=== PATIENT | female | born 1945 | race Caucasian/White ===

== ENCOUNTER 2016-10-21 11:54 | Inpatient (IN) | payer MEDICARE, OTHER ==
[2016-10-19 10:35] VITALS: BMI 25.8
[~2016-10-21 11:54] MED LIST: LACTATED RINGERS 1,000 ML IV SCH; Pre Op ABX Message 1 EACH MISC MISCELLANE ONE
[2016-10-21] MEDS ORDERED: BUPIVACAINE LIPOSOME/PF 1.3% 20 ML, SODIUM CHLORIDE 0.9% 10 ML MISCELLANE ONE ×2 (12:35)
[2016-10-21 12:43] LABS: Glucose,Whole Blood 103 mg/dL (75-99)
[2016-10-21] MEDS ORDERED: LIDOCAINE 1% 20 ML VIAL (10MG/ML) FOR IV START INTRADERMA ONE (12:44)
[2016-10-21] MEDS ORDERED: HYDROmorphone (PF) 1 MG/ML ONE (14:16)
[2016-10-21] MEDS ORDERED: ePHEDrine SULFATE/0.9% NACL/PF 50 MG/5 ML SYRINGE IV ONE (14:16)
[2016-10-21] MEDS ORDERED: LIDOCAINE 1% INJ 10MG/ML (20 ML MDV) ONE (14:16)
[2016-10-21] MEDS ORDERED: GLYCOPYRROLATE 0.2 MG/ML 2 ML VIAL ONE (14:16)
[2016-10-21] MEDS ORDERED: SUCCINYLCHOLINE CHLORIDE 100 MG/5 ML SYR IV ONE (14:16)
[2016-10-21] MEDS ORDERED: PHENYLEPHRINE-0.9% NACL SYG 1 MG/10 ML SYRINGE ONE (14:16)
[2016-10-21] MEDS ORDERED: NEOSTIGMINE 1 MG/ML 10 ML VIAL ONE (14:16)
[2016-10-21] MEDS ORDERED: ROCURONIUM BROMIDE 10 MG/ML 10 ML VIAL IV ONE (14:16)
[2016-10-21] MEDS ORDERED: MIDAZOLAM 2 MG/2 ML VIAL ONE (14:16)
[2016-10-21] MEDS ORDERED: fentaNYL (PF) 50 MCG/ML 2 ML AMP ONE (14:16)
[2016-10-21] MEDS ORDERED: PROPOFOL 10 MG/ML 20 ML VIAL IV ONE (14:16)
[2016-10-21] MEDS ORDERED: ceFAZolin 2 GM in SODIUM CHLORIDE 0.9% 100 ML IVPB ONE (14:38)
[2016-10-21] MEDS ORDERED: metroNIDAZOLE-NS PMX 500 MG in SALINE 1 100ML.BAG IVPB STA (14:38)
--- NOTE | 2016-10-21 15:14 | XR ---
EXAMINATION TYPE: XR chest 1V portable, XR abdomen 1V DATE OF EXAM: 10/21/2016 COMPARISON: NONE HISTORY: Concern for pneumoperitoneum. Status post colonoscopy. TECHNIQUE: Single frontal view of the chest is obtained. Single view of the abdomen was also obtained in upright position. FINDINGS: CHEST: There is a large degree of pneumoperitoneum. Endotracheal tube is located at the level aortic arch, appropriately placed approximately 3 cm from the frank. Bibasilar subsegmental atelectasis and trace left pleural effusion are noted. Cardia mediastinal silhouette is partially obscured but appea rs within normal limits. ABDOMEN: A large degree of pneumoperitoneum is demonstrated. Bowel gas pattern is nonobstructive. Deg enerative changes of the visualized thoracic spine are noted. Lower abdomen is not imaged. Findings were related to the ordering physician Dr. Reed in the OR at 1509 on 10/21/[address] Ree contreras. IMPRESSION: 1. Large degree of pneumoperitoneum. 2. Endotracheal tube, appropriately placed. 3. Bibasilar atelectasis and trace left pleural effusion.
[2016-10-21] MEDS ORDERED: BUPIVACAIN-EPI 0.25%-1:200,000 30 ML VIAL SQ ONE (15:19)
[2016-10-21] MEDS ORDERED: LACTATED RINGERS 1,000 ML IV ONE ×3 (15:22→18:02)
[2016-10-21] MEDS ORDERED: METOCLOPRAMIDE 5 MG/ML 2 ML VIAL IVP PRN (16:49)
--- NOTE | 2016-10-21 16:53 | P.OP ---
Date of Procedure: 10/21/16 Preoperative Diagnosis: Lower abdominal pain, bleeding and discomfort in the perirectal area Postoperative Diagnosis: Sigmoid colon perforation. Severe adhesions between sigmoid colon and fallopian tubes Procedure(s) Performed: Flexible sigmoidoscopy Diagnostic laparoscopy Repair of sigmoid colon perforation Implants: Anesthesia: JARRET Surgeon: Norma Reed Foam Caster #1: Rachel Strickland Pathology: none sent Condition: stable Disposition: PACU Indications for Procedure: 70 years old female presents with lower abdominal pain, rectal fullness and bleeding. Informed consent obtained and she elected to undergo colonoscopy and exam under anesthesia in the operating room. Operative Findings: The colonoscope was inserted up to 20 cm and opening was noticed with visualization of the pericolonic fat. The procedure was abandoned. Chest x- ray ordered stat and free intra-abdominal air seen which confirmed hollow viscus perforation. Since patient was already intubated, I discussed with her regarding immediate diagnostic laparoscopy, possible laparotomy with repair of colon perforation, possible ostomy and all indicated procedures Description of Procedure: The patient was brought to the operating room and intubated and placed in lateral decubitus position. Perianal examination showed friable perianal mucosa. Digital rectal examination did not show any gross blood. A well- lubricated colonoscope was then inserted per rectally and was gradually advanced up to 20 cm. There was no undue pressure applied however I could visualize pericolonic fat and hence concern for colon perforation. The procedure was aborted and chest x-ray was performed which confirmed free intra- abdominal air. The patient was then turned supine and placed in lithotomy position using yellowfin stirrups. A Mendoza catheter was inserted under sterile aseptic precautions. Cortex was used to prep the abdomen followed by application of sterile drapes. A 5 mm skin incision was made in the left subcostal area and Veress needle inserted. A 5 mm 30 scope was used to enter the peritoneal cavity. Additional 5 mm trocar was placed in the right lower quadrant. There were adhesions between sigmoid colon and anterior abdominal wall along the lines of prior hysterectomy. There was minimal amount of blood noted in the pelvis . The area of perforation could not be completely visualized hence decision was made to convert into open. A vertical midline incision was made from umbilicus up to the pubic symphysis this was extended deep to the subcutis tissue and the fascia was opened. A [place] retractor was placed. The lateral and anterior adhesions between the sigmoid colon and peritoneum was taken down using Bovie electrocautery. Just above the rectosigmoid junction there was extensive scarring between fallopian tube remnant and sigmoid colon. There was 1 cm perforation located anteriorly. This perforation was primarily closed in 2 layers using interrupted sutures of 3-0 silk. There was minimal contamination. The colon was clamped proximal to the closure. A repeat flexible sigmoidoscopy was performed. The repair site was intact and scope easily passed across it. Leak test was negative. The abdominal cavity was then washed with normal saline. The fascia was closed in midline using single stranded PDS. Subcutis tissue was closed with 3-0 Vicryl. Followed by 4-0 Monocryl. Pervena wound VAC was then applied. The prior trocar sites were closed with interrupted sutures of 4-0 Monocryl. Dermabond skin glue applied. Patient tolerated procedure well. The sponge, instrument and needle count were correct 2
[2016-10-21] MEDS ORDERED: HYDROmorphone 1 MG/ML 1 ML SYRINGE IVP ONE ×4 (17:18→17:37)
[2016-10-21 17:37] LABS: Glucose,Whole Blood 120 mg/dL (75-99)
[2016-10-21] MEDS: LACTATED RINGERS 1,000 ML IV SCH (21:26)
[2016-10-21] MEDS: ACETAMINOPHEN IV (For NPO) 1,000 MG in EMPTY BAG 1 BAG IVPB SCH (22:07)
[2016-10-21] MEDS: ALVIMOPAN 12 MG CAPSULE PO SCH (22:52)
[2016-10-21] MEDS: FAMOTIDINE 20 MG/2 ML VIAL IV SCH (22:52)
[2016-10-21] MEDS: HEPARIN SODIUM,PORCINE 5,000 UNIT/ML 1 ML VIAL SQ SCH (22:52)
[2016-10-21] MEDS: PIPERACILLIN-TAZOBACTAM 3.375 GM in DEXTROSE/WATER 1 50ML.BAG IVPB SCH (23:52)
[2016-10-22] MEDS: ACETAMINOPHEN IV (For NPO) 1,000 MG in EMPTY BAG 1 BAG IVPB SCH ×3 (00:03→13:03)
[2016-10-22] MEDS: LACTATED RINGERS 1,000 ML IV SCH ×3 (00:03→17:57)
[2016-10-22] MEDS: ONDANSETRON 4 MG/2 ML VIAL IVP PRN ×2 (00:10→21:20)
[2016-10-22] MEDS: HYDROmorphone 1 MG/ML 1 ML SYRINGE IVP PRN ×6 (04:42→20:18)
[2016-10-22 07:57] LABS: Basophils % (A) 0 %; CH 30.9; CHCM 33.4; Eosinophils # (A) 0.1 k/uL (0-0.7); Eosinophils % (A) 0 %; HDW 2.26; Luc % (Auto) 1; Lymphocytes # (A) 2.2 k/uL (1.0-4.8); Lymphocytes % (A) 13 %; MCH 30.3 pg (25.0-35.0); MCHC 32.6 g/dL (31.0-37.0); Monocytes # (A) 0.6 k/uL (0-1.0); Monocytes % (A) 3 %; Neutrophils # (A) 14.3 k/uL (1.3-7.7); Neutrophils % (A) 83 %; RBC 3.98 m/uL (3.80-5.40); RDW 14.2 % (11.5-15.5); WBC 17.3 k/uL (3.8-10.6)
[2016-10-22 08:05] LABS: Anion Gap 8 mmol/L; Blood Urea Nitrogen 8 mg/dL (7-17); Calcium 8.4 mg/dL (8.4-10.2); Carbon Dioxide 25 mmol/L (22-30); Chloride 102 mmol/L (98-107); Glucose 137 mg/dL (74-99); Non-African American GFR(MDRD) >60 (>60 ml/min/1.73 sqM); Potassium 3.9 mmol/L (3.5-5.1); Sodium 135 mmol/L (137-145)
[2016-10-22] MEDS: PIPERACILLIN-TAZOBACTAM 3.375 GM in DEXTROSE/WATER 1 50ML.BAG IVPB SCH ×3 (08:55→23:29)
[2016-10-22] MEDS: metFORMIN 500 MG TAB PO SCH ×2 (09:09→20:18)
[2016-10-22] MEDS: LEVOTHYROXINE 50 MCG TAB PO SCH (09:10)
[2016-10-22] MEDS: FAMOTIDINE 20 MG/2 ML VIAL IV SCH ×2 (09:11→20:38)
[2016-10-22] MEDS: HEPARIN SODIUM,PORCINE 5,000 UNIT/ML 1 ML VIAL SQ SCH ×3 (09:11→23:29)
[2016-10-22] MEDS: ALVIMOPAN 12 MG CAPSULE PO SCH ×2 (09:12→20:18)
[2016-10-22 09:14] LABS: Glucose,Whole Blood 215 mg/dL (75-99)
[2016-10-22 11:44] LABS: Hemoglobin A1C 7.6 % (4.2-6.1)
[2016-10-22 12:08] LABS: Glucose,Whole Blood 153 mg/dL (75-99)
--- NOTE | 2016-10-22 13:24 | P.CONS ---
History of Present Illness - Reason for Consult Consult date: 10/22/16 Medical management Requesting physician: Norma Reed - Chief Complaint Abdominal pain - History of Present Illness Consultation: This very pleasant 70-year-old patient of Dr. Lopez who's been having abdominal pain on and off for quite some time intermittent rectal pain eventually decided to come and see her PCP and had a scheduled colonoscopy by Dr. Reed yesterday. During the procedure patient was discovered to have a sigmoid perforation and patient landed up having surgery with repair of the same. Some pain is present at the operative site. Slight nausea. Patient chronic stable medical conditions include diabetes, hypertension, hypothyroid, osteoarthritis of the knees and elbow, GERD. GEN.: Tired EYES: None HEENT: Hard of hearing NECK: None RESPIRATORY: None CARDIOVASCULAR: None GASTROINTESTINAL: As above GENITOURINARY: None MUSCULOSKELETAL: As above LYMPHATICS: None HEMATOLOGICAL: None PSYCHIATRY: None NEUROLOGICAL: None Past medical history: Stroke with no residue up, and diabetes mellitus type 2, hypertension, hypothyroid, osteoarthritis of knees and elbows, GERD Past surgical history: Hysterectomy, left knee arthroscopy, ORIF of ankle with plate and screws, bilateral cataract Social history: Smokes half a pack a day for about 27 years stopping 2001, , alcohol none Family history: Reviewed, noncontributory to presentation Home medications reviewed in the computer ALLERGIES to nickel and rubber VITAL SIGNS: 97.4, 79, 18, 98/41, 96% 2 L GENERAL: [Average built, laying in bed, not in distress. EYES: Pupils equal. Conjunctiva normal. HEENT: External appearance of nose and ears normal, oral cavity grossly normal decreased hearing. NECK: JVD not raised; masses not palpable. HEART: First and second heart sounds are normal; no edema. LUNGS: Respiratory rate normal; clear to auscultation. ABDOMEN: Soft, tender, liver spleen not palpable, no masses palpable dressing over the incision site with a wound VAC. LYMPHATICS: No lymph nodes palpable in the axilla and neck. PSYCH: Alert and oriented x3; mood and affect normal. NEUROLOGICAL: Cranial nerves grossly intact; no facial asymmetry, power and sensation grossly intact. Investigations: White count 17.3, hemoglobin 12, potassium 3.9 X-ray of the abdomen and chest had shown large pneumoperitoneum and bibasilar atelectasis Assessment: -Sigmoid colon perforation with surgical repair acute -Diabetes mellitus type 2 on oral hypoglycemic -Essential hypertension -Hypothyroidism -Primary osteoarthritis of the knees -Chronic GERD -Hard of hearing Plan: Patient is on by mouth intake IV Pepcid and subcu heparin IV fluids in the form of lactated Ringer's also on IV Zosyn. Accu-Cheks will be followed. Care was discussed with the patient and her friend DD at the bedside questions were answered. Thank you Dr. Reed Past Medical History Past Medical History: CVA/TIA, Diabetes Mellitus, Hypertension, Thyroid Disorder Additional Past Medical History / Comment(s): Having some rectal bleeding, states cva over 20yrs ago, no residual effects History of Any Multi-Drug Resistant Organisms: None Reported Past Surgical History: Hysterectomy, Orthopedic Surgery Additional Past Surgical History / Comment(s): left knee arthroscopy, orif ankle with plate and screws now removed, uri cataracts Past Anesthesia/Blood Transfusion Reactions: No Reported Reaction Past Psychological History: No Psychological Hx Reported Smoking Status: Former smoker Past Alcohol Use History: None Reported Additional Past Alcohol Use History / Comment(s): quit smoking approx 2001, smoked 1/2 ppd from age [age] Past Drug Use History: None Reported - Past Family History Mother Family Medical History: No Reported History Medications and Allergies Home Medications Medication Instructions Recorded Confirmed Type Dulaglutide [Trulicity] 1.5 mg SQ MO 10/19/16 10/21/16 History Enalapril [Vasotec] 2.5 mg PO HS 10/19/16 10/21/16 History Levothyroxine Sodium [Synthroid] 50 mcg PO QAM 10/19/16 10/21/16 History metFORMIN HCL [Glucophage] 1,000 mg PO BID 10/19/16 10/21/16 History Allergies Allergy/AdvReac Type Severity Reaction Status Date / Time nickel Allergy Swelling/hi Verified 10/21/16 12:31 ves rubber Allergy Swelling Uncoded 10/21/16 12:31 Results CBC & Chem 7: 10/22/16 07:35 10/22/16 07:35
--- NOTE | 2016-10-22 14:20 | P.PN ---
Subjective 70-year-old female being seen on rounds this morning patient's pleasant talkative sitting up in bed. Wound VAC in place. Patient states since the Mendoza catheter has been removed has not urinated. No stool is not passing gas Patient is postop on October 21 diagnostic laparoscopic appendectomy and a repair of a sigmoid colon perforation. Patient presented on the day of admission to undergo an elective colonoscopy for workup of lower abdominal pain rectal bleeding and discomfort in the perirectal area Objective - Vital Signs Vital signs: Vital Signs Temp 97.4 F L 10/22/16 07:00 Pulse 79 10/22/16 07:00 Resp 18 10/22/16 07:00 BP 98/41 10/22/16 07:00 Pulse Ox 92 L 10/22/16 10:20 Intake & Output 10/21/16 10/22/16 10/22/16 18:59 06:59 18:59 Intake Total 3200 Output Total 790 800 Balance 2410 -800 Weight 72.575 kg Intake: IV 3200 Output: Urine 750 800 Estimated Blood Loss 40 Other: # Voids 1 - Exam Physical exam a 70-year-old female sitting up in bed visit at bedside talkative pleasant cooperative states no nausea and states pain medication is effective Lungs essentially clear adequate air movement on room air Heart S1-S2 audible and regular Abdomen was back to the surgical site dry soft not distended bowel tones present no reports of nausea vomiting no stool states is not passing gas Extremities Venodyne's on to the bilateral lower extremities - Labs CBC & Chem 7: 10/22/16 07:35 10/22/16 07:35 Labs: Abnormal Lab Results - Last 24 Hours (Table) 10/21/16 10/21/16 10/22/16 Range/Units 12:37 17:35 07:35 WBC 17.3 H (3.8-10.6) k/uL Neutrophils # 14.3 H (1.3-7.7) k/uL Sodium (137-145) mmol/L Glucose (74-99) mg/dL POC Glucose (mg/dL) 103 H 120 H (75-99) mg/dL 10/22/16 10/22/16 Range/Units 07:35 09:12 WBC (3.8-10.6) k/uL Neutrophils # (1.3-7.7) k/uL Sodium 135 L (137-145) mmol/L Glucose 137 H (74-99) mg/dL POC Glucose (mg/dL) 215 H (75-99) mg/dL Assessment and Plan Plan: Impression Present on admission chronic lower abdominal pain intermittent episodes of rectal bleeding with discomfort in the perirectal area suspect due to a sigmoid colon perforation Status post flexible sigmoidoscopy diagnostic laparoscopy and repair of a sigmoid colon perforation done on October 21 Attempted colonoscopy procedure aborted due to hollow vicus perforation Essential hypertension Plan increase activity Pain control Clear liquid diet advance as tolerated Continue postop surgical care continue wound VAC as ordered Anticipate discharge within the next 24 hours if patient remains medically stable DVT and GI prophylaxis The above impression and plan of care have been discussed and directed by signing physician. Talita Stone nurse practitioner acting as scribe for signing physician.
[2016-10-22] MEDS: HYDROcodone/APAP 5-325MG 1 EACH TAB PO PRN ×2 (15:14→18:36)
[2016-10-22 16:57] LABS: Glucose,Whole Blood 150 mg/dL (75-99)
[2016-10-22] MEDS: LISINOPRIL 5 MG TAB PO SCH (20:21)
[2016-10-22 21:00] LABS: Glucose,Whole Blood 200 mg/dL (75-99)
[2016-10-23] MEDS: LACTATED RINGERS 1,000 ML IV SCH ×3 (02:08→18:09)
[2016-10-23] MEDS: HYDROmorphone 1 MG/ML 1 ML SYRINGE IVP PRN ×2 (04:28→09:37)
[2016-10-23] MEDS: LEVOTHYROXINE 50 MCG TAB PO SCH (05:55)
[2016-10-23 07:25] LABS: Glucose,Whole Blood 126 mg/dL (75-99)
[2016-10-23] MEDS: PIPERACILLIN-TAZOBACTAM 3.375 GM in DEXTROSE/WATER 1 50ML.BAG IVPB SCH ×3 (08:42→23:48)
[2016-10-23] MEDS: HEPARIN SODIUM,PORCINE 5,000 UNIT/ML 1 ML VIAL SQ SCH ×3 (08:42→23:48)
[2016-10-23] MEDS: FAMOTIDINE 20 MG/2 ML VIAL IV SCH ×2 (08:42→21:57)
[2016-10-23] MEDS: metFORMIN 500 MG TAB PO SCH ×2 (08:42→21:57)
[2016-10-23] MEDS: ALVIMOPAN 12 MG CAPSULE PO SCH ×2 (08:43→21:57)
[2016-10-23 08:44] LABS: Basophils # (A) 0.1 k/uL (0-0.2); Basophils % (A) 0 %; CH 30.6; CHCM 32.3; Eosinophils # (A) 0.2 k/uL (0-0.7); Eosinophils % (A) 2 %; HCT 36.5 % (34.0-46.0); HGB 11.7 gm/dL (11.4-16.0); Luc # (Auto) 0.19; Luc % (Auto) 1; Lymphocytes # (A) 2.2 k/uL (1.0-4.8); Lymphocytes % (A) 15 %; MCH 30.5 pg (25.0-35.0); MCV 95.4 fL (80.0-100.0); Mean Platelet Volume 8.4; Monocytes # (A) 0.4 k/uL (0-1.0); Monocytes % (A) 3 %; Neutrophils # (A) 11.5 k/uL (1.3-7.7); Neutrophils % (A) 79 %; RBC 3.83 m/uL (3.80-5.40); RDW 14.1 % (11.5-15.5); WBC 14.5 k/uL (3.8-10.6)
[2016-10-23 09:10] LABS: ALT 109 U/L (9-52); AST 98 U/L (14-36); Alkaline Phosphatase 59 U/L (38-126); Anion Gap 7 mmol/L; Blood Urea Nitrogen 5 mg/dL (7-17); Calcium 8.5 mg/dL (8.4-10.2); Carbon Dioxide 28 mmol/L (22-30); Chloride 101 mmol/L (98-107); Glucose 122 mg/dL (74-99); Non-African American GFR(MDRD) >60 (>60 ml/min/1.73 sqM); Potassium 3.7 mmol/L (3.5-5.1); Sodium 136 mmol/L (137-145); Total Bilirubin 1.2 mg/dL (0.2-1.3); Total Protein 5.8 g/dL (6.3-8.2)
[2016-10-23] MEDS ORDERED: HYDROmorphone 1 MG/ML 1 ML SYRINGE IVP PRN (10:47)
--- NOTE | 2016-10-23 11:05 | P.PN ---
Subjective 70-year-old female being seen on rounds. Patient currently is resting in bed. Patient states has not passed any gas no stool. Does report urinating with no difficulty. Patient reportedly had an episode last evening of developing crampy sharp abdominal discomfort. Currently this morning the discomfort has subsided pain medication effective for pain control. White count this morning 14.5. Labs were reviewed all within normal limits patient is afebrile temp this morning 98.6. Patient needs much encouragement to use the incentive spirometer. Objective - Vital Signs Vital signs: Vital Signs Temp 98.6 F 10/23/16 07:00 Pulse 79 10/23/16 07:00 Resp 16 10/23/16 07:00 BP 129/69 10/23/16 07:00 Pulse Ox 98 10/23/16 07:00 Intake & Output 10/22/16 10/23/16 10/23/16 18:59 06:59 18:59 Other: Voiding Method Bedside Commode # Voids 1 3 - Exam Physical exam 70-year-old female resting in bed just received IV pain medication pleasant talkative oriented 3 Lungs essentially clear currently on room air after using the incentive spirometer pulse ox sat 95% no cough Heart S1-S2 audible and regular denying chest pain Abdomen abdominal binder removed wound VAC to surgical site intact dressing to abdominal surgical site dry. Soft not distended slight surgical tenderness bowel tones present 4 no nausea no vomiting Extremities no edema noted to the bilateral lower extremities - Labs CBC & Chem 7: 10/23/16 08:03 10/23/16 08:03 Labs: Abnormal Lab Results - Last 24 Hours (Table) 10/22/16 10/22/16 10/22/16 Range/Units 07:35 12:06 16:49 WBC (3.8-10.6) k/uL Neutrophils # (1.3-7.7) k/uL Sodium (137-145) mmol/L BUN (7-17) mg/dL Glucose (74-99) mg/dL POC Glucose (mg/dL) 153 H 150 H (75-99) mg/dL Hemoglobin A1c 7.6 H (4.2-6.1) % AST (14-36) U/L ALT (9-52) U/L Total Protein (6.3-8.2) g/dL Albumin (3.5-5.0) g/dL 10/22/16 10/23/16 10/23/16 Range/Units 20:46 07:22 08:03 WBC 14.5 H (3.8-10.6) k/uL Neutrophils # 11.5 H (1.3-7.7) k/uL Sodium (137-145) mmol/L BUN (7-17) mg/dL Glucose (74-99) mg/dL POC Glucose (mg/dL) 200 H 126 H (75-99) mg/dL Hemoglobin A1c (4.2-6.1) % AST (14-36) U/L ALT (9-52) U/L Total Protein (6.3-8.2) g/dL Albumin (3.5-5.0) g/dL 10/23/16 Range/Units 08:03 WBC (3.8-10.6) k/uL Neutrophils # (1.3-7.7) k/uL Sodium 136 L (137-145) mmol/L BUN 5 L (7-17) mg/dL Glucose 122 H (74-99) mg/dL POC Glucose (mg/dL) (75-99) mg/dL Hemoglobin A1c (4.2-6.1) % AST 98 H (14-36) U/L ALT 109 H (9-52) U/L Total Protein 5.8 L (6.3-8.2) g/dL Albumin 3.1 L (3.5-5.0) g/dL Assessment and Plan Plan: Impression Present on admission chronic lower abdominal pain intermittent episodes of rectal bleeding with discomfort in the perirectal area suspect due to a sigmoid colon perforation Status post flexible sigmoidoscopy diagnostic laparoscopy and repair of a sigmoid colon perforation done on October 21 Attempted colonoscopy procedure aborted due to hollow vicus perforation Essential hypertension Plan increase activity Pain control Clear liquid diet advance as tolerated Continue postop surgical care continue wound VAC as ordered Anticipate discharge once patient is passing gas rectally tolerating diet DVT and GI prophylaxis Encourage patient to ambulate in the hallway Toradol 15 mg IV every 6 hours [id number] Decrease IV dilaudid to every 6 hours when necessary severe pain encourage [place] as ordered Repeat labs in the morning The above impression and plan of care have been discussed and directed by signing physician. Talita Stone nurse practitioner acting as scribe for signing physician.
[2016-10-23] MEDS ORDERED: ACETAMINOPHEN IV (For NPO) 1,000 MG in EMPTY BAG 1 BAG IVPB ONE (11:15)
[2016-10-23 12:33] LABS: Glucose,Whole Blood 178 mg/dL (75-99)
[2016-10-23] MEDS: KETOROLAC 30 MG/ML 1 ML VIAL IVP SCH ×3 (12:58→19:32)
--- NOTE | 2016-10-23 17:15 | P.PN ---
<Margoth Bazzi - Last Filed: 10/23/16 17:02> Progress Note - Text DATE OF SERVICE: 10/23/2016 PRESENTING COMPLAINT: Abdominal and rectal pain. INTERVAL HISTORY: 70-year-old female who presented with intermittent rectal abdominal pain with scheduled for colonoscopy and during the course the procedure was discovered to have a sigmoid perforation, surgical intervention performed at that time. Status post sigmoid colon perforation repair diagnostic laparoscopy flexible sigmoidoscopy. 10/23/2016: Patient is seen in follow-up, postop day 2 from above listed procedure, patient sitting up in the chair does complain of some abdominal pain but it's "not bad" . On a full liquid diet tolerating it well, passing some gas. Wound VAC was removed by surgical services as it was malfunctioning. REVIEW OF SYSTEMS: Done for constitutional ,cardiovascular, GI, pulmonary with relevant findings as above. CURRENT MEDICATIONS [place], heparin, Dilaudid, Toradol, Synthroid, lisinopril, Zosyn. PHYSICAL EXAM VITAL SIGNS: Temperature 98.6, pulse 79, respiratory rate 16, blood pressure 129/69, oxygen saturation 98% on 3 L nasal cannula. GENERAL APPEARANCE: Sitting in the chair at the bedside, not in distress. EYES: Pupils equal. Conjunctiva normal. NECK: JVD not raised. Mass not palpable. RESPIRATORY: Respiratory effort normal. Lungs diminished to auscultation. CARDIOVASCULAR: First and second sounds normal. No edema. ABDOMEN: Soft. Liver and spleen not palpable. Tender to palpation midline incision covered with a dry dressing no drains noted. No mass palpable. PSYCHIATRY: Alert and oriented x3. Mood and affect normal. INVESTIGATIONS: White blood cell count 14.5, sodium 136, BUN 5, creatinine 0.55, Accu-Cheks noted. AST 98, ALT 109, alkaline phosphatase 59, albumin 3.1. ASSESSMENT: -Sigmoid colon perforation with surgical repair acute -Leukocytosis as an acute phase reactant secondary to surgery -Diabetes mellitus type 2 on oral hypoglycemic -Essential hypertension -Hypothyroidism -Primary osteoarthritis of the knees -Chronic GERD -Hard of hearing PLAN: Continue current medication and treatment plan, follow Accu-Cheks. Encourage incentive spirometry use and ambulation. Plan of care discussed with family and patient and friend at the bedside questions answered. We'll follow closely MAINTAINER OPERATOR statement: Patient was seen and examined by nurse practitioner Margoth Bazzi and all elements of the case discussed with attending Dr. Mendoza <Medardo Mendoza - Last Filed: 10/24/16 12:14> Progress Note - Text Attending note. Date of service-10/23/2016 This patient was seen and examined by me . Discussed the patient with my nurse practitioner Ms. Bazzi. Feeling better. Has been up in the hallway. On a liquid diet. Passed flatus. Wound VAC removed. Family at bedside On examination: Abdomen-tender, soft, bowel sounds present, dressing present, lungs-clear, cardiovascular first seconds are normal Investigations: White count 14.5 Assessment and plan: Sigmoid colon perforation with surgical repair, clinically healing better. Care discussed with patient and family the bedside. Diet to be advanced per surgery. On IV Zosyn
[2016-10-23 17:18] LABS: Glucose,Whole Blood 160 mg/dL (75-99)
[2016-10-23 21:18] LABS: Glucose,Whole Blood 145 mg/dL (75-99)
[2016-10-23] MEDS: LISINOPRIL 5 MG TAB PO SCH (21:56)
[2016-10-24] MEDS: LACTATED RINGERS 1,000 ML IV SCH ×2 (02:23→05:28)
[2016-10-24] MEDS: LEVOTHYROXINE 50 MCG TAB PO SCH (05:29)
[2016-10-24] MEDS: KETOROLAC 30 MG/ML 1 ML VIAL IVP SCH ×5 (06:01→21:48)
[2016-10-24 07:45] LABS: Glucose,Whole Blood 139 mg/dL (75-99)
[2016-10-24 07:49] LABS: Basophils % (A) 0 %; CH 30.7; CHCM 32.9; Eosinophils # (A) 0.4 k/uL (0-0.7); Eosinophils % (A) 5 %; HCT 35.8 % (34.0-46.0); HDW 2.39; HGB 11.7 gm/dL (11.4-16.0); Luc # (Auto) 0.16; Luc % (Auto) 2; Lymphocytes # (A) 1.3 k/uL (1.0-4.8); Lymphocytes % (A) 17 %; MCH 30.8 pg (25.0-35.0); MCHC 32.7 g/dL (31.0-37.0); Mean Platelet Volume 8.2; Monocytes # (A) 0.3 k/uL (0-1.0); Monocytes % (A) 4 %; Neutrophils # (A) 5.1 k/uL (1.3-7.7); Neutrophils % (A) 71 %; RDW 14.2 % (11.5-15.5); WBC 7.2 k/uL (3.8-10.6); WBC (Perox) 7.66
[2016-10-24 08:03] LABS: ALT 91 U/L (9-52); AST 45 U/L (14-36); Alkaline Phosphatase 62 U/L (38-126); Anion Gap 7 mmol/L; Blood Urea Nitrogen 4 mg/dL (7-17); Calcium 8.4 mg/dL (8.4-10.2); Carbon Dioxide 27 mmol/L (22-30); Chloride 106 mmol/L (98-107); Glucose 141 mg/dL (74-99); Non-African American GFR(MDRD) >60 (>60 ml/min/1.73 sqM); Potassium 3.6 mmol/L (3.5-5.1); Sodium 140 mmol/L (137-145); Total Protein 5.7 g/dL (6.3-8.2)
[2016-10-24] MEDS: metFORMIN 500 MG TAB PO SCH ×2 (08:14→21:48)
[2016-10-24] MEDS: HEPARIN SODIUM,PORCINE 5,000 UNIT/ML 1 ML VIAL SQ SCH ×3 (08:14→23:46)
[2016-10-24] MEDS: PIPERACILLIN-TAZOBACTAM 3.375 GM in DEXTROSE/WATER 1 50ML.BAG IVPB SCH ×3 (08:14→23:46)
[2016-10-24] MEDS: FAMOTIDINE 20 MG/2 ML VIAL IV SCH ×2 (08:14→21:48)
[2016-10-24] MEDS: ALVIMOPAN 12 MG CAPSULE PO SCH ×2 (08:14→21:48)
[2016-10-24 12:19] LABS: Glucose,Whole Blood 140 mg/dL (75-99)
--- NOTE | 2016-10-24 14:00 | P.PN ---
<Margoth Bazzi - Last Filed: 10/24/16 13:55> Progress Note - Text DATE OF SERVICE: 10/24/2016 PRESENTING COMPLAINT: Abdominal and rectal pain. INTERVAL HISTORY: 70-year-old female who presented with intermittent rectal abdominal pain with scheduled for colonoscopy and during the course the procedure was discovered to have a sigmoid perforation, surgical intervention performed at that time. Status post sigmoid colon perforation repair diagnostic laparoscopy flexible sigmoidoscopy. 10/24/2016: Patient seen in follow-up postop day 3 from above listed procedure, lying in bed and complains of some abdominal pain, continue on a full liquid diet patient inquired regarding advancement, per surgery. Has had several bowel movements in the last 24 hours. Ambulatory in the hallway tolerating the liquid diet. 10/23/2016: Patient is seen in follow-up, postop day 2 from above listed procedure, patient sitting up in the chair does complain of some abdominal pain but it's "not bad" . On a full liquid diet tolerating it well, passing some gas. Wound VAC was removed by surgical services as it was malfunctioning. REVIEW OF SYSTEMS: Done for constitutional ,cardiovascular, GI, pulmonary with relevant findings as above. CURRENT MEDICATIONS [place], heparin, Dilaudid, Toradol, Synthroid, lisinopril, Zosyn. PHYSICAL EXAM VITAL SIGNS: Temperature 97.2, pulse 80, respiratory rate 18, blood pressure 136/75, oxygen saturation 98% on room air. GENERAL APPEARANCE: Lying in bed, not in distress. EYES: Pupils equal. Conjunctiva normal. NECK: JVD not raised. Mass not palpable. RESPIRATORY: Respiratory effort normal. Lungs diminished to auscultation. CARDIOVASCULAR: First and second sounds normal. No edema. ABDOMEN: Soft. Liver and spleen not palpable. Tender to palpation midline incision covered with a dry dressing no drains noted. No mass palpable. PSYCHIATRY: Alert and oriented x3. Mood and affect normal. INVESTIGATIONS: CBC unremarkable, AST 45, ALT 91, total protein 5.7, albumin 3.0. Accu-Cheks noted. ASSESSMENT: -Sigmoid colon perforation with surgical repair acute, clinically feeling better. -Leukocytosis as an acute phase reactant secondary to surgery -Diabetes mellitus type 2 on oral hypoglycemic -Essential hypertension -Hypothyroidism -Primary osteoarthritis of the knees -Chronic GERD -Hard of hearing PLAN: Continue current medication and treatment plan, follow Accu-Cheks. Encourage incentive spirometry use and ambulation. Surgery will advance diet as appropriate. Plan of care discussed with family and patient and friend at the bedside questions answered. We'll follow closely GROMMET WORKER statement: Patient was seen and examined by nurse practitioner Margoth Bazzi and all elements of the case discussed with attending Dr. Mendoza <Medardo Mendoza - Last Filed: 10/24/16 16:16> Progress Note - Text Attending note. Date of service-10/24/2016 This patient was seen and examined by me . Discussed the patient with my nurse practitioner Ms. Bazzi. Feeling better. Tolerating full liquids. Had bowel movement couple of times. Up in the hallway. Pain better controlled. On examination: Lungs-clear, abdomen- soft mild tenderness both on present Investigations: White count 7.2 Assessment and plan: Status post repair of sigmoid colon: Perforation clinically improving. Doing better. Diet being advanced per surgery. Care discussed with the patient. On IV Zosyn. Will DC LR
--- NOTE | 2016-10-24 14:09 | P.PN ---
Subjective Principal diagnosis: Colon perforation 70 years old female status post sigmoid colon perforation repair. She is passing flatus and having bowel movements. Intermittent incisional pain. Tolerating full liquids Objective - Vital Signs Vital signs: Vital Signs Temp 97.2 F L 10/24/16 07:00 Pulse 80 10/24/16 07:00 Resp 19 10/24/16 08:00 BP 136/75 10/24/16 07:00 Pulse Ox 98 10/24/16 07:00 Intake & Output 10/23/16 10/24/16 10/24/16 18:59 06:59 18:59 Intake Total 880 700 Output Total 8 Balance 880 692 Weight 72.575 kg Intake: Oral 880 700 Output: Stool 8 Other: Voiding Method Bedside Commode # Voids 4 2 # Bowel Movements 0 4 - Exam Incision is clean dry and intact. Using IS up to 1500 mL per breath - Labs CBC & Chem 7: 10/24/16 07:34 10/24/16 07:34 Labs: Abnormal Lab Results - Last 24 Hours (Table) 10/23/16 10/23/16 10/24/16 Range/Units 17:17 21:00 07:13 BUN (7-17) mg/dL Glucose (74-99) mg/dL POC Glucose (mg/dL) 160 H 145 H 139 H (75-99) mg/dL AST (14-36) U/L ALT (9-52) U/L Total Protein (6.3-8.2) g/dL Albumin (3.5-5.0) g/dL 10/24/16 10/24/16 Range/Units 07:34 11:58 BUN 4 L (7-17) mg/dL Glucose 141 H (74-99) mg/dL POC Glucose (mg/dL) 140 H (75-99) mg/dL AST 45 H (14-36) U/L ALT 91 H (9-52) U/L Total Protein 5.7 L (6.3-8.2) g/dL Albumin 3.0 L (3.5-5.0) g/dL Assessment and Plan (1) Colon perforation Status: Acute Plan: 1. Advance to soft diet 2. Discharge planning in a.m. tomorrow 3. Use incentive spirometry. 4. Oral pain medications with stool softeners
[2016-10-24 17:14] LABS: Glucose,Whole Blood 103 mg/dL (75-99)
[2016-10-24] MEDS: LISINOPRIL 5 MG TAB PO SCH (21:48)
[2016-10-24 23:46] LABS: Glucose,Whole Blood 166 mg/dL (75-99)
[2016-10-25 00:14] VITALS: RESP 20
[2016-10-25] MEDS: LEVOTHYROXINE 50 MCG TAB PO SCH (05:34)
[2016-10-25] MEDS: KETOROLAC 30 MG/ML 1 ML VIAL IVP SCH ×2 (05:35→12:08)
[2016-10-25 06:07] VITALS: BP 149/82; PULSE 69; TEMP 99
[2016-10-25 07:30] LABS: Glucose,Whole Blood 128 mg/dL (75-99)
[2016-10-25] MEDS: PIPERACILLIN-TAZOBACTAM 3.375 GM in DEXTROSE/WATER 1 50ML.BAG IVPB SCH (07:39)
[2016-10-25 07:56] LABS: Basophils % (A) 0 %; CH 30.6; CHCM 32.6; Eosinophils # (A) 0.5 k/uL (0-0.7); Eosinophils % (A) 6 %; HCT 30.8 % (34.0-46.0); HDW 2.54; HGB 10.2 gm/dL (11.4-16.0); Luc # (Auto) 0.22; Luc % (Auto) 3; Lymphocytes # (A) 1.4 k/uL (1.0-4.8); Lymphocytes % (A) 17 %; MCH 31.1 pg (25.0-35.0); MCV 94.3 fL (80.0-100.0); Mean Platelet Volume 8.3; Monocytes # (A) 0.4 k/uL (0-1.0); Monocytes % (A) 5 %; Neutrophils # (A) 6.1 k/uL (1.3-7.7); Neutrophils % (A) 70 %; RBC 3.27 m/uL (3.80-5.40); RDW 14.2 % (11.5-15.5); WBC 8.7 k/uL (3.8-10.6)
[2016-10-25] MEDS: HEPARIN SODIUM,PORCINE 5,000 UNIT/ML 1 ML VIAL SQ SCH (08:09)
[2016-10-25 08:16] LABS: ALT 67 U/L (9-52); AST 27 U/L (14-36); Alkaline Phosphatase 59 U/L (38-126); Anion Gap 6 mmol/L; Blood Urea Nitrogen 4 mg/dL (7-17); Calcium 8.2 mg/dL (8.4-10.2); Carbon Dioxide 28 mmol/L (22-30); Chloride 107 mmol/L (98-107); Glucose 121 mg/dL (74-99); Non-African American GFR(MDRD) >60 (>60 ml/min/1.73 sqM); Potassium 3.5 mmol/L (3.5-5.1); Sodium 141 mmol/L (137-145); Total Bilirubin 0.5 mg/dL (0.2-1.3); Total Protein 5.1 g/dL (6.3-8.2)
[2016-10-25] MEDS: metFORMIN 500 MG TAB PO SCH (08:55)
[2016-10-25] MEDS: ALVIMOPAN 12 MG CAPSULE PO SCH (08:56)
[2016-10-25] MEDS: FAMOTIDINE 20 MG/2 ML VIAL IV SCH (08:56)
[2016-10-25 12:41] LABS: Glucose,Whole Blood 115 mg/dL (75-99)
--- NOTE | 2016-10-25 12:42 | P.DS ---
Providers Date of admission: 10/21/16 16:54 Expected date of discharge: 10/25/16 Attending physician: Norma Reed Consults: 10/21/16 16:55 Consult Physician Routine Consulting Provider: Medardo Mendoza Consult Reason/Comments: medical mangement Do you want consulting provider notified?: Yes Primary care physician: Miguel Lopez - Discharge Diagnosis(es) (1) Colon perforation Current Visit: Yes Status: Acute Hospital Course: 70 years old female presented with chronic lower abdominal pain with rectal bleeding and discomfort. Colonoscopy procedure was aborted secondary to perforation in the sigmoid colon. She was immediately taken for exploratory laparotomy with repair of the sigmoid colon perforation and lysis of adhesions. Patient since has done remarkably well. Pain is well controlled. She had bowel movement. She is tolerating regular diet. Using incentive spirometry only up to 1200 mL per breath. Procedures: Exploratory laparotomy, repair of sigmoid colon perforation and lysis of adhesions Patient Condition at Discharge: Fair Plan - Discharge Summary New Discharge Prescriptions: New Docusate [Colace] 100 mg PO BID #30 capsule HYDROcodone/APAP 7.5-325MG [[place] 7.5-325] 1 each PO Q4H PRN #20 tab PRN Reason: Pain No Action metFORMIN HCL [Glucophage] 1,000 mg PO BID Levothyroxine Sodium [Synthroid] 50 mcg PO QAM Enalapril [Vasotec] 2.5 mg PO HS Dulaglutide [Trulicity] 1.5 mg SQ MO Discharge Medication List Dulaglutide [Trulicity] 1.5 mg SQ MO 10/19/16 [History] Enalapril [Vasotec] 2.5 mg PO HS 10/19/16 [History] Levothyroxine Sodium [Synthroid] 50 mcg PO QAM 10/19/16 [History] metFORMIN HCL [Glucophage] 1,000 mg PO BID 10/19/16 [History] Docusate [Colace] 100 mg PO BID #30 capsule 10/24/16 [Rx] HYDROcodone/APAP 7.5-325MG [[place] 7.5-325] 1 each PO Q4H PRN #20 tab 10/24/16 [ Rx] Follow up Appointment(s)/Referral(s): Norma Reed MD [STAFF PHYSICIAN] - 11/03/16 Activity/Diet/Wound Care/Special Instructions: OK to shower . No soaking bath. No heavy lifting more than 10 lbs for 6 weeks post surgery. No driving while taking narcotics for pain. May use ice packs for local pain relief Take Motrin 400 mg po TID after meals if pain is not controlled Use incentive spirometry 10 times an hour while awake Discharge Disposition: HOME SELF-CARE
--- NOTE | 2016-10-25 18:15 | P.PN ---
<Margoth Bazzi - Last Filed: 10/25/16 18:06> Progress Note - Text DATE OF SERVICE: 10/25/2016 PRESENTING COMPLAINT: Abdominal and rectal pain. History of present illness: 70-year-old female who presented with intermittent rectal abdominal pain with scheduled for colonoscopy and during the course the procedure was discovered to have a sigmoid perforation, surgical intervention performed at that time. Status post sigmoid colon perforation repair diagnostic laparoscopy flexible sigmoidoscopy. INTERVAL HISTORY: 10/25/2016: Postop day 4 from above listed procedure, sitting up on the bed eating her breakfast, and continues on a soft diet still has some abdominal tenderness but is much improved. Tolerating her diet eating 75%, ambulatory in the hallways. Last BM 10/25/2016. Patient is anxious to go home. 10/24/2016: Patient seen in follow-up postop day 3 from above listed procedure, lying in bed and complains of some abdominal pain, continue on a full liquid diet patient inquired regarding advancement, per surgery. Has had several bowel movements in the last 24 hours. Ambulatory in the hallway tolerating the liquid diet. 10/23/2016: Patient is seen in follow-up, postop day 2 from above listed procedure, patient sitting up in the chair does complain of some abdominal pain but it's "not bad" . On a full liquid diet tolerating it well, passing some gas. Wound VAC was removed by surgical services as it was malfunctioning. REVIEW OF SYSTEMS: Done for constitutional ,cardiovascular, GI, pulmonary with relevant findings as above. CURRENT MEDICATIONS [place], Dilaudid, Toradol, Synthroid, lisinopril, Zosyn. PHYSICAL EXAM VITAL SIGNS: Temperature 99.0, pulse 69, respiratory rate 20, blood pressure 149/82, oxygen saturation 97% on 2 L. GENERAL APPEARANCE: Sitting up on the bed, not in distress. EYES: Pupils equal. Conjunctiva normal. NECK: JVD not raised. Mass not palpable. RESPIRATORY: Respiratory effort normal. Lungs diminished to auscultation. CARDIOVASCULAR: First and second sounds normal. No edema. ABDOMEN: Soft. Liver and spleen not palpable. Tender to palpation midline incision covered with a dry dressing no drains noted. No mass palpable. PSYCHIATRY: Alert and oriented x3. Mood and affect normal. INVESTIGATIONS: Hemoglobin 10.2, BUN 4, Accu-Cheks noted. ASSESSMENT: -Status post repair sigmoid colon clinically feeling better. -Leukocytosis as an acute phase reactant secondary to surgery -Diabetes mellitus type 2 on oral hypoglycemic -Essential hypertension -Hypothyroidism -Primary osteoarthritis of the knees -Chronic GERD -Hard of hearing PLAN: Continue current medication and treatment plan. Surgery advancing diet. Expecting to discharge home today per surgical services. Plan of care discussed with family and patient and friend at the bedside questions answered. CAR CHECKER statement: Patient was seen and examined by nurse practitioner Margoth Bazzi and all elements of the case discussed with attending Dr. Mendoza <Medardo Mendoza - Last Filed: 10/25/16 21:56> Progress Note - Text Attending note. Date of service-10/25/2016 This patient was seen and examined by me . Discussed the patient with my nurse practitioner Ms. Bazzi. Doing well. Up and about in the hallway. Had a bowel movement. Tolerating a diet. On examination: Abdomen soft with minimal tenderness. Lungs are clear Investigations: White count 8.7, hemoglobin 10.2 Assessment and plan: Status post sigmoid perforation repair. Doing well. Questions were answered. Patient okay to go home to follow with the family doctor next week Thank you Dr. Reed
== END 2016-10-25 15:02 | disposition home or self-care (01) | DRG 331 ==
LOC: OR 11:54 → 4MS4W 16:54
PROVIDERS: ADMIT Surgery; ATTEND Surgery
PROC: 0DJD8ZZ Inspection of Lower Intestinal Tract, Via Natural or Artificial Opening Endoscopic (ICD-10-PCS; 2016-10-21)
PROC: 0DQN0ZZ Repair Sigmoid Colon, Open Approach (ICD-10-PCS; principal; 2016-10-21 13:30)
PROC: 0DJD4ZZ Inspection of Lower Intestinal Tract, Percutaneous Endoscopic Approach (ICD-10-PCS; 2016-10-21 13:30)
DX: K63.1 Perforation of intestine (nontraumatic) (principal); E11.9 Type 2 diabetes mellitus without complications; I10 Essential (primary) hypertension; D72.829 Elevated white blood cell count, unspecified; E03.9 Hypothyroidism, unspecified; K66.0 Peritoneal adhesions (postprocedural) (postinfection); K62.3 Rectal prolapse; R11.0 Nausea; E78.5 Hyperlipidemia, unspecified; K21.9 Gastro-esophageal reflux disease without esophagitis; M19.021 Primary osteoarthritis, right elbow; M19.022 Primary osteoarthritis, left elbow; R53.83 Other fatigue; H91.90 Unspecified hearing loss, unspecified ear; M17.0 Bilateral primary osteoarthritis of knee; Z86.73 Personal history of transient ischemic attack (TIA), and cerebral infarction without residual deficits; Z79.84 Long term (current) use of oral hypoglycemic drugs; Z87.891 Personal history of nicotine dependence; Z87.81 Personal history of (healed) traumatic fracture; Z91.040 Latex allergy status; Z91.048 Other nonmedicinal substance allergy status; Z79.899 Other long term (current) drug therapy; Z71.3 Dietary counseling and surveillance; Z98.42 Cataract extraction status, left eye; Z98.41 Cataract extraction status, right eye; Z90.710 Acquired absence of both cervix and uterus; Z82.49 Family history of ischemic heart disease and other diseases of the circulatory system; Z53.8 Procedure and treatment not carried out for other reasons; Z53.31 Laparoscopic surgical procedure converted to open procedure
CPT/HCPCS: 45330; 71010; 74000; 80048; 80053; 83036; 85025; 86701; 86803; 87340

== ENCOUNTER → 2016-10-27 | Outpatient (CLI) | payer MEDICARE, OTHER ==
[2016-10-27 09:27] LABS: CH 30.8; CHCM 32.8; HCT 37.2 % (34.0-46.0); HDW 2.66; HGB 12.1 gm/dL (11.4-16.0); MCH 30.8 pg (25.0-35.0); MCHC 32.5 g/dL (31.0-37.0); MCV 94.8 fL (80.0-100.0); RBC 3.92 m/uL (3.80-5.40); RDW 14.7 % (11.5-15.5)
== END | disposition home or self-care (01) ==
LOC: LABWHC1 09:02
PROVIDERS: ATTEND Surgery
DX: D64.9 Anemia, unspecified (principal)
CPT/HCPCS: 36415; 85027

== ENCOUNTER → 2017-06-14 | Outpatient (CLI) | payer MEDICARE, OTHER ==
[2017-06-14 10:12] LABS: Blood Urea Nitrogen 16 mg/dL (7-17)
--- NOTE | 2017-06-14 12:18 | CT ---
EXAMINATION TYPE: CT abdomen pelvis w con DATE OF EXAM: 06/14/2017 COMPARISON: Abdomen 10/21/2016 HISTORY: LLQ pain, rectal bleeding CT DLP: 1520 mGycm Automated exposure control for dose reduction was used. TECHNIQUE: Helical acquisition of images from the lung bases through the pelvis have been completed. CONTRAST: Performed with Oral Contrast and with IV Contrast, patient injected with 100 mL of Isovue 300. FINDINGS: There may be a small hiatal hernia. The anterior incision in the infraumbilical location sh ows a focal hernia in its inferior aspect containing fat. LUNG BASES: No significant abnormality is appreciated. AORTA: No significant abnormality is appreciated. LIVER/GB: Liver shows low attenuation suggesting hepatic steatosis, some focal sparing suspected derrek cent to the gallbladder, gallbladder is normal PANCREAS: No significant abnormality is seen. SPLEEN: No significant abnormality is seen. ADRENALS: Right adrenal nodule shown low-attenuation measures approximately 16 mm, smaller 8 mm nodul e may be associated with the left adrenal gland. KIDNEYS: 5-6 mm nonobstructive calculus midpole right kidney. REPRODUCTIVE ORGANS: The patient is post hysterectomy, ovaries are remarkable for possible small cyst ic foci. BOWEL: The appendix is normal. No evident bowel obstruction. Some minimal diverticular changes scatt ered within the sigmoid colon, colon is not well distended in its entirety, difficult to exclude a mu cosal or annular lesion, axial image 36 shows questionable annular lesion although this could be lack of distention, if bowel surveillance has not been performed, it should be considered. . FREE AIR: No Free Air visible. ASCITES: None visible. PELVIC ADENOPATHY: None visualized. RETROPERITONEAL ADENOPATHY: No Retroperitoneal Adenopathy visible. URINARY BLADDER: No significant abnormality is seen. OSSEOUS STRUCTURES: Degenerative disc disease and facet arthropathy changes are seen. IMPRESSION: NONSPECIFIC FINDINGS DESCRIBED ABOVE. Consider bowel surveillance as described
== END | disposition home or self-care (01) ==
LOC: RADCTMAIN 09:37
PROVIDERS: ATTEND Family Medicine
DX: E27.8 Other specified disorders of adrenal gland (principal); N20.0 Calculus of kidney; Z90.710 Acquired absence of both cervix and uterus
CPT/HCPCS: 82565; 84520; 74177; 36415; Q9967

== ENCOUNTER → 2017-07-19 | Outpatient (CLI) | payer MEDICARE, OTHER ==
--- NOTE | 2017-07-19 16:13 | US ---
EXAMINATION TYPE: US thyroid st tissue head/neck DATE OF EXAM: 07/19/2017 COMPARISON: NONE CLINICAL HISTORY: 71-year-old female E04.1 thyroid nodule. MD feels nodule on right side, patient c/ o difficulty swallowing. Patient on Synthroid TECHNIQUE: Multiple sonographic images of the thyroid gland are obtained. FINDINGS: GLAND SIZE: Right Lobe: 4.0 x 1.6 x 1.3 cm Overall Parenchyma: heterogenous Left Lobe: 3.3 x 1.6 x 1.0 cm Overall Parenchyma: heterogeneous Isthmus Thickness: 0.2m No discrete nodule is seen. Bilateral neck scanned, no evidence of lymphadenopathy. IMPRESSION: No discrete nodule.
[2017-07-20 11:38] LABS: Hazelnut IgE <0.35 kU/L (<0.35); Hazelnut IgE Class CLASS 0; Kiwi IgE <0.35 kU/L (<0.35)
[2017-07-21 17:27] LABS: Tea IgG 3.5 mcg/mL (<2.0)
== END | disposition home or self-care (01) ==
LOC: RADUSWWP 13:42
PROVIDERS: ATTEND Otolaryngology
DX: E04.1 Nontoxic single thyroid nodule (principal); J30.89 Other allergic rhinitis
CPT/HCPCS: 36415; 76536; 86001; 86003

== ENCOUNTER → 2017-07-27 | Outpatient (CLI) | payer MEDICARE, OTHER ==
--- NOTE | 2017-07-27 08:49 | FL ---
EXAMINATION TYPE: FL barium swallow DATE OF EXAM: 07/27/2017 CLINICAL HISTORY: Dysphagia, history of hiatal hernia TECHNIQUE: A double contrast esophagram is performed utilizing air and barium. A total of 59 second s of fluoroscopic time was utilized during procedure. 36 spot images are saved to PACS station for re view. COMPARISON: None FINDINGS: The esophagus shows satisfactory motility and emptying into the stomach during upright drin josse. Some dysmotility is noted during prone drinking through a straw. No evidence of fixed hiatal he rnia or stricture noted. No diverticulum or intraluminal mass seen. No significant gastroesophageal r eflux was seen during real time performance of this study. Patient did have episode of aspiration dur ing real-time rapid drinking which cleared when patient instructed to cough. This is felt due to rapi d drinking and did not recur on single sips. IMPRESSION: No significant abnormality is seen to account for patient's symptoms.
== END | disposition home or self-care (01) ==
LOC: RADFLMAIN 07:37
PROVIDERS: ATTEND Otolaryngology
DX: R13.10 Dysphagia, unspecified (principal)
CPT/HCPCS: 74220

== ENCOUNTER → 2017-12-16 | Outpatient (CLI) | payer MEDICARE, OTHER ==
--- NOTE | 2017-12-16 14:29 | XR ---
EXAMINATION TYPE: XR chest 2V DATE OF EXAM: 12/16/2017 COMPARISON: 10/21/2016 HISTORY: 72 year-old female shortness of breath TECHNIQUE: Frontal and lateral views FINDINGS: Heart normal size. Atherosclerotic arch calcifications. Mild interstitial prominence is unchanged and chronic. No consolidation or pleural effusion. IMPRESSION: No acute cardiopulmonary process.
== END | disposition home or self-care (01) ==
LOC: RADXRMAIN 11:34
PROVIDERS: ATTEND Family Medicine
DX: R06.02 Shortness of breath (principal)
CPT/HCPCS: 71046

== ENCOUNTER 2017-12-27 06:18 | Day surgery (SDC) | payer MEDICARE, OTHER ==
[2017-12-17 15:27] VITALS: BMI 27.4
[~2017-12-27 06:18] MED LIST changes: +DEXAMETHASONE SOD PHOSPHATE 10 MG/ML 1 ML VIAL IV ONE; +HYDROmorphone 0.5 MG/0.5 ML SYRINGE IVP PRN; -LACTATED RINGERS 1,000 ML IV SCH; +MIDAZOLAM 2 MG/2 ML VIAL IV PRN; +ONDANSETRON 4 MG/2 ML VIAL IVP ONE; +SCOPOLAMINE 1.5MG/72HR PATCH TRANSDERM ONE
[2017-12-27] MEDS ORDERED: NA PHOS,M-B/NA PHOS,DI-BA 133 ML ENEMA RECTAL STA (06:27)
[2017-12-27] MEDS ORDERED: ceFAZolin IN SWFI 2 GM/20 ML SYRINGE IVP STA (06:27)
--- NOTE | 2017-12-27 06:29 | P.GSHP ---
History of Present Illness H&P Date: 12/27/17 CHIEF COMPLAINT: Symptomatic hemorrhoids and rectal bleeding HISTORY OF PRESENT ILLNESS: The patient is a 72-year-old female who presents with symptomatic hemorrhoids and rectal bleeding. She now presents for definitive surgical intervention. PAST MEDICAL HISTORY: Please see list. PAST SURGICAL HISTORY: Please see list. MEDICATIONS: Please see list. ALLERGIES: Please see list. SOCIAL HISTORY: No illicit drug use FAMILY HISTORY: No reports of Crohn disease or ulcerative colitis. REVIEW OF ORGAN SYSTEMS: CONSTITUTIONAL: No reports of fevers or chills. PHYSICAL EXAM: VITAL SIGNS: Stable GENERAL: Well-developed pleasant in no acute distress. HEENT: No scleral icterus. Extraocular movements grossly intact. Moist buccal mucosa. NECK: Supple without lymphadenopathy. CHEST: Unlabored respirations. Equal bilateral excursions. CARDIOVASCULAR: Regular rate and rhythm. Distal 2+ pulses. ABDOMEN: Soft, nontender, nondistended. MUSCULOSKELETAL: No clubbing, cyanosis, or edema. RECTUM: Grade 3 external hemorrhoids with desquamation along the anal canal and perineum. ASSESSMENT: 1. Symptomatic hemorrhoids, grade 3. PLAN: 1. Recommend proceeding hemorrhoidectomy Past Medical History Past Medical History: CVA/TIA, Diabetes Mellitus, Hypertension, Thyroid Disorder Additional Past Medical History / Comment(s): states cva over 20yrs ago, no residual effects - has some rectal bleeding d/t hemorrhoids, SOB History of Any Multi-Drug Resistant Organisms: None Reported Past Surgical History: Hysterectomy, Orthopedic Surgery Additional Past Surgical History / Comment(s): left knee arthroscopy, orif ankle with plate and screws now removed, uri cataracts Bowel repair after perforation during a colonoscopy. Past Anesthesia/Blood Transfusion Reactions: No Reported Reaction Smoking Status: Former smoker - Past Family History Mother Family Medical History: No Reported History Medications and Allergies Home Medications Medication Instructions Recorded Confirmed Type Enalapril [Vasotec] 2.5 mg PO HS 10/19/16 12/17/17 History Levothyroxine Sodium [Synthroid] 50 mcg PO QAM 10/19/16 12/17/17 History Insulin Degludec [Tresiba 20 unit SQ HS 12/17/17 12/17/17 History Flextouch U-100] Allergies Allergy/AdvReac Type Severity Reaction Status Date / Time nickel Allergy Swelling/hi Verified 10/21/16 12:31 ves Latex, Natural Rubber AdvReac sneezing Verified 12/17/17 15:31 and sinus get stuffy rubber Allergy Swelling Uncoded 10/21/16 12:31
[2017-12-27 06:47] VITALS: TEMP 98
[2017-12-27 07:04] LABS: Glucose,Whole Blood 159 mg/dL (75-99)
[2017-12-27] MEDS: LACTATED RINGERS 1,000 ML IV SCH ×2 (07:04→07:37)
[2017-12-27] MEDS ORDERED: LIDOCAINE 1% 20 ML VIAL (10MG/ML) FOR IV START INTRADERMA ONE (07:04)
[2017-12-27] MEDS ORDERED: PROPOFOL 10 MG/ML 20 ML VIAL IV ONE (07:37)
[2017-12-27] MEDS ORDERED: fentaNYL (PF) 50 MCG/ML 2 ML AMP ONE (07:37)
[2017-12-27] MEDS ORDERED: MIDAZOLAM 2 MG/2 ML VIAL ONE (07:37)
[2017-12-27] MEDS ORDERED: BUPIVACAINE LIPOSOME/PF 1.3% 20 ML, SODIUM CHLORIDE 0.9% 10 ML MISCELLANE STA ×2 (07:44)
--- NOTE | 2017-12-27 08:22 | P.OP ---
Date of Procedure: 12/27/17 Description of Procedure: SURGEON: ZAK PÉREZ MD REGULATORY LEADER: NONE. PREOPERATIVE DIAGNOSES: 1. History of complicated internal hemorrhoids, grade 4. 2. History of complicated external hemorrhoids, grade 4. 3. History of rectal bleeding. POSTOPERATIVE DIAGNOSES: 1. History of complicated internal hemorrhoids, grade 4. 2. History of complicated external hemorrhoids, grade 4. 3. History of rectal bleeding. OPERATION: 1. Excision of internal and external hemorrhoids x 3 using LigaSure. ANESTHESIA: MAC with Exparel mixture. ESTIMATED BLOOD LOSS: 3 mL. PATHOLOGY: 1. Internal, external hemorrhoidal complex x 3. FINDINGS: 1. Grade 4 internal/external hemorrhoidal cushion 3 excised. 2. No anal stricture upon excision of hemorrhoidal complexes. INDICATIONS: The patient is a 72-year-old female who presents with rectal bleeding including complicated internal/external hemorrhoids. She completed a colonoscopy. Surgical intervention was described for hemorrhoidectomy. Benefits and risks of the procedure, including bleeding, infection, incontinence, recurrent pain and recurrence of the hemorrhoids were discussed in detail. Informed consent was obtained. DESCRIPTION: Patient was brought to the operating room. After spinal anesthetic and IV sedation, she was then repositioned the prone jackknife position. Next, the perineum and buttocks was spread apart using Mastisol. The perineum was then prepped and draped in standard sterile fashion using Betadine. Preoperative medication was confirmed. Prior to incision, a timeout protocol was confirmed with surgical team. Initially 2 fingers was easily inserted for dilation of the anus. A perineal block using Exparel was placed. Grade 4 hemorrhoids along all 3 quadrants were identified. Next, using a Hill-Chen anoscope, each hemorrhoidal cushion was addressed using a hand-held LigaSure after elevating each hemorrhoidal complex using forceps. At the end of the case, digital evaluation were performed without any features of the anal stricture or stenosis. At the 6-o'clock position, the anal muscle fiber was identified. Hemostasis was checked. Several 4 x 4 gauze and mesh underwear was placed. At the end of the procedure, needle, sponge, and counts had been verified correct by the central sterilization technician. The patient then had tolerated the procedure well. Intraoperative findings including postoperative care instructions were discussed. Plan - Discharge Summary New Discharge Prescriptions: No Action Levothyroxine Sodium [Synthroid] 50 mcg PO QAM Enalapril [Vasotec] 2.5 mg PO HS Insulin Degludec [Tresiba Flextouch U-100] 16 unit SQ HS Discharge Medication List Enalapril [Vasotec] 2.5 mg PO HS 10/19/16 [History] Levothyroxine Sodium [Synthroid] 50 mcg PO QAM 10/19/16 [History] Insulin Degludec [Tresiba Flextouch U-100] 16 unit SQ HS 12/17/17 [History]
[2017-12-27 08:38] LABS: Glucose,Whole Blood 158 mg/dL (75-99)
[2017-12-27 09:52] VITALS: RESP 18
[2017-12-27 10:54] VITALS: BP 138/70; PULSE 69
== END 2017-12-27 11:35 | disposition home or self-care (01) ==
LOC: OR 06:18
PROVIDERS: ATTEND Surgery Plastic and Reconstructive Surgery
DX: K64.4 Residual hemorrhoidal skin tags (principal); K64.3 Fourth degree hemorrhoids; I10 Essential (primary) hypertension; E11.9 Type 2 diabetes mellitus without complications; E07.9 Disorder of thyroid, unspecified; Z86.73 Personal history of transient ischemic attack (TIA), and cerebral infarction without residual deficits; Z79.4 Long term (current) use of insulin; Z79.890 Hormone replacement therapy; Z79.899 Other long term (current) drug therapy; Z87.891 Personal history of nicotine dependence
CPT/HCPCS: 46260; J2250; J1100; J2405; C9290; 88304

== ENCOUNTER 2018-01-01 14:58 | Observation (INO) | payer MEDICARE, OTHER ==
--- NOTE | 2018-01-01 15:33 | ED ---
General Adult HPI - General Chief complaint: GI Bleed Stated complaint: Rectal Bleeding Source: patient Mode of arrival: ambulatory Limitations: no limitations - History of Present Illness Initial comments: Dictation was produced using [employer] dictation software. please excuse any grammatical, word or spelling errors. Chief Complaint: 72-year-old female presents with rectal bleeding status post hemorrhoidectomy performed 5 days ago. History of Present Illness: Patient is 72-year-old female presents with rectal bleeding. 5 days ago she had hemorrhoidectomy performed by Dr. Villanueva. Over the past couple days she's been having bright red blood per rectum. She is passing several clots. States that there is been a significant amount of bleeding that's all over her home bathroom. Patient is very distraught over all the bleeding. Patient does report some burning to the rectum. Chart review shows that patient had complex hemorrhoids that were ligated. She called on-call surgeon and was told to come to the emergency department. The ROS documented in this emergency department record has been reviewed and confirmed by me. Those systems with pertinent positive or negative responses have been documented in the HPI. All other systems are other negative and/or noncontributory. - Related Data Home Medications Medication Instructions Recorded Confirmed Enalapril [Vasotec] 2.5 mg PO HS 10/19/16 12/27/17 Levothyroxine Sodium [Synthroid] 50 mcg PO QAM 10/19/16 12/27/17 Insulin Degludec [Tresiba 16 unit SQ HS 12/17/17 12/27/17 Flextouch U-100] Previous Rx's Medication Instructions Recorded Docusate [Colace] 100 mg PO DAILY #20 capsule 12/27/17 HYDROcodone/APAP 5-325MG [[place] 1 tab PO Q4HR PRN 3 Days #18 tab 12/27/17 5-325] Ibuprofen [Motrin] 600 mg PO Q8HR PRN #30 tab 12/27/17 metroNIDAZOLE [Flagyl] 500 mg PO BID #10 tab 12/27/17 Allergies Allergy/AdvReac Type Severity Reaction Status Date / Time nickel Allergy Swelling/hi Verified 01/01/18 15:03 ves Latex, Natural Rubber AdvReac sneezing Verified 01/01/18 15:03 and sinus get stuffy rubber Allergy Swelling Uncoded 01/01/18 15:03 Review of Systems ROS Statement: Those systems with pertinent positive or pertinent negative responses have been documented in the HPI. ROS Other: All systems not noted in ROS Statement are negative. Past Medical History Past Medical History: CVA/TIA, Diabetes Mellitus, Hypertension Additional Past Medical History / Comment(s): Having some rectal bleeding, states cva over 20yrs ago, no residual effects History of Any Multi-Drug Resistant Organisms: None Reported Past Surgical History: Hysterectomy, Orthopedic Surgery Additional Past Surgical History / Comment(s): left knee arthroscopy, orif ankle with plate and screws now removed, uri cataracts, hemmorhoid removal Past Anesthesia/Blood Transfusion Reactions: No Reported Reaction Past Psychological History: No Psychological Hx Reported Smoking Status: Former smoker Past Alcohol Use History: None Reported Past Drug Use History: None Reported - Past Family History Mother Family Medical History: No Reported History General Exam - General Exam Comments Initial Comments: PHYSICAL EXAM: General Impression: Alert and oriented x3, distraught, hysterical HEENT: Normocephalic atraumatic, extra-ocular movements intact, pupils equal and reactive to light bilaterally, mucous membranes moist. Cardiovascular: Heart regular rate and rhythm, S1&S2 audible, no murmurs, rubs or gallops Chest: Lungs clear to auscultation bilaterally, no rhonchi, no wheeze, no rales Abdomen: Bowel sounds present, abdomen soft, non-tender, non-distended, no organomegaly Musculoskeletal: Pulses present and equal in all extremities, no peripheral edema Motor: Power 5/5 bilaterally, no focal deficits noted Neurological: CN II-XII grossly intact, no focal motor or sensory deficits noted Skin: Intact with no visualized rashes Psych: Normal affect and mood Rectal exam: Limitations: no limitations Course Vital Signs 01/01/18 01/01/18 14:59 16:09 Temperature 98.0 F Pulse Rate 121 H 97 Respiratory 22 18 Rate Blood Pressure 147/93 123/73 O2 Sat by Pulse 100 97 Oximetry Medical Decision Making - Medical Decision Making ED course: 72-year-old female presents with bright red blood per rectum status post hemorrhoidectomy performed 5 days ago. Patient denies any blood thinners. Vital signs upon arrival shows heart rate of 121, worse vital signs within acceptable limits.Laboratory evaluation obtained. Patient is leukocytosis of 18.1. Hemoglobin stable at 14.5. Platelet count 348. Metabolic panel shows findings within acceptable limits. There is mild gap acidosis. Patient given intravenous fluids. This patient case with general surgeon on-call Dr. Alegre who is taking call for Dr. Villanueva. He recommends that patient rectum be packed with gauze and told to sit on the gauze. patient be admitted to his service with medicine on consult. At this point there is no definitive plans for surgical intervention per general surgery. Patient reevaluated found be in stable medical condition. Patient on cardiac cath tech and tachycardia was resolved. Patient placed on the floor with every 6 hours CBC. EKG interpretation: Ventricular rate 98, normal sinus rhythm, AK interval 132, care is 80, QTc 431. No AK prolongation, no QTC prolongation, no ST or T-wave changes noted. Overall, this EKG is unremarkable - Lab Data Result diagrams: 01/01/18 15:34 01/01/18 15:34 Lab Results 01/01/18 01/01/18 01/01/18 Range/Units 15:34 15:34 15:34 WBC 18.1 H (3.8-10.6) k/uL RBC 4.92 (3.80-5.40) m/uL Hgb 14.5 (11.4-16.0) gm/dL Hct 45.3 (34.0-46.0) % MCV 92.1 (80.0-100.0) fL MCH 29.4 (25.0-35.0) pg MCHC 31.9 (31.0-37.0) g/dL RDW 13.5 (11.5-15.5) % Plt Count 348 (150-450) k/uL Neutrophils % 69 % Lymphocytes % 25 % Monocytes % 4 % Eosinophils % 2 % Basophils % 0 % Neutrophils # 12.4 H (1.3-7.7) k/uL Lymphocytes # 4.4 (1.0-4.8) k/uL Monocytes # 0.7 (0-1.0) k/uL Eosinophils # 0.3 (0-0.7) k/uL Basophils # 0.1 (0-0.2) k/uL PT 10.7 (9.0-12.0) sec INR 1.1 (<1.2) Sodium 135 L (137-145) mmol/L Potassium 4.3 (3.5-5.1) mmol/L Chloride 98 (98-107) mmol/L Carbon Dioxide 20 L (22-30) mmol/L Anion Gap 17 mmol/L BUN 18 H (7-17) mg/dL Creatinine 0.77 (0.52-1.04) mg/dL Est GFR (CKD-EPI)AfAm 88 (>60 ml/min/1.73 sqM) Est GFR (CKD-EPI)NonAf 76 (>60 ml/min/1.73 sqM) Glucose 308 H (74-99) mg/dL Calcium 9.6 (8.4-10.2) mg/dL Disposition Clinical Impression: Post-operative haemorrhage Disposition: ADMITTED IP TO THIS HOSP Condition: Fair Referrals: Tim Martin DO [Primary Care Provider] - 1-2 days Decision Time: 16:22
[2018-01-01 15:50] LABS: Basophils # (A) 0.1 k/uL (0-0.2); Basophils % (A) 0 %; Eosinophils # (A) 0.3 k/uL (0-0.7); Eosinophils % (A) 2 %; HCT 45.3 % (34.0-46.0); HGB 14.5 gm/dL (11.4-16.0); Lymphocytes # (A) 4.4 k/uL (1.0-4.8); Lymphocytes % (A) 25 %; MCH 29.4 pg (25.0-35.0); MCHC 31.9 g/dL (31.0-37.0); MCV 92.1 fL (80.0-100.0); Mean Platelet Volume 8.2; Monocytes # (A) 0.7 k/uL (0-1.0); Monocytes % (A) 4 %; Neutrophils # (A) 12.4 k/uL (1.3-7.7); Neutrophils % (A) 69 %; Platelet Count 348 k/uL (150-450); RBC 4.92 m/uL (3.80-5.40); RDW 13.5 % (11.5-15.5); WBC 18.1 k/uL (3.8-10.6)
[2018-01-01 15:57] LABS: INR 1.1 (<1.2); Prothrombin Time 10.7 sec (9.0-12.0)
[2018-01-01 16:06] LABS: Calcium 9.6 mg/dL (8.4-10.2); Potassium 4.3 mmol/L (3.5-5.1)
[2018-01-01] MEDS ORDERED: NALOXONE 0.4 MG/ML 1 ML VIAL IV PRN (16:10)
[2018-01-01] MEDS ORDERED: MORPHINE SULFATE 4 MG/ML SYRINGE IV PRN (16:10)
[2018-01-01] MEDS ORDERED: PANTOPRAZOLE 40 MG/10 ML VIAL IV ONE (16:15)
[2018-01-01] MEDS ORDERED: SODIUM CHLORIDE 0.9% 1,000 ML IV STA (16:18)
[2018-01-01] MEDS: SODIUM CHLORIDE 0.9% 1,000 ML IV SCH (17:18)
[2018-01-01 19:50] LABS: Glucose,Whole Blood 188 mg/dL (75-99)
[2018-01-01] MEDS: INSULIN ASPART 100 UNIT/ML 1 ML 10 ML VIAL SQ SCH (20:36)
[2018-01-01] MEDS ORDERED: INSULIN DETEMIR 100 UNIT/ML 10 ML VIAL SQ SCH (21:00)
[2018-01-01] MEDS ORDERED: LISINOPRIL 5 MG TAB PO SCH (21:00)
[2018-01-01] MEDS ORDERED: MELATONIN 3 MG TABLET PO PRN (22:21)
[2018-01-01 22:27] LABS: Basophils # (A) 0.1 k/uL (0-0.2); Basophils % (A) 1 %; Eosinophils # (A) 0.3 k/uL (0-0.7); Eosinophils % (A) 2 %; HCT 39.3 % (34.0-46.0); HGB 12.4 gm/dL (11.4-16.0); Lymphocytes # (A) 4.5 k/uL (1.0-4.8); Lymphocytes % (A) 34 %; MCH 29.2 pg (25.0-35.0); MCHC 31.5 g/dL (31.0-37.0); MCV 92.9 fL (80.0-100.0); Mean Platelet Volume 7.5; Monocytes # (A) 0.6 k/uL (0-1.0); Monocytes % (A) 4 %; Neutrophils # (A) 7.6 k/uL (1.3-7.7); Neutrophils % (A) 57 %; Platelet Count 317 k/uL (150-450); RBC 4.24 m/uL (3.80-5.40); RDW 13.5 % (11.5-15.5); WBC 13.2 k/uL (3.8-10.6)
[2018-01-02 06:26] VITALS: PULSE 85
[2018-01-02] MEDS: SODIUM CHLORIDE 0.9% 1,000 ML IV SCH (06:27)
[2018-01-02] MEDS ORDERED: LEVOTHYROXINE 50 MCG TAB PO SCH (06:30)
[2018-01-02 06:32] LABS: Glucose,Whole Blood 172 mg/dL (75-99)
[2018-01-02] MEDS: INSULIN ASPART 100 UNIT/ML 1 ML 10 ML VIAL SQ SCH (07:01)
[2018-01-02] MEDS ORDERED: PANTOPRAZOLE 40 MG/10 ML VIAL IV SCH (09:00)
[2018-01-02 10:45] VITALS: BP 102/56; RESP 16; TEMP 98.2
--- NOTE | 2018-01-02 11:23 | P.DS ---
Providers Date of admission: 01/01/18 16:47 Expected date of discharge: 01/02/18 Attending physician: Eleuterio Alegre Consults: 01/01/18 16:21 Consult Physician Routine Consulting Provider: Medardo Mendoza Consult Reason/Comments: IM consult Do you want consulting provider notified?: Yes Primary care physician: Tim Martin - Discharge Diagnosis(es) (1) Post-operative haemorrhage Patient minute for postoperative bleeding. The bleeding stopped spontaneously. Being discharged today. Please refer to H&P. Status: Acute Patient Condition at Discharge: Fair Plan - Discharge Summary Discharge Rx Participant: Yes New Discharge Prescriptions: No Action Levothyroxine Sodium [Synthroid] 50 mcg PO QAM Enalapril [Vasotec] 2.5 mg PO HS Docusate [Colace] 100 mg PO DAILY #20 capsule HYDROcodone/APAP 5-325MG [[place] 5-325] 1 tab PO Q4HR PRN 3 Days #18 tab PRN Reason: Pain Ibuprofen [Motrin] 600 mg PO Q8HR PRN #30 tab PRN Reason: Pain metroNIDAZOLE [Flagyl] 500 mg PO BID #10 tab Insulin Degludec [Tresiba Flextouch U-100] 20 unit SQ HS Multivitamins, Thera [Multivitamin (formulary)] 1 tab PO DAILY Discharge Medication List Enalapril [Vasotec] 2.5 mg PO HS 10/19/16 [History] Levothyroxine Sodium [Synthroid] 50 mcg PO QAM 10/19/16 [History] Docusate [Colace] 100 mg PO DAILY #20 capsule 12/27/17 [Rx] HYDROcodone/APAP 5-325MG [[place]ston 5-325] 1 tab PO Q4HR PRN 3 Days #18 tab [Rx] Ibuprofen [Motrin] 600 mg PO Q8HR PRN #30 tab 12/27/17 [Rx] metroNIDAZOLE [Flagyl] 500 mg PO BID #10 tab 12/27/17 [Rx] Insulin Degludec [Tresiba Flextouch U-100] 20 unit SQ HS 01/01/18 [History] Multivitamins, Thera [Multivitamin (formulary)] 1 tab PO DAILY 01/01/18 [History ] Follow up Appointment(s)/Referral(s): Sanam Christine MD [STAFF PHYSICIAN] - 1-2 Days (keep Wednesday's appointment) Tim Martin DO [Primary Care Provider] - 1-2 days Patient Instructions/Handouts: *Surgery [facility] - Hemorrhoidectomy Discharge Instructions, Low Fiber Diet (DC) Discharge Disposition: HOME SELF-CARE
--- NOTE | 2018-01-02 11:23 | P.GSHP ---
History of Present Illness H&P Date: 01/02/18 Chief Complaint: Rectal bleeding Patient contacted me by phone yesterday afternoon. Patient is complaining of heavy rectal bleeding. Patient had a operative hemorrhoidectomy by Dr. Villanueva earlier in the week. Mild perianal discomfort. She was passing bowel movements. She was feeling a little bit lightheaded and for that reason we sent her to the operating room. In the ER the patient was noted to have continued oozing from the anal region. The area was packed with gauze. She was admitted for observation. She has done very well overnight. The bleeding has stopped. She actually had a bowel movement this morning with no significant bleeding. Her pain is improved as well. Her hemoglobin has remained fairly stable. Her white blood cell count was 18 initially and is decreased today. She is afebrile. She was tachycardic in the ER but that resolved as well. She is quite anxious to go home at this time. - Review of Systems Comment: The patient denies any acute changes in vision or hearing, no dysphagia or odynophagia, no chest pain or shortness of breath, no dysuria or hematuria, no headache, no runny nose, no melena, no unexplained weight loss Past Medical History Past Medical History: CVA/TIA, Diabetes Mellitus, Hypertension Additional Past Medical History / Comment(s): Having some rectal bleeding, states cva over 20yrs ago, no residual effects History of Any Multi-Drug Resistant Organisms: None Reported Past Surgical History: Hysterectomy, Orthopedic Surgery Additional Past Surgical History / Comment(s): left knee arthroscopy, orif ankle with plate and screws now removed, uri cataracts, hemmorhoid removal Past Anesthesia/Blood Transfusion Reactions: No Reported Reaction Past Psychological History: No Psychological Hx Reported Smoking Status: Former smoker Past Alcohol Use History: None Reported Additional Past Alcohol Use History / Comment(s): quit smoking approx 2001, smoked 1/2 ppd from age [age] Past Drug Use History: None Reported - Past Family History Mother Family Medical History: No Reported History Medications and Allergies Home Medications Medication Instructions Recorded Confirmed Type Enalapril [Vasotec] 2.5 mg PO HS 10/19/16 01/01/18 History Levothyroxine Sodium [Synthroid] 50 mcg PO QAM 10/19/16 01/01/18 History Docusate [Colace] 100 mg PO DAILY #20 capsule 12/27/17 Rx HYDROcodone/APAP 5-325MG [[place] 1 tab PO Q4HR PRN 3 Days #18 tab 12/27/17 Rx 5-325] Ibuprofen [Motrin] 600 mg PO Q8HR PRN #30 tab 12/27/17 01/01/18 Rx metroNIDAZOLE [Flagyl] 500 mg PO BID #10 tab 12/27/17 01/01/18 Rx Insulin Degludec [Tresiba 20 unit SQ HS 01/01/18 01/01/18 History Flextouch U-100] Multivitamins, Thera [Multivitamin 1 tab PO DAILY 01/01/18 01/01/18 History (formulary)] Allergies Allergy/AdvReac Type Severity Reaction Status Date / Time nickel Allergy Swelling/hi Verified 01/01/18 16:37 ves Latex, Natural Rubber AdvReac sneezing Verified 01/01/18 16:37 and sinus get stuffy rubber Allergy Swelling Uncoded 01/01/18 15:03 Surgical - Exam Vital Signs Temp Pulse Resp BP Pulse Ox 98.0 F 121 H 22 147/93 100 01/01/18 14:59 01/01/18 14:59 01/01/18 14:59 01/01/18 14:59 01/01/18 14:59 Physical exam: General: Well-developed, well-nourished HEENT: Normocephalic, sclerae nonicteric Abdomen: Nontender, nondistended Extremities: No edema Neuro: Alert and oriented Rectal: Perianal tissues without bleeding, small amount of ecchymosis, minimal tenderness, digital exam declined Results - Labs 01/01/18 22:07 01/01/18 15:34 Abnormal Lab Results - Last 24 Hours (Table) 01/01/18 01/01/18 01/01/18 Range/Units 15:34 15:34 15:34 WBC 18.1 H (3.8-10.6) k/uL Neutrophils # 12.4 H (1.3-7.7) k/uL Sodium 135 L (137-145) mmol/L Carbon Dioxide 20 L (22-30) mmol/L BUN 18 H (7-17) mg/dL Glucose 308 H (74-99) mg/dL POC Glucose (mg/dL) (75-99) mg/dL Plasma Lactic Acid Nikhil 6.1 H* (0.7-2.0) mmol/L 01/01/18 01/01/18 01/02/18 Range/Units 19:48 22:07 06:28 WBC 13.2 H (3.8-10.6) k/uL Neutrophils # (1.3-7.7) k/uL Sodium (137-145) mmol/L Carbon Dioxide (22-30) mmol/L BUN (7-17) mg/dL Glucose (74-99) mg/dL POC Glucose (mg/dL) 188 H 172 H (75-99) mg/dL Plasma Lactic Acid Nikhil (0.7-2.0) mmol/L Diabetes panel 01/01/18 Range/Units 15:34 Sodium 135 L (137-145) mmol/L Potassium 4.3 (3.5-5.1) mmol/L Chloride 98 (98-107) mmol/L Carbon Dioxide 20 L (22-30) mmol/L BUN 18 H (7-17) mg/dL Creatinine 0.77 (0.52-1.04) mg/dL Glucose 308 H (74-99) mg/dL Calcium 9.6 (8.4-10.2) mg/dL Calcium panel 01/01/18 Range/Units 15:34 Calcium 9.6 (8.4-10.2) mg/dL Pituitary panel 01/01/18 Range/Units 15:34 Sodium 135 L (137-145) mmol/L Potassium 4.3 (3.5-5.1) mmol/L Chloride 98 (98-107) mmol/L Carbon Dioxide 20 L (22-30) mmol/L BUN 18 H (7-17) mg/dL Creatinine 0.77 (0.52-1.04) mg/dL Glucose 308 H (74-99) mg/dL Calcium 9.6 (8.4-10.2) mg/dL Adrenal panel 01/01/18 Range/Units 15:34 Sodium 135 L (137-145) mmol/L Potassium 4.3 (3.5-5.1) mmol/L Chloride 98 (98-107) mmol/L Carbon Dioxide 20 L (22-30) mmol/L BUN 18 H (7-17) mg/dL Creatinine 0.77 (0.52-1.04) mg/dL Glucose 308 H (74-99) mg/dL Calcium 9.6 (8.4-10.2) mg/dL Assessment and Plan (1) Post-operative haemorrhage Narrative/Plan: Patient doing much better today. Bleeding has stopped. Stable for discharge. Follow-up with Dr. Villanueva postop. Status: Acute Code(s): [id number] - SNOMED Code(s): 724640097
[2018-01-03 10:51] LABS: Hemoglobin A1C 10.2 % (4.0-6.0)
== END 2018-01-02 10:49 | disposition home or self-care (01) ==
LOC: EC 14:58 → 3SCARD 16:47
PROVIDERS: ADMIT Surgery; ATTEND Surgery
DX: K91.840 Postprocedural hemorrhage of a digestive system organ or structure following a digestive system procedure (principal); K62.5 Hemorrhage of anus and rectum; I10 Essential (primary) hypertension; D72.829 Elevated white blood cell count, unspecified; E87.2 Acidosis; E11.9 Type 2 diabetes mellitus without complications; Z79.4 Long term (current) use of insulin; Z79.890 Hormone replacement therapy; Z79.2 Long term (current) use of antibiotics; Z91.040 Latex allergy status; Z91.048 Other nonmedicinal substance allergy status; Z90.710 Acquired absence of both cervix and uterus; Z98.42 Cataract extraction status, left eye; Z98.41 Cataract extraction status, right eye; Z87.891 Personal history of nicotine dependence; Z86.73 Personal history of transient ischemic attack (TIA), and cerebral infarction without residual deficits
CPT/HCPCS: 96374; 99285; 36415; 93005; 86900; 86901; 80048; 83605; 84484; 85025; 85610; 86850; 83036; G0378 ×2; C9113

== ENCOUNTER → 2018-01-21 | Outpatient (CLI) | payer MEDICARE, OTHER ==
--- NOTE | 2018-01-21 17:22 | ECHOF ---
Referral Reason:R01.1 - Cardiac Murmur MEASUREMENTS -------- HEIGHT: 165.1 cm WEIGHT: 74.8 kg BP: IVSd: 1.4 cm (0.6 - 1.1) LVIDd: 3.4 cm (3.9 - 5.3) LVPWd: 1.5 cm (0.6 - 1.1) IVSs: 1.4 cm LVIDs: 3.7 cm LVPWs: 1.7 cm LAESV Index (A-L): 26.45 ml/m Ao Diam: 2.8 cm (2.0 - 3.7) AV Cusp: 0.9 cm (1.5 - 2.6) LA Diam: 4.1 cm (2.7 - 3.8) MV EXCURSION: 18.048 mm (> 18.000) MV EF SLOPE: 82 mm/s (70 - 150) EPSS: 1.6 cm MV E Ivan: 0.65 m/s MV DecT: 256 ms MV A Ivan: 0.93 m/s MV E/A Ratio: 0.70 AV maxP.68 mmHg AV meanP.18 mmHg RAP: 5.00 mmHg RVSP: 24.18 mmHg FINDINGS -------- Sinus rhythm. This was a technically good study. The left ventricular size is normal. There is moderate concentric left ventricular hypertrophy. O verall left ventricular systolic function is normal with, an EF between 55 - 60 %. The right ventricle is normal in size. The left atrium is mildly dilated. The right atrial size is normal. There is moderate aortic valve sclerosis. There is no evidence of aortic regurgitation. There is moderate aortic stenosis present. Peak/mean gradient across the Aortic Valve is 41.68mmHg / 19.18mm Hg. Mild mitral annular calcification present. Moderate mitral regurgitation is present. Mild tricuspid regurgitation present. There is no evidence of pulmonary hypertension. The right v entricular systolic pressure, as measured by Doppler, is 24.18mmHg. Trace/mild (physiologic) pulmonic regurgitation. The aortic root size is normal. There is no pericardial effusion. CONCLUSIONS -------- 1. Sinus rhythm. 2. The left ventricular size is normal. 3. There is moderate concentric left ventricular hypertrophy. 4. Overall left ventricular systolic function is normal with, an EF between 55 - 60 %. 5. The left atrium is mildly dilated. 6. There is moderate aortic valve sclerosis. 7. There is no evidence of aortic regurgitation. 8. There is moderate aortic stenosis present. 9. Peak/mean gradient across the Aortic Valve is 41.68mmHg / 19.18mmHg. 10. Mild mitral annular calcification present. 11. Moderate mitral regurgitation is present. 12. Mild tricuspid regurgitation present. 13. There is no evidence of pulmonary hypertension. 14. Trace/mild (physiologic) pulmonic regurgitation. 15. The aortic root size is normal. 16. There is no pericardial effusion. SHEET HEATER: Bev Taveras RDCS
== END ==
LOC: RADECHMAIN 12:39
PROVIDERS: ATTEND Family Medicine
DX: I08.1 Rheumatic disorders of both mitral and tricuspid valves (principal)
CPT/HCPCS: 93306

== ENCOUNTER → 2018-02-28 | Outpatient (CLI) | payer MEDICARE, OTHER ==
[2018-02-28 16:05] LABS: LDL Cholesterol,Calculated 244.4 mg/dL (0.0-131.0); VLDL Calculation 27.6 mg/dL (5.00-40.00)
== END | disposition home or self-care (01) ==
LOC: LABWHC1 10:06
PROVIDERS: ATTEND Internal Medicine Interventional Cardiology
DX: E78.2 Mixed hyperlipidemia (principal)
CPT/HCPCS: 36415; 80061

== ENCOUNTER → 2018-03-16 | Outpatient (CLI) | payer MEDICARE, OTHER ==
[2018-03-16 18:19] LABS: HCT 45.3 % (34.0-46.0); HGB 14.8 gm/dL (11.4-16.0); MCHC 32.6 g/dL (31.0-37.0); MCV 89.1 fL (80.0-100.0); Mean Platelet Volume 8.4; Platelet Count 322 k/uL (150-450); RBC 5.08 m/uL (3.80-5.40); RDW 13.8 % (11.5-15.5); WBC 12.8 k/uL (3.8-10.6)
[2018-03-16 18:34] LABS: Anion Gap 8 mmol/L; Blood Urea Nitrogen 13 mg/dL (7-17); Carbon Dioxide 31 mmol/L (22-30); Chloride 101 mmol/L (98-107); Potassium 5.1 mmol/L (3.5-5.1); Sodium 140 mmol/L (137-145)
== END | disposition home or self-care (01) ==
LOC: LABPAT 15:31
PROVIDERS: ATTEND Internal Medicine Interventional Cardiology
DX: Z01.812 Encounter for preprocedural laboratory examination (principal); R94.39 Abnormal result of other cardiovascular function study; I35.0 Nonrheumatic aortic (valve) stenosis; I10 Essential (primary) hypertension
CPT/HCPCS: 36415; 80051; 82565; 84520; 85027

== ENCOUNTER → 2018-04-12 | Day surgery (SDC) | payer MEDICARE, OTHER ==
[2018-04-07 15:33] VITALS: BMI 27.4
[~2018-04-12] MED LIST changes: +ATORVASTATIN 40 MG TAB PO SCH; -DEXAMETHASONE SOD PHOSPHATE 10 MG/ML 1 ML VIAL IV ONE; +DOCUSATE 100 MG CAP PO PRN; -HYDROmorphone 0.5 MG/0.5 ML SYRINGE IVP PRN; +INSULIN DEGLUDEC 30 UNIT SQ SCH; +LEVOTHYROXINE 50 MCG TAB PO SCH; -MIDAZOLAM 2 MG/2 ML VIAL IV PRN; +MIDAZOLAM 2 MG/2 ML VIAL IVP ONE; +MULTIVITAMINS, THERA 1 EACH TAB PO SCH; +NON-FORMULARY DRUG (Aspirin [Adult Low Dose Aspirin Ec] 81 MG) PO SCH; +NON-FORMULARY DRUG (Enalapril 5 MG) PO SCH; -ONDANSETRON 4 MG/2 ML VIAL IVP ONE; -Pre Op ABX Message 1 EACH MISC MISCELLANE ONE; -SCOPOLAMINE 1.5MG/72HR PATCH TRANSDERM ONE; +SODIUM CHLORIDE 0.9% 1,000 ML IV SCH; +SODIUM CHLORIDE 0.9% 500 ML 500 ML IV ONE; +fentaNYL (PF) 50 MCG/ML 2 ML AMP IV ONE
[2018-04-12 06:03] VITALS: TEMP 98
[2018-04-12 06:21] LABS: Glucose,Whole Blood 126 mg/dL (75-99)
[2018-04-12] MEDS: BENZOCAINE SPRAY 1 CAN MUCOUS MEM ONE ×2 (07:24→07:46)
--- NOTE | 2018-04-12 08:30 | ECHOT ---
TRANSESOPHAGEAL ECHOCARDIOGRAM INDICATION: Evaluation of aortic valve. PROCEDURE: After explaining the procedure to the patient, its risks and the complications, her blood pressure, heart rate, O2 saturation was monitored. Her throat was sprayed with Cetacaine. She received 3 mg intravenous Versed and 50 mcg intravenous fentanyl. The probe was introduced in the esophagus without difficulties. Images were obtained. Following that, the probe was removed. There was no immediate complication. FINDINGS: Left atrial size is normal. Left atrial appendage is normal. Left ventricular size and systolic function normal. The aortic valve is a tricuspid valve severely calcified with reduced opening by planimetry. The valve area is 1 centimeter square. The mitral valve revealed mitral anulus calcification. Tricuspid valve is normal. No pericardial effusion was noted. Contrast bubble study revealed no shunting across the interatrial septum. Descending thoracic aorta revealed no evidence of significant atherosclerotic changes. Doppler, pulse wave and color Doppler obtained and revealed a moderate mitral with mild aortic and tricuspid regurgitation. There was no shunting by color Doppler study. CONCLUSION: 1. Normal left ventricular size and systolic function. 2. Severe aortic stenosis with a valve area of 1 centimeter square with mild aortic regurgitation. 3. Moderate mitral regurgitation. 4. Mild tricuspid regurgitation. 5. No shunting by color Doppler study. MMODL / IJN: [id number] /
[2018-04-12 09:12] VITALS: BP 103/53; PULSE 63; RESP 18
== END | disposition home or self-care (01) ==
LOC: CATHCVL 05:43
PROVIDERS: ATTEND Internal Medicine Interventional Cardiology
DX: I08.3 Combined rheumatic disorders of mitral, aortic and tricuspid valves (principal); I25.10 Atherosclerotic heart disease of native coronary artery without angina pectoris; I25.82 Chronic total occlusion of coronary artery; I10 Essential (primary) hypertension; E78.2 Mixed hyperlipidemia; E11.51 Type 2 diabetes mellitus with diabetic peripheral angiopathy without gangrene; Z72.0 Tobacco use; Z79.82 Long term (current) use of aspirin; Z79.899 Other long term (current) drug therapy; Z79.4 Long term (current) use of insulin
CPT/HCPCS: 93312; 93320; 93325; J2250; J3010

== ENCOUNTER → 2018-06-16 | Outpatient (CLI) | payer MEDICARE, OTHER ==
[2018-06-16 10:00] LABS: HCT 41.4 % (34.0-46.0); HGB 13.6 gm/dL (11.4-16.0); MCH 29.1 pg (25.0-35.0); MCHC 32.9 g/dL (31.0-37.0); MCV 88.6 fL (80.0-100.0); Mean Platelet Volume 7.9; Platelet Count 350 k/uL (150-450); RBC 4.68 m/uL (3.80-5.40); WBC 10.2 k/uL (3.8-10.6)
[2018-06-16 10:08] LABS: INR 0.9 (<1.2)
[2018-06-16 10:10] LABS: ALT 28 U/L (9-52); AST 21 U/L (14-36); Albumin 4.4 g/dL (3.5-5.0); Alkaline Phosphatase 60 U/L (38-126); Anion Gap 9 mmol/L; Blood Urea Nitrogen 20 mg/dL (7-17); Carbon Dioxide 28 mmol/L (22-30); Chloride 104 mmol/L (98-107); Cholesterol 210 mg/dL (<200); Glucose 90 mg/dL (74-99); HDL Cholesterol 62 mg/dL (40-60); LDL Cholesterol,Calculated 128 mg/dL (0-99); Magnesium 1.8 mg/dL (1.6-2.3); Potassium 4.8 mmol/L (3.5-5.1); Sodium 141 mmol/L (137-145); Total Bilirubin 0.6 mg/dL (0.2-1.3); Total Protein 7.6 g/dL (6.3-8.2); Triglycerides 102 mg/dL (<150)
[2018-06-16 10:40] LABS: Appearance,Urine Clear (Clear); Bilirubin,Urine Negative (Negative); Blood,Urine Negative (Negative); Color,Urine Colorless; Glucose,Urine (UA) Negative (Negative); Ketones,Urine Negative (Negative); Leukocyte Esterase,Urine Large (Negative); Nitrite,Urine Negative (Negative); PH, Urine 6.5 (5.0-8.0); Protein,Urine Negative (Negative); RBC,Urine 1 /hpf (0-5); Specific Gravity,Urine 1.006 (1.001-1.035); Squamous Epithelial Cell,Urine 1 /hpf (0-4); Urobilinogen,Urine <2.0 mg/dL (<2.0); WBC,Urine 24 /hpf (0-5)
--- NOTE | 2018-06-16 13:14 | XR ---
EXAMINATION TYPE: XR chest 2V DATE OF EXAM: 06/16/2018 COMPARISON: Prior chest x-ray December 16, 2017 HISTORY: Presurgical study. TECHNIQUE: Frontal and lateral views of the chest are obtained. FINDINGS: There is no focal air space opacity, pleural effusion, or pneumothorax seen. The cardiac silhouette size is within normal limits. Atherosclerotic change in aortic knob is redemonstrated. Th e osseous structures are intact. IMPRESSION: No acute cardiopulmonary process. No significant change from prior.
[2018-06-16 16:35] LABS: Hepatitis A Antibody IgM Non-Reactive (Non-Reactive); Hepatitis B Core IgM Non-Reactive (Non-Reactive)
[2018-06-16 16:54] LABS: Hemoglobin A1C 8.3 % (4.0-6.0)
== END | disposition home or self-care (01) ==
LOC: LABPAT 07:19
PROVIDERS: ATTEND Surgery
DX: Z01.818 Encounter for other preprocedural examination (principal); Z01.812 Encounter for preprocedural laboratory examination; I10 Essential (primary) hypertension; E11.9 Type 2 diabetes mellitus without complications; I25.10 Atherosclerotic heart disease of native coronary artery without angina pectoris; Z79.01 Long term (current) use of anticoagulants; Z79.899 Other long term (current) drug therapy
CPT/HCPCS: 71046; 80053; 80061; 80074; 81001; 83036; 83735; 84443; 85027; 85610; 85730; 86850; 86900; 86901; 87070; 87086; 93005; 93922; 93970

== ENCOUNTER 2018-06-28 05:30 | Inpatient (IN) | payer MEDICARE, OTHER ==
--- NOTE | 2018-06-27 16:07 | P.PN ---
Progress Note - Text Progress Note Date: 06/27/18 A 5 m walk test was completed with the patient time 1: 2.41 seconds, time 2: 2.51 seconds, time 3: 2.43 seconds, the walk test was completed on 06/21/2018. STS risk score has been calculated and has been discussed with the patient and her by Dr. Christina Younger. The patient has been scheduled for a coronary artery bypass grafting surgery, aortic valve replacement, possible mitral valve repair, exclusion left atrial appendage, intraoperative transesophageal echocardiogram to be performed by Dr. Christina Younger on 06/28/2018.
[~2018-06-28 05:30] MED LIST changes: +ALBUMIN HUMAN 25% 50 ML IV ONE; +ASPIRIN 325 MG TAB PO ONE; +ATORVASTATIN 10 MG TAB PO ONE; -ATORVASTATIN 40 MG TAB PO SCH; +CALCIUM CHLORIDE 100 MG/ML 10 ML SYRINGE IV ONE; +CHLORHEXIDINE GLUCONATE 15 ML CUP MUCOUS MEM ONE; +CLEVIDIPINE BUTYRATE 25 MG in EMPTY BAG 1 BAG IV ONE; +DEXTROSE 5% IN WATER 1,000 ML with POTASSIUM CHLORIDE 110 MEQ, MAGNESIUM SULFATE 16 MEQ... IV ONE; +DEXTROSE 5% IN WATER 1,000 ML with POTASSIUM CHLORIDE 25 MEQ, SODIUM CHLORIDE 2.5MEQ/ML... IRRIGATION ONE; -DOCUSATE 100 MG CAP PO PRN; +HEPARIN SODIUM 1,000 UN/ML (10ML VL) IV ONE; +HEPARIN SODIUM,PORCINE 5,000 UNIT in SODIUM CHLORIDE 0.9% 500 ML 500 ML IV ONE; -INSULIN DEGLUDEC 30 UNIT SQ SCH; +INSULIN REGULAR 100 UNIT in SODIUM CHLORIDE 0.9% 100 ML IV ONE; +LACTATED RINGERS 1,000 ML IV ONE; -LEVOTHYROXINE 50 MCG TAB PO SCH; +MAGNESIUM SULFATE MG 500 MG/ML IV ONE; +MANNITOL 25% 12.5 GM/50 ML VIAL IV ONE; +METOPROLOL TARTRATE 12.5 MG TAB PO ONE; -MIDAZOLAM 2 MG/2 ML VIAL IVP ONE; -MULTIVITAMINS, THERA 1 EACH TAB PO SCH; +NITROGLYCERIN-D5W PMX 25 MG/250 ML BTL IV ONE; +NITROGLYCERIN-D5W PMX 50 MG in DEXTROSE/WATER 1 250ML.BAG IV ONE; -NON-FORMULARY DRUG (Aspirin [Adult Low Dose Aspirin Ec] 81 MG) PO SCH; -NON-FORMULARY DRUG (Enalapril 5 MG) PO SCH; +NOREPINEPHRINE 4 MG in SODIUM CHLORIDE 0.9% 250 ML IV ONE; +PAPAVERINE 360 MG in SODIUM CHLORIDE 0.9% 90 ML IV ONE; +PHENYLEPHRINE 10 MG/ML VIAL IV ONE; +PHENYLEPHRINE 40 MG in SODIUM CHLORIDE 0.9% 250 ML IV ONE; +PROPOFOL 1,000 MG/100 ML VIAL IV ONE; +PROTAMINE SULFATE 10 MG/ML 25 ML VIAL IV ONE; +PROTAMINE SULFATE 250 MG in EMPTY BAG 1 BAG IV ONE; +SODIUM BICARB 8.4% 50 ML SYR (1 MEQ/ML) IV ONE; +SODIUM CHLORIDE 0.9% 1,000 ML IV ONE; -SODIUM CHLORIDE 0.9% 1,000 ML IV SCH; -SODIUM CHLORIDE 0.9% 500 ML 500 ML IV ONE; +TRANEXAMIC ACID 2,000 MG in SODIUM CHLORIDE 0.9% 80 ML IV ONE; +ceFAZolin 1,000 MG in SODIUM CHLORIDE 0.9% IRRIGATIO 1,000 ML IRRIGATION ONE; +ceFAZolin 2,000 MG in SODIUM CHLORIDE 0.9% 30 ML IVPB ONE; -fentaNYL (PF) 50 MCG/ML 2 ML AMP IV ONE
[2018-06-28] MEDS ORDERED: LIDOCAINE 1% 20 ML VIAL (10MG/ML) FOR IV START INTRADERMA ONE (06:15)
[2018-06-28 06:56] LABS: Glucose,Whole Blood 103 mg/dL (75-99)
[2018-06-28] MEDS ORDERED: LACTATED RINGERS 1,000 ML BAG IV ONE (07:40)
[2018-06-28] MEDS ORDERED: fentaNYL (PF) 50 MCG/ML 50 ML VIAL ONE (07:40)
[2018-06-28] MEDS ORDERED: MIDAZOLAM 2 MG/2 ML VIAL ONE (07:40)
[2018-06-28] MEDS ORDERED: TRANEXAMIC ACID 1,000 MG/10 ML VIAL ONE (07:40)
[2018-06-28] MEDS ORDERED: SODIUM CHLORIDE 0.9% 250 ML BAG ONE (07:40)
[2018-06-28] MEDS ORDERED: VECURONIUM 10 MG VIAL IV ONE (07:40)
[2018-06-28] MEDS ORDERED: MAGNESIUM SULFATE 4 MEQ/ML 10ML VIAL ONE (07:40)
[2018-06-28] MEDS ORDERED: HEPARIN SODIUM,PORCINE 10,000 UNIT/ML 1 ML VIAL ONE (07:40)
[2018-06-28] MEDS ORDERED: LIDOCAINE 1% INJ 10MG/ML (20 ML MDV) ONE (07:40)
[2018-06-28] MEDS ORDERED: ALBUMIN HUMAN 5% (12.5gm) 250 ML BOTTLE IVPB ONE (07:40)
[2018-06-28] MEDS ORDERED: PROTAMINE SULFATE 10 MG/ML 25 ML VIAL IV ONE (07:40)
[2018-06-28] MEDS ORDERED: ELECTROLYTE-R (PH 7.4) 1,000 ML IV.SOLN IV ONE (07:40)
[2018-06-28] MEDS ORDERED: BENZOCAINE/MENTHOL LOZENG 1 EACH LOZENGE MUCOUS MEM PRN (17:27)
[2018-06-28] MEDS ORDERED: AMIODARONE 300 MG in DEXTROSE 5% IN WATER 250 ML IV PRN ×2 (17:27)
[2018-06-28] MEDS ORDERED: Magnesium Replacement Protocol 1 EACH MISC MISCELLANE PRN (17:27)
[2018-06-28] MEDS ORDERED: METOCLOPRAMIDE 5 MG/ML 2 ML VIAL IVP PRN (17:27)
[2018-06-28] MEDS ORDERED: Phosphorus Replacement Protoco 1 EACH MISC MISCELLANE PRN (17:27)
[2018-06-28] MEDS ORDERED: AMIODARONE 360 MG in DEXTROSE 5% IN WATER 200 ML IV PRN ×2 (17:27)
[2018-06-28] MEDS ORDERED: Potassium Replacement Protocol 1 EACH MISC MISCELLANE PRN (17:27)
[2018-06-28] MEDS ORDERED: IPRATROPIUM-ALBUTEROL 3 ML NEB INHALATION PRN (17:27)
[2018-06-28] MEDS ORDERED: DEXTROSE 5% IN WATER 100 ML with AMIODARONE 150 MG IV PRN (17:27)
[2018-06-28] MEDS ORDERED: CALCIUM GLUCONATE 2 GM in SODIUM CHLORIDE 0.9% 100 ML IVPB PRN (17:27)
[2018-06-28] MEDS: MILRINONE-D5W PMX 20 MG in DEXTROSE/WATER 1 100ML.BAG IV SCH (17:30)
[2018-06-28 17:52] LABS: Basophils % (A) 0 %; Eosinophils % (A) 0 %; HCT 24.2 % (34.0-46.0); Lymphocytes # (A) 1.1 k/uL (1.0-4.8); Lymphocytes % (A) 8 %; MCH 29.9 pg (25.0-35.0); MCHC 33.7 g/dL (31.0-37.0); MCV 88.7 fL (80.0-100.0); Mean Platelet Volume 8.6; Monocytes # (A) 0.5 k/uL (0-1.0); Monocytes % (A) 4 %; Neutrophils # (A) 12.6 k/uL (1.3-7.7); Neutrophils % (A) 87 %; RBC 2.72 m/uL (3.80-5.40); RDW 14.3 % (11.5-15.5); WBC 14.4 k/uL (3.8-10.6)
[2018-06-28 17:57] LABS: HGB 8.1 gm/dL (11.4-16.0); Platelet Count 170 k/uL (150-450)
[2018-06-28 17:59] LABS: ABG Base Excess -1.2 mmol/L; ABG HCO3 25 mmol/L (21-25); ABG Oxygen Saturation 99.3 % (94-97); ABG PCO2 46 mmHg (35-45); ABG PH 7.34 (7.35-7.45); ABG PO2 225 mmHg (83-108); ABG TCO2 26 mmol/L (19-24); Allen Test Performed? Yes
[2018-06-28 17:59] LABS: Glucose,Whole Blood 173 mg/dL (75-99)
[2018-06-28 18:00] LABS: Ionized Calcium 4.4 mg/dL (4.5-5.3)
--- NOTE | 2018-06-28 18:05 | XR ---
EXAMINATION: XR chest 1V portable DATE AND TIME: 06/28/2018 5:46 PM CLINICAL INDICATION: [facility]; Post Operative Cardiac Surgery TECHNIQUE: Departmental protocol COMPARISON: Chest radiograph 06/16/2018 AT 12:25 FINDINGS: Since prior study interval CABG with sternal sutures and mediastinal clips. Patient is intubated with ET tube tip superimposed over the mid trachea. NG tube present, with tip superimposed over the gastr ic fundus. Right IJ [place] tip supposedly included. EKG leads. Left chest tube. Mediastinal drain. Elevated hemidiaphragms consistent with low lung inflation at the moment of x-ray exposure. There is evidence of mild interstitial phase pulmonary edema, but the upper and mid lung zones are pr imarily clear and well-expanded is seen. There is no visualized pneumothorax or other abnormal gas collection. However, supine radiography cannot exclude abnormal gas collections. There is widening of the mediastinum compared to the preoperative study. The present study is AP view of the prior study is likely PA, accounting for a component of the widened mediastinum. If clinicall y indicated, CT can fully characterize. No acute bone or soft tissue findings. IMPRESSION: POSTOP FINDINGS DISCUSSED.
[2018-06-28 18:07] LABS: INR 1.1 (<1.2); Partial Thromboplastin Time 34.6 sec (22.0-30.0); Prothrombin Time 11.2 sec (9.0-12.0)
[2018-06-28 18:11] LABS: ALT 42 U/L (9-52); AST 45 U/L (14-36); African American GFR (CKD) >90 (>60 ml/min/1.73 sqM); Albumin 2.7 g/dL (3.5-5.0); Alkaline Phosphatase 30 U/L (38-126); Anion Gap 5 mmol/L; Blood Urea Nitrogen 9 mg/dL (7-17); Calcium 7.5 mg/dL (8.4-10.2); Carbon Dioxide 22 mmol/L (22-30); Chloride 109 mmol/L (98-107); Glucose 164 mg/dL (74-99); Magnesium 2.2 mg/dL (1.6-2.3); Potassium 5.1 mmol/L (3.5-5.1); Sodium 136 mmol/L (137-145); Total Bilirubin 1.5 mg/dL (0.2-1.3); Total Protein 4.7 g/dL (6.3-8.2)
[2018-06-28] MEDS: NOREPINEPHRINE 4 MG in SODIUM CHLORIDE 0.9% 250 ML IV SCH ×2 (18:32→23:10)
[2018-06-28] MEDS: LACTATED RINGERS 1,000 ML IV SCH (18:44)
--- NOTE | 2018-06-28 18:58 | P.CNPUL ---
<Aye Stewart M - Last Filed: 06/28/18 18:39> History of Present Illness Consult date: 06/28/18 Requesting physician: Christina Younger Reason for consult: other Chief complaint: Coronary artery disease, aortic valve stenosis, mitral valve regurgitation History of present illness: This is 72-year-old white female patient with the past medical history of coronary artery disease with aortic valve stenosis, and mitral valve regurgitation, who has been complaining of worsening dyspnea on exertion. Cardiac catheterization, echocardiogram, and transesophageal echocardiogram revealed advanced coronary artery disease and moderate to severe aortic valve stenosis and moderate mitral valve regurgitation. Other medical history includes diabetes mellitus, hypertension, hyperlipidemia, peripheral vascular disease, previous history of CVA/TIA, hypothyroidism and previous history of nicotine dependence. Preop PFT showed a FEV1 of 77% of predicted and mild diffusion abnormalities. 2-D echo and ABBIE showed preserved systolic function with moderate hypertrophy. Patient was referred to cardiothoracic surgery for surgical intervention, and on all 06/28/2018 patient underwent two-vessel coronary artery bypass grafting, with the CUMMINGS to LAD, and the SVG to the PDA, aortic valve replacement with a bioprosthetic valve, and mitral valve repair, and left atrial appendage exclusion. Patient is seen in the postoperative pe riod in the intensive care unit, she is sedated, intubated on mechanical ventilator, and current vent settings are assist-control mode of ventilation with a rate of 12, tidal volume 400, FiO2 of 100%, and PEEP of 5, postop blood gases were obtained, and showed pO2 of 225, pCO2 of 46, and pH of 7.33. In the rate was increased to 14, and FiO2 was cut down to 50%. IVs include lactated Ringer's at rate of 50, Primacor at 0.3 mics per kilo per minute, levo fed is at 3.8 mics per minute, nitroglycerin is at 5 mics per kilo per minute, insulin and Diprivan drip. Postop blood work showed a white blood cell count of 14.4, hemoglobin of 8.1, sodium of 136, potassium is 5.1, chloride is 109, BUN of 9, creatinine is 0.36. Patient was transfused with 2 units of packed red blood cells, 2 units of fresh frozen plasma, 2 units of platelets. Patient has diminished all chest tubes, and left pleural chest tube, with moderate amount of sanguinous output, patient is hemodynamically stable, she is being paced via atrial epicardial wires at a rate of 80. Sternal incision is clean dry and intact, with a surgical dressing. Mendoza catheter is in place, and is nonoliguric. Review of Systems All systems: negative Constitutional: Denies chills, Denies fever Eyes: denies blurred vision, denies pain Ears, nose, mouth and throat: Denies headache, Denies sore throat Cardiovascular: Reports dyspnea on exertion, Denies chest pain, Denies shortness of breath Respiratory: Reports dyspnea, Denies cough Gastrointestinal: Denies abdominal pain, Denies diarrhea, Denies nausea, Denies vomiting Genitourinary: Denies dysuria, Denies hematuria Musculoskeletal: Denies myalgias Integumentary: Denies pruritus, Denies rash Neurological: Denies numbness, Denies weakness Psychiatric: Denies anxiety, Denies depression Endocrine: Denies fatigue, Denies weight change Past Medical History Past Medical History: CVA/TIA, Diabetes Mellitus, GERD/Reflux, Hyperlipidemia, Hypertension, Pneumonia, Rheumatoid Arthritis (RA), Thyroid Disorder Additional Past Medical History / Comment(s): states TIA over 30yrs ago- no residual effects, "Chest pressure". heart murmur, SOB on exertion, walking pneumonia long time ago, insomnia, "3 hiatal hernias", hx IBS History of Any Multi-Drug Resistant Organisms: None Reported Past Surgical History: Bowel Resection, Heart Catheterization, Hysterectomy, Orthopedic Surgery, Tonsillectomy Additional Past Surgical History / Comment(s): left knee arthroscopy, orif left ankle with plate and screws-hardware later removed, uri cataracts, hemmorhoidectomy, "perforated colon with colonoscopy",heart cath. 03-23-18 Past Anesthesia/Blood Transfusion Reactions: No Reported Reaction Additional Past Anesthesia/Blood Transfusion Reaction / Comment(s): no hx blood transfusion Smoking Status: Former smoker - Past Family History Mother Family Medical History: No Reported History Medications and Allergies Home Medications Medication Instructions Recorded Confirmed Type Levothyroxine Sodium [Synthroid] 50 mcg PO QAM 10/19/16 06/28/18 History Insulin Degludec [Tresiba 45 unit SQ HS 01/01/18 06/28/18 History Flextouch U-100] Multivitamins, Thera [Multivitamin 1 tab PO DAILY 01/01/18 06/28/18 History (formulary)] Atorvastatin [Lipitor] 40 mg PO HS 03/18/18 06/28/18 History Docusate [Colace] 100 mg PO DAILY PRN 03/18/18 06/28/18 History Enalapril [Vasotec] 5 mg PO DAILY@1200 03/18/18 06/28/18 History Dulaglutide [Trulicity] 1.5 mg SQ MO 06/16/18 06/28/18 History Mupirocin 2% Oint [Bactroban 2% 1 applic NASAL BID 06/16/18 06/28/18 History Oint] Cephalexin [Keflex] 500 mg PO Q6HR 06/27/18 06/28/18 History Allergies Allergy/AdvReac Type Severity Reaction Status Date / Time nickel Allergy per alg Verified 06/28/18 16:13 testing Physical Exam Vitals: Vital Signs Temp Pulse Pulse Pulse Resp BP BP 06/28/18 17:40 35.2 F L 80 12 123/79 06/28/18 17:30 35.2 F L 80 12 06/28/18 17:20 80 16 06/28/18 06:15 98.8 F 90 90 16 172/80 BP Pulse Ox 06/28/18 17:40 99 06/28/18 17:30 06/28/18 17:20 06/28/18 06:15 184/86 97 Intake and Output 06/28/18 06/28/18 06/28/18 06:59 14:59 22:59 Intake Total 300 3 1733 Output Total 2850 Balance 300 3 -1117 Intake: IV 300 3 Blood Product 1733 Ffp 24 Cpd Unit 286 [id number] Ffp 24 Cpd Unit 276 [id number] Platelet Irr Pheresis 239 Acda1 Unit [id number] Platelet Pheresis Acda2 312 Unit [id number] Rc As-1 Unit 310 [id number] Rc As-1 Unit 310 [id number] Output: Urine 850 Estimated Blood Loss 1999 Other: Weight 77.6 kg ABP, PAP, CO, CI - Last 8 Hours Arterial Blood Pressure 134/56 Arterial Blood Pressure 150/66 Pulmonary Artery Pressure 35/21 Pulmonary Artery Pressure 34/23 Cardiac Output 4.0 Cardiac Index 2.1 GENERAL EXAM: Sedated, intubated 72-year-old white female comfortable in no ap parent distress. HEAD: Normocephalic/atraumatic. EYES: Normal reaction of pupils, equal size. Conjunctiva pink, sclera white. NOSE: Clear with pink turbinates. THROAT: No erythema or exudates. NECK: No masses, no JVD, no thyroid enlargement, no adenopathy. CHEST: No chest wall deformity. Symmetrical expansion. Sternal incision is clean dry and intact, covered with a surgical dressing, 2 mediastinal and left pleural chest tubes to wall suction with moderate amount of sanguinous output in the Pleur-evac. Epicardial wires connected to external pacemaker, and patient is being paced AAI mode, at a rate of 80 BPM LUNGS: Equal air entry with no crackles, wheeze, rhonchi or dullness. CVS: Regular rate and rhythm, normal S1 and S2, no gallops, no murmurs, no rubs ABDOMEN: Soft, nontender. No hepatosplenomegaly, normal bowel sounds, no guarding or rigidity. EXTREMITIES: No clubbing, no edema, no cyanosis, 2+ pulses and upper and lower extremities. SCDs are present on both legs MUSCULOSKELETAL: Muscle strength and tone normal. SPINE: No scoliosis or deformity SKIN: No rashes CENTRAL NERVOUS SYSTEM: Sedated No focal deficits, tone is normal in all 4 extremities. Results - Laboratory Findings CBC and BMP: 06/28/18 17:27 06/28/18 17:27 ABG ABG pH 7.34 (7.35-7.45) L 06/28/18 17:55 ABG pCO2 46 mmHg (35-45) H 06/28/18 17:55 ABG pO2 225 mmHg (83-108) H 06/28/18 17:55 ABG O2 Saturation 99.3 % (94-97) H 06/28/18 17:55 PT/INR, D-dimer PT 11.2 sec (9.0-12.0) 06/28/18 18:06 INR 1.1 (<1.2) 06/28/18 18:06 Abnormal lab findings: Abnormal Labs 06/16/18 06/28/18 06/28/18 09:00 06:21 17:25 WBC RBC Hgb Hct Neutrophils # APTT ABG pH ABG pCO2 ABG pO2 ABG Total CO2 ABG O2 Saturation Sodium Chloride Creatinine Glucose POC Glucose (mg/dL) 103 H 173 H Calcium Ionized Calcium Shital Total Bilirubin AST Alkaline Phosphatase Total Protein Albumin Crossmatch See Detail 06/28/18 06/28/18 06/28/18 17:27 17:27 17:55 WBC 14.4 H RBC 2.72 L Hgb 8.1 L D Hct 24.2 L Neutrophils # 12.6 H APTT ABG pH 7.34 L ABG pCO2 46 H ABG pO2 225 H ABG Total CO2 26 H ABG O2 Saturation 99.3 H Sodium 136 L Chloride 109 H Creatinine 0.36 L Glucose 164 H POC Glucose (mg/dL) Calcium 7.5 L Ionized Calcium Shital 4.4 L Total Bilirubin 1.5 H AST 45 H Alkaline Phosphatase 30 L Total Protein 4.7 L Albumin 2.7 L Crossmatch 06/28/18 18:06 WBC RBC Hgb Hct Neutrophils # APTT 34.6 H ABG pH ABG pCO2 ABG pO2 ABG Total CO2 ABG O2 Saturation Sodium Chloride Creatinine Glucose POC Glucose (mg/dL) Calcium Ionized Calcium Shital Total Bilirubin AST Alkaline Phosphatase Total Protein Albumin Crossmatch - Diagnostic Findings Chest x-ray: report reviewed, image reviewed Assessment and Plan Plan: Assessment: #1. Coronary artery disease, aortic valve stenosis, and moderate mitral valve regurgitation, status post 2 vessel coronary bypass with CUMMINGS to LAD, and SVG to the PDA, aortic valve replacement with a bioprosthetic valve, and mitral valve repair and exclusion of left atrial appendage, postop day 0 #2. Routine postoperative ventilator management #3. Acute postoperative blood loss anemia, and expected outcome of bypass surgery #4. Diabetes mellitus type 2 #5. Hypertension #6. Hyperlipidemia #7. Peripheral vascular disease #8. Previous history of smoking Plan: Postop chest x-ray, blood work, and blood gases were reviewed by Dr. Carballo, necessary vent adjustments were made. Patient is hemodynamically stable, we will proceed with spontaneous breathing trials and extubation per protocol. Tinea with the nebulized bronchodilators, incentive spirometry, deep breathing and coughing after extubation, daily chest x-rays and daily blood work. Close hemodynamic monitoring. I performed a history & physical examination of the patient and discussed their management with my nurse practitioner, Aye Stewart. I reviewed the nurse practitioner's note and agree with the documented findings and plan of care. Lung sounds are positive for clear breath sounds. The findings and the impression was discussed with the patient. I attest to the documentation by the nurse practitioner. Time with Patient: Greater than 30 <Alireza Carballo - Last Filed: 06/28/18 19:55> Physical Exam Vitals: Vital Signs Temp Pulse Pulse Pulse Resp BP BP 06/28/18 19:00 35.9 F L 80 17 06/28/18 18:50 80 14 100/63 06/28/18 18:40 80 14 06/28/18 18:30 80 14 06/28/18 18:20 80 15 06/28/18 18:10 80 12 06/28/18 18:00 80 12 100/63 06/28/18 17:50 80 14 06/28/18 17:40 35.2 F L 80 12 123/79 06/28/18 17:30 35.2 F L 80 12 06/28/18 17:20 80 16 06/28/18 06:15 98.8 F 90 90 16 172/80 BP Pulse Ox 06/28/18 19:00 95 06/28/18 18:50 69 L 06/28/18 18:40 100 06/28/18 18:30 100 06/28/18 18:20 100 06/28/18 18:10 06/28/18 18:00 98 06/28/18 17:50 98 06/28/18 17:40 99 06/28/18 17:30 06/28/18 17:20 06/28/18 06:15 184/86 97 Intake and Output 06/28/18 06/28/18 06/28/18 06:59 14:59 22:59 Intake Total 300 3 2086.942 Output Total 3765 Balance 300 3 -1678.058 Intake: IV 300 3 Intake, IV Titration 353.942 Amount Albumin Human 5% 250 ml 250 In Empty Bag 1 bag @ 250 mls/hr IVPB Q1HR PRN Rx#: [id number] Lactated Ringers 1,000 ml 100 @ 50 mls/hr IV .Q20H YUDITH Rx#:[id number] Norepinephrine 4 mg In 3.942 Sodium Chloride 0.9% 250 ml @ 0.02 MCG/KG/MIN 5. 913 mls/hr IV .Q24H YUDITH Rx#:[id number] Blood Product 1733 Ffp 24 Cpd Unit 286 [id number] Ffp 24 Cpd Unit 276 [id number] Platelet Irr Pheresis 239 Acda1 Unit [id number] Platelet Pheresis Acda2 312 Unit [id number] Rc As-1 Unit 310 [id number] Rc As-1 Unit 310 [id number] Output: Chest Tube Drainage 670 Bilateral Mediastinal 440 Chest Tube Left 230 Urine 1095 Estimated Blood Loss 1999 Other: Weight 77.6 kg ABP, PAP, CO, CI - Last 8 Hours Arterial Blood Pressure 91/45 Arterial Blood Pressure 82/43 Arterial Blood Pressure 91/42 Arterial Blood Pressure 103/48 Arterial Blood Pressure 114/50 Arterial Blood Pressure 130/60 Arterial Blood Pressure 89/47 Arterial Blood Pressure 86/45 Arterial Blood Pressure 134/56 Arterial Blood Pressure 150/66 Pulmonary Artery Pressure 38/22 Pulmonary Artery Pressure 37/20 Pulmonary Artery Pressure 39/21 Pulmonary Artery Pressure 39/21 Pulmonary Artery Pressure 40/21 Pulmonary Artery Pressure 44/26 Pulmonary Artery Pressure 35/21 Pulmonary Artery Pressure 36/24 Pulmonary Artery Pressure 35/21 Pulmonary Artery Pressure 34/23 Cardiac Output 3.7 Cardiac Output 4 Cardiac Output 4.0 Cardiac Output 4.0 Cardiac Index 2.0 Cardiac Index 2.1 Cardiac Index 2.1 Results - Laboratory Findings CBC and BMP: 06/28/18 17:27 06/28/18 17:27 ABG ABG pH 7.34 (7.35-7.45) L 06/28/18 17:55 ABG pCO2 46 mmHg (35-45) H 06/28/18 17:55 ABG pO2 225 mmHg (83-108) H 06/28/18 17:55 ABG O2 Saturation 99.3 % (94-97) H 06/28/18 17:55 PT/INR, D-dimer PT 11.2 sec (9.0-12.0) 06/28/18 18:06 INR 1.1 (<1.2) 06/28/18 18:06 Abnormal lab findings: Abnormal Labs 06/16/18 06/28/18 06/28/18 09:00 06:21 17:25 WBC RBC Hgb Hct Neutrophils # APTT ABG pH ABG pCO2 ABG pO2 ABG Total CO2 ABG O2 Saturation Sodium Chloride Creatinine Glucose POC Glucose (mg/dL) 103 H 173 H Calcium Ionized Calcium Shital Total Bilirubin AST Alkaline Phosphatase Total Protein Albumin Crossmatch See Detail 06/28/18 06/28/18 06/28/18 17:27 17:27 17:55 WBC 14.4 H RBC 2.72 L Hgb 8.1 L D Hct 24.2 L Neutrophils # 12.6 H APTT ABG pH 7.34 L ABG pCO2 46 H ABG pO2 225 H ABG Total CO2 26 H ABG O2 Saturation 99.3 H Sodium 136 L Chloride 109 H Creatinine 0.36 L Glucose 164 H POC Glucose (mg/dL) Calcium 7.5 L Ionized Calcium Shital 4.4 L Total Bilirubin 1.5 H AST 45 H Alkaline Phosphatase 30 L Total Protein 4.7 L Albumin 2.7 L Crossmatch 06/28/18 06/28/18 06/28/18 18:06 18:28 19:23 WBC RBC Hgb Hct Neutrophils # APTT 34.6 H ABG pH ABG pCO2 ABG pO2 ABG Total CO2 ABG O2 Saturation Sodium Chloride Creatinine Glucose POC Glucose (mg/dL) 170 H 229 H Calcium Ionized Calcium Shital Total Bilirubin AST Alkaline Phosphatase Total Protein Albumin Crossmatch Assessment and Plan Plan: This is a joint evaluation was done along with a nurse practitioner. The patient was seen immediately after she arrived to the intensive care unit. The patient underwent a aortic valve replacement and mitral valve repair along with two-vessel bypass surgery. Currently she is intubated on a mechanical ventilator. Chest x-ray showed adequate expansion of both lungs. ET tube is in a good location. Chest tubes are also in place. Output from the chest was been noted. We'll order another CBC to make sure there is no significant drop in hemoglobin. The patient is on Primacor until is being titrated and to be increased up to 0.4 g per KG per minute for augmentation of the cardiac output. Meanwhile, the patient remains on a mechanical ventilator. Keep the tidal volume of 400. Increase Zestoretic to 20. Wean down the FiO2 down gradually to maintain a saturation above 94%. Adequate urine output. Hemodynamically s table. Still on sedation. The patient was monitored very closely in ICU and further recommendations are to follow based on her progress.
[2018-06-28 19:26] LABS: Glucose,Whole Blood 170 mg/dL (75-99)
[2018-06-28 19:26] LABS: Glucose,Whole Blood 229 mg/dL (75-99)
[2018-06-28] MEDS ORDERED: IPRATROPIUM-ALBUTEROL 3 ML NEB INHALATION SCH (20:00)
[2018-06-28 20:19] LABS: Glucose,Whole Blood 305 mg/dL (75-99)
[2018-06-28 20:23] LABS: African American GFR (CKD) >90 (>60 ml/min/1.73 sqM); Anion Gap 6 mmol/L; Blood Urea Nitrogen 10 mg/dL (7-17); Calcium 8.1 mg/dL (8.4-10.2); Carbon Dioxide 21 mmol/L (22-30); Chloride 108 mmol/L (98-107); Glucose 268 mg/dL (74-99); Magnesium 2.1 mg/dL (1.6-2.3); Phosphorus 3.3 mg/dL (2.5-4.5); Potassium 5.2 mmol/L (3.5-5.1); Sodium 135 mmol/L (137-145)
[2018-06-28] MEDS ORDERED: INSULIN REGULAR 100 UNIT/ML VIAL IV ONE (20:26)
[2018-06-28 20:28] LABS: Ionized Calcium 4.8 mg/dL (4.5-5.3)
[2018-06-28] MEDS: ACETAMINOPHEN IV (For NPO) 1,000 MG in EMPTY BAG 1 BAG IVPB SCH (20:28)
[2018-06-28] MEDS: ceFAZolin IN SWFI 2 GM/20 ML SYRINGE IVP SCH (20:31)
[2018-06-28] MEDS: INSULIN REGULAR 100 UNIT in SODIUM CHLORIDE 0.9% 100 ML IV SCH (20:43)
[2018-06-28 20:45] LABS: Basophils % (A) 0 %; Eosinophils % (A) 0 %; Lymphocytes # (A) 1.3 k/uL (1.0-4.8); Lymphocytes % (A) 10 %; MCH 30.2 pg (25.0-35.0); MCHC 33.3 g/dL (31.0-37.0); MCV 90.6 fL (80.0-100.0); Mean Platelet Volume 8.2; Monocytes # (A) 0.4 k/uL (0-1.0); Monocytes % (A) 3 %; Neutrophils % (A) 85 %; Platelet Count 167 k/uL (150-450); RBC 2.15 m/uL (3.80-5.40); RDW 14.4 % (11.5-15.5); WBC 12.9 k/uL (3.8-10.6)
[2018-06-28] MEDS: ALBUMIN HUMAN 5% 250 ML in EMPTY BAG 1 BAG IVPB PRN (20:50)
[2018-06-28 20:54] LABS: HCT 19.5 % (34.0-46.0); HGB 6.5 gm/dL (11.4-16.0)
[2018-06-28 21:16] LABS: ABG Base Excess -8.6 mmol/L; ABG HCO3 18 mmol/L (21-25); ABG PCO2 35 mmHg (35-45); ABG PH 7.31 (7.35-7.45); ABG PO2 273 mmHg (83-108); ABG TCO2 19 mmol/L (19-24); Allen Test Performed? Yes
[2018-06-28 21:38] LABS: Glucose,Whole Blood 338 mg/dL (75-99)
[2018-06-28 22:27] LABS: Glucose,Whole Blood 319 mg/dL (75-99)
[2018-06-28] MEDS ORDERED: SODIUM BICARB 8.4% 50 ML SYR (1 MEQ/ML) ONE (22:50)
[2018-06-28] MEDS ORDERED: SODIUM BICARB 8.4% 50 ML SYR (1 MEQ/ML) IV STA (22:53)
[2018-06-28] MEDS: CHLORHEXIDINE GLUCONATE 15 ML CUP MUCOUS MEM SCH (23:17)
[2018-06-28 23:19] LABS: Glucose,Whole Blood 310 mg/dL (75-99)
[2018-06-28] MEDS: IPRATROPIUM-ALBUTEROL 3 ML NEB INHALATION SCH (23:35)
[2018-06-29 00:14] LABS: Glucose,Whole Blood 258 mg/dL (75-99)
[2018-06-29] MEDS: MORPHINE SULFATE 2 MG/ML SYRINGE IVP PRN ×3 (00:32→07:16)
[2018-06-29] MEDS: ACETAMINOPHEN IV (For NPO) 1,000 MG in EMPTY BAG 1 BAG IVPB SCH (00:32)
[2018-06-29] MEDS: HEPARIN SODIUM,PORCINE 5,000 UNIT/ML 1 ML VIAL SQ SCH ×4 (00:34→23:57)
--- NOTE | 2018-06-29 00:36 | OP ---
OPERATIVE REPORT DATE OF SURGERY: June 28, 2018. SURGEON: Dr. Christina Younger. HOSE MAKER: Goyo Fowler and Prem Mcpherson NP. PREOPERATIVE DIAGNOSES: 1. Triple-vessel coronary artery disease, moderate left ventricular dysfunction, moderate to severe aortic valve stenosis, moderate mitral valve regurgitation. 2. Diabetes. 3. Hypertension. 4. Hyperlipidemia. 5. Peripheral vascular disease. 6. Ex-smoker. POSTOPERATIVE DIAGNOSES: 1. Triple-vessel coronary artery disease, moderate left ventricular dysfunction, moderate to severe aortic valve stenosis, moderate mitral valve regurgitation. 2. Diabetes. 3. Hypertension. 4. Hyperlipidemia. 5. Peripheral vascular disease. 6. Ex-smoker. PROCEDURE: 1. Double-vessel coronary artery bypass grafting using the left internal mammary artery to the left anterior descending artery, reverse saphenous vein graft from the aorta to the posterior descending artery. 2. Aortic valve replacement using a 21 mm inspiris pericardial bioprosthesis. 3. Mitral valve repair using a posterior annuloplasty 26 mm annular flex ring. 4. Exclusion of the left atrial appendage with a 35 mm AtriClip. 5. Endoscopic harvesting of the left greater saphenous vein. 6. Intraoperative transesophageal echocardiogram and epiaortic scanning. 7. Intraoperative graft flow measurements using the Twirl TV system. INDICATION FOR SURGERY: Patient is a 72-year-old lady with the above risk factors, who was referred for essentially signs and symptoms of congestive heart failure. Workup included cardiac catheterization that showed significant disease in the proximal left anterior descending artery that supplied collateral to a totally occluded right coronary system, a patent large marginal branch. However, the distal circumflex artery was occluded. The patient on 2D echo and ABBIE have moderate to severe aortic valve stenosis and mild mitral, mild aortic valve regurgitation as well as moderate central mitral valve regurgitation. The patient is brought in today for the above surgery. The STS risk was discussed with her, she understood it and agreed to proceed. DESCRIPTION OF THE PROCEDURE: The patient in supine position. Right internal jugular Bartow-Nata catheter and right radial arterial line were placed. The patient, PA pressure was 40/20 and cardiac index was 2.7. Subsequently general endotracheal anesthesia was induced uneventfully. She received 2 g of cefazolin intravenously. A Mendoza catheter was inserted. The chest, abdomen and both lower extremities were prepped and draped using ChloraPrep. Ioban was used to cover the skin. Transesophageal echocardiogram confirmed the preoperative finding of moderate to severe aortic valve stenosis as well as moderate mitral valve regurgitation despite being under anesthesia. For that reason, decision was made to proceed also with mitral valve repair. A midline sternotomy was performed and the bone was osteoporotic. The left hemisternum was elevated and left internal mammary artery was harvested in a somewhat skeletonized fashion. The left pleura was intentionally opened in this process and was drained with a 19-[place] Jose drain. Patient was given 5000 units of heparin before clipping the internal mammary artery distally and transected it and had a pulsatile flow in it. In the same setting, the left greater saphenous vein was harvested endoscopically from groin to mid lower leg level after administration of 2500 units of heparin. The leg incisions were closed over a drain. The vein was prepared and all the branches tied. The vein appeared to be of good quality around 3.5 mm in diameter thin-walled. Mediastinal fat was transected between 2 ties and epiaortic scanning revealed some wall disease, but no protruding atheroma in the ascending aorta. Pericardium was opened in an inverted T-fashion and a pericardial cradle was created. Findings included a normal size heart and normal soft aorta. After systemic heparinization after placement of respective pledgeted pursing, aortic cannulation with a 21-[place] soft flow cannula, direct SVC cannulation with a right angle 28-[place] Citizen cannula and IVC cannulation with a 30-[place] cannula at the junction with the right atrium was performed. Antegrade as well as retrograde cardioplegia catheter were placed. Cardioplegia bypass was initiated and the inferior vena cava was encircled with an umbilical tape. As we were trying to encircle the superior vena cava. I realized that I injured its medial wall and for that reason, I placed 2 pledgeted 4-0 Prolene at that level and decided not to encircle the superior vena cava. With the heart empty and beating, we looked at the target. The LAD was intramyocardial and emerged distally. The posterior descending artery was readily visible had some wall disease, but appeared to be suitable for bypass. The lateral wall had a very small OM system clearly non bypassable. Aorta was clamped and during aortic clamping myocardial protection was achieved with initial dose of around 800 mL of antegrade cold blood cardioplegia followed by 500 mL of retrograde cold blood cardioplegia. All subsequent doses were given retrograde as well as through the initially constructed vein graft to the posterior descending artery. The 1st part of the surgery was to perform the distal anastomosis. The 1st distal anastomosis was between a segment of reverse saphenous vein graft and the 1.7 mm mildly thickened wall posterior descending artery using Prolene 7-0 in continuous fashion. That vein was connected to a Y system on the retrograde delivery system. At this point, the left atrial appendage was excluded with a 35 mm AtriClip. The 2nd and last distal anastomosis was seen. The left internal mammary artery which was around 1.5 mm in diameter, thin-walled and distal left anterior descending artery, which opened between 2 big veins and was around 1.5 mm in diameter thin-walled using Prolene 7-0 in continuous fashion. The mammary veins were affixed to the epicardium using Prolene 7 0. At this point, I proceeded at performing a transverse aortotomy at the level of the sinotubular junction. Exploration of the aortic valve revealed a moderately calcified trileaflet valve, which was excised. It was sized to a 21 mm Inspires. I placed the sutures at the level of the noncoronary sinus by using pledgeted Tycron 2-0 with the pledgets on the ventricular side in a horizontal mattress fashion. I stopped at that level and we used the Katerin mitral retractor in this case. I moved to the mitral part and proceeded at performing a standard left atriotomy after developing the interatrial groove. The mitral valve was very hard to be seen. However, I was able to pass 8 Tycron 2-0 nonpledgeted sutures from trigone to trigone posteriorly. I could barely see the tip of the anterior leaflet and there was no way I could use a complete ring. I selected the smaller string, which was a 26 mm and passed all the sutures symmetrically in it and seated nicely. The needles were cut and the suture tied using the cor knot device. The aortotomy was closed using Prolene 4-0 pledgeted on each corner and meeting in the midline. De-airing maneuver were done and CO2 was flowing over the field as long as the aorta and the left atrium were open. I did 1 pledgeted Prolene 4-0 at the level of the midway of the left atrial closure line. I went back to the aortic valve part now and completed passing all the annular suture in a horizontal mattress fashion with the pledgets on the ventricular side. A total of 15 sutures were placed. Those were passed in the cuff of the prosthetic valve, which seated nicely in a supra-annular position. All the needles cut and the suture tied using the core knot device. Both coronary ostia were clear. Thorough irrigation performed. The aortotomy was closed using Prolene 4-0 pledgeted on each corner and in 2 layers, the 1st layer in a horizontal mattress and the 2nd layer in an over and over technique. Rewarming was started as we punched out a 4 mm button off the ascending aorta above the aortotomy and performed the single proximal anastomosis of the vein graft going to the posterior descending artery to the aorta using Prolene 6 0 in a continuous fashion. The patient was given lidocaine and magnesium and de-airing maneuvers were followed before unclamping the aorta. He regained a spontaneous junctional rhythm. Two monopolar atrial pacing wires were affixed, 1 to the retrograde cardioplegia site and 1 to the right atrial appendage. The retrograde cardioplegia site required reinforcement with 2 pledgeted 4-0 Prolene as the atrium was very thin. One bipolar ventricular pacing wire was driven via the inferior aspect of the right ventricle. ABBIE showed no paravalvular leak at the level of the aortic valve and mild central mitral valve regurgitation. De-airing was adequate. With that, we were able to wean off cardiac bypass on low-dose Primacor with adequate hemodynamics. Test was then full dose protamine was given. It took a while to achieve hemostasis and we had to give 6 units of platelets and 2 units of FFP. There was venous bleeding from around the LAD anastomosis that required a TachoSil to be controlled. I placed Coseal over the aortotomy and also over the TachoSil at the level of the bleeding venous branch close to the LAD anastomosis. Two Jose drain 19-[place] Citizen 1 placed in the posterior pericardium and 1 substernally were placed. A groove was made in the left pleuropericardial fat to accommodate the mammary artery medial to the lung and away from the posterior sternal table. The pericardial fat was loosely approximated over the heart and the aorta. After ensuring adequate hemostasis and hemodynamic and after correct sponge, instrument, and needle count, and in view of nickel allergy, the sternum was closed using 4 [id number] titanium pineal cables and the last intercostal space was closed with a zip tie as we ran out of nickel free cables. Thorough irrigation performed. The rest of the closure proceeded in layers. Skin glue was applied. Patient received 2 units of packed red blood cells, 2 units of FFP and 6 units of platelets during the case. She also received 350 mL of Cell Saver blood. She was transferred to the ICU in stable condition with a cardiac index of 2.6, PA pressure of 42/25 and mean artery pressure of 80, atrially paced at 80 for a sinus bradycardia. Thank you for this consultation. CC: Dr. Kellee Colon. [id number] / IJN: [id number] / KAY
[2018-06-29] MEDS: PROPOFOL 1,000 MG in EMPTY BAG 1 BAG IV SCH ×2 (00:39→04:45)
[2018-06-29 00:57] LABS: ABG Base Excess -7.3 mmol/L; ABG HCO3 19 mmol/L (21-25); ABG Oxygen Saturation 97.4 % (94-97); ABG PCO2 35 mmHg (35-45); ABG PH 7.33 (7.35-7.45); ABG PO2 87 mmHg (83-108); ABG TCO2 20 mmol/L (19-24); Allen Test Performed? Yes
[2018-06-29 01:00] LABS: Glucose,Whole Blood 244 mg/dL (75-99)
[2018-06-29 01:54] LABS: African American GFR (CKD) >90 (>60 ml/min/1.73 sqM); Anion Gap 10 mmol/L; Blood Urea Nitrogen 11 mg/dL (7-17); Calcium 7.7 mg/dL (8.4-10.2); Carbon Dioxide 19 mmol/L (22-30); Chloride 109 mmol/L (98-107); Glucose 213 mg/dL (74-99); Magnesium 1.9 mg/dL (1.6-2.3); Potassium 4.1 mmol/L (3.5-5.1); Sodium 138 mmol/L (137-145)
[2018-06-29 01:55] LABS: Basophils % (A) 0 %; Eosinophils % (A) 0 %; HCT 26.1 % (34.0-46.0); Lymphocytes # (A) 1.2 k/uL (1.0-4.8); Lymphocytes % (A) 10 %; MCH 29.1 pg (25.0-35.0); MCHC 32.5 g/dL (31.0-37.0); MCV 89.6 fL (80.0-100.0); Mean Platelet Volume 8.5; Monocytes # (A) 0.5 k/uL (0-1.0); Monocytes % (A) 4 %; Neutrophils % (A) 85 %; Platelet Count 139 k/uL (150-450); RBC 2.92 m/uL (3.80-5.40); RDW 14.6 % (11.5-15.5); WBC 11.8 k/uL (3.8-10.6)
[2018-06-29 02:09] LABS: HGB 8.5 gm/dL (11.4-16.0)
[2018-06-29] MEDS ORDERED: SODIUM BICARB 8.4% 50 ML SYR (1 MEQ/ML) IV STA (02:17)
[2018-06-29] MEDS: ceFAZolin IN SWFI 2 GM/20 ML SYRINGE IVP SCH ×2 (02:23→11:51)
[2018-06-29] MEDS: MAGNESIUM SULFATE-D5W PMX 1 GM in DEXTROSE/WATER 1 100ML.BAG IVPB SCH ×2 (02:24→03:08)
[2018-06-29 02:40] LABS: Glucose,Whole Blood 222 mg/dL (75-99)
[2018-06-29 03:22] LABS: Glucose,Whole Blood 205 mg/dL (75-99)
[2018-06-29 04:25] LABS: ABG Base Excess -1.6 mmol/L; ABG HCO3 23 mmol/L (21-25); ABG Oxygen Saturation 97.7 % (94-97); ABG PCO2 38 mmHg (35-45); ABG PO2 92 mmHg (83-108); ABG TCO2 24 mmol/L (19-24); Allen Test Performed? Yes
[2018-06-29 04:43] LABS: Glucose,Whole Blood 178 mg/dL (75-99)
[2018-06-29 04:46] LABS: Basophils % (A) 0 %; Eosinophils % (A) 0 %; HCT 25.2 % (34.0-46.0); HGB 8.4 gm/dL (11.4-16.0); Lymphocytes # (A) 1.2 k/uL (1.0-4.8); Lymphocytes % (A) 11 %; MCHC 33.2 g/dL (31.0-37.0); MCV 87.1 fL (80.0-100.0); Mean Platelet Volume 8.3; Monocytes # (A) 0.5 k/uL (0-1.0); Monocytes % (A) 4 %; Neutrophils # (A) 8.9 k/uL (1.3-7.7); Neutrophils % (A) 83 %; Platelet Count 135 k/uL (150-450); RDW 14.8 % (11.5-15.5); WBC 10.7 k/uL (3.8-10.6)
[2018-06-29 04:55] LABS: INR 1.2 (<1.2); Partial Thromboplastin Time 28.7 sec (22.0-30.0); Prothrombin Time 12.6 sec (9.0-12.0)
[2018-06-29 05:11] LABS: Ionized Calcium 4.7 mg/dL (4.5-5.3)
[2018-06-29 05:20] LABS: ALT 59 U/L (9-52); AST 98 U/L (14-36); African American GFR (CKD) >90 (>60 ml/min/1.73 sqM); Alkaline Phosphatase 31 U/L (38-126); Anion Gap 7 mmol/L; Blood Urea Nitrogen 12 mg/dL (7-17); Carbon Dioxide 23 mmol/L (22-30); Chloride 108 mmol/L (98-107); Glucose 158 mg/dL (74-99); Magnesium 2.5 mg/dL (1.6-2.3); Potassium 3.7 mmol/L (3.5-5.1); Sodium 138 mmol/L (137-145); Total Bilirubin 1.3 mg/dL (0.2-1.3); Total Protein 4.6 g/dL (6.3-8.2)
[2018-06-29 05:38] LABS: Glucose,Whole Blood 147 mg/dL (75-99)
[2018-06-29] MEDS: NOREPINEPHRINE 4 MG in SODIUM CHLORIDE 0.9% 250 ML IV SCH ×2 (05:38→05:51)
[2018-06-29] MEDS: LEVOTHYROXINE 50 MCG TAB PO SCH (05:47)
[2018-06-29] MEDS ORDERED: POTASSIUM BICARBONATE/CIT AC 20 MEQ TABLET.EFF NG-TUBE SCH (06:00)
[2018-06-29 06:21] LABS: Glucose,Whole Blood 122 mg/dL (75-99)
--- NOTE | 2018-06-29 06:51 | CONS ---
CONSULTATION DATE OF CONSULTATION: 06/28/2018 REASON FOR CONSULTATION: Medical management requested by Dr. Younger. CONSULTATION: This is a pleasant 72 -year-old patient of Dr. Tim Martin. The patient today underwent prosthetic aortic valve replacement, mitral valve repair and 2 vessel coronary bypass by Dr. Younger. The patient has received about 750 mL of albumin. Estimated blood loss was about 2 L. The patient has [address], intubated with FiO2 15 and a PEEP of 5. Current drips include nitro, Levophed, propofol, Primacor, insulin. Telemetry shows sinus rhythm. The patient is intubated. REVIEW OF SYSTEMS: Cannot be done, patient is intubated. PAST MEDICAL HISTORY: Diabetes mellitus type 2, GERD, hyperlipidemia, hypertension, rheumatoid arthritis, thyroid disorder, TIA over 30 years ago, insomnia, irritable bowel syndrome. PAST SURGICAL HISTORY: Bowel resection, cardiac catheterization, tonsillectomy, left knee arthroscopy, ORIF of the ankle plate and screws, bilateral cataracts, hemorrhoidectomy, perforated colon with colonoscopy. SOCIAL HISTORY: Patient smoked half a pack a day from about the age of 23 to 28 years old, stopped in 2001. Alcohol none. The patient is . FAMILY HISTORY: Could not obtain from the patient, Intubated. HOME MEDICATIONS: 1. Bactroban 2% nasal b.i.d. 2. Multivitamin 1 tablet p.o. daily. 3. Synthroid 50 mcg a day. 4. Tarceva 45 units subcu q.h.s. 5. Vasotec 5 mg p.o. daily. 6. Trulicity 1.5 mg subcu Wednesday. 7. Colace 100 mg p.o. daily p.r.n. 8. Keflex 500 mg p.o. q.6. 9. Lipitor 40 mg q.h.s. ALLERGIES: TO NICKEL. PHYSICAL EXAMINATION: VITAL SIGNS: Temperature 97.4, pulse 84, respiration 20, blood pressure 109/52, pulse ox noted on ventilator. GENERAL APPEARANCE: Average build, lying in bed, intubated. EYES: Pupil's equal. Conjunctivae normal. HEENT: External appearance of nose and ears normal. Oral cavity, endotracheal tube placed. NECK: JVD unable to assess. Mass not palpable. RESPIRATORY: Effort normal. Lungs fair air entry. CARDIOVASCULAR: First and second sounds normal. No edema. ABDOMEN: Soft, nontender. Liver and spleen not palpable. Chest has got 3 chest tubes. PSYCHIATRY: Unable to assess. NEUROLOGICAL: Pupils equal. No facial asymmetry. Plantars equivocal. INVESTIGATIONS: White count 14.4, hemoglobin 8.1, platelets 170, potassium 5.1, BUN 9, creatinine 0.36. The patient's hemoglobin dropped to 6.5. Preoperatively the hemoglobin was 13.6. ASSESSMENT: 1. Coronary artery disease status post coronary bypass. 2. Prosthetic aortic valve replacement. 3. Mitral valve repair. 4. Acute severe blood loss anemia expected from surgery. The patient is getting ordered a unit of blood by surgery. 5. Diabetes mellitus type 2. 6. Gastroesophageal reflux disease. 7. Hyperlipidemia. 8. Essential hypertension. 9. Rheumatoid arthritis. 10.Hypothyroid. 11.Chronic insomnia. 12.Hiatal hernia. 13.Acute respiratory failure/support with ventilator support postoperative. PLAN: Continue current medication and treatment plan. Currently, the patient's drips include nitro, Levophed, propofol, Primacor, insulin. The patient also received Amiodarone, received albumin. Getting a unit of blood. Currently in the unit, intubated. Thank you Dr. Younger. Copy to Dr. Martin. MMODL / IJN: [id number] /
[2018-06-29] MEDS ORDERED: CALCIUM GLUCONATE 1 GM in SODIUM CHLORIDE 0.9% 100 ML IVPB ONE (07:00)
[2018-06-29 07:09] LABS: Glucose,Whole Blood 124 mg/dL (75-99)
--- NOTE | 2018-06-29 07:31 | P.CRDCN ---
History of Present Illness Consult date: 06/29/18 Chief complaint: Status post open heart surgery History of present illness: This is a 72-year-old female patient who sees Dr. Colon in the office as an outpatient who was diagnosed recently with severe triple-vessel coronary artery disease as well as moderate to severe aortic stenosis. She was referred to undergo CABG along with aortic valve replacement. Yesterday the patient underwent double vessel coronary arteriogram is grafting using CUMMINGS to LAD and reverse SVG to PDA as well as aortic valve replacement using a tissue valve as well as mitral valve repair. This is her postoperative day #1. In the OR, the patient received blood. After she was brought to the ICU she received one liter of fluid for low blood pressure. She was on Levothroid as well as Primacor and the levo fed was weaned and currently she is on Primacor only. She has been making good urine. She has been maintaining normal sinus mechanism. The patient was not extubated yesterday. She was weaned from sedation but she was not waking up and she was slightly agitated and because of that the patient was restarted back on sedation. She continues to be on dual antiplatelet therapy along with aspirin and Plavix. Metoprolol is on hold at this point. Past Medical History Past Medical History: CVA/TIA, Diabetes Mellitus, GERD/Reflux, Hyperlipidemia, Hypertension, Pneumonia, Rheumatoid Arthritis (RA), Thyroid Disorder Additional Past Medical History / Comment(s): states TIA over 30yrs ago- no residual effects, "Chest pressure". heart murmur, SOB on exertion, walking pneumonia long time ago, insomnia, "3 hiatal hernias", hx IBS History of Any Multi-Drug Resistant Organisms: None Reported Past Surgical History: Bowel Resection, Heart Catheterization, Hysterectomy, Orthopedic Surgery, Tonsillectomy Additional Past Surgical History / Comment(s): left knee arthroscopy, orif left ankle with plate and screws-hardware later removed, uri cataracts, hemmorhoidectomy, "perforated colon with colonoscopy",heart cath. 03-23-18 Past Anesthesia/Blood Transfusion Reactions: No Reported Reaction Additional Past Anesthesia/Blood Transfusion Reaction / Comment(s): no hx blood transfusion Smoking Status: Former smoker - Past Family History Mother Family Medical History: No Reported History Medications and Allergies Home Medications Medication Instructions Recorded Confirmed Type Levothyroxine Sodium [Synthroid] 50 mcg PO QAM 10/19/16 06/28/18 History Insulin Degludec [Tresiba 45 unit SQ HS 01/01/18 06/28/18 History Flextouch U-100] Multivitamins, Thera [Multivitamin 1 tab PO DAILY 01/01/18 06/28/18 History (formulary)] Atorvastatin [Lipitor] 40 mg PO HS 03/18/18 06/28/18 History Docusate [Colace] 100 mg PO DAILY PRN 03/18/18 06/28/18 History Enalapril [Vasotec] 5 mg PO DAILY@1200 03/18/18 06/28/18 History Dulaglutide [Trulicity] 1.5 mg SQ MO 06/16/18 06/28/18 History Mupirocin 2% Oint [Bactroban 2% 1 applic NASAL BID 06/16/18 06/28/18 History Oint] Cephalexin [Keflex] 500 mg PO Q6HR 06/27/18 06/28/18 History Allergies Allergy/AdvReac Type Severity Reaction Status Date / Time nickel Allergy per alg Verified 06/28/18 16:13 testing Physical Exam Vitals: Vital Signs Temp Pulse Resp BP Pulse Ox 06/29/18 06:30 90 41 H 63/52 06/29/18 06:15 98 8 L 63/52 77 L 06/29/18 06:00 85 21 97 06/29/18 05:45 82 20 98 06/29/18 05:30 81 20 98 06/29/18 05:15 82 20 97 06/29/18 05:00 82 20 98 06/29/18 04:45 83 20 97 06/29/18 04:30 84 20 06/29/18 04:15 84 20 06/29/18 04:00 98.1 F 83 20 98 06/29/18 03:45 85 20 06/29/18 03:30 84 20 98 06/29/18 03:25 80 06/29/18 03:15 84 20 98 06/29/18 03:11 82 06/29/18 03:00 91 25 H 98 06/29/18 02:45 104 H 24 97 06/29/18 02:30 90 20 97 06/29/18 02:15 96 21 98 06/29/18 02:00 92 23 96 06/29/18 01:45 92 27 H 97 06/29/18 01:30 97 20 98 06/29/18 01:15 97 20 98 06/29/18 01:00 91 20 97 06/29/18 00:45 100 27 H 06/29/18 00:30 101 H 27 H 106/68 06/29/18 00:15 97 22 106/68 06/29/18 00:00 997.9 F H 91 25 H 95 06/28/18 23:46 88 06/28/18 23:45 92 25 H 95 06/28/18 23:30 94 23 97 06/28/18 23:15 94 22 98 06/28/18 23:00 98.1 F 98 20 123/55 98 06/28/18 22:45 93 20 98 06/28/18 22:30 87 21 06/28/18 22:15 93 20 06/28/18 22:02 89 20 06/28/18 22:00 98.1 F 88 20 06/28/18 21:45 90 20 06/28/18 21:30 97.5 F L 88 21 06/28/18 21:15 98.4 F 88 23 83/44 51 L 06/28/18 21:00 89 20 06/28/18 20:45 91 21 06/28/18 20:30 89 20 100 06/28/18 20:15 86 18 06/28/18 20:00 97.4 F L 84 20 51 L 06/28/18 19:59 81 06/28/18 19:52 84 06/28/18 19:45 81 20 06/28/18 19:30 81 20 06/28/18 19:15 80 14 06/28/18 19:00 35.9 F L 80 17 95 06/28/18 18:50 80 14 100/63 69 L 06/28/18 18:40 80 14 100 06/28/18 18:30 80 14 100 06/28/18 18:20 80 15 100 06/28/18 18:10 80 12 06/28/18 18:00 80 12 100/63 98 06/28/18 17:50 80 14 98 06/28/18 17:40 35.2 F L 80 12 123/79 99 06/28/18 17:30 35.2 F L 80 12 06/28/18 17:20 80 16 Intake and Output 06/28/18 06/29/18 06/29/18 22:59 06:59 14:59 Intake Total 4117.376 2168.647 17.247 Output Total 4238 755 Balance -096.336 0440.647 17.247 Intake: IV 721.5 853.5 ACETAMINOPHEN IV (For NPO 100 100 ) 1,000 mg In Empty Bag 1 bag @ 400 mls/hr IVPB Q6HR YUDITH Rx#:[id number] Albumin Human 5% 250 ml 250 In Empty Bag 1 bag @ 250 mls/hr IVPB Q1HR PRN Rx#: [id number] CO/CI 90 210 Calcium Gluconate 2 gm In 100 Sodium Chloride 0.9% 100 ml @ 100 mls/hr IVPB ONCE PRN Rx#:[id number] Lactated Ringers 1,000 ml 150 470 @ 50 mls/hr IV .Q20H YUDITH Rx#:[id number] Nitroglycerin-D5w Pmx 50 4.5 10.5 mg In Dextrose/Water 1 250ml.bag @ Per Protocol IV ONCE ONE Rx#:[id number] Pressure Bag 27 63 Intake, IV Titration 1352.876 385.147 17.247 Amount Albumin Human 5% 250 ml 1000 In Empty Bag 1 bag @ 250 mls/hr IVPB Q1HR PRN Rx#: [id number] Insulin Regular 100 unit 13.315 87.685 In Sodium Chloride 0.9% 100 ml @ Per Protocol IV .Q0M YUDITH Rx#:[id number] Lactated Ringers 1,000 ml 150 @ 50 mls/hr IV .Q20H [facility]UDITH Rx#:[id number] Milrinone-D5w Pmx 20 mg 40.740 In Dextrose/Water 1 100ml .bag @ Per Protocol IV . Q0M YUDITH Rx#:[id number] Norepinephrine 4 mg In 148.821 287.558 17.247 Sodium Chloride 0.9% 250 ml @ 0.02 MCG/KG/MIN 5. 913 mls/hr IV .Q24H [facility]UD[facility] Rx#:[id number] Propofol 1,000 mg In 9.904 Empty Bag 1 bag @ Titrate IV .Q0M YUDITH Rx#: [id number] Blood Product 2043 930 Ffp 24 Cpd Unit 286 [id number] Ffp 24 Cpd Unit 276 [id number] Platelet Irr Pheresis 239 Acda1 Unit [id number] Platelet Pheresis Acda2 312 Unit [id number] Rc As-1 Unit 310 [id number] Rc As-1 Unit 310 [id number] Rc As-1 Unit 310 [id number] Rc As-1 Unit 310 [id number] Output: Chest Tube Drainage 970 340 Bilateral Mediastinal 660 120 Chest Tube Left 310 220 Drainage 30 30 Left Calf 30 30 Urine 1238 235 Oral Regurgitation 150 Estimated Blood Loss 1999 Other: Voiding Method Indwelling Catheter Indwelling Catheter Weight 90.6 kg ABP, PAP, CO, CI - Last 8 Hours Arterial Blood Pressure 63/29 Arterial Blood Pressure 142/55 Arterial Blood Pressure 142/56 Arterial Blood Pressure 138/51 Arterial Blood Pressure 130/49 Arterial Blood Pressure 135/53 Arterial Blood Pressure 126/51 Arterial Blood Pressure 128/51 Arterial Blood Pressure 144/53 Arterial Blood Pressure 145/53 Arterial Blood Pressure 130/50 Arterial Blood Pressure 119/48 Arterial Blood Pressure 111/47 Arterial Blood Pressure 104/44 Arterial Blood Pressure 100/44 Arterial Blood Pressure 148/58 Arterial Blood Pressure 111/47 Arterial Blood Pressure 104/45 Arterial Blood Pressure 73/73 Arterial Blood Pressure 100/44 Arterial Blood Pressure 99/44 Arterial Blood Pressure 130/55 Arterial Blood Pressure 116/47 Arterial Blood Pressure 116/53 Arterial Blood Pressure 115/52 Arterial Blood Pressure 105/58 Arterial Blood Pressure 130/57 Arterial Blood Pressure 133/58 Arterial Blood Pressure 116/71 Pulmonary Artery Pressure 20/11 Pulmonary Artery Pressure 32/13 Pulmonary Artery Pressure 30/18 Pulmonary Artery Pressure 25/15 Pulmonary Artery Pressure 26/15 Pulmonary Artery Pressure 27/16 Pulmonary Artery Pressure 26/15 Pulmonary Artery Pressure 27/16 Pulmonary Artery Pressure 28/16 Pulmonary Artery Pressure 28/19 Pulmonary Artery Pressure 27/17 Pulmonary Artery Pressure 27/16 Pulmonary Artery Pressure 28/17 Pulmonary Artery Pressure 28/17 Pulmonary Artery Pressure 26/14 Pulmonary Artery Pressure 43/12 Pulmonary Artery Pressure 28/15 Pulmonary Artery Pressure 29/12 Pulmonary Artery Pressure 27/16 Pulmonary Artery Pressure 24/14 Pulmonary Artery Pressure 25/12 Pulmonary Artery Pressure 40/16 Pulmonary Artery Pressure 26/15 Pulmonary Artery Pressure 34/12 Pulmonary Artery Pressure 39/17 Pulmonary Artery Pressure 44/29 Pulmonary Artery Pressure 32/21 Pulmonary Artery Pressure 33/21 Pulmonary Artery Pressure 37/21 Cardiac Output 4.7 Cardiac Output 4.7 Cardiac Output 4.7 Cardiac Output 3.6 Cardiac Output 6 Cardiac Output 3.9 Cardiac Output 3.9 Cardiac Output 3.8 Cardiac Index 2.7 Cardiac Index 2.1 Cardiac Index 3.4 Cardiac Index 2.2 Cardiac Index 2.1 Cardiac Index 2 - Constitutional General appearance: no acute distress - Respiratory Respiratory: bilateral: diminished - Cardiovascular Rhythm: regular Results 06/29/18 04:28 06/29/18 04:28 Cardiac Enzymes 06/28/18 06/29/18 Range/Units 17:27 04:28 AST 45 H 98 H (14-36) U/L Coagulation 06/28/18 06/29/18 Range/Units 18:06 04:28 PT 11.2 12.6 H (9.0-12.0) sec APTT 34.6 H 28.7 (22.0-30.0) sec CBC 06/28/18 06/28/18 06/29/18 Range/Units 17:27 19:42 01:07 WBC 14.4 H 12.9 H 11.8 H (3.8-10.6) k/uL RBC 2.72 L 2.15 L 2.92 L (3.80-5.40) m/uL Hgb 8.1 L D 6.5 L* D 8.5 L D (11.4-16.0) gm/dL Hct 24.2 L 19.5 L* 26.1 L (34.0-46.0) % Plt Count 170 D 167 139 L (150-450) k/uL 06/29/18 Range/Units 04:28 WBC 10.7 H (3.8-10.6) k/uL RBC 2.90 L (3.80-5.40) m/uL Hgb 8.4 L (11.4-16.0) gm/dL Hct 25.2 L (34.0-46.0) % Plt Count 135 L (150-450) k/uL Comprehensive Metabolic Panel 06/28/18 06/28/18 06/29/18 Range/Units 17:27 19:42 01:07 Sodium 136 L 135 L 138 (137-145) mmol/L Potassium 5.1 5.2 H 4.1 (3.5-5.1) mmol/L Chloride 109 H 108 H 109 H (98-107) mmol/L Carbon Dioxide 22 21 L 19 L (22-30) mmol/L BUN 9 10 11 (7-17) mg/dL Creatinine 0.36 L 0.40 L 0.48 L (0.52-1.04) mg/dL Glucose 164 H 268 H 213 H (74-99) mg/dL Calcium 7.5 L 8.1 L 7.7 L (8.4-10.2) mg/dL AST 45 H (14-36) U/L ALT 42 (9-52) U/L Alkaline Phosphatase 30 L (38-126) U/L Total Protein 4.7 L (6.3-8.2) g/dL Albumin 2.7 L (3.5-5.0) g/dL 06/29/18 Range/Units 04:28 Sodium 138 (137-145) mmol/L Potassium 3.7 (3.5-5.1) mmol/L Chloride 108 H (98-107) mmol/L Carbon Dioxide 23 (22-30) mmol/L BUN 12 (7-17) mg/dL Creatinine 0.43 L (0.52-1.04) mg/dL Glucose 158 H (74-99) mg/dL Calcium 8.0 L (8.4-10.2) mg/dL AST 98 H (14-36) U/L ALT 59 H (9-52) U/L Alkaline Phosphatase 31 L (38-126) U/L Total Protein 4.6 L (6.3-8.2) g/dL Albumin 3.0 L (3.5-5.0) g/dL Current Medications Generic Name Dose Route Start Last Admin Trade Name Freq PRN Reason Stop Dose Admin Hydrocodone Bitart/Acetaminophen 2 each 06/29/18 17:08 [place] 5-325 PO Q4HR PRN Severe Pain Hydrocodone Bitart/Acetaminophen 1 each 06/29/18 17:08 [place] 5-325 PO Q4HR PRN Moderate Pain Albuterol/Ipratropium 3 ml 06/28/18 17:27 06/29/18 03:11 Duoneb 0.5 Mg-3 Mg/3 Ml Soln INHALATION 3 ml RT-Q2H PRN Administration Shortness Of Breath Or Wheezing Albuterol/Ipratropium 3 ml 06/28/18 23:09 06/28/18 23:35 Duoneb 0.5 Mg-3 Mg/3 Ml Soln INHALATION 3 ml RT-QID YUDITH Administration Aspirin 325 mg 06/29/18 09:00 Aspirin PO DAILY [facility] Atorvastatin Calcium 40 mg 06/29/18 09:00 Lipitor PO DAILY [facility] Benzocaine/Menthol 1 each 06/28/18 17:27 Cepacol Lozenge MUCOUS MEM Q2H PRN Sore Throat Bisacodyl 10 mg 06/29/18 17:09 Dulcolax RECTAL DAILY PRN Constipation Cefazolin Sodium 2 gm 06/28/18 19:00 06/29/18 02:23 Kefzol IVP 06/29/18 11:01 2 gm Q8H YUDITH Administration Chlorhexidine Gluconate 15 ml 06/28/18 22:30 06/28/18 23:17 Peridex MUCOUS MEM 15 ml BID YUDITH Administration Clopidogrel Bisulfate 75 mg 06/29/18 09:00 Plavix PO DAILY [facility] Heparin Sodium (Porcine) 5,000 unit 06/29/18 01:09 06/29/18 00:34 Heparin SQ 5,000 unit Q8HR YUDITH Administration Albumin Human 250 ml/ IV 250 mls @ 250 mls/hr 06/28/18 17:27 06/28/18 20:50 Solution IVPB 06/30/18 17:28 250 mls/hr Q1HR PRN Administration For Volume Amiodarone HCl 150 mg/ 103 mls @ 618 mls/hr 06/28/18 17:27 Dextrose/Water IV .Q10M PRN A.FIB/FLUTTER Protocol Amiodarone HCl 360 mg/ 200 mls @ 33.333 mls/hr 06/28/18 17:27 Dextrose/Water IV .Q6H PRN A.FIB/FLUTTER Protocol 1 MG/MIN Amiodarone HCl 300 mg/ 250 mls @ 25 mls/hr 06/28/18 17:27 Dextrose/Water IV .Q10H PRN A.FIB/FLUTTER Protocol 0.5 MG/MIN Calcium Gluconate 2 gm/ Sodium 120 mls @ 100 mls/hr 06/28/18 17:27 Chloride IVPB 07/01/18 17:28 ONCE PRN Ionized Calcium less than 4.4 Lactated Ringer's 1,000 mls @ 50 mls/hr 06/28/18 17:27 06/28/18 18:44 Lactated Ringers IV 50 mls/hr .Q20H YUDITH Administration Milrinone Lactate/Dextrose 20 100 mls @ 0 mls/hr 06/28/18 18:15 06/28/18 22:00 mg/ IV Solution IV 0.5 mcg/kg/min .Q0M YUDITH 11.64 mls/hr Titration Protocol Per Protocol Norepinephrine Bitartrate 4 mg 254 mls @ 5.913 mls/hr 06/28/18 18:15 06/29/18 07:01 / Sodium Chloride IV 0 mcg/kg/min .Q24H YUDITH 0 mls/hr Titration Protocol 0.02 MCG/KG/MIN Propofol 1,000 mg/ IV Solution 100 mls @ 0 mls/hr 06/28/18 18:15 06/29/18 04:45 IV 12 mcg/kg/min .Q0M YUDITH 5.587 mls/hr Administration Protocol Titrate Insulin Human Regular 100 unit 101 mls @ 0 mls/hr 06/28/18 20:30 06/29/18 06:38 / Sodium Chloride IV Infused .Q0M YUDITH Titration Protocol Per Protocol Calcium Gluconate 1 gm/ Sodium 110 mls @ 100 mls/hr 06/29/18 07:00 06/29/18 07:11 Chloride IVPB 06/29/18 08:05 100 mls/hr ONCE ONE Administration Levothyroxine Sodium 50 mcg 06/29/18 06:30 06/29/18 05:47 Synthroid PO 50 mcg DAILY@0630 YUDITH Administration Magnesium Hydroxide 2,400 mg 06/29/18 17:09 Milk Of Magnesia PO BID PRN Constipation Metoclopramide HCl 10 mg 06/28/18 17:27 Reglan IVP Q4H PRN Nausea And Vomiting Metoprolol Tartrate 12.5 mg 06/29/18 19:00 Lopressor PO BID [facility] Miscellaneous Information 1 each 06/28/18 17:27 Magnesium Per Protocol MISCELLANE DAILY PRN Per Protocol Protocol Miscellaneous Information 1 each 06/28/18 17:27 Phosphorus Per Protocol MISCELLANE DAILY PRN Per Protocol Protocol Miscellaneous Information 1 each 06/28/18 17:27 Potassium Per Protocol MISCELLANE DAILY PRN Per Protocol Protocol Morphine Sulfate 2 mg 06/28/18 17:27 06/29/18 07:16 Morphine Sulfate (Inj) IVP 2 mg Q2H PRN Administration Severe Pain Multivitamins 1 each 06/29/18 12:00 Theragran PO DAILY@1200 [facility] Ondansetron HCl 4 mg 06/28/18 17:27 Zofran IVP Q6HR PRN Nausea And Vomiting Oxycodone HCl 10 mg 06/28/18 17:27 Oxyir PO 06/29/18 17:28 Q4H PRN Severe Pain Oxycodone HCl 5 mg 06/28/18 17:27 Oxyir PO 06/29/18 17:28 Q4H PRN Moderate Pain Pantoprazole Sodium 40 mg 06/29/18 09:00 Protonix IVP DAILY [facility] Senna/Docusate Sodium 2 each 06/29/18 21:00 Senokot-S PO HS [facility] Sodium Chloride 10 ml 06/28/18 21:00 06/28/18 20:29 Saline Flush IV 10 ml BID YUDITH Administration Intake and Output 06/28/18 06/29/18 06/29/18 22:59 06:59 14:59 Intake Total 4117.376 2168.647 17.247 Output Total 4238 755 Balance -371.494 1350.647 17.247 Intake: IV 721.5 853.5 ACETAMINOPHEN IV (For NPO 100 100 ) 1,000 mg In Empty Bag 1 bag @ 400 mls/hr IVPB Q6HR YUDITH Rx#:[id number] Albumin Human 5% 250 ml 250 In Empty Bag 1 bag @ 250 mls/hr IVPB Q1HR PRN Rx#: [id number] CO/CI 90 210 Calcium Gluconate 2 gm In 100 Sodium Chloride 0.9% 100 ml @ 100 mls/hr IVPB ONCE PRN Rx#:[id number] Lactated Ringers 1,000 ml 150 470 @ 50 mls/hr IV .Q20H [facility] Rx#:[id number] Nitroglycerin-D5w Pmx 50 4.5 10.5 mg In Dextrose/Water 1 250ml.bag @ Per Protocol IV ONCE ONE Rx#:[id number] Pressure Bag 27 63 Intake, IV Titration 1352.876 385.147 17.247 Amount Albumin Human 5% 250 ml 1000 In Empty Bag 1 bag @ 250 mls/hr IVPB Q1HR PRN Rx#: [id number] Insulin Regular 100 unit 13.315 87.685 In Sodium Chloride 0.9% 100 ml @ Per Protocol IV .Q0M YUDITH Rx#:[id number] Lactated Ringers 1,000 ml 150 @ 50 mls/hr IV .Q20H YUDITH Rx#:[id number] Milrinone-D5w Pmx 20 mg 40.740 In Dextrose/Water 1 100ml .bag @ Per Protocol IV . Q0M YUDITH Rx#:[id number] Norepinephrine 4 mg In 148.821 287.558 17.247 Sodium Chloride 0.9% 250 ml @ 0.02 MCG/KG/MIN 5. 913 mls/hr IV .Q24H YUDITH Rx#:[id number] Propofol 1,000 mg In 9.904 Empty Bag 1 bag @ Titrate IV .Q0M YUDITH Rx#: [id number] Blood Product 2043 930 Ffp 24 Cpd Unit 286 [id number] Ffp 24 Cpd Unit 276 [id number] Platelet Irr Pheresis 239 Acda1 Unit [id number] Platelet Pheresis Acda2 312 Unit [id number] Rc As-1 Unit 310 [id number] Rc As-1 Unit 310 [id number] Rc As-1 Unit 310 [id number] Rc As-1 Unit 310 [id number] Output: Chest Tube Drainage 970 340 Bilateral Mediastinal 660 120 Chest Tube Left 310 220 Drainage 30 30 Left Calf 30 30 Urine 1238 235 Oral Regurgitation 150 Estimated Blood Loss 1999 Other: Voiding Method Indwelling Catheter Indwelling Catheter Weight 90.6 kg 06/29/18 04:28 06/29/18 04:28 Assessment and Plan Assessment: Assessment #1 status post CABG 2 along with aortic valve replacement and mitral valve repair #2 hypertension which has improved #3 anemia which is a stable #4 multiple comorbid conditions Plan #1 right wean the patient from Primacor #2 possible extubation later on today #3 continue dual antiplatelet therapy #4 continue holding the metoprolol at this point #5 follow-up with the patient
[2018-06-29] MEDS ORDERED: DEXMEDETOMIDINE/0.9% NACL(PMX) 400 MCG in EMPTY BAG 1 BAG IV SCH (07:36)
[2018-06-29] MEDS: IPRATROPIUM-ALBUTEROL 3 ML NEB INHALATION SCH ×4 (07:38→20:13)
[2018-06-29] MEDS: MILRINONE-D5W PMX 20 MG in DEXTROSE/WATER 1 100ML.BAG IV SCH ×4 (07:54→15:58)
--- NOTE | 2018-06-29 07:55 | XR ---
EXAMINATION TYPE: XR chest 1V portable DATE OF EXAM: 06/29/2018 HISTORY: Post Op CABG COMPARISON: 06/28/2018 TECHNIQUE: Single view of the chest is submitted. FINDINGS: Endotracheal tube, NG tube, SG catheter, mediastianal drains and chest tubes are appropriately placed . Post operative changes of CABG. No sizeable pneumothorax. Scattered Pleural-parenchymal opacities may reflect atelectasis or small effusion. The heart is not enlarged. IMPRESSION: 1. Post operative changes of CABG.
[2018-06-29] MEDS: INSULIN REGULAR 100 UNIT in SODIUM CHLORIDE 0.9% 100 ML IV SCH (08:16)
[2018-06-29] MEDS: KETOROLAC 30 MG/ML 1 ML VIAL IVP SCH ×4 (08:31→23:56)
[2018-06-29] MEDS: CHLORHEXIDINE GLUCONATE 15 ML CUP MUCOUS MEM SCH (08:32)
[2018-06-29] MEDS: ASPIRIN 81 MG PO SCH (08:32)
[2018-06-29] MEDS: CLOPIDOGREL 75 MG TAB PO SCH (08:32)
[2018-06-29] MEDS: ATORVASTATIN 40 MG TAB PO SCH (08:32)
--- NOTE | 2018-06-29 08:33 | P.PN ---
Subjective Progress Note Date: 06/29/18 Principal diagnosis: Triple-vessel coronary artery disease, moderate to severe aortic valve stenosis, moderate mitral valve regurgitation, history of diabetes mellitus type 2 with a preoperative hemoglobin A1c of 8.3%, hypertension, hyperlipidemia, peripheral vascular disease, history of nicotine dependence in remission smoking around 17 years ago, rheumatoid arthritis, thyroid disorder and gastroesophageal reflux disease. POD #1 double vessel coronary artery bypass grafting. Using the left internal mammary artery to the left anterior descending coronary artery, a reverse greater saphenous vein graft from aorta to the posterior descending coronary artery. Aortic valve replacement using a 21 mm Inspires pericardial bioprosthesis, mitral valve repair using a posterior annuloplasty 26 mm AnnuloFlex ring, exclusion of the left atrial appendage with a 35 mm Atriclip, endoscopic harvesting of the left greater saphenous vein, intraoperative transesophageal echocardiogram, epi-aortic scanning and graft flow measurements using the Carlypso system. Postoperative acute blood loss anemia, an expected outcome given cardiopulmonary bypass and hemodilution. Preoperative UTI with urine culture showing strep agalactiae group B, treated preoperatively with Keflex. The patient is laying in bed and remains intubated with mechanical ventilator support in the intensive care unit. She is restless, and sedated on propofol 12 mcg/kg/m. She is following simple verbal commands and moving all 4 extremities appropriately. She is hemodynamically stable and currently on Primacor drip at 0.5 mcg/kg/m with a cardiac index of 2.0, cardiac output 3.5, PA pressures 34/14, CVP 15 mmHg. Levothroid drip has been off since 7 AM this morning. Hemoglobin last evening was 6.5 and was transfused 4 units of packed red blood cells. Hemoglobin this morning is 8.4, WBC 10.7, platelets 135, BUN 12, creatinine 0.43. Mendoza catheter remains in place and has drained 305 mL output in the last 8 hours. Objective - Vital Signs Vital signs: Vital Signs Temp 98.1 F 06/29/18 04:00 Pulse 101 H 06/29/18 07:30 Resp 26 H 06/29/18 07:30 BP 63/52 06/29/18 06:30 Pulse Ox 96 06/29/18 07:30 Intake & Output 06/28/18 06/29/18 06/29/18 18:59 06:59 18:59 Intake Total 2843.434 3554.589 126.247 Output Total 3765 1263 65 Balance -457.646 6748.589 61.247 Weight 90.6 kg Intake: IV 3 1684.0 109 ACETAMINOPHEN IV (For NPO 200 ) 1,000 mg In Empty Bag 1 bag @ 400 mls/hr IVPB Q6HR [facility] Rx#:[id number] Albumin Human 5% 250 ml 250 In Empty Bag 1 bag @ 250 mls/hr IVPB Q1HR PRN Rx#: [id number] CO/CI 330 30 Calcium Gluconate 2 gm In 100 Sodium Chloride 0.9% 100 ml @ 100 mls/hr IVPB ONCE PRN Rx#:[id number] Lactated Ringers 1,000 ml 690 70 @ 50 mls/hr IV .Q20H [facility] Rx#:[id number] Nitroglycerin-D5w Pmx 50 15.0 mg In Dextrose/Water 1 250ml.bag @ Per Protocol IV ONCE ONE Rx#:[id number] Pressure Bag 99 9 Intake, IV Titration 1107.434 630.589 17.247 Amount Albumin Human 5% 250 ml 1000 In Empty Bag 1 bag @ 250 mls/hr IVPB Q1HR PRN Rx#: [id number] Insulin Regular 100 unit 101.000 In Sodium Chloride 0.9% 100 ml @ Per Protocol IV .Q0M [facility] Rx#:[id number] Lactated Ringers 1,000 ml 100 50 @ 50 mls/hr IV .Q20H [facility] Rx#:[id number] Milrinone-D5w Pmx 20 mg 3.492 37.248 In Dextrose/Water 1 100ml .bag @ Per Protocol IV . Q0M [facility] Rx#:[id number] Norepinephrine 4 mg In 3.942 432.437 17.247 Sodium Chloride 0.9% 250 ml @ 0.02 MCG/KG/MIN 5. 913 mls/hr IV .Q24H [facility] Rx#:[id number] Propofol 1,000 mg In 9.904 Empty Bag 1 bag @ Titrate IV .Q0M [facility] Rx#: [id number] Blood Product 1733 1240 Ffp 24 Cpd Unit 286 [id number] Ffp 24 Cpd Unit 276 [id number] Platelet Irr Pheresis 239 Acda1 Unit [id number] Platelet Pheresis Acda2 312 Unit [id number] Rc As-1 Unit 310 [id number] Rc As-1 Unit 310 [id number] Rc As-1 Unit 310 [id number] Rc As-1 Unit 310 [id number] Output: Chest Tube Drainage 670 640 30 Bilateral Mediastinal 440 340 10 Chest Tube Left 230 300 20 Drainage 60 Left Calf 60 Urine 1095 413 35 Oral Regurgitation 150 Estimated Blood Loss 1999 Other: Voiding Method Indwelling Catheter Indwelling Catheter ABP, PAP, CO, CI - Last Documented Arterial Blood Pressure 139/49 Pulmonary Artery Pressure 32/15 Cardiac Output 3.5 Cardiac Index 2 - Constitutional Constitutional Comment(s): Restless General appearance: Present: no acute distress, obese - Respiratory Details: Lungs sounds essentially clear throughout, diminished her bilateral bases. Respirations are symmetrical and nonlabored with mechanical ventilator support, current ventilator settings assist control 20, TV 400, FiO2 40%, PEEP 5. Oxygen saturations 95% on current mechanical ventilator settings. Left pleural chest tube and mediastinal chest tubes in place to low continuous wall suction -20 cm H2O. No air leak is present. Draining thin serosanguineous drainage. Mediastinal chest tubes drained 130 mL output in the last 8 hours, 780 mL output since surgery. Left pleural chest tube drained 240 mL output in the last 8 hours, 620 L output since surgery. - Cardiovascular Details: Regular rhythm and tachycardic rate. S1 and S2 present, negative for S3, gallop or murmur. Sternum is stable. Bedside telemetry showing sinus tachycardia heart rate 101. Atrial and ventricular epicardial pacemaker wires in place and connected to back up to bedside pacemaker generator VVI 70. Heart hugger is in place. Knee-high PAYAL hose and sequential compression devices in place to her bilateral lower extremities. Right IJ Cordis with [place] catheter in place and functioning. Current cardiac output 3.5, cardiac index 2.0, PA pressures 34/14, CVP15 mmHg. Right radial arterial line in place and functioning. - Gastrointestinal Gastrointestinal Comment(s): Abdomen soft, nontender and nondistended. Active bowel sounds all 4 abdominal quadrants. OG tube in place to low intermittent wall suction. No guarding or rigidity. - Genitourinary Genitourinary Comment(s): Mendoza catheter for accurate I&O. Draining clear yellow urine, 305 mL output in the last 8 hours. - Integumentary Integumentary Comment(s): Skin is warm and dry. No clubbing or cyanosis is present. Midline sternal incision is clean, dry with dressing clean, dry and intact. Left lower leg EVH site clean, dry and approximated. No drainage or redness is present. RESHMA drain in place to her left lower extremity draining thin serosanguineous drainage. 30 mL output in the last 8 hours, 60 mL output since surgery. - Neurologic Neurologic Comment(s): Sedated on propofol drip at 12 mcg/kg/m. Moving all 4 extremities appropriately, following commands. Neurologic: Present: CNII-XII intact - Musculoskeletal Musculoskeletal: Present: strength equal bilaterally - Psychiatric Psychiatric Comment(s): Sedated on propofol drip. - Labs CBC & Chem 7: 06/29/18 04:28 06/29/18 04:28 Labs: Abnormal Lab Results - Last 24 Hours (Table) 06/16/18 06/28/18 06/28/18 Range/Units 09:00 17:25 17:27 WBC 14.4 H (3.8-10.6) k/uL RBC 2.72 L (3.80-5.40) m/uL Hgb 8.1 L D (11.4-16.0) gm/dL Hct 24.2 L (34.0-46.0) % Plt Count (150-450) k/uL Neutrophils # 12.6 H (1.3-7.7) k/uL PT (9.0-12.0) sec INR (<1.2) APTT (22.0-30.0) sec ABG pH (7.35-7.45) ABG pCO2 (35-45) mmHg ABG pO2 (83-108) mmHg ABG HCO3 (21-25) mmol/L ABG Total CO2 (19-24) mmol/L ABG O2 Saturation (94-97) % Sodium (137-145) mmol/L Potassium (3.5-5.1) mmol/L Chloride (98-107) mmol/L Carbon Dioxide (22-30) mmol/L Creatinine (0.52-1.04) mg/dL Glucose (74-99) mg/dL POC Glucose (mg/dL) 173 H (75-99) mg/dL Calcium (8.4-10.2) mg/dL Ionized Calcium Shital (4.5-5.3) mg/dL Magnesium (1.6-2.3) mg/dL Total Bilirubin (0.2-1.3) mg/dL AST (14-36) U/L ALT (9-52) U/L Alkaline Phosphatase (38-126) U/L Total Protein (6.3-8.2) g/dL Albumin (3.5-5.0) g/dL Crossmatch See Detail 06/28/18 06/28/18 06/28/18 Range/Units 17:27 17:55 18:06 WBC (3.8-10.6) k/uL RBC (3.80-5.40) m/uL Hgb (11.4-16.0) gm/dL Hct (34.0-46.0) % Plt Count (150-450) k/uL Neutrophils # (1.3-7.7) k/uL PT (9.0-12.0) sec INR (<1.2) APTT 34.6 H (22.0-30.0) sec ABG pH 7.34 L (7.35-7.45) ABG pCO2 46 H (35-45) mmHg ABG pO2 225 H (83-108) mmHg ABG HCO3 (21-25) mmol/L ABG Total CO2 26 H (19-24) mmol/L ABG O2 Saturation 99.3 H (94-97) % Sodium 136 L (137-145) mmol/L Potassium (3.5-5.1) mmol/L Chloride 109 H (98-107) mmol/L Carbon Dioxide (22-30) mmol/L Creatinine 0.36 L (0.52-1.04) mg/dL Glucose 164 H (74-99) mg/dL POC Glucose (mg/dL) (75-99) mg/dL Calcium 7.5 L (8.4-10.2) mg/dL Ionized Calcium Shital 4.4 L (4.5-5.3) mg/dL Magnesium (1.6-2.3) mg/dL Total Bilirubin 1.5 H (0.2-1.3) mg/dL AST 45 H (14-36) U/L ALT (9-52) U/L Alkaline Phosphatase 30 L (38-126) U/L Total Protein 4.7 L (6.3-8.2) g/dL Albumin 2.7 L (3.5-5.0) g/dL Crossmatch 06/28/18 06/28/18 06/28/18 Range/Units 18:28 19:23 19:42 WBC (3.8-10.6) k/uL RBC (3.80-5.40) m/uL Hgb (11.4-16.0) gm/dL Hct (34.0-46.0) % Plt Count (150-450) k/uL Neutrophils # (1.3-7.7) k/uL PT (9.0-12.0) sec INR (<1.2) APTT (22.0-30.0) sec ABG pH (7.35-7.45) ABG pCO2 (35-45) mmHg ABG pO2 (83-108) mmHg ABG HCO3 (21-25) mmol/L ABG Total CO2 (19-24) mmol/L ABG O2 Saturation (94-97) % Sodium 135 L (137-145) mmol/L Potassium 5.2 H (3.5-5.1) mmol/L Chloride 108 H (98-107) mmol/L Carbon Dioxide 21 L (22-30) mmol/L Creatinine 0.40 L (0.52-1.04) mg/dL Glucose 268 H (74-99) mg/dL POC Glucose (mg/dL) 170 H 229 H (75-99) mg/dL Calcium 8.1 L (8.4-10.2) mg/dL Ionized Calcium Shital (4.5-5.3) mg/dL Magnesium (1.6-2.3) mg/dL Total Bilirubin (0.2-1.3) mg/dL AST (14-36) U/L ALT (9-52) U/L Alkaline Phosphatase (38-126) U/L Total Protein (6.3-8.2) g/dL Albumin (3.5-5.0) g/dL Crossmatch 06/28/18 06/28/18 06/28/18 Range/Units 19:42 20:15 21:11 WBC 12.9 H (3.8-10.6) k/uL RBC 2.15 L (3.80-5.40) m/uL Hgb 6.5 L* D (11.4-16.0) gm/dL Hct 19.5 L* (34.0-46.0) % Plt Count (150-450) k/uL Neutrophils # 11.0 H (1.3-7.7) k/uL PT (9.0-12.0) sec INR (<1.2) APTT (22.0-30.0) sec ABG pH (7.35-7.45) ABG pCO2 (35-45) mmHg ABG pO2 (83-108) mmHg ABG HCO3 (21-25) mmol/L ABG Total CO2 (19-24) mmol/L ABG O2 Saturation (94-97) % Sodium (137-145) mmol/L Potassium (3.5-5.1) mmol/L Chloride (98-107) mmol/L Carbon Dioxide (22-30) mmol/L Creatinine (0.52-1.04) mg/dL Glucose (74-99) mg/dL POC Glucose (mg/dL) 305 H 338 H (75-99) mg/dL Calcium (8.4-10.2) mg/dL Ionized Calcium Shital (4.5-5.3) mg/dL Magnesium (1.6-2.3) mg/dL Total Bilirubin (0.2-1.3) mg/dL AST (14-36) U/L ALT (9-52) U/L Alkaline Phosphatase (38-126) U/L Total Protein (6.3-8.2) g/dL Albumin (3.5-5.0) g/dL Crossmatch 06/28/18 06/28/18 06/28/18 Range/Units 21:13 22:13 23:16 WBC (3.8-10.6) k/uL RBC (3.80-5.40) m/uL Hgb (11.4-16.0) gm/dL Hct (34.0-46.0) % Plt Count (150-450) k/uL Neutrophils # (1.3-7.7) k/uL PT (9.0-12.0) sec INR (<1.2) APTT (22.0-30.0) sec ABG pH 7.31 L (7.35-7.45) ABG pCO2 (35-45) mmHg ABG pO2 273 H (83-108) mmHg ABG HCO3 18 L (21-25) mmol/L ABG Total CO2 (19-24) mmol/L ABG O2 Saturation 100.0 H (94-97) % Sodium (137-145) mmol/L Potassium (3.5-5.1) mmol/L Chloride (98-107) mmol/L Carbon Dioxide (22-30) mmol/L Creatinine (0.52-1.04) mg/dL Glucose (74-99) mg/dL POC Glucose (mg/dL) 319 H 310 H (75-99) mg/dL Calcium (8.4-10.2) mg/dL Ionized Calcium Shital (4.5-5.3) mg/dL Magnesium (1.6-2.3) mg/dL Total Bilirubin (0.2-1.3) mg/dL AST (14-36) U/L ALT (9-52) U/L Alkaline Phosphatase (38-126) U/L Total Protein (6.3-8.2) g/dL Albumin (3.5-5.0) g/dL Crossmatch 06/29/18 06/29/18 06/29/18 Range/Units 00:11 00:55 00:57 WBC (3.8-10.6) k/uL RBC (3.80-5.40) m/uL Hgb (11.4-16.0) gm/dL Hct (34.0-46.0) % Plt Count (150-450) k/uL Neutrophils # (1.3-7.7) k/uL PT (9.0-12.0) sec INR (<1.2) APTT (22.0-30.0) sec ABG pH 7.33 L (7.35-7.45) ABG pCO2 (35-45) mmHg ABG pO2 (83-108) mmHg ABG HCO3 19 L (21-25) mmol/L ABG Total CO2 (19-24) mmol/L ABG O2 Saturation 97.4 H (94-97) % Sodium (137-145) mmol/L Potassium (3.5-5.1) mmol/L Chloride (98-107) mmol/L Carbon Dioxide (22-30) mmol/L Creatinine (0.52-1.04) mg/dL Glucose (74-99) mg/dL POC Glucose (mg/dL) 258 H 244 H (75-99) mg/dL Calcium (8.4-10.2) mg/dL Ionized Calcium Shital (4.5-5.3) mg/dL Magnesium (1.6-2.3) mg/dL Total Bilirubin (0.2-1.3) mg/dL AST (14-36) U/L ALT (9-52) U/L Alkaline Phosphatase (38-126) U/L Total Protein (6.3-8.2) g/dL Albumin (3.5-5.0) g/dL Crossmatch 06/29/18 06/29/18 06/29/18 Range/Units 01:07 01:07 02:00 WBC 11.8 H (3.8-10.6) k/uL RBC 2.92 L (3.80-5.40) m/uL Hgb 8.5 L D (11.4-16.0) gm/dL Hct 26.1 L (34.0-46.0) % Plt Count 139 L (150-450) k/uL Neutrophils # 10.0 H (1.3-7.7) k/uL PT (9.0-12.0) sec INR (<1.2) APTT (22.0-30.0) sec ABG pH (7.35-7.45) ABG pCO2 (35-45) mmHg ABG pO2 (83-108) mmHg ABG HCO3 (21-25) mmol/L ABG Total CO2 (19-24) mmol/L ABG O2 Saturation (94-97) % Sodium (137-145) mmol/L Potassium (3.5-5.1) mmol/L Chloride 109 H (98-107) mmol/L Carbon Dioxide 19 L (22-30) mmol/L Creatinine 0.48 L (0.52-1.04) mg/dL Glucose 213 H (74-99) mg/dL POC Glucose (mg/dL) 222 H (75-99) mg/dL Calcium 7.7 L (8.4-10.2) mg/dL Ionized Calcium Shital (4.5-5.3) mg/dL Magnesium (1.6-2.3) mg/dL Total Bilirubin (0.2-1.3) mg/dL AST (14-36) U/L ALT (9-52) U/L Alkaline Phosphatase (38-126) U/L Total Protein (6.3-8.2) g/dL Albumin (3.5-5.0) g/dL Crossmatch 06/29/18 06/29/18 06/29/18 Range/Units 03:04 04:22 04:23 WBC (3.8-10.6) k/uL RBC (3.80-5.40) m/uL Hgb (11.4-16.0) gm/dL Hct (34.0-46.0) % Plt Count (150-450) k/uL Neutrophils # (1.3-7.7) k/uL PT (9.0-12.0) sec INR (<1.2) APTT (22.0-30.0) sec ABG pH (7.35-7.45) ABG pCO2 (35-45) mmHg ABG pO2 (83-108) mmHg ABG HCO3 (21-25) mmol/L ABG Total CO2 (19-24) mmol/L ABG O2 Saturation 97.7 H (94-97) % Sodium (137-145) mmol/L Potassium (3.5-5.1) mmol/L Chloride (98-107) mmol/L Carbon Dioxide (22-30) mmol/L Creatinine (0.52-1.04) mg/dL Glucose (74-99) mg/dL POC Glucose (mg/dL) 205 H 178 H (75-99) mg/dL Calcium (8.4-10.2) mg/dL Ionized Calcium Shital (4.5-5.3) mg/dL Magnesium (1.6-2.3) mg/dL Total Bilirubin (0.2-1.3) mg/dL AST (14-36) U/L ALT (9-52) U/L Alkaline Phosphatase (38-126) U/L Total Protein (6.3-8.2) g/dL Albumin (3.5-5.0) g/dL Crossmatch 06/29/18 06/29/18 06/29/18 Range/Units 04:28 04:28 04:28 WBC 10.7 H (3.8-10.6) k/uL RBC 2.90 L (3.80-5.40) m/uL Hgb 8.4 L (11.4-16.0) gm/dL Hct 25.2 L (34.0-46.0) % Plt Count 135 L (150-450) k/uL Neutrophils # 8.9 H (1.3-7.7) k/uL PT 12.6 H (9.0-12.0) sec INR 1.2 H (<1.2) APTT (22.0-30.0) sec ABG pH (7.35-7.45) ABG pCO2 (35-45) mmHg ABG pO2 (83-108) mmHg ABG HCO3 (21-25) mmol/L ABG Total CO2 (19-24) mmol/L ABG O2 Saturation (94-97) % Sodium (137-145) mmol/L Potassium (3.5-5.1) mmol/L Chloride 108 H (98-107) mmol/L Carbon Dioxide (22-30) mmol/L Creatinine 0.43 L (0.52-1.04) mg/dL Glucose 158 H (74-99) mg/dL POC Glucose (mg/dL) (75-99) mg/dL Calcium 8.0 L (8.4-10.2) mg/dL Ionized Calcium Shital (4.5-5.3) mg/dL Magnesium 2.5 H (1.6-2.3) mg/dL Total Bilirubin (0.2-1.3) mg/dL AST 98 H (14-36) U/L ALT 59 H (9-52) U/L Alkaline Phosphatase 31 L (38-126) U/L Total Protein 4.6 L (6.3-8.2) g/dL Albumin 3.0 L (3.5-5.0) g/dL Crossmatch 06/29/18 06/29/18 06/29/18 Range/Units 05:22 06:18 07:07 WBC (3.8-10.6) k/uL RBC (3.80-5.40) m/uL Hgb (11.4-16.0) gm/dL Hct (34.0-46.0) % Plt Count (150-450) k/uL Neutrophils # (1.3-7.7) k/uL PT (9.0-12.0) sec INR (<1.2) APTT (22.0-30.0) sec ABG pH (7.35-7.45) ABG pCO2 (35-45) mmHg ABG pO2 (83-108) mmHg ABG HCO3 (21-25) mmol/L ABG Total CO2 (19-24) mmol/L ABG O2 Saturation (94-97) % Sodium (137-145) mmol/L Potassium (3.5-5.1) mmol/L Chloride (98-107) mmol/L Carbon Dioxide (22-30) mmol/L Creatinine (0.52-1.04) mg/dL Glucose (74-99) mg/dL POC Glucose (mg/dL) 147 H 122 H 124 H (75-99) mg/dL Calcium (8.4-10.2) mg/dL Ionized Calcium Shital (4.5-5.3) mg/dL Magnesium (1.6-2.3) mg/dL Total Bilirubin (0.2-1.3) mg/dL AST (14-36) U/L ALT (9-52) U/L Alkaline Phosphatase (38-126) U/L Total Protein (6.3-8.2) g/dL Albumin (3.5-5.0) g/dL Crossmatch - Imaging and Cardiology Chest x-ray: report reviewed, image reviewed Assessment and Plan Assessment: 1. Triple-vessel coronary artery disease status post coronary artery bypass grafting surgery 2. Moderate to severe aortic valve stenosis status post aortic valve replacement using a 21 mm Inspris bioprosthetic valve 3. Moderate mitral valve regurgitation, status post mitral valve repair using a 26 millimeter AnnuloFlex ring 4. Diabetes milliliters type 2 with a preoperative hemoglobin A1c of 8.3% 5. Hypertension 6. Hyperlipidemia 7. History of Peripheral vascular disease 8. Hypothyroidism 9. History of nicotine dependence in remission quit smoking about 17 years ago 10. Gastroesophageal reflux disease 11. History of rheumatoid arthritis Plan: 1. Continue statin, plavix and beta mirian. Will increase beta mirian therapy as tolerated. 2. Will wean Primacor as able. 3. Wean mechanical ventilator as tolerated. Once extubated encourage incent willy spirometry use 10 times every hour while awake. 4. Once extubated increase activity, ambulate when able. PT/OT/cardiac rehab consulted. 5. Will monitor daily labs and chest x-rays. Electrolyte replacement per protocol. Will monitor for further transfusion needs. 6. Bronchodilators, mechanical ventilator management per pulmonology. 7. Pain control with current medication regimen. We will add Toradol. 8. Insulin management per primary care service. 9. Will keep chest tubes, [place], arterial line, Mendoza catheter today. 10. GI/DVT prophylaxis. 11. Continue to encourage smoking cessation. 12. Restart the patient's home dose of Synthroid. 13. Discontinue propofol and add Precedex for agitation. 14. Change aspirin to 81 mg by mouth daily. 15. More recommendations to follow based on patient's clinical course. Time with Patient: Greater than 30
[2018-06-29] MEDS ORDERED: ASPIRIN 325 MG TAB PO SCH (09:00)
[2018-06-29] MEDS ORDERED: PANTOPRAZOLE 40 MG/10 ML VIAL IVP SCH (09:00)
[2018-06-29 09:11] LABS: Glucose,Whole Blood 102 mg/dL (75-99)
[2018-06-29 09:11] LABS: Glucose,Whole Blood 102 mg/dL (75-99)
[2018-06-29] MEDS: METOPROLOL TARTRATE 12.5 MG TAB PO SCH ×2 (10:15→20:31)
[2018-06-29 10:20] LABS: Glucose,Whole Blood 141 mg/dL (75-99)
[2018-06-29] MEDS: HYDROcodone/APAP 5-325MG 1 EACH TAB PO PRN ×3 (10:20→22:51)
[2018-06-29 11:10] LABS: Glucose,Whole Blood 122 mg/dL (75-99)
[2018-06-29 11:24] LABS: ABG Base Excess 1.1 mmol/L; ABG HCO3 26 mmol/L (21-25); ABG Oxygen Saturation 95.2 % (94-97); ABG PCO2 40 mmHg (35-45); ABG PH 7.41 (7.35-7.45); ABG PO2 71 mmHg (83-108); ABG TCO2 27 mmol/L (19-24); Allen Test Performed? Yes
--- NOTE | 2018-06-29 11:43 | P.PN ---
Subjective Progress Note Date: 06/29/18 On 06/29/2018 I'm seeing this patient for a follow-up in the intensive care unit. The patient is postop day #1 following an aortic valve replacement, mitral valve repair, two-vessel bypass surgery. Overnight the patient was kept on a mechanical ventilator. He was having some difficulties with bleed and blood loss through the chest tubes. Hemoglobin dropped down to 6.7 the patient was given a total of 2 units of packed RBCs. The patient was kept on the mechanical ventilator throughout the night. Earlier in the morning hours, I tried to get this patient of sedation however she became quite agitated and restless. Subsequently, early this morning we weaned off the propofol and switch this patient to Precedex. Based on this, the patient was able to wean off the sedation with less difficulties. Currently she is still on a mechanical ventilator however when the process of obtaining a spontaneous breathing trial knowing that the patient had good weaning parameters with a tidal volume of 450 and a rapid shallow breathing index of 75 with a respiratory rate of 22 with a NIF and VC of 980. Her blood gases obtained following a spontaneous breathing trial showed a pH of 7.4 with a pCO2 of 40 and pO2 of 70 and I've made recommendations to extubate this patient. Note that the patient is still on Primacor 0.5 g per KG per minute. The cardiac index this morning was around 2.2 with an output of 3.5. The pulmonary artery pressures are 3414. CVP is at 15. The patient is currently on no other inotropes. The patient completed packed RBC transfusion. Mendoza catheter in place and the urine output has been above 300 mL over the past 8 hours. Chest tubes are in place for now. She is f ollowing commands and answering questions appropriately. Objective - Vital Signs Vital signs: Vital Signs Temp 36.7 F L 06/29/18 09:00 Pulse 92 06/29/18 11:30 Resp 18 06/29/18 11:30 BP 110/71 06/29/18 11:00 Pulse Ox 96 06/29/18 11:30 Intake & Output 06/28/18 06/29/18 06/29/18 18:59 06:59 18:59 Intake Total 2843.434 3613.849 408.023 Output Total 3765 1263 305 Balance -611.593 7898.849 103.023 Weight 90.6 kg Intake: IV 3 1684.0 375 ACETAMINOPHEN IV (For NPO 200 ) 1,000 mg In Empty Bag 1 bag @ 400 mls/hr IVPB Q6HR YUDITH Rx#:[id number] Albumin Human 5% 250 ml 250 In Empty Bag 1 bag @ 250 mls/hr IVPB Q1HR PRN Rx#: [id number] CO/CI 330 60 Calcium Gluconate 2 gm In 100 Sodium Chloride 0.9% 100 ml @ 100 mls/hr IVPB ONCE PRN Rx#:[id number] Lactated Ringers 1,000 ml 690 270 @ 50 mls/hr IV .Q20H YUDITH Rx#:[id number] Nitroglycerin-D5w Pmx 50 15.0 mg In Dextrose/Water 1 250ml.bag @ Per Protocol IV ONCE ONE Rx#:[id number] Pressure Bag 99 45 Intake, IV Titration 1107.434 689.849 33.023 Amount Albumin Human 5% 250 ml 1000 In Empty Bag 1 bag @ 250 mls/hr IVPB Q1HR PRN Rx#: [id number] Dexmedetomidine/0.9% NaCl 6.719 (Pmx) 400 mcg In Empty Bag 1 bag @ Titrate IV . Q0M YUDITH Rx#:[id number] Insulin Regular 100 unit 101.000 9.057 In Sodium Chloride 0.9% 100 ml @ Per Protocol IV .Q0M YUDITH Rx#:[id number] Lactated Ringers 1,000 ml 100 50 @ 50 mls/hr IV .Q20H YUDITH Rx#:[id number] Milrinone-D5w Pmx 20 mg 3.492 96.508 In Dextrose/Water 1 100ml .bag @ Per Protocol IV . Q0M YUDITH Rx#:[id number] Norepinephrine 4 mg In 3.942 432.437 17.247 Sodium Chloride 0.9% 250 ml @ 0.02 MCG/KG/MIN 5. 913 mls/hr IV .Q24H YUDITH Rx#:[id number] Propofol 1,000 mg In 9.904 Empty Bag 1 bag @ Titrate IV .Q0M YUDITH Rx#: [id number] Blood Product 1733 1240 Ffp 24 Cpd Unit 286 [id number] Ffp 24 Cpd Unit 276 [id number] Platelet Irr Pheresis 239 Acda1 Unit [id number] Platelet Pheresis Acda2 312 Unit [id number] Rc As-1 Unit 310 [id number] Rc As-1 Unit 310 [id number] Rc As-1 Unit 310 [id number] Rc As-1 Unit 310 [id number] Output: Chest Tube Drainage 670 640 100 Bilateral Mediastinal 440 340 10 Chest Tube Left 230 300 90 Drainage 60 20 Left Calf 60 20 Urine 1095 413 185 Oral Regurgitation 150 Estimated Blood Loss 1999 Other: Voiding Method Indwelling Catheter Indwelling Catheter Indwelling Catheter ABP, PAP, CO, CI - Last Documented Arterial Blood Pressure 130/51 Pulmonary Artery Pressure 32/19 Cardiac Output 4.6 Cardiac Index 2.6 - Exam Constitutional Comment(s): Restless General appearance: Present: no acute distress, obese - Respiratory Details: Lungs sounds essentially clear throughout, diminished her bilateral bases. Respirations are symmetrical and nonlabored with mechanical ventilator support, current ventilator settings assist control 20, TV 400, FiO2 40%, PEEP 5. Oxygen saturations 95% on current mechanical ventilator settings. Left pleural chest tube and mediastinal chest tubes in place to low continuous wall suction -20 cm H2O. No air leak is present. Draining thin serosanguineous drainage. Mediastinal chest tubes drained 130 mL output in the last 8 hours, 780 mL output since surgery. Left pleural chest tube drained 240 mL output in the last 8 hours, 620 L output since surgery. The patient subsequently was given a spontaneous breathing trial with a pressure support of 5 and a PEEP of 5. - Cardiovascular Details: Regular rhythm and tachycardic rate. S1 and S2 present, negative for S3, gallop or murmur. Sternum is stable. Bedside telemetry showing sinus tachycardia heart rate 101. Atrial and ventricular epicardial pacemaker wires in place and connected to back up to bedside pacemaker generator VVI 70. Heart hugger is in place. Knee-high PAYAL hose and sequential compression devices in place to her bilateral lower extremities. Right IJ [place] with [place] catheter in place and functioning. Current cardiac output 3.5, cardiac index 2.0, PA pressures 34/14, CVP15 mmHg. Right radial arterial line in place and functioning. - Gastrointestinal Gastrointestinal Comment(s): Abdomen soft, nontender and nondistended. Active bowel sounds all 4 abdominal quadrants. OG tube in place to low intermittent wall suction. No guarding or rigidity. - Genitourinary Genitourinary Comment(s): Mendoza catheter for accurate I&O. Draining clear yellow urine, 305 mL output in the last 8 hours. - Integumentary Integumentary Comment(s): Skin is warm and dry. No clubbing or cyanosis is present. Midline sternal incision is clean, dry with dressing clean, dry and intact. Left lower leg EVH site clean, dry and approximated. No drainage or redness is present. RESHMA drain in place to her left lower extremity draining thin serosanguineous drainage. 30 mL output in the last 8 hours, 60 mL output since surgery. - Neurologic Neurologic Comment(s): Sedated on Precedex and the patient is currently off propofol Moving all 4 extremities appropriately, following commands. Neurologic: Present: CNII-XII intact - Musculoskeletal Musculoskeletal: Present: strength equal bilaterally - Labs CBC & Chem 7: 06/29/18 04:28 06/29/18 09:30 Labs: Abnormal Lab Results - Last 24 Hours (Table) 06/16/18 06/28/18 06/28/18 Range/Units 09:00 17:25 17:27 WBC 14.4 H (3.8-10.6) k/uL RBC 2.72 L (3.80-5.40) m/uL Hgb 8.1 L D (11.4-16.0) gm/dL Hct 24.2 L (34.0-46.0) % Plt Count (150-450) k/uL Neutrophils # 12.6 H (1.3-7.7) k/uL PT (9.0-12.0) sec INR (<1.2) APTT (22.0-30.0) sec ABG pH (7.35-7.45) ABG pCO2 (35-45) mmHg ABG pO2 (83-108) mmHg ABG HCO3 (21-25) mmol/L ABG Total CO2 (19-24) mmol/L ABG O2 Saturation (94-97) % Sodium (137-145) mmol/L Potassium (3.5-5.1) mmol/L Chloride (98-107) mmol/L Carbon Dioxide (22-30) mmol/L Creatinine (0.52-1.04) mg/dL Glucose (74-99) mg/dL POC Glucose (mg/dL) 173 H (75-99) mg/dL Calcium (8.4-10.2) mg/dL Ionized Calcium Shital (4.5-5.3) mg/dL Magnesium (1.6-2.3) mg/dL Total Bilirubin (0.2-1.3) mg/dL AST (14-36) U/L ALT (9-52) U/L Alkaline Phosphatase (38-126) U/L Total Protein (6.3-8.2) g/dL Albumin (3.5-5.0) g/dL Crossmatch See Detail 06/28/18 06/28/18 06/28/18 Range/Units 17:27 17:55 18:06 WBC (3.8-10.6) k/uL RBC (3.80-5.40) m/uL Hgb (11.4-16.0) gm/dL Hct (34.0-46.0) % Plt Count (150-450) k/uL Neutrophils # (1.3-7.7) k/uL PT (9.0-12.0) sec INR (<1.2) APTT 34.6 H (22.0-30.0) sec ABG pH 7.34 L (7.35-7.45) ABG pCO2 46 H (35-45) mmHg ABG pO2 225 H (83-108) mmHg ABG HCO3 (21-25) mmol/L ABG Total CO2 26 H (19-24) mmol/L ABG O2 Saturation 99.3 H (94-97) % Sodium 136 L (137-145) mmol/L Potassium (3.5-5.1) mmol/L Chloride 109 H (98-107) mmol/L Carbon Dioxide (22-30) mmol/L Creatinine 0.36 L (0.52-1.04) mg/dL Glucose 164 H (74-99) mg/dL POC Glucose (mg/dL) (75-99) mg/dL Calcium 7.5 L (8.4-10.2) mg/dL Ionized Calcium Shital 4.4 L (4.5-5.3) mg/dL Magnesium (1.6-2.3) mg/dL Total Bilirubin 1.5 H (0.2-1.3) mg/dL AST 45 H (14-36) U/L ALT (9-52) U/L Alkaline Phosphatase 30 L (38-126) U/L Total Protein 4.7 L (6.3-8.2) g/dL Albumin 2.7 L (3.5-5.0) g/dL Crossmatch 06/28/18 06/28/18 06/28/18 Range/Units 18:28 19:23 19:42 WBC (3.8-10.6) k/uL RBC (3.80-5.40) m/uL Hgb (11.4-16.0) gm/dL Hct (34.0-46.0) % Plt Count (150-450) k/uL Neutrophils # (1.3-7.7) k/uL PT (9.0-12.0) sec INR (<1.2) APTT (22.0-30.0) sec ABG pH (7.35-7.45) ABG pCO2 (35-45) mmHg ABG pO2 (83-108) mmHg ABG HCO3 (21-25) mmol/L ABG Total CO2 (19-24) mmol/L ABG O2 Saturation (94-97) % Sodium 135 L (137-145) mmol/L Potassium 5.2 H (3.5-5.1) mmol/L Chloride 108 H (98-107) mmol/L Carbon Dioxide 21 L (22-30) mmol/L Creatinine 0.40 L (0.52-1.04) mg/dL Glucose 268 H (74-99) mg/dL POC Glucose (mg/dL) 170 H 229 H (75-99) mg/dL Calcium 8.1 L (8.4-10.2) mg/dL Ionized Calcium Shital (4.5-5.3) mg/dL Magnesium (1.6-2.3) mg/dL Total Bilirubin (0.2-1.3) mg/dL AST (14-36) U/L ALT (9-52) U/L Alkaline Phosphatase (38-126) U/L Total Protein (6.3-8.2) g/dL Albumin (3.5-5.0) g/dL Crossmatch 06/28/18 06/28/18 06/28/18 Range/Units 19:42 20:15 21:11 WBC 12.9 H (3.8-10.6) k/uL RBC 2.15 L (3.80-5.40) m/uL Hgb 6.5 L* D (11.4-16.0) gm/dL Hct 19.5 L* (34.0-46.0) % Plt Count (150-450) k/uL Neutrophils # 11.0 H (1.3-7.7) k/uL PT (9.0-12.0) sec INR (<1.2) APTT (22.0-30.0) sec ABG pH (7.35-7.45) ABG pCO2 (35-45) mmHg ABG pO2 (83-108) mmHg ABG HCO3 (21-25) mmol/L ABG Total CO2 (19-24) mmol/L ABG O2 Saturation (94-97) % Sodium (137-145) mmol/L Potassium (3.5-5.1) mmol/L Chloride (98-107) mmol/L Carbon Dioxide (22-30) mmol/L Creatinine (0.52-1.04) mg/dL Glucose (74-99) mg/dL POC Glucose (mg/dL) 305 H 338 H (75-99) mg/dL Calcium (8.4-10.2) mg/dL Ionized Calcium Shital (4.5-5.3) mg/dL Magnesium (1.6-2.3) mg/dL Total Bilirubin (0.2-1.3) mg/dL AST (14-36) U/L ALT (9-52) U/L Alkaline Phosphatase (38-126) U/L Total Protein (6.3-8.2) g/dL Albumin (3.5-5.0) g/dL Crossmatch 06/28/18 06/28/18 06/28/18 Range/Units 21:13 22:13 23:16 WBC (3.8-10.6) k/uL RBC (3.80-5.40) m/uL Hgb (11.4-16.0) gm/dL Hct (34.0-46.0) % Plt Count (150-450) k/uL Neutrophils # (1.3-7.7) k/uL PT (9.0-12.0) sec INR (<1.2) APTT (22.0-30.0) sec ABG pH 7.31 L (7.35-7.45) ABG pCO2 (35-45) mmHg ABG pO2 273 H (83-108) mmHg ABG HCO3 18 L (21-25) mmol/L ABG Total CO2 (19-24) mmol/L ABG O2 Saturation 100.0 H (94-97) % Sodium (137-145) mmol/L Potassium (3.5-5.1) mmol/L Chloride (98-107) mmol/L Carbon Dioxide (22-30) mmol/L Creatinine (0.52-1.04) mg/dL Glucose (74-99) mg/dL POC Glucose (mg/dL) 319 H 310 H (75-99) mg/dL Calcium (8.4-10.2) mg/dL Ionized Calcium Shital (4.5-5.3) mg/dL Magnesium (1.6-2.3) mg/dL Total Bilirubin (0.2-1.3) mg/dL AST (14-36) U/L ALT (9-52) U/L Alkaline Phosphatase (38-126) U/L Total Protein (6.3-8.2) g/dL Albumin (3.5-5.0) g/dL Crossmatch 06/29/18 06/29/18 06/29/18 Range/Units 00:11 00:55 00:57 WBC (3.8-10.6) k/uL RBC (3.80-5.40) m/uL Hgb (11.4-16.0) gm/dL Hct (34.0-46.0) % Plt Count (150-450) k/uL Neutrophils # (1.3-7.7) k/uL PT (9.0-12.0) sec INR (<1.2) APTT (22.0-30.0) sec ABG pH 7.33 L (7.35-7.45) ABG pCO2 (35-45) mmHg ABG pO2 (83-108) mmHg ABG HCO3 19 L (21-25) mmol/L ABG Total CO2 (19-24) mmol/L ABG O2 Saturation 97.4 H (94-97) % Sodium (137-145) mmol/L Potassium (3.5-5.1) mmol/L Chloride (98-107) mmol/L Carbon Dioxide (22-30) mmol/L Creatinine (0.52-1.04) mg/dL Glucose (74-99) mg/dL POC Glucose (mg/dL) 258 H 244 H (75-99) mg/dL Calcium (8.4-10.2) mg/dL Ionized Calcium Shital (4.5-5.3) mg/dL Magnesium (1.6-2.3) mg/dL Total Bilirubin (0.2-1.3) mg/dL AST (14-36) U/L ALT (9-52) U/L Alkaline Phosphatase (38-126) U/L Total Protein (6.3-8.2) g/dL Albumin (3.5-5.0) g/dL Crossmatch 06/29/18 06/29/18 06/29/18 Range/Units 01:07 01:07 02:00 WBC 11.8 H (3.8-10.6) k/uL RBC 2.92 L (3.80-5.40) m/uL Hgb 8.5 L D (11.4-16.0) gm/dL Hct 26.1 L (34.0-46.0) % Plt Count 139 L (150-450) k/uL Neutrophils # 10.0 H (1.3-7.7) k/uL PT (9.0-12.0) sec INR (<1.2) APTT (22.0-30.0) sec ABG pH (7.35-7.45) ABG pCO2 (35-45) mmHg ABG pO2 (83-108) mmHg ABG HCO3 (21-25) mmol/L ABG Total CO2 (19-24) mmol/L ABG O2 Saturation (94-97) % Sodium (137-145) mmol/L Potassium (3.5-5.1) mmol/L Chloride 109 H (98-107) mmol/L Carbon Dioxide 19 L (22-30) mmol/L Creatinine 0.48 L (0.52-1.04) mg/dL Glucose 213 H (74-99) mg/dL POC Glucose (mg/dL) 222 H (75-99) mg/dL Calcium 7.7 L (8.4-10.2) mg/dL Ionized Calcium Shital (4.5-5.3) mg/dL Magnesium (1.6-2.3) mg/dL Total Bilirubin (0.2-1.3) mg/dL AST (14-36) U/L ALT (9-52) U/L Alkaline Phosphatase (38-126) U/L Total Protein (6.3-8.2) g/dL Albumin (3.5-5.0) g/dL Crossmatch 06/29/18 06/29/18 06/29/18 Range/Units 03:04 04:22 04:23 WBC (3.8-10.6) k/uL RBC (3.80-5.40) m/uL Hgb (11.4-16.0) gm/dL Hct (34.0-46.0) % Plt Count (150-450) k/uL Neutrophils # (1.3-7.7) k/uL PT (9.0-12.0) sec INR (<1.2) APTT (22.0-30.0) sec ABG pH (7.35-7.45) ABG pCO2 (35-45) mmHg ABG pO2 (83-108) mmHg ABG HCO3 (21-25) mmol/L ABG Total CO2 (19-24) mmol/L ABG O2 Saturation 97.7 H (94-97) % Sodium (137-145) mmol/L Potassium (3.5-5.1) mmol/L Chloride (98-107) mmol/L Carbon Dioxide (22-30) mmol/L Creatinine (0.52-1.04) mg/dL Glucose (74-99) mg/dL POC Glucose (mg/dL) 205 H 178 H (75-99) mg/dL Calcium (8.4-10.2) mg/dL Ionized Calcium Shital (4.5-5.3) mg/dL Magnesium (1.6-2.3) mg/dL Total Bilirubin (0.2-1.3) mg/dL AST (14-36) U/L ALT (9-52) U/L Alkaline Phosphatase (38-126) U/L Total Protein (6.3-8.2) g/dL Albumin (3.5-5.0) g/dL Crossmatch 06/29/18 06/29/18 06/29/18 Range/Units 04:28 04:28 04:28 WBC 10.7 H (3.8-10.6) k/uL RBC 2.90 L (3.80-5.40) m/uL Hgb 8.4 L (11.4-16.0) gm/dL Hct 25.2 L (34.0-46.0) % Plt Count 135 L (150-450) k/uL Neutrophils # 8.9 H (1.3-7.7) k/uL PT 12.6 H (9.0-12.0) sec INR 1.2 H (<1.2) APTT (22.0-30.0) sec ABG pH (7.35-7.45) ABG pCO2 (35-45) mmHg ABG pO2 (83-108) mmHg ABG HCO3 (21-25) mmol/L ABG Total CO2 (19-24) mmol/L ABG O2 Saturation (94-97) % Sodium (137-145) mmol/L Potassium (3.5-5.1) mmol/L Chloride 108 H (98-107) mmol/L Carbon Dioxide (22-30) mmol/L Creatinine 0.43 L (0.52-1.04) mg/dL Glucose 158 H (74-99) mg/dL POC Glucose (mg/dL) (75-99) mg/dL Calcium 8.0 L (8.4-10.2) mg/dL Ionized Calcium Shital (4.5-5.3) mg/dL Magnesium 2.5 H (1.6-2.3) mg/dL Total Bilirubin (0.2-1.3) mg/dL AST 98 H (14-36) U/L ALT 59 H (9-52) U/L Alkaline Phosphatase 31 L (38-126) U/L Total Protein 4.6 L (6.3-8.2) g/dL Albumin 3.0 L (3.5-5.0) g/dL Crossmatch 06/29/18 06/29/18 06/29/18 Range/Units 05:22 06:18 07:07 WBC (3.8-10.6) k/uL RBC (3.80-5.40) m/uL Hgb (11.4-16.0) gm/dL Hct (34.0-46.0) % Plt Count (150-450) k/uL Neutrophils # (1.3-7.7) k/uL PT (9.0-12.0) sec INR (<1.2) APTT (22.0-30.0) sec ABG pH (7.35-7.45) ABG pCO2 (35-45) mmHg ABG pO2 (83-108) mmHg ABG HCO3 (21-25) mmol/L ABG Total CO2 (19-24) mmol/L ABG O2 Saturation (94-97) % Sodium (137-145) mmol/L Potassium (3.5-5.1) mmol/L Chloride (98-107) mmol/L Carbon Dioxide (22-30) mmol/L Creatinine (0.52-1.04) mg/dL Glucose (74-99) mg/dL POC Glucose (mg/dL) 147 H 122 H 124 H (75-99) mg/dL Calcium (8.4-10.2) mg/dL Ionized Calcium Shital (4.5-5.3) mg/dL Magnesium (1.6-2.3) mg/dL Total Bilirubin (0.2-1.3) mg/dL AST (14-36) U/L ALT (9-52) U/L Alkaline Phosphatase (38-126) U/L Total Protein (6.3-8.2) g/dL Albumin (3.5-5.0) g/dL Crossmatch 06/29/18 06/29/18 06/29/18 Range/Units 08:07 09:08 09:52 WBC (3.8-10.6) k/uL RBC (3.80-5.40) m/uL Hgb (11.4-16.0) gm/dL Hct (34.0-46.0) % Plt Count (150-450) k/uL Neutrophils # (1.3-7.7) k/uL PT (9.0-12.0) sec INR (<1.2) APTT (22.0-30.0) sec ABG pH (7.35-7.45) ABG pCO2 (35-45) mmHg ABG pO2 (83-108) mmHg ABG HCO3 (21-25) mmol/L ABG Total CO2 (19-24) mmol/L ABG O2 Saturation (94-97) % Sodium (137-145) mmol/L Potassium (3.5-5.1) mmol/L Chloride (98-107) mmol/L Carbon Dioxide (22-30) mmol/L Creatinine (0.52-1.04) mg/dL Glucose (74-99) mg/dL POC Glucose (mg/dL) 102 H 102 H 141 H (75-99) mg/dL Calcium (8.4-10.2) mg/dL Ionized Calcium Shital (4.5-5.3) mg/dL Magnesium (1.6-2.3) mg/dL Total Bilirubin (0.2-1.3) mg/dL AST (14-36) U/L ALT (9-52) U/L Alkaline Phosphatase (38-126) U/L Total Protein (6.3-8.2) g/dL Albumin (3.5-5.0) g/dL Crossmatch 06/29/18 06/29/18 Range/Units 11:05 11:22 WBC (3.8-10.6) k/uL RBC (3.80-5.40) m/uL Hgb (11.4-16.0) gm/dL Hct (34.0-46.0) % Plt Count (150-450) k/uL Neutrophils # (1.3-7.7) k/uL PT (9.0-12.0) sec INR (<1.2) APTT (22.0-30.0) sec ABG pH (7.35-7.45) ABG pCO2 (35-45) mmHg ABG pO2 71 L (83-108) mmHg ABG HCO3 26 H (21-25) mmol/L ABG Total CO2 27 H (19-24) mmol/L ABG O2 Saturation (94-97) % Sodium (137-145) mmol/L Potassium (3.5-5.1) mmol/L Chloride (98-107) mmol/L Carbon Dioxide (22-30) mmol/L Creatinine (0.52-1.04) mg/dL Glucose (74-99) mg/dL POC Glucose (mg/dL) 122 H (75-99) mg/dL Calcium (8.4-10.2) mg/dL Ionized Calcium Shital (4.5-5.3) mg/dL Magnesium (1.6-2.3) mg/dL Total Bilirubin (0.2-1.3) mg/dL AST (14-36) U/L ALT (9-52) U/L Alkaline Phosphatase (38-126) U/L Total Protein (6.3-8.2) g/dL Albumin (3.5-5.0) g/dL Crossmatch Assessment and Plan Plan: 1 coronary artery disease and the patient is status post two-vessel bypass surgery and the patient is postop day #1 2 moderate to severe aortic stenosis and the patient is status post aortic valve replacement with a bioprosthetic aortic valve and the patient is postop day #1 3 moderate mitral regurgitation and the patient is status post mitral valve re pair with a 26 mm annular flex ring 4 acute hypoxic respiratory failure, and expected outcome post thoracotomy cardiac surgery and the patient is in the process of being weaned off the mechanical ventilator and being extubated 5 acute blood loss anemia with a drop in hemoglobin down to 6.5, probably related to intraoperative blood loss through the mediastinum and left pleural chest tube. The patient was transfused with a total of 2 units of packed RBC and hemoglobin is stable for now. His and expected outcome of surgery 6 diabetes mellitus type 2 7 hypertension 8 hyperlipidemia 9 peripheral vascular disease 7 hypothyroidism 13 rheumatoid arthritis 14 acid reflux. Plan We'll extubate this patient today. I reviewed the weaning parameters. I reviewed the spontaneous breathing trial and the follow-up blood gases and I think it's appropriate to extubate the patient to a nasal cannula and will monitor and adjust FiO2 to maintain a saturation above 90%. Continue Primacor for now. Monitor the output from the chest tube. Monitored hemodynamics. The patient will be started on beta blockers. Continue aspirin and Plavix. Continue statins. Monitor hemoglobin. We'll continue to follow make further recommendations based on progress.
[2018-06-29] MEDS: MULTIVITAMINS, THERA 1 EACH TAB PO SCH (11:53)
[2018-06-29 12:04] LABS: Glucose,Whole Blood 85 mg/dL (75-99)
[2018-06-29] MEDS ORDERED: MORPHINE SULFATE 2 MG/ML SYRINGE IVP STA (12:21)
[2018-06-29 13:28] LABS: Glucose,Whole Blood 82 mg/dL (75-99)
[2018-06-29] MEDS: LACTATED RINGERS 1,000 ML IV SCH (13:58)
[2018-06-29 14:16] LABS: Glucose,Whole Blood 89 mg/dL (75-99)
[2018-06-29] MEDS ORDERED: ACETAMINOPHEN IV (For NPO) 1,000 MG in EMPTY BAG 1 BAG IVPB STA (14:22)
[2018-06-29 15:13] LABS: Glucose,Whole Blood 92 mg/dL (75-99)
--- NOTE | 2018-06-29 15:15 | PN ---
PROGRESS NOTE DATE OF SERVICE: 06/29/2018 This is a 72-year-old woman who was admitted after CAD, CABG and as well as prosthetic aortic valve replacement, has been closely monitored. Patient extubated today. The blood sugars are well controlled at 85 and 82. The patient is slightly groggy after extubation. PAST MEDICAL HISTORY: Reviewed. REVIEW OF SYSTEMS: Could not be taken. CURRENT MEDICATIONS ARE: 1. Reviewed. [place] 5 mg q.4 p.r.n. 2. DuoNeb q.i.d. p.r.n. 3. Amiodarone drip. 4. Aspirin 81 mg p.o. daily. 5. Lipitor 40 mg p.o. daily. 7. Dulcolax. 8. Calcium carbonate. 9. Toradol. 10.Lactated ringers. 11.Milk of Magnesia. 12.Lopressor. 13.Multivitamins. 14.Zofran. 15.Oxy IR. 16.Protonix. PHYSICAL EXAM: Patient is a alert, oriented x3. The pulse is 86, blood pressure 132/45, respiratory 51, temperature is 96.9, pulse ox 98% on 6 L. HEENT: Pupil equal, conjunctivae normal. NECK: No jugular venous distension. CARDIOVASCULAR: S1, S2 muffled. RESPIRATORY: Breath sounds diminished at the bases, scattered rhonchi, no crackles. ABDOMEN: Soft, nontender. LEGS: No edema, no swelling. NERVOUS SYSTEM: No focal deficits. LABS: Today's labs WBC is 11.8, hemoglobin is 8.5, otherwise sodium 130, potassium 4.1, CO2 is 19. LFTs are noted. AST is 98 and ALT is 59. ASSESSMENT: 1. Coronary artery disease, status post coronary artery bypass grafting. 2. Status post prosthetic aortic valve replacement. 3. Right hip total repair. 4. Acute severe blood-loss anemia, expected from surgery. 5. Diabetes mellitus type 2. 6. Gastroesophageal reflux disease. 7. Hyperlipidemia. 8. Essential hypertension. 9. Rheumatoid arthritis. 10.Hypothyroidism. 11.Chronic insomnia. 12.History of hiatal hernia. 13.Acute respiratory failure at expected postoperatively, extubated currently. RECOMMENDATION: Recommend to continue current management and symptomatic treatment. Repeat labs. Otherwise, incentive spirometry, DVT prophylaxis. Monitor blood sugars closely. Closely follow with Cardiovascular Surgery. Further recommendation to follow. MMODL / IJN: [id number] / KAY
[2018-06-29 15:56] LABS: Glucose,Whole Blood 98 mg/dL (75-99)
[2018-06-29] MEDS ORDERED: MAGNESIUM HYDROXIDE 2,400 MG/10 ML CUP PO PRN (17:09)
[2018-06-29] MEDS ORDERED: BISACODYL 10 MG SUPP RECTAL PRN (17:09)
[2018-06-29 17:38] LABS: Glucose,Whole Blood 136 mg/dL (75-99)
[2018-06-29 18:45] LABS: Glucose,Whole Blood 138 mg/dL (75-99)
[2018-06-29] MEDS ORDERED: METOPROLOL TARTRATE 12.5 MG TAB PO SCH (19:00)
[2018-06-29 20:06] LABS: Glucose,Whole Blood 94 mg/dL (75-99)
[2018-06-29] MEDS: SENNOSIDES-DOCUSATE SODIUM 1 EACH TAB PO SCH (20:32)
[2018-06-29 22:46] LABS: Glucose,Whole Blood 109 mg/dL (75-99)
[2018-06-30 00:15] LABS: Glucose,Whole Blood 153 mg/dL (75-99)
[2018-06-30] MEDS: HYDROcodone/APAP 5-325MG 1 EACH TAB PO PRN ×3 (00:42→07:59)
[2018-06-30 01:24] LABS: Glucose,Whole Blood 148 mg/dL (75-99)
[2018-06-30 02:41] LABS: Glucose,Whole Blood 123 mg/dL (75-99)
[2018-06-30 04:02] LABS: Glucose,Whole Blood 89 mg/dL (75-99)
[2018-06-30 05:18] LABS: Basophils % (A) 0 %; Eosinophils % (A) 0 %; HCT 21.5 % (34.0-46.0); HGB 7.3 gm/dL (11.4-16.0); Lymphocytes # (A) 2.5 k/uL (1.0-4.8); Lymphocytes % (A) 19 %; MCH 29.3 pg (25.0-35.0); MCHC 33.9 g/dL (31.0-37.0); MCV 86.3 fL (80.0-100.0); Mean Platelet Volume 9.2; Monocytes # (A) 0.8 k/uL (0-1.0); Monocytes % (A) 6 %; Neutrophils # (A) 9.4 k/uL (1.3-7.7); Neutrophils % (A) 73 %; Platelet Count 128 k/uL (150-450); RBC 2.49 m/uL (3.80-5.40); RDW 15.9 % (11.5-15.5); WBC 12.9 k/uL (3.8-10.6)
[2018-06-30 05:29] LABS: Partial Thromboplastin Time 29.1 sec (22.0-30.0); Prothrombin Time 10.9 sec (9.0-12.0)
[2018-06-30 05:46] LABS: Ionized Calcium 4.9 mg/dL (4.5-5.3)
[2018-06-30] MEDS: KETOROLAC 30 MG/ML 1 ML VIAL IVP SCH ×4 (05:56→23:24)
[2018-06-30 05:57] LABS: Glucose,Whole Blood 55 mg/dL (75-99)
[2018-06-30] MEDS: LEVOTHYROXINE 50 MCG TAB PO SCH (05:57)
[2018-06-30 06:23] LABS: ALT 68 U/L (9-52); AST 78 U/L (14-36); African American GFR (CKD) >90 (>60 ml/min/1.73 sqM); Albumin 2.7 g/dL (3.5-5.0); Alkaline Phosphatase 40 U/L (38-126); Anion Gap 2 mmol/L; Blood Urea Nitrogen 17 mg/dL (7-17); Calcium 8.5 mg/dL (8.4-10.2); Carbon Dioxide 27 mmol/L (22-30); Chloride 108 mmol/L (98-107); Glucose 83 mg/dL (74-99); Magnesium 2.2 mg/dL (1.6-2.3); Potassium 4.3 mmol/L (3.5-5.1); Sodium 137 mmol/L (137-145); Total Protein 4.6 g/dL (6.3-8.2)
[2018-06-30 06:31] LABS: Glucose,Whole Blood 95 mg/dL (75-99)
--- NOTE | 2018-06-30 07:24 | XR ---
EXAMINATION TYPE: XR chest 1V portable DATE OF EXAM: 06/30/2018 COMPARISON: 06/29/2018 HISTORY: Postoperative cardiac surgery TECHNIQUE: Single frontal view of the chest is obtained. FINDINGS: There is no large cardiac mediastinal silhouette with postoperative changes. Mediastinal d rain remains. Beeson-Nata catheter has been removed. Endotracheal and enteric tubes have been removed i n the interim. Left thoracostomy tube remains in place with no residual pneumothorax seen. Strand-lik e bibasilar atelectasis and trace bilateral pleural effusions are present. Osseous structures display no acute abnormality. IMPRESSION: Persistent trace pleural effusions and stable left thoracostomy tube placement without r esidual pneumothorax. Interval extubation and removal of the enteric tube as well as the Beeson-Nata ca theter.
[2018-06-30] MEDS: IPRATROPIUM-ALBUTEROL 3 ML NEB INHALATION SCH ×4 (07:58→20:03)
[2018-06-30 08:02] LABS: Glucose,Whole Blood 158 mg/dL (75-99)
[2018-06-30] MEDS ORDERED: FUROSEMIDE 10 MG/ML 2 ML VIAL IV STA (08:20)
[2018-06-30] MEDS: MILRINONE-D5W PMX 20 MG in DEXTROSE/WATER 1 100ML.BAG IV SCH ×2 (08:25→20:41)
[2018-06-30] MEDS: LACTATED RINGERS 1,000 ML IV SCH (09:27)
[2018-06-30] MEDS: PANTOPRAZOLE 40 MG TABLET PO SCH (09:35)
[2018-06-30] MEDS: HEPARIN SODIUM,PORCINE 5,000 UNIT/ML 1 ML VIAL SQ SCH ×3 (09:35→23:25)
[2018-06-30] MEDS: METOPROLOL TARTRATE 25 MG TAB PO SCH ×2 (09:36→21:41)
[2018-06-30] MEDS: ASPIRIN 81 MG PO SCH (09:36)
[2018-06-30] MEDS: CLOPIDOGREL 75 MG TAB PO SCH (09:36)
[2018-06-30] MEDS: ATORVASTATIN 40 MG TAB PO SCH (09:36)
[2018-06-30 10:21] LABS: Glucose,Whole Blood 153 mg/dL (75-99)
[2018-06-30 11:19] LABS: Glucose,Whole Blood 91 mg/dL (75-99)
--- NOTE | 2018-06-30 11:43 | P.PN ---
Subjective Progress Note Date: 06/30/18 Principal diagnosis: Status post open heart This is a 72-year-old female patient who sees Dr. Colon in the office as an outpatient who was diagnosed recently with severe triple-vessel coronary artery disease as well as moderate to severe aortic stenosis. She was referred to [facility] CAB[facility] along with aortic valve replacement. The patient underwent coronary arteriogram is grafting with CUMMINGS to LAD, SVG to PDA, as well as aortic valve replacement and mitral valve repair. On follow-up with her this morning, this is postoperative day #2, she was extubated yesterday. She is experiencing some chest discomfort and the EKG revealed sinus rhythm with T-wave inversion in the lateral leads which is similar to her previous EKG. She is in process of receiving some pain medicatio n. She continues to be on dual antiplatelet therapy along with metoprolol as well as lisinopril as well as a statin. Objective - Vital Signs Vital signs: Vital Signs Temp 98.8 F 06/30/18 08:00 Pulse 99 06/30/18 11:35 Resp 21 06/30/18 11:00 BP 123/74 06/30/18 11:00 Pulse Ox 96 06/30/18 11:00 Intake & Output 06/29/18 06/30/18 06/30/18 18:59 06:59 18:59 Intake Total 1125.374 818.443 20.882 Output Total 820 693 Balance 305.374 125.443 20.882 Weight 90.8 kg 90.8 kg Intake: IV 1008 760 ACETAMINOPHEN IV (For NPO 100 ) 1,000 mg In Empty Bag 1 bag @ 400 mls/hr IVPB Q6HR YUD[facility] Rx#:[id number] CO/CI 180 20 Lactated Ringers 1,000 ml 620 650 @ 50 mls/hr IV .Q20H YUD[facility] Rx#:[id number] Pressure Bag 108 90 Intake, IV Titration 117.374 58.443 20.882 Amount Dexmedetomidine/0.9% NaCl 6.719 (Pmx) 400 mcg In Empty Bag 1 bag @ Titrate IV . Q0M [facility] Rx#:[id number] Insulin Regular 100 unit 14.612 58.443 20.882 In Sodium Chloride 0.9% 100 ml @ Per Protocol IV .Q0M YUD[facility] Rx#:[id number] Milrinone-D5w Pmx 20 mg 58.006 In Dextrose/Water 1 100ml .bag @ Per Protocol IV . Q0M [facility] Rx#:[id number] Milrinone-D5w Pmx 20 mg 20.790 In Dextrose/Water 1 100ml .bag @ Per Protocol IV . Q0M YUD[facility] Rx#:[id number] Norepinephrine 4 mg In 17.247 Sodium Chloride 0.9% 250 ml @ 0.02 MCG/KG/MIN 5. 913 mls/hr IV .Q24H [facility] Rx#:[id number] Output: Chest Tube Drainage 320 330 Bilateral Mediastinal 80 100 Chest Tube Left 240 230 Drainage 40 Left Calf 40 Urine 460 363 Other: Voiding Method Indwelling Catheter Indwelling Catheter ABP, PAP, CO, CI - Last Documented Arterial Blood Pressure 114/50 Pulmonary Artery Pressure 28/14 Cardiac Output 5 Cardiac Index 2.5 - Constitutional General appearance: Present: no acute distress - Respiratory Respiratory: bilateral: CTA - Cardiovascular Rhythm: regular Heart sounds: normal: S1, S2 - Labs CBC & Chem 7: 06/30/18 04:35 06/30/18 04:35 Labs: Abnormal Lab Results - Last 24 Hours (Table) 06/29/18 06/29/18 06/29/18 Range/Units 17:22 18:31 22:43 WBC (3.8-10.6) k/uL RBC (3.80-5.40) m/uL Hgb (11.4-16.0) gm/dL Hct (34.0-46.0) % RDW (11.5-15.5) % Plt Count (150-450) k/uL Neutrophils # (1.3-7.7) k/uL Chloride (98-107) mmol/L POC Glucose (mg/dL) 136 H 138 H 109 H (75-99) mg/dL AST (14-36) U/L ALT (9-52) U/L Total Protein (6.3-8.2) g/dL Albumin (3.5-5.0) g/dL 06/30/18 06/30/18 06/30/18 Range/Units 00:12 01:21 02:28 WBC (3.8-10.6) k/uL RBC (3.80-5.40) m/uL Hgb (11.4-16.0) gm/dL Hct (34.0-46.0) % RDW (11.5-15.5) % Plt Count (150-450) k/uL Neutrophils # (1.3-7.7) k/uL Chloride (98-107) mmol/L POC Glucose (mg/dL) 153 H 148 H 123 H (75-99) mg/dL AST (14-36) U/L ALT (9-52) U/L Total Protein (6.3-8.2) g/dL Albumin (3.5-5.0) g/dL 06/30/18 06/30/18 06/30/18 Range/Units 04:35 04:35 05:54 WBC 12.9 H (3.8-10.6) k/uL RBC 2.49 L (3.80-5.40) m/uL Hgb 7.3 L (11.4-16.0) gm/dL Hct 21.5 L (34.0-46.0) % RDW 15.9 H (11.5-15.5) % Plt Count 128 L (150-450) k/uL Neutrophils # 9.4 H (1.3-7.7) k/uL Chloride 108 H (98-107) mmol/L POC Glucose (mg/dL) 55 L (75-99) mg/dL AST 78 H (14-36) U/L ALT 68 H (9-52) U/L Total Protein 4.6 L (6.3-8.2) g/dL Albumin 2.7 L (3.5-5.0) g/dL 06/30/18 06/30/18 Range/Units 07:47 09:18 WBC (3.8-10.6) k/uL RBC (3.80-5.40) m/uL Hgb (11.4-16.0) gm/dL Hct (34.0-46.0) % RDW (11.5-15.5) % Plt Count (150-450) k/uL Neutrophils # (1.3-7.7) k/uL Chloride (98-107) mmol/L POC Glucose (mg/dL) 158 H 153 H (75-99) mg/dL AST (14-36) U/L ALT (9-52) U/L Total Protein (6.3-8.2) g/dL Albumin (3.5-5.0) g/dL Assessment and Plan Assessment: Assessment #1 status post CABG 2 along with aortic valve replacement and mitral valve repair #2 hypertension which has improved #3 anemia which is a stable #4 multiple comorbid conditions Plan #1 continue the current medical regimen #2 continue monitoring the hemoglobin and kidney function #3 continue dual antiplatelet therapy #4 follow-up with the patient
[2018-06-30] MEDS ORDERED: LISINOPRIL 5 MG TAB PO SCH (12:00)
[2018-06-30 12:21] LABS: Glucose,Whole Blood 89 mg/dL (75-99)
[2018-06-30 12:42] LABS: HCT 22.4 % (34.0-46.0); HGB 7.5 gm/dL (11.4-16.0); MCH 29.5 pg (25.0-35.0); MCHC 33.5 g/dL (31.0-37.0); MCV 87.9 fL (80.0-100.0); Mean Platelet Volume 8.6; Platelet Count 145 k/uL (150-450); RBC 2.54 m/uL (3.80-5.40); RDW 15.6 % (11.5-15.5); WBC 14.7 k/uL (3.8-10.6)
--- NOTE | 2018-06-30 13:17 | P.PN ---
Subjective Progress Note Date: 06/30/18 Principal diagnosis: Triple-vessel coronary artery disease, moderate to severe aortic valve stenosis, moderate mitral valve regurgitation, history of diabetes mellitus type 2 with a preoperative hemoglobin A1c of 8.3%, hypertension, hyperlipidemia, peripheral vascular disease, history of nicotine dependence in remission smoking around 17 years ago, rheumatoid arthritis, thyroid disorder and gastroesophageal reflux disease. POD #2 double vessel coronary artery bypass grafting using the left internal mammary artery to the left anterior descending coronary artery, a reverse g reater saphenous vein graft from aorta to the posterior descending coronary artery. Aortic valve replacement using a 21 mm Inspires pericardial bioprosthesis, mitral valve repair using a posterior annuloplasty 26 mm AnnuloFlex ring, exclusion of the left atrial appendage with a 35 mm Atriclip, endoscopic harvesting of the left greater saphenous vein, intraoperative transesophageal echocardiogram, epi-aortic scanning and graft flow measurements using the [employer] system. Postoperative acute blood loss anemia, an expected outcome given cardiopulmonary bypass and hemodilution. Preoperative UTI with urine culture showing strep agalactiae group B, treated preoperatively with Keflex. The patient is laying in bed in the intensive care unit and is in no acute distress. The night RN reports that she had some episodes of confusion and accidentally pulled her Austin-Nata catheter out. She does complain of incisional type soreness rating her pain 7 out of 10 and denies any complaints of shortness of breath. She remains hemodynamically stable and is currently on Primacor drip at 0.4 mcg/kg/m. Right IJ cordis remains in place to continue CVP monitoring, current CVP pressure 17 mmHg. Remains afebrile. The patient was successfully extubated yesterday within the 24 hour period after surgery and is on 4 L nasal cannula with oxygen saturations 92%. Achieving 750 mL on her incentive carter metry with encouragement. Objective - Vital Signs Vital signs: Vital Signs Temp 98.1 F 06/30/18 04:00 Pulse 101 H 06/30/18 08:15 Resp 13 06/30/18 07:30 BP 144/69 06/30/18 07:00 Pulse Ox 94 L 06/30/18 07:00 Intake & Output 06/29/18 06/30/18 06/30/18 18:59 06:59 18:59 Intake Total 1125.374 818.443 0 Output Total 820 693 Balance 305.374 125.443 0 Weight 90.8 kg Intake: IV 1008 760 ACETAMINOPHEN IV (For NPO 100 ) 1,000 mg In Empty Bag 1 bag @ 400 mls/hr IVPB Q6HR [facility] Rx#:[id number] CO/CI 180 20 Lactated Ringers 1,000 ml 620 650 @ 50 mls/hr IV .Q20H [facility] Rx#:[id number] Pressure Bag 108 90 Intake, IV Titration 117.374 58.443 0 Amount Dexmedetomidine/0.9% NaCl 6.719 (Pmx) 400 mcg In Empty Bag 1 bag @ Titrate IV . Q0M [facility] Rx#:[id number] Insulin Regular 100 unit 14.612 58.443 0 In Sodium Chloride 0.9% 100 ml @ Per Protocol IV .Q0M [facility] Rx#:[id number] Milrinone-D5w Pmx 20 mg 58.006 In Dextrose/Water 1 100ml .bag @ Per Protocol IV . Q0M [facility] Rx#:[id number] Milrinone-D5w Pmx 20 mg 20.790 In Dextrose/Water 1 100ml .bag @ Per Protocol IV . Q0M [facility] Rx#:[id number] Norepinephrine 4 mg In 17.247 Sodium Chloride 0.9% 250 ml @ 0.02 MCG/KG/MIN 5. 913 mls/hr IV .Q24H [facility] Rx#:[id number] Output: Chest Tube Drainage 320 330 Bilateral Mediastinal 80 100 Chest Tube Left 240 230 Drainage 40 Left Calf 40 Urine 460 363 Other: Voiding Method Indwelling Catheter Indwelling Catheter ABP, PAP, CO, CI - Last Documented Arterial Blood Pressure 130/123 Pulmonary Artery Pressure 28/14 Cardiac Output 5 Cardiac Index 2.5 - Constitutional Constitutional Comment(s): Episodes of restlessness General appearance: Present: cooperative, no acute distress, obese - Respiratory Details: Lungs sounds essentially clear to her bilateral upper lobes, diminished bilateral bases. Respirations are symmetrical and nonlabored. Oxygen saturation are 92% on 4 L nasal cannula. Achieving 750 mL on her incentive spirometry. Mediastinal and left pleural chest tubes remain in place to low continuous wall suction -20 cm H2O. No air leak is present. Mediastinal chest tubes draining thin serosanguineous drainage 50 mL output in the last 8 hours, 180 mL output in the last 24 hours. Left pleural chest tube draining thin serosanguineous drainage 130 mL output in the last 8 hours, 300 mL output in the last 24 hours. - Cardiovascular Details: Regular rhythm and rate. S1 and S2 present, negative for S3, gallop or murmur. Sternum is stable. Bedside telemetry showing normal sinus rhythm heart rate 92. Heart hugger and surgical support in place. Demonstrating appropriate use on her heart hugger. Atrial and ventricular epicardial pacemaker wires in place and connected to a backup generator with a VVI 50. No edema present. Right IJ Cordis in place to continue CVP monitoring, current CVP pressure 17 mmHg. Knee- high PAYAL hose and sequential compression devices in place to bilateral lower extremities. Right radial arterial line in place and functioning. - Gastrointestinal Gastrointestinal Comment(s): Abdomen is soft, nontender nondistended. Hypoactive bowel sounds all 4 abdominal quadrants. No guarding or rigidity. Passing flatus. No organomegaly. - Genitourinary Genitourinary Comment(s): Mendoza catheter for accurate I&O. Draining clear yellow urine, marginal urine output in the last 8 hours 200 mL. - Integumentary Integumentary Comment(s): Skin is warm and dry. No clubbing or cyanosis is present. Midline sternal incision is clean, dry with dressing clean, dry and intact. Left lower leg EVH site clean, dry and approximated. No drainage or redness is present. RESHMA drain in place to her left lower extremity draining thin serosanguineous drainage. 40 mL output in the last 24 hours. - Neurologic Neurologic: Present: CNII-XII intact - Musculoskeletal Musculoskeletal: Present: gait normal, generalized weakness, strength equal bilaterally - Psychiatric Psychiatric: Present: A&O x's 3, appropriate affect, intact judgment & insight - Allied health notes Allied health notes reviewed: nursing - Labs CBC & Chem 7: 06/30/18 12:15 06/30/18 04:35 Labs: Abnormal Lab Results - Last 24 Hours (Table) 06/29/18 06/29/18 06/29/18 Range/Units 09:52 11:05 11:22 WBC (3.8-10.6) k/uL RBC (3.80-5.40) m/uL Hgb (11.4-16.0) gm/dL Hct (34.0-46.0) % RDW (11.5-15.5) % Plt Count (150-450) k/uL Neutrophils # (1.3-7.7) k/uL ABG pO2 71 L (83-108) mmHg ABG HCO3 26 H (21-25) mmol/L ABG Total CO2 27 H (19-24) mmol/L Chloride (98-107) mmol/L POC Glucose (mg/dL) 141 H 122 H (75-99) mg/dL AST (14-36) U/L ALT (9-52) U/L Total Protein (6.3-8.2) g/dL Albumin (3.5-5.0) g/dL 06/29/18 06/29/18 06/29/18 Range/Units 17:22 18:31 22:43 WBC (3.8-10.6) k/uL RBC (3.80-5.40) m/uL Hgb (11.4-16.0) gm/dL Hct (34.0-46.0) % RDW (11.5-15.5) % Plt Count (150-450) k/uL Neutrophils # (1.3-7.7) k/uL ABG pO2 (83-108) mmHg ABG HCO3 (21-25) mmol/L ABG Total CO2 (19-24) mmol/L Chloride (98-107) mmol/L POC Glucose (mg/dL) 136 H 138 H 109 H (75-99) mg/dL AST (14-36) U/L ALT (9-52) U/L Total Protein (6.3-8.2) g/dL Albumin (3.5-5.0) g/dL 06/30/18 06/30/18 06/30/18 Range/Units 00:12 01:21 02:28 WBC (3.8-10.6) k/uL RBC (3.80-5.40) m/uL Hgb (11.4-16.0) gm/dL Hct (34.0-46.0) % RDW (11.5-15.5) % Plt Count (150-450) k/uL Neutrophils # (1.3-7.7) k/uL ABG pO2 (83-108) mmHg ABG HCO3 (21-25) mmol/L ABG Total CO2 (19-24) mmol/L Chloride (98-107) mmol/L POC Glucose (mg/dL) 153 H 148 H 123 H (75-99) mg/dL AST (14-36) U/L ALT (9-52) U/L Total Protein (6.3-8.2) g/dL Albumin (3.5-5.0) g/dL 06/30/18 06/30/18 06/30/18 Range/Units 04:35 04:35 05:54 WBC 12.9 H (3.8-10.6) k/uL RBC 2.49 L (3.80-5.40) m/uL Hgb 7.3 L (11.4-16.0) gm/dL Hct 21.5 L (34.0-46.0) % RDW 15.9 H (11.5-15.5) % Plt Count 128 L (150-450) k/uL Neutrophils # 9.4 H (1.3-7.7) k/uL ABG pO2 (83-108) mmHg ABG HCO3 (21-25) mmol/L ABG Total CO2 (19-24) mmol/L Chloride 108 H (98-107) mmol/L POC Glucose (mg/dL) 55 L (75-99) mg/dL AST 78 H (14-36) U/L ALT 68 H (9-52) U/L Total Protein 4.6 L (6.3-8.2) g/dL Albumin 2.7 L (3.5-5.0) g/dL 06/30/18 Range/Units 07:47 WBC (3.8-10.6) k/uL RBC (3.80-5.40) m/uL Hgb (11.4-16.0) gm/dL Hct (34.0-46.0) % RDW (11.5-15.5) % Plt Count (150-450) k/uL Neutrophils # (1.3-7.7) k/uL ABG pO2 (83-108) mmHg ABG HCO3 (21-25) mmol/L ABG Total CO2 (19-24) mmol/L Chloride (98-107) mmol/L POC Glucose (mg/dL) 158 H (75-99) mg/dL AST (14-36) U/L ALT (9-52) U/L Total Protein (6.3-8.2) g/dL Albumin (3.5-5.0) g/dL - Imaging and Cardiology Chest x-ray: report reviewed, image reviewed Assessment and Plan Assessment: 1. Triple-vessel coronary artery disease status post coronary artery bypass grafting surgery 2. Moderate to severe aortic valve stenosis status post aortic valve replacement using a 21 mm Inspris bioprosthetic valve 3. Moderate mitral valve regurgitation, status post mitral valve repair using a 26 millimeter AnnuloFlex ring 4. Diabetes milliliters type 2 with a preoperative hemoglobin A1c of 8.3% 5. Hypertension 6. Hyperlipidemia 7. History of Peripheral vascular disease 8. Hypothyroidism 9. History of nicotine dependence in remission quit smoking about 17 years ago 10. Gastroesophageal reflux disease 11. History of rheumatoid arthritis 12. Postoperative acute blood loss anemia, an expected outcome given cardiopulmonary bypass and hemodilution 13. Preoperative urinary tract infection, treated Plan: 1. Continue low-dose aspirin statin, plavix and beta mirian. Will increase metoprolol tartrate 25 mg by mouth twice a day. 2. Will wean Primacor as able. Decreased to 0.2 mcg/kg/m this a.m. 3. Wean oxygen as tolerated. Encourage use of her incentive spirometry 10 times every hour while awake. 4. Increase activity. PT/OT/cardiac rehab following. 5. Will monitor daily labs and chest x-rays. Electrolyte replacement per protocol. Will monitor for further transfusion needs. 6. Bronchodilators management per pulmonology. 7. Pain control with current medication regimen. Continue Toradol. Discontinue Roundup due to the patient's confusion. Add acetaminophen 1000 mg by mouth every 6 hours when necessary pain 8. Insulin management per primary care service. 9. Will keep chest tubes, Cordis, arterial line, Mnedoza catheter today. 10. GI/DVT prophylaxis. 11. Continue to encourage smoking cessation. 12. Continue patient's home dose of Synthroid. 13. Start lisinopril 5 mg by mouth daily at noon. 14. Lasix 20 mg IV 1 today. 15. More recommendations to follow based on patient's clinical course. Time with Patient: Greater than 30
[2018-06-30 13:38] LABS: Glucose,Whole Blood 117 mg/dL (75-99)
[2018-06-30 14:17] LABS: Glucose,Whole Blood 113 mg/dL (75-99)
[2018-06-30] MEDS: MULTIVITAMINS, THERA 1 EACH TAB PO SCH (14:33)
[2018-06-30] MEDS: ALBUMIN HUMAN 5% 250 ML in EMPTY BAG 1 BAG IVPB PRN (14:52)
[2018-06-30] MEDS: ACETAMINOPHEN TAB 500 MG TAB PO PRN ×2 (15:44→21:50)
[2018-06-30 16:02] LABS: Glucose,Whole Blood 105 mg/dL (75-99)
--- NOTE | 2018-06-30 17:24 | P.PN ---
Subjective Progress Note Date: 06/30/18 Principal diagnosis: Coronary artery disease and patient is status post two-vessel bypass surgery postop day 2, moderate to severe aortic stenosis status post aortic valve replacement, moderate mitral regurgitation status post mitral valve repair This is 72-year-old white female patient with the past medical history of coronary artery disease with aortic valve stenosis, and mitral valve regurgitation, who has been complaining of worsening dyspnea on exertion. Cardiac catheterization, echocardiogram, and transesophageal echocardiogram revealed advanced coronary artery disease and moderate to severe aortic valve stenosis and moderate mitral valve regurgitation. Other medical history includes diabetes mellitus, hypertension, hyperlipidemia, peripheral vascular disease, previous history of CVA/TIA, hypothyroidism and previous history of nicotine dependence. Preop PFT showed a FEV1 of 77% of predicted and mild diffusion abnormalities. 2-D echo and ABBIE showed preserved systolic function with moderate hypertrophy. Patient was referred to cardiothoracic surgery for surgical intervention, and on all 06/28/2018 patient underwent two-vessel coronary artery bypass grafting, with the CUMMINGS to LAD, and the SVG to the PDA, aortic valve replacement with a bioprosthetic valve, and mitral valve repair, and left atrial appendage exclusion. Patient is seen in the postoperative period in the intensive care unit, she is sedated, intubated on mechanical ventilator, and current vent settings are assist-control mode of ventilation with a rate of 12, tidal volume 400, FiO2 of 100%, and PEEP of 5, postop blood gases were obtained, and showed pO2 of 225, pCO2 of 46, and pH of 7.33. In the rate was increased to 14, and FiO2 was cut down to 50%. IVs include lactated Ringer's at rate of 50, Primacor at 0.3 mics per kilo per minute, levo fed is at 3.8 mics per minute, nitroglycerin is at 5 mics per kilo per minute, insulin and Diprivan drip. Postop blood work showed a white blood cell count of 14.4, hemoglobin of 8.1, sodium of 136, potassium is 5.1, chloride is 109, BUN of 9, creatinine is 0.36. Patient was transfused with 2 units of packed red blood cells, 2 units of fresh frozen plasma, 2 units of platelets. Patient has diminished all chest tubes, and left pleural chest tube, with moderate amount of sanguinous output, patient is hemodynamically stable, she is being paced via atrial epicardial wires at a rate of 80. Sternal incision is clean dry and intact, with a surgical dressing. Mendoza catheter is in place, and is nonoliguric. On 06/30/2018 patient seen in the intensive care in follow-up. She is awake and alert, the patient is having moderate amount of discomfort in the left chest. Currently on 4 L of oxygen, sats at 99%, patient is afebrile, hemodynamically patient is stable, afebrile. Patient remains on a small amount of Primacor and 0.2 mics per kilo per minute, lactated ringer's at 30 mL per hour, levo fed has been weaned off, insulin drip is at 6.5 units per hour. Patient is in sinus rhythm, with controlled rate, lung sounds are diminished, patient's incentive spirometry effort is suboptimal, only 500 mL. Left pleural chest tube remains in place, with 470 mL of serosanguineous output in last 24 hours, mediastinal chest tube with 180 mL of serosanguineous output the last 24 hours, and patient is anticipated to have her mediastinal chest tube removed today by cardiothoracic surgery. Today's chest x-ray has been reviewed with Dr. Carballo, shows persistent trace pleural effusions and stable left chest tube in place without residual pneumothorax. Patient removed her [place]-Nata catheter inadvertently last night. Today's labs have been reviewed, and showed a white blood cell, 14.7, hemoglobin of 7.5, and are is 1.0, sodium is 137, potassium is 4.3, chloride is 108, BUN of 17 creatinine 0.52. Objective - Vital Signs Vital signs: Vital Signs Temp 98.7 F 06/30/18 12:00 Pulse 90 06/30/18 16:50 Resp 17 06/30/18 13:00 BP 98/63 06/30/18 13:00 Pulse Ox 97 06/30/18 16:35 Intake & Output 06/29/18 06/30/18 06/30/18 18:59 06:59 18:59 Intake Total 1125.374 818.443 399.570 Output Total 820 693 298 Balance 305.374 125.443 101.570 Weight 90.8 kg 90.8 kg Intake: IV 1008 760 216 ACETAMINOPHEN IV (For NPO 100 ) 1,000 mg In Empty Bag 1 bag @ 400 mls/hr IVPB Q6HR YUDITH Rx#:[id number] CO/CI 180 20 Lactated Ringers 1,000 ml 620 650 180 @ 20 mls/hr IV .Q24H YUDITH Rx#:[id number] Pressure Bag 108 90 36 Intake, IV Titration 117.374 58.443 53.570 Amount Dexmedetomidine/0.9% NaCl 6.719 (Pmx) 400 mcg In Empty Bag 1 bag @ Titrate IV . Q0M YUDITH Rx#:[id number] Insulin Regular 100 unit 14.612 58.443 20.882 In Sodium Chloride 0.9% 100 ml @ Per Protocol IV .Q0M YUDITH Rx#:[id number] Milrinone-D5w Pmx 20 mg 32.688 In Dextrose/Water 1 100ml .bag @ 0.2 MCG/KG/MIN 5. 448 mls/hr IV .[id number] YUDITH Rx#:[id number] Milrinone-D5w Pmx 20 mg 58.006 In Dextrose/Water 1 100ml .bag @ Per Protocol IV . Q0M YUDITH Rx#:[id number] Milrinone-D5w Pmx 20 mg 20.790 In Dextrose/Water 1 100ml .bag @ Per Protocol IV . Q0M YUDITH Rx#:[id number] Norepinephrine 4 mg In 17.247 Sodium Chloride 0.9% 250 ml @ 0.02 MCG/KG/MIN 5. 913 mls/hr IV .Q24H YUDITH Rx#:[id number] Oral 130 Output: Chest Tube Drainage 320 330 70 Bilateral Mediastinal 80 100 10 Chest Tube Left 240 230 60 Drainage 40 25 Left Calf 40 25 Urine 460 363 203 Other: Voiding Method Indwelling Catheter Indwelling Catheter Indwelling Catheter ABP, PAP, CO, CI - Last Documented Arterial Blood Pressure 112/41 Pulmonary Artery Pressure 28/14 Cardiac Output 5 Cardiac Index 2.5 - Exam GENERAL EXAM:72-year-old white female on 4 L of oxygen, in moderate amount of discomfort from a left chest tube site supervisor: Normocephalic/atraumatic. EYES: Normal reaction of pupils, equal size. Conjunctiva pink, sclera white. NOSE: Clear with pink turbinates. THROAT: No erythema or exudates. NECK: No masses, no JVD, no thyroid enlargement, no adenopathy. CHEST: No chest wall deformity. Symmetrical expansion. Sternal incision is clean dry and intact, covered with a surgical dressing, 2 mediastinal and left pleural chest tubes to wall suction with moderate amount of sero- sanguinous output in the Pleur-evac. Epicardial wires connected to external pacemaker, with a backup rate, intrinsic rhythm is sinus rhythm with a controlled rate LUNGS: Equal air entry with no crackles, wheeze, rhonchi or dullness. CVS: Regular rate and rhythm, normal S1 and S2, no gallops, no murmurs, no rubs ABDOMEN: Soft, nontender. No hepatosplenomegaly, normal bowel sounds, no guarding or rigidity. EXTREMITIES: No clubbing, no edema, no cyanosis, 2+ pulses and upper and lower extremities. SCDs are present on both legs MUSCULOSKELETAL: Muscle strength and tone normal. SPINE: No scoliosis or deformity SKIN: No rashes CENTRAL NERVOUS SYSTEM: Sedated No focal deficits, tone is normal in all 4 extremities. - Labs CBC & Chem 7: 06/30/18 12:15 06/30/18 04:35 Labs: Abnormal Lab Results - Last 24 Hours (Table) 06/29/18 06/29/18 06/29/18 Range/Units 17:22 18:31 22:43 WBC (3.8-10.6) k/uL RBC (3.80-5.40) m/uL Hgb (11.4-16.0) gm/dL Hct (34.0-46.0) % RDW (11.5-15.5) % Plt Count (150-450) k/uL Neutrophils # (1.3-7.7) k/uL Chloride (98-107) mmol/L POC Glucose (mg/dL) 136 H 138 H 109 H (75-99) mg/dL AST (14-36) U/L ALT (9-52) U/L Total Protein (6.3-8.2) g/dL Albumin (3.5-5.0) g/dL 06/30/18 06/30/18 06/30/18 Range/Units 00:12 01:21 02:28 WBC (3.8-10.6) k/uL RBC (3.80-5.40) m/uL Hgb (11.4-16.0) gm/dL Hct (34.0-46.0) % RDW (11.5-15.5) % Plt Count (150-450) k/uL Neutrophils # (1.3-7.7) k/uL Chloride (98-107) mmol/L POC Glucose (mg/dL) 153 H 148 H 123 H (75-99) mg/dL AST (14-36) U/L ALT (9-52) U/L Total Protein (6.3-8.2) g/dL Albumin (3.5-5.0) g/dL 06/30/18 06/30/18 06/30/18 Range/Units 04:35 04:35 05:54 WBC 12.9 H (3.8-10.6) k/uL RBC 2.49 L (3.80-5.40) m/uL Hgb 7.3 L (11.4-16.0) gm/dL Hct 21.5 L (34.0-46.0) % RDW 15.9 H (11.5-15.5) % Plt Count 128 L (150-450) k/uL Neutrophils # 9.4 H (1.3-7.7) k/uL Chloride 108 H (98-107) mmol/L POC Glucose (mg/dL) 55 L (75-99) mg/dL AST 78 H (14-36) U/L ALT 68 H (9-52) U/L Total Protein 4.6 L (6.3-8.2) g/dL Albumin 2.7 L (3.5-5.0) g/dL 06/30/18 06/30/18 06/30/18 Range/Units 07:47 09:18 12:15 WBC 14.7 H (3.8-10.6) k/uL RBC 2.54 L (3.80-5.40) m/uL Hgb 7.5 L (11.4-16.0) gm/dL Hct 22.4 L (34.0-46.0) % RDW 15.6 H (11.5-15.5) % Plt Count 145 L (150-450) k/uL Neutrophils # (1.3-7.7) k/uL Chloride (98-107) mmol/L POC Glucose (mg/dL) 158 H 153 H (75-99) mg/dL AST (14-36) U/L ALT (9-52) U/L Total Protein (6.3-8.2) g/dL Albumin (3.5-5.0) g/dL 06/30/18 06/30/18 06/30/18 Range/Units 13:12 14:13 15:47 WBC (3.8-10.6) k/uL RBC (3.80-5.40) m/uL Hgb (11.4-16.0) gm/dL Hct (34.0-46.0) % RDW (11.5-15.5) % Plt Count (150-450) k/uL Neutrophils # (1.3-7.7) k/uL Chloride (98-107) mmol/L POC Glucose (mg/dL) 117 H 113 H 105 H (75-99) mg/dL AST (14-36) U/L ALT (9-52) U/L Total Protein (6.3-8.2) g/dL Albumin (3.5-5.0) g/dL Assessment and Plan Plan: Assessment: #1. Coronary artery disease, aortic valve stenosis, and moderate mitral valve regurgitation, status post 2 vessel coronary bypass with CUMMINGS to LAD, and SVG to the PDA, aortic valve replacement with a bioprosthetic valve, and mitral valve repair and exclusion of left atrial appendage, postop day 2 #2. Routine postoperative ventilator management, patient was successfully extubated on postop day 1, on 06/29/2018, tolerating extubation quite well #3. Acute postoperative blood loss anemia, an expected outcome of bypass surgery #4. Diabetes mellitus type 2 #5. Hypertension #6. Hyperlipidemia #7. Peripheral vascular disease #8. Previous history of smoking Plan: Today's chest x-ray has been reviewed with Dr. Carballo, shows trace pleural effusions, patient received a dose of IV Lasix per CT surgery, hemodynamically stable, small amount of Primacor, vasopressor support has been weaned off. E ncourage deep breathing and coughing, continue with breathing treatments. Will continue to follow I performed a history & physical examination of the patient and discussed their management with my nurse practitioner, Aye Stewart. I reviewed the nurse practitioner's note and agree with the documented findings and plan of care. Lung sounds are positive for clear breath sounds. The findings and the impression was discussed with the patient. I attest to the documentation by the nurse practitioner. Time with Patient: Less than 30
--- NOTE | 2018-06-30 17:31 | PN ---
PROGRESS NOTE . DATE OF SERVICE: 06/30/2018 HISTORY: This 72 -year-old woman was admitted after CAD, CABG as well as prosthetic aortic valve replacement is being closely monitored. Patient extubated. Patient is having some mild confusion. According the , the patient also had similar postoperative changes previously. The patient also had some anemia at this time. The chest x- ray reviewed personally by me showed persistent trace pleural effusion. The patient removed the [place]-Nata catheter. PAST MEDICAL HISTORY: Reviewed. REVIEW OF SYSTEMS: Could not be taken the patient, the patient is mildly confused. CURRENT MEDICATIONS ARE: Reviewed and include: 1. Tylenol 1000 mg p.r.n. 2. Albuterol q.i.d. p.r.n. 3. Amiodarone. 4. Aspirin 81 mg. 5. Lipitor. 6. Dulcolax. 7. Dextrose. 8. Lactated Ringer's. 9. Synthroid. 10.Zestril. 11.Milk of magnesia. 12.P.r.n. medications. PHYSICAL EXAMINATION: The patient is conscious and confused. Pulse 85, blood pressure 98/60, respirations 17, temperature is 98.7, pulse ox 98% on 4 L. HEENT: Conjunctivae normal. Oral mucosa moist. NECK is no jugular venous distention. No carotid bruit. No lymph node enlargement. CARDIOVASCULAR: S1, S2 muffled. RESPIRATORY: Breath sounds diminished in the bases. A few scattered rhonchi. No crackles. ABDOMEN is soft, nontender. LEGS are no edema. No swelling. CENTRAL NERVOUS SYSTEM: No focal deficits. tube is in-situ. LAB STUDIES: WBC 14.2, hemoglobin 7.3 this morning. AST 78, ALT 68. ASSESSMENT: 1. Coronary artery disease status post coronary artery bypass grafting. 2. Status post aortic valve replacement. 3. Change in mental status, possibly delirium. 4. Anemia acute blood loss anemia as expected from surgery. 5. Diabetes mellitus type 2. 6. Gastroesophageal reflux disease. 7. Hyperlipidemia. 8. History of hypertension. 9. History of rheumatoid arthritis. 10.Hypothyroidism. 11.Chronic insomnia. 12.History of hiatal hernia. 13.Acute respiratory failure as expected postoperatively extubated currently. RECOMMENDATIONS AND DISCUSSION: Recommend to continue current medication, continue to monitor. Symptomatic treatment. Otherwise, repeat hemoglobin is noted to be stable at this time. We will continue to monitor and avoid narcotic medications as much as possible. Otherwise, we will continue to monitor. DVT prophylaxis. Incentive spirometry. Further recommendations to follow. MMODL / IJN: [id number] / KAY
[2018-06-30 17:38] LABS: Glucose,Whole Blood 167 mg/dL (75-99)
[2018-06-30 18:25] LABS: Glucose,Whole Blood 162 mg/dL (75-99)
[2018-06-30] MEDS: INSULIN REGULAR 100 UNIT in SODIUM CHLORIDE 0.9% 100 ML IV SCH (19:14)
[2018-06-30 19:32] LABS: Glucose,Whole Blood 129 mg/dL (75-99)
[2018-06-30 20:04] LABS: Glucose,Whole Blood 93 mg/dL (75-99)
[2018-06-30 20:41] LABS: Glucose,Whole Blood 81 mg/dL (75-99)
[2018-06-30 21:15] LABS: Glucose,Whole Blood 69 mg/dL (75-99)
[2018-06-30] MEDS ORDERED: DEXTROSE/WATER 1 250ML.BAG with DOPamine DRIP 800 MG IV SCH (21:15)
[2018-06-30 21:19] LABS: Glucose,Whole Blood 73 mg/dL (75-99)
[2018-06-30] MEDS: SENNOSIDES-DOCUSATE SODIUM 1 EACH TAB PO SCH (21:41)
[2018-06-30 21:46] LABS: Glucose,Whole Blood 77 mg/dL (75-99)
[2018-06-30 22:03] LABS: Glucose,Whole Blood 104 mg/dL (75-99)
[2018-06-30 23:05] LABS: Glucose,Whole Blood 112 mg/dL (75-99)
[2018-07-01 00:14] LABS: Glucose,Whole Blood 125 mg/dL (75-99)
[2018-07-01 02:07] LABS: Glucose,Whole Blood 119 mg/dL (75-99)
[2018-07-01 03:05] LABS: Glucose,Whole Blood 106 mg/dL (75-99)
[2018-07-01 03:56] LABS: Bacteria,Urine Rare /hpf; Hyaline Casts,Urine 368 /lpf (0-2); Mucus,Urine Many /hpf
[2018-07-01 04:00] LABS: Appearance,Urine Turbid (Clear); Color,Urine Red
[2018-07-01 04:01] LABS: RBC,Urine >182 /hpf (0-5)
[2018-07-01 04:04] LABS: Glucose,Whole Blood 111 mg/dL (75-99)
[2018-07-01 04:25] LABS: Basophils % (A) 0 %; Eosinophils # (A) 0.2 k/uL (0-0.7); Eosinophils % (A) 1 %; HCT 21.1 % (34.0-46.0); HGB 7.1 gm/dL (11.4-16.0); Lymphocytes # (A) 2.9 k/uL (1.0-4.8); Lymphocytes % (A) 20 %; MCH 29.8 pg (25.0-35.0); MCHC 33.7 g/dL (31.0-37.0); MCV 88.3 fL (80.0-100.0); Mean Platelet Volume 8.7; Monocytes # (A) 0.7 k/uL (0-1.0); Monocytes % (A) 5 %; Neutrophils # (A) 10.6 k/uL (1.3-7.7); Neutrophils % (A) 72 %; Platelet Count 140 k/uL (150-450); RBC 2.39 m/uL (3.80-5.40); RDW 15.8 % (11.5-15.5); WBC 14.7 k/uL (3.8-10.6)
[2018-07-01 04:27] LABS: ALT 86 U/L (9-52); AST 72 U/L (14-36); African American GFR (CKD) >90 (>60 ml/min/1.73 sqM); Albumin 3.1 g/dL (3.5-5.0); Alkaline Phosphatase 56 U/L (38-126); Anion Gap 4 mmol/L; Blood Urea Nitrogen 23 mg/dL (7-17); Calcium 8.8 mg/dL (8.4-10.2); Carbon Dioxide 27 mmol/L (22-30); Chloride 108 mmol/L (98-107); Glucose 96 mg/dL (74-99); Potassium 4.2 mmol/L (3.5-5.1); Sodium 139 mmol/L (137-145); Total Bilirubin 1.1 mg/dL (0.2-1.3); Total Protein 5.2 g/dL (6.3-8.2)
[2018-07-01] MEDS: KETOROLAC 30 MG/ML 1 ML VIAL IVP SCH ×3 (05:26→17:12)
[2018-07-01 05:28] LABS: Glucose,Whole Blood 87 mg/dL (75-99)
[2018-07-01] MEDS: LEVOTHYROXINE 50 MCG TAB PO SCH (05:52)
[2018-07-01 06:49] LABS: Glucose,Whole Blood 109 mg/dL (75-99)
--- NOTE | 2018-07-01 07:06 | XR ---
EXAMINATION TYPE: XR chest 1V portable DATE OF EXAM: 07/01/2018 CLINICAL HISTORY: Difficulty breathing progress study. Post open cardiac surgery. TECHNIQUE: Single AP portable upright view of the chest is obtained. COMPARISON: Chest x-ray from one day earlier and older studies. FINDINGS: Stable right internal jugular cordis sheath. Post-CABG changes with mediastinal clips and s ternal wires is redemonstrated. There is persistent left basilar chest tube and mediastinal drainage catheter. Cardiac closure device left upper heart level is again seen. Cardiac silhouette size is sta ble and upper limits of normal to atherosclerotic thoracic aorta. There is central vascular congestio n and tiny bilateral pleural effusions remaining present. No new focal airspace opacity or pneumothor ax is seen. Osseous structures are demineralized. IMPRESSION: Overall stable findings, central vascular congestion with small to tiny bilateral pleur al effusions remain present.
[2018-07-01] MEDS: METOPROLOL TARTRATE 25 MG TAB PO SCH ×2 (07:07→17:13)
[2018-07-01 07:08] LABS: Glucose,Whole Blood 124 mg/dL (75-99)
--- NOTE | 2018-07-01 07:30 | P.PN ---
Subjective Progress Note Date: 07/01/18 Principal diagnosis: Status post open heart This is a 72-year-old female patient who sees Dr. Colon in the office as an outpatient who was diagnosed recently with severe triple-vessel coronary artery disease as well as moderate to severe aortic stenosis. She was referred to [facility] CABG along with aortic valve replacement. The patient underwent coronary arteriogram is grafting with CUMMINGS to LAD, SVG to PDA, as well as aortic valve replacement and mitral valve repair. On follow-up with the patient today, 07/01/2018, the patient is doing better than yesterday. The chest discomfort has resolved completely. She continues to be on dual antiplatelet therapy. The metoprolol dose has increased yesterday. She was started on dopamine yesterday as a renal dose and she was given Lasix yesterday. Objective - Vital Signs Vital signs: Vital Signs Temp 98.2 F 07/01/18 04:00 Pulse 86 07/01/18 07:00 Resp 23 07/01/18 07:00 BP 155/76 07/01/18 07:00 Pulse Ox 97 07/01/18 07:00 Intake & Output 06/30/18 07/01/18 07/01/18 18:59 06:59 18:59 Intake Total 713.873 534.140 39 Output Total 498 322 25 Balance 215.873 212.140 14 Weight 90.8 kg 90.3 kg Intake: IV 396 453 39 Dextrose/Water 1 250ml. 21 3 bag @ 2 MCG/KG/MIN 3.405 mls/hr IV .Q24H YUDITH with DOPamine DRIP 800 mg Rx#: [id number] Lactated Ringers 1,000 ml 330 360 30 @ 20 mls/hr IV .Q24H YUDITH Rx#:[id number] Pressure Bag 66 72 6 Intake, IV Titration 87.873 81.140 Amount Insulin Regular 100 unit 27.945 8.863 In Sodium Chloride 0.9% 100 ml @ Per Protocol IV .Q0M YUDITH Rx#:[id number] Milrinone-D5w Pmx 20 mg 59.928 72.277 In Dextrose/Water 1 100ml .bag @ 0.2 MCG/KG/MIN 5. 448 mls/hr IV .[id number] YUDITH Rx#:[id number] Oral 230 Output: Chest Tube Drainage 180 60 Bilateral Mediastinal 40 20 Chest Tube Left 140 40 Drainage 25 10 Left Calf 25 10 Urine 293 252 25 Other: Voiding Method Indwelling Catheter Indwelling Catheter ABP, PAP, CO, CI - Last Documented Arterial Blood Pressure 156/66 Pulmonary Artery Pressure 28/14 Cardiac Output 5 Cardiac Index 2.5 - Constitutional General appearance: Present: no acute distress - Respiratory Respiratory: bilateral: diminished - Cardiovascular Rhythm: regular - Labs CBC & Chem 7: 07/01/18 03:40 07/01/18 03:40 Labs: Abnormal Lab Results - Last 24 Hours (Table) 06/30/18 06/30/18 06/30/18 Range/Units 07:47 09:18 12:15 WBC 14.7 H (3.8-10.6) k/uL RBC 2.54 L (3.80-5.40) m/uL Hgb 7.5 L (11.4-16.0) gm/dL Hct 22.4 L (34.0-46.0) % RDW 15.6 H (11.5-15.5) % Plt Count 145 L (150-450) k/uL Neutrophils # (1.3-7.7) k/uL Chloride (98-107) mmol/L BUN (7-17) mg/dL Creatinine (0.52-1.04) mg/dL POC Glucose (mg/dL) 158 H 153 H (75-99) mg/dL AST (14-36) U/L ALT (9-52) U/L Total Protein (6.3-8.2) g/dL Albumin (3.5-5.0) g/dL Urine Appearance (Clear) Urine RBC (0-5) /hpf Urine WBC (0-5) /hpf Urine Bacteria (None) /hpf Hyaline Casts (0-2) /lpf Urine Mucus (None) /hpf 06/30/18 06/30/18 06/30/18 Range/Units 13:12 14:13 15:47 WBC (3.8-10.6) k/uL RBC (3.80-5.40) m/uL Hgb (11.4-16.0) gm/dL Hct (34.0-46.0) % RDW (11.5-15.5) % Plt Count (150-450) k/uL Neutrophils # (1.3-7.7) k/uL Chloride (98-107) mmol/L BUN (7-17) mg/dL Creatinine (0.52-1.04) mg/dL POC Glucose (mg/dL) 117 H 113 H 105 H (75-99) mg/dL AST (14-36) U/L ALT (9-52) U/L Total Protein (6.3-8.2) g/dL Albumin (3.5-5.0) g/dL Urine Appearance (Clear) Urine RBC (0-5) /hpf Urine WBC (0-5) /hpf Urine Bacteria (None) /hpf Hyaline Casts (0-2) /lpf Urine Mucus (None) /hpf 06/30/18 06/30/18 06/30/18 Range/Units 17:10 18:19 19:06 WBC (3.8-10.6) k/uL RBC (3.80-5.40) m/uL Hgb (11.4-16.0) gm/dL Hct (34.0-46.0) % RDW (11.5-15.5) % Plt Count (150-450) k/uL Neutrophils # (1.3-7.7) k/uL Chloride (98-107) mmol/L BUN (7-17) mg/dL Creatinine (0.52-1.04) mg/dL POC Glucose (mg/dL) 167 H 162 H 129 H (75-99) mg/dL AST (14-36) U/L ALT (9-52) U/L Total Protein (6.3-8.2) g/dL Albumin (3.5-5.0) g/dL Urine Appearance (Clear) Urine RBC (0-5) /hpf Urine WBC (0-5) /hpf Urine Bacteria (None) /hpf Hyaline Casts (0-2) /lpf Urine Mucus (None) /hpf 06/30/18 06/30/18 06/30/18 Range/Units 21:01 21:16 22:00 WBC (3.8-10.6) k/uL RBC (3.80-5.40) m/uL Hgb (11.4-16.0) gm/dL Hct (34.0-46.0) % RDW (11.5-15.5) % Plt Count (150-450) k/uL Neutrophils # (1.3-7.7) k/uL Chloride (98-107) mmol/L BUN (7-17) mg/dL Creatinine (0.52-1.04) mg/dL POC Glucose (mg/dL) 69 L 73 L 104 H (75-99) mg/dL AST (14-36) U/L ALT (9-52) U/L Total Protein (6.3-8.2) g/dL Albumin (3.5-5.0) g/dL Urine Appearance (Clear) Urine RBC (0-5) /hpf Urine WBC (0-5) /hpf Urine Bacteria (None) /hpf Hyaline Casts (0-2) /lpf Urine Mucus (None) /hpf 06/30/18 07/01/18 07/01/18 Range/Units 23:02 00:00 02:04 WBC (3.8-10.6) k/uL RBC (3.80-5.40) m/uL Hgb (11.4-16.0) gm/dL Hct (34.0-46.0) % RDW (11.5-15.5) % Plt Count (150-450) k/uL Neutrophils # (1.3-7.7) k/uL Chloride (98-107) mmol/L BUN (7-17) mg/dL Creatinine (0.52-1.04) mg/dL POC Glucose (mg/dL) 112 H 125 H 119 H (75-99) mg/dL AST (14-36) U/L ALT (9-52) U/L Total Protein (6.3-8.2) g/dL Albumin (3.5-5.0) g/dL Urine Appearance (Clear) Urine RBC (0-5) /hpf Urine WBC (0-5) /hpf Urine Bacteria (None) /hpf Hyaline Casts (0-2) /lpf Urine Mucus (None) /hpf 07/01/18 07/01/18 07/01/18 Range/Units 03:01 03:30 03:40 WBC 14.7 H (3.8-10.6) k/uL RBC 2.39 L (3.80-5.40) m/uL Hgb 7.1 L (11.4-16.0) gm/dL Hct 21.1 L (34.0-46.0) % RDW 15.8 H (11.5-15.5) % Plt Count 140 L (150-450) k/uL Neutrophils # 10.6 H (1.3-7.7) k/uL Chloride (98-107) mmol/L BUN (7-17) mg/dL Creatinine (0.52-1.04) mg/dL POC Glucose (mg/dL) 106 H (75-99) mg/dL AST (14-36) U/L ALT (9-52) U/L Total Protein (6.3-8.2) g/dL Albumin (3.5-5.0) g/dL Urine Appearance Turbid H (Clear) Urine RBC >182 H (0-5) /hpf Urine WBC 143 H (0-5) /hpf Urine Bacteria Rare H (None) /hpf Hyaline Casts 368 H (0-2) /lpf Urine Mucus Many H (None) /hpf 07/01/18 07/01/18 07/01/18 Range/Units 03:40 04:00 06:12 WBC (3.8-10.6) k/uL RBC (3.80-5.40) m/uL Hgb (11.4-16.0) gm/dL Hct (34.0-46.0) % RDW (11.5-15.5) % Plt Count (150-450) k/uL Neutrophils # (1.3-7.7) k/uL Chloride 108 H (98-107) mmol/L BUN 23 H (7-17) mg/dL Creatinine 0.51 L (0.52-1.04) mg/dL POC Glucose (mg/dL) 111 H 109 H (75-99) mg/dL AST 72 H (14-36) U/L ALT 86 H (9-52) U/L Total Protein 5.2 L (6.3-8.2) g/dL Albumin 3.1 L (3.5-5.0) g/dL Urine Appearance (Clear) Urine RBC (0-5) /hpf Urine WBC (0-5) /hpf Urine Bacteria (None) /hpf Hyaline Casts (0-2) /lpf Urine Mucus (None) /hpf 07/01/18 Range/Units 07:03 WBC (3.8-10.6) k/uL RBC (3.80-5.40) m/uL Hgb (11.4-16.0) gm/dL Hct (34.0-46.0) % RDW (11.5-15.5) % Plt Count (150-450) k/uL Neutrophils # (1.3-7.7) k/uL Chloride (98-107) mmol/L BUN (7-17) mg/dL Creatinine (0.52-1.04) mg/dL POC Glucose (mg/dL) 124 H (75-99) mg/dL AST (14-36) U/L ALT (9-52) U/L Total Protein (6.3-8.2) g/dL Albumin (3.5-5.0) g/dL Urine Appearance (Clear) Urine RBC (0-5) /hpf Urine WBC (0-5) /hpf Urine Bacteria (None) /hpf Hyaline Casts (0-2) /lpf Urine Mucus (None) /hpf Assessment and Plan Assessment: Assessment #1 status post CABG 2 along with aortic valve replacement and mitral valve repair #2 hypertension which has improved #3 anemia which is a stable #4 multiple comorbid conditions Plan #1 continue the current medical regimen #2 continue monitoring the hemoglobin and kidney function #3 continue dual antiplatelet therapy #4 follow-up with the patient
[2018-07-01] MEDS: IPRATROPIUM-ALBUTEROL 3 ML NEB INHALATION SCH ×4 (07:54→19:57)
[2018-07-01 08:05] LABS: Glucose,Whole Blood 126 mg/dL (75-99)
[2018-07-01] MEDS: LACTATED RINGERS 1,000 ML IV SCH (08:39)
[2018-07-01] MEDS: ASPIRIN 81 MG PO SCH (09:05)
[2018-07-01] MEDS: HEPARIN SODIUM,PORCINE 5,000 UNIT/ML 1 ML VIAL SQ SCH ×2 (09:05→17:12)
[2018-07-01] MEDS: PANTOPRAZOLE 40 MG TABLET PO SCH (09:05)
[2018-07-01] MEDS: CLOPIDOGREL 75 MG TAB PO SCH (09:05)
[2018-07-01] MEDS: ATORVASTATIN 40 MG TAB PO SCH (09:05)
[2018-07-01 09:09] LABS: Glucose,Whole Blood 132 mg/dL (75-99)
[2018-07-01] MEDS: LISINOPRIL 5 MG TAB PO SCH ×2 (09:21→21:42)
[2018-07-01 10:07] LABS: Glucose,Whole Blood 113 mg/dL (75-99)
[2018-07-01 11:14] LABS: Glucose,Whole Blood 125 mg/dL (75-99)
[2018-07-01 12:43] LABS: Glucose,Whole Blood 87 mg/dL (75-99)
--- NOTE | 2018-07-01 12:48 | P.PN ---
Subjective Progress Note Date: 07/01/18 Principal diagnosis: Triple-vessel coronary artery disease, moderate to severe aortic valve stenosis, moderate mitral valve regurgitation, uncontrolled diabetes mellitus type 2 with preoperative hemoglobin A1c 8.3%, hypertension, hyperlipidemia, peripheral vascular disease, previous tobacco dependence, hypothyroid, rheumatoid arthritis, GERD, preoperative urinary tract infection with group B strep. POD #3 double vessel coronary artery bypass grafting using the left internal mammary artery to the left anterior descending coronary artery, reverse greater saphenous vein graft from the aorta to the posterior descending coronary artery. Aortic valve replacement using a 21 mm Inspiris pericardial bioprosthesis, mitral valve repair using a posterior annuloplasty 26 mm AnnuloFlex ring, exclusion of the left atrial appendage with a 35 mm AtriClip, endoscopic harvesting of the left greater saphenous vein, intraoperative transesophageal echocardiogram, epi-aortic scanning, and graft flow measurements using the [email or web address] system. Postoperative acute blood loss anemia, expected outcome given cardiopulmonary bypass and hemodilution. The patient is currently sitting up in a recliner in no acute distress. States pain is controlled on current medication regimen, denies shortness of breath. Hemodynamically stable although patient had low urine output last night requiring initiation of dopamine. Remains in normal sinus rhythm. No new complaints. Objective - Vital Signs Vital signs: Vital Signs Temp 98.3 F 07/01/18 08:00 Pulse 86 07/01/18 11:52 Resp 15 07/01/18 11:00 BP 138/68 07/01/18 11:00 Pulse Ox 95 07/01/18 11:00 Intake & Output 06/30/18 07/01/18 07/01/18 18:59 06:59 18:59 Intake Total 713.873 534.140 312.681 Output Total 498 322 165 Balance 215.873 212.140 147.681 Weight 90.8 kg 90.3 kg Intake: IV 396 453 195 Dextrose/Water 1 250ml. 21 15 bag @ 2 MCG/KG/MIN 3.405 mls/hr IV .Q24H YUDITH with DOPamine DRIP 800 mg Rx#: [id number] Lactated Ringers 1,000 ml 330 360 150 @ 20 mls/hr IV .Q24H [facility] Rx#:[id number] Pressure Bag 66 72 30 Intake, IV Titration 87.873 81.140 117.681 Amount Insulin Regular 100 unit 27.945 8.863 49.49 In Sodium Chloride 0.9% 100 ml @ Per Protocol IV .Q0M YUDITH Rx#:[id number] Milrinone-D5w Pmx 20 mg 59.928 72.277 68.191 In Dextrose/Water 1 100ml .bag @ 0.1 MCG/KG/MIN 2. 724 mls/hr IV .Q24H [facility] Rx#:[id number] Oral 230 Output: Chest Tube Drainage 180 60 70 Bilateral Mediastinal 40 20 20 Chest Tube Left 140 40 50 Drainage 25 10 Left Calf 25 10 Urine 293 252 95 Other: Voiding Method Indwelling Catheter Indwelling Catheter ABP, PAP, CO, CI - Last Documented Arterial Blood Pressure 145/66 Pulmonary Artery Pressure 28/14 Cardiac Output 5 Cardiac Index 2.5 - Constitutional General appearance: Present: cooperative, no acute distress, obese - Respiratory Details: Lungs sounds diminished bilaterally. Respirations even, nonlabored. Currently on 4 L nasal cannula with suction saturation 97%. Able to achieve 500 mL on her incentive spirometry. Strong cough. Mediastinal chest tube to continuous wall suction, 20 mL serosanguineous drainage overnight, 50 mL in the last 24 hours. Left pleural chest tube to continuous wall suction, 40 mL serosanguineous drainage overnight, 200 mL in the last 24 hours. No air leaks present. - Cardiovascular Details: S1, S2 present. Regular rate and rhythm, sinus rhythm on telemetry. Sternum stable. A/P epicardial pacemaker wires present, grounded. Palpable peripheral pulses bilaterally. No edema present. No calf pain or tenderness noted. Right internal jugular Cordis, right radial arterial line present, remains hemody namically stable on 2 mcg/kg/m of dopamine and 0.2 mcg/kg/m of Primacor. Heart hugger in place with patient demonstrating appropriate use. Antiembolism stockings, SCDs present. - Gastrointestinal Gastrointestinal Comment(s): Abdomen soft, nontender, nondistended. Active bowel sounds present 4 quadrants. Positive belching, negative flatus, negative bowel movement. Tolerating diet. - Genitourinary Genitourinary Comment(s): Mendoza present draining blood-tinged urine. Output dropped down to minimal overnight, dopamine initiated, currently at 20-30 mL/h. - Integumentary Integumentary Comment(s): Skin is warm and dry with evidence of good perfusion. Anterior chest incision well approximated and covered with dry intact dressing. Left lower extremity EVH site well approximated, RESHMA drain present with minimal drainage. - Neurologic Neurologic: Present: CNII-XII intact - Musculoskeletal Musculoskeletal: Present: gait normal, generalized weakness, strength equal bilaterally - Psychiatric Psychiatric: Present: A&O x's 3, appropriate affect, intact judgment & insight - Allied health notes Allied health notes reviewed: nursing - Labs CBC & Chem 7: 07/01/18 03:40 07/01/18 03:40 Labs: Abnormal Lab Results - Last 24 Hours (Table) 06/30/18 06/30/18 06/30/18 Range/Units 12:15 13:12 14:13 WBC 14.7 H (3.8-10.6) k/uL RBC 2.54 L (3.80-5.40) m/uL Hgb 7.5 L (11.4-16.0) gm/dL Hct 22.4 L (34.0-46.0) % RDW 15.6 H (11.5-15.5) % Plt Count 145 L (150-450) k/uL Neutrophils # (1.3-7.7) k/uL Chloride (98-107) mmol/L BUN (7-17) mg/dL Creatinine (0.52-1.04) mg/dL POC Glucose (mg/dL) 117 H 113 H (75-99) mg/dL AST (14-36) U/L ALT (9-52) U/L Total Protein (6.3-8.2) g/dL Albumin (3.5-5.0) g/dL Urine Appearance (Clear) Urine RBC (0-5) /hpf Urine WBC (0-5) /hpf Urine Bacteria (None) /hpf Hyaline Casts (0-2) /lpf Urine Mucus (None) /hpf 06/30/18 06/30/18 06/30/18 Range/Units 15:47 17:10 18:19 WBC (3.8-10.6) k/uL RBC (3.80-5.40) m/uL Hgb (11.4-16.0) gm/dL Hct (34.0-46.0) % RDW (11.5-15.5) % Plt Count (150-450) k/uL Neutrophils # (1.3-7.7) k/uL Chloride (98-107) mmol/L BUN (7-17) mg/dL Creatinine (0.52-1.04) mg/dL POC Glucose (mg/dL) 105 H 167 H 162 H (75-99) mg/dL AST (14-36) U/L ALT (9-52) U/L Total Protein (6.3-8.2) g/dL Albumin (3.5-5.0) g/dL Urine Appearance (Clear) Urine RBC (0-5) /hpf Urine WBC (0-5) /hpf Urine Bacteria (None) /hpf Hyaline Casts (0-2) /lpf Urine Mucus (None) /hpf 06/30/18 06/30/18 06/30/18 Range/Units 19:06 21:01 21:16 WBC (3.8-10.6) k/uL RBC (3.80-5.40) m/uL Hgb (11.4-16.0) gm/dL Hct (34.0-46.0) % RDW (11.5-15.5) % Plt Count (150-450) k/uL Neutrophils # (1.3-7.7) k/uL Chloride (98-107) mmol/L BUN (7-17) mg/dL Creatinine (0.52-1.04) mg/dL POC Glucose (mg/dL) 129 H 69 L 73 L (75-99) mg/dL AST (14-36) U/L ALT (9-52) U/L Total Protein (6.3-8.2) g/dL Albumin (3.5-5.0) g/dL Urine Appearance (Clear) Urine RBC (0-5) /hpf Urine WBC (0-5) /hpf Urine Bacteria (None) /hpf Hyaline Casts (0-2) /lpf Urine Mucus (None) /hpf 06/30/18 06/30/18 07/01/18 Range/Units 22:00 23:02 00:00 WBC (3.8-10.6) k/uL RBC (3.80-5.40) m/uL Hgb (11.4-16.0) gm/dL Hct (34.0-46.0) % RDW (11.5-15.5) % Plt Count (150-450) k/uL Neutrophils # (1.3-7.7) k/uL Chloride (98-107) mmol/L BUN (7-17) mg/dL Creatinine (0.52-1.04) mg/dL POC Glucose (mg/dL) 104 H 112 H 125 H (75-99) mg/dL AST (14-36) U/L ALT (9-52) U/L Total Protein (6.3-8.2) g/dL Albumin (3.5-5.0) g/dL Urine Appearance (Clear) Urine RBC (0-5) /hpf Urine WBC (0-5) /hpf Urine Bacteria (None) /hpf Hyaline Casts (0-2) /lpf Urine Mucus (None) /hpf 07/01/18 07/01/18 07/01/18 Range/Units 02:04 03:01 03:30 WBC (3.8-10.6) k/uL RBC (3.80-5.40) m/uL Hgb (11.4-16.0) gm/dL Hct (34.0-46.0) % RDW (11.5-15.5) % Plt Count (150-450) k/uL Neutrophils # (1.3-7.7) k/uL Chloride (98-107) mmol/L BUN (7-17) mg/dL Creatinine (0.52-1.04) mg/dL POC Glucose (mg/dL) 119 H 106 H (75-99) mg/dL AST (14-36) U/L ALT (9-52) U/L Total Protein (6.3-8.2) g/dL Albumin (3.5-5.0) g/dL Urine Appearance Turbid H (Clear) Urine RBC >182 H (0-5) /hpf Urine WBC 143 H (0-5) /hpf Urine Bacteria Rare H (None) /hpf Hyaline Casts 368 H (0-2) /lpf Urine Mucus Many H (None) /hpf 07/01/18 07/01/18 07/01/18 Range/Units 03:40 03:40 04:00 WBC 14.7 H (3.8-10.6) k/uL RBC 2.39 L (3.80-5.40) m/uL Hgb 7.1 L (11.4-16.0) gm/dL Hct 21.1 L (34.0-46.0) % RDW 15.8 H (11.5-15.5) % Plt Count 140 L (150-450) k/uL Neutrophils # 10.6 H (1.3-7.7) k/uL Chloride 108 H (98-107) mmol/L BUN 23 H (7-17) mg/dL Creatinine 0.51 L (0.52-1.04) mg/dL POC Glucose (mg/dL) 111 H (75-99) mg/dL AST 72 H (14-36) U/L ALT 86 H (9-52) U/L Total Protein 5.2 L (6.3-8.2) g/dL Albumin 3.1 L (3.5-5.0) g/dL Urine Appearance (Clear) Urine RBC (0-5) /hpf Urine WBC (0-5) /hpf Urine Bacteria (None) /hpf Hyaline Casts (0-2) /lpf Urine Mucus (None) /hpf 07/01/18 07/01/18 07/01/18 Range/Units 06:12 07:03 08:02 WBC (3.8-10.6) k/uL RBC (3.80-5.40) m/uL Hgb (11.4-16.0) gm/dL Hct (34.0-46.0) % RDW (11.5-15.5) % Plt Count (150-450) k/uL Neutrophils # (1.3-7.7) k/uL Chloride (98-107) mmol/L BUN (7-17) mg/dL Creatinine (0.52-1.04) mg/dL POC Glucose (mg/dL) 109 H 124 H 126 H (75-99) mg/dL AST (14-36) U/L ALT (9-52) U/L Total Protein (6.3-8.2) g/dL Albumin (3.5-5.0) g/dL Urine Appearance (Clear) Urine RBC (0-5) /hpf Urine WBC (0-5) /hpf Urine Bacteria (None) /hpf Hyaline Casts (0-2) /lpf Urine Mucus (None) /hpf 07/01/18 07/01/18 07/01/18 Range/Units 09:05 10:03 11:11 WBC (3.8-10.6) k/uL RBC (3.80-5.40) m/uL Hgb (11.4-16.0) gm/dL Hct (34.0-46.0) % RDW (11.5-15.5) % Plt Count (150-450) k/uL Neutrophils # (1.3-7.7) k/uL Chloride (98-107) mmol/L BUN (7-17) mg/dL Creatinine (0.52-1.04) mg/dL POC Glucose (mg/dL) 132 H 113 H 125 H (75-99) mg/dL AST (14-36) U/L ALT (9-52) U/L Total Protein (6.3-8.2) g/dL Albumin (3.5-5.0) g/dL Urine Appearance (Clear) Urine RBC (0-5) /hpf Urine WBC (0-5) /hpf Urine Bacteria (None) /hpf Hyaline Casts (0-2) /lpf Urine Mucus (None) /hpf Microbiology - Last 24 Hours (Table) 07/01/18 03:30 Urine Culture - Preliminary Urine,Voided - Imaging and Cardiology Chest x-ray: report reviewed, image reviewed Assessment and Plan Assessment: 1. Triple-vessel coronary artery disease, status post coronary artery bypass graft surgery 2. Moderate to severe aortic valve stenosis, status post aortic valve replacement 3. Moderate mitral valve regurgitation, status post mitral valve repair 4. Uncontrolled type 2 diabetes mellitus with preoperative hemoglobin A1c 8.3% 5. Hypertension 6. Hyperlipidemia 7. Peripheral vascular disease 8. Hypothyroidism 9. Previous tobacco dependence with preoperative FEV1 77% of predicted 10. GERD 11. Rheumatoid arthritis 12. Preoperative group B strep urinary tract infection 13. Postoperative acute blood loss anemia, expected Plan: 1. Continue low-dose aspirin, statin, Plavix, lisinopril, beta mirian therapy. Will increase beta mirian therapy as tolerated. Lisinopril increased to 5 mg twice daily 2. Will wean Primacor, decreased to 0.1 mcg/kg/m today. 3. Will discontinue dopamine once urine output picks up. 4. Wean O2 as tolerated. Encourage incentive spirometry 10 times every hour while awake. 5. Bronchodilators per pulmonology. 6. Encourage continued smoking cessation. 7. Increase activity, ambulate as tolerated. PT/OT/cardiac rehab following. 8. Will monitor daily labs and x-rays. Electrolyte replacement per protocol. No further transfusions at this time. 9. Pain control with current medication regimen. No narcotics. 10. Insulin management per primary care service. 11. Mediastinal chest tube discontinued without incident. Will continue left pleural chest tube, arterial line, Cordis for another 24 hours. 12. Keep Mendoza catheter for now for strict accurate I and O's. 13. GI/DVT prophylaxis. 14. More recommendations to follow based on patient's clinical course. Time with Patient: Greater than 30
[2018-07-01] MEDS: MULTIVITAMINS, THERA 1 EACH TAB PO SCH (12:51)
[2018-07-01 14:33] LABS: Glucose,Whole Blood 158 mg/dL (75-99)
[2018-07-01 15:22] LABS: Glucose,Whole Blood 159 mg/dL (75-99)
--- NOTE | 2018-07-01 16:43 | P.PN ---
Subjective Progress Note Date: 07/01/18 Principal diagnosis: Triple-vessel coronary artery disease; status post coronary artery bypass grafting Moderate to severe aortic valve stenosis Triple-vessel coronary artery disease, moderate to severe aortic valve stenosis, moderate mitral valve regurgitation, uncontrolled diabetes mellitus type 2 with preoperative hemoglobin A1c 8.3%, hypertension, hyperlipidemia, peripheral vascular disease, previous tobacco dependence, hypothyroid, rheumatoid arthritis, GERD, preoperative urinary tract infection with group B strep. 07/01/2018 POD #3 double vessel coronary artery bypass grafting using the left internal mammary artery to the left anterior descending coronary artery, reverse greater saphenous vein graft from the aorta to the posterior descending coronary artery. Aortic valve replacement using a 21 mm Inspiris pericardial bioprosthesis, abisai ral valve repair using a posterior annuloplasty 26 mm AnnuloFlex ring, exclusion of the left atrial appendage with a 35 mm AtriClip, endoscopic harvesting of the left greater saphenous vein, intraoperative transesophageal echocardiogram, epi- aortic scanning, and graft flow measurements using the [employer] system. Objective - Vital Signs Vital signs: Vital Signs Temp 98.3 F 07/01/18 08:00 Pulse 77 07/01/18 11:00 Resp 15 07/01/18 11:00 BP 138/68 07/01/18 11:00 Pulse Ox 95 07/01/18 11:00 Intake & Output 06/30/18 07/01/18 07/01/18 18:59 06:59 18:59 Intake Total 713.873 534.140 312.681 Output Total 498 322 165 Balance 215.873 212.140 147.681 Weight 90.8 kg 90.3 kg Intake: IV 396 453 195 Dextrose/Water 1 250ml. 21 15 bag @ 2 MCG/KG/MIN 3.405 mls/hr IV .Q24H YUDITH with DOPamine DRIP 800 mg Rx#: [id number] Lactated Ringers 1,000 ml 330 360 150 @ 20 mls/hr IV .Q24H YUDITH Rx#:[id number] Pressure Bag 66 72 30 Intake, IV Titration 87.873 81.140 117.681 Amount Insulin Regular 100 unit 27.945 8.863 49.49 In Sodium Chloride 0.9% 100 ml @ Per Protocol IV .Q0M YUDITH Rx#:[id number] Milrinone-D5w Pmx 20 mg 59.928 72.277 68.191 In Dextrose/Water 1 100ml .bag @ 0.1 MCG/KG/MIN 2. 724 mls/hr IV .Q24H REPLACED BY [facility] Rx#:[id number] Oral 230 Output: Chest Tube Drainage 180 60 70 Bilateral Mediastinal 40 20 20 Chest Tube Left 140 40 50 Drainage 25 10 Left Calf 25 10 Urine 293 252 95 Other: Voiding Method Indwelling Catheter Indwelling Catheter ABP, PAP, CO, CI - Last Documented Arterial Blood Pressure 145/66 Pulmonary Artery Pressure 28/14 Cardiac Output 5 Cardiac Index 2.5 - Exam - Constitutional General appearance: Present: average body habitus, cooperative, no acute distress - EENT Eyes: Present: anicteric sclerae, EOMI, PERRLA, normal appearance ENT: Present: hearing grossly normal, normal oropharynx Ears: bilateral: normal - Neck Neck: Present: normal ROM. Absent: lymphadenopathy, rigidity, thyromegaly Carotids: negative: bruit present Thyroid: bilateral: normal size, negative: enlarged, nodule - Respiratory Respiratory: bilateral: CTA, negative: rales, rhonchi, wheezing - Cardiovascular Rhythm: regular Heart sounds: normal: S1, S2 Abnormal Heart Sounds: Absent: systolic murmur, diastolic murmur - Gastrointestinal General gastrointestinal: Present: normal bowel sounds, soft. Absent: distended, organomegaly, tenderness - Genitourinary Genitourinary Comment(s): deferred - Integumentary Integumentary: Present: normal turgor. Absent: jaundiced, rash, ulcer - Neurologic Neurologic: Present: CNII-XII intact. Absent: focal deficits - Musculoskeletal Musculoskeletal: Present: gait normal, strength equal bilaterally - Psychiatric Psychiatric: Present: A&O x's 3, appropriate affect, intact judgment & insight - Labs CBC & Chem 7: 07/01/18 03:40 07/01/18 03:40 Labs: Abnormal Lab Results - Last 24 Hours (Table) 06/30/18 06/30/18 06/30/18 Range/Units 12:15 13:12 14:13 WBC 14.7 H (3.8-10.6) k/uL RBC 2.54 L (3.80-5.40) m/uL Hgb 7.5 L (11.4-16.0) gm/dL Hct 22.4 L (34.0-46.0) % RDW 15.6 H (11.5-15.5) % Plt Count 145 L (150-450) k/uL Neutrophils # (1.3-7.7) k/uL Chloride (98-107) mmol/L BUN (7-17) mg/dL Creatinine (0.52-1.04) mg/dL POC Glucose (mg/dL) 117 H 113 H (75-99) mg/dL AST (14-36) U/L ALT (9-52) U/L Total Protein (6.3-8.2) g/dL Albumin (3.5-5.0) g/dL Urine Appearance (Clear) Urine RBC (0-5) /hpf Urine WBC (0-5) /hpf Urine Bacteria (None) /hpf Hyaline Casts (0-2) /lpf Urine Mucus (None) /hpf 06/30/18 06/30/18 06/30/18 Range/Units 15:47 17:10 18:19 WBC (3.8-10.6) k/uL RBC (3.80-5.40) m/uL Hgb (11.4-16.0) gm/dL Hct (34.0-46.0) % RDW (11.5-15.5) % Plt Count (150-450) k/uL Neutrophils # (1.3-7.7) k/uL Chloride (98-107) mmol/L BUN (7-17) mg/dL Creatinine (0.52-1.04) mg/dL POC Glucose (mg/dL) 105 H 167 H 162 H (75-99) mg/dL AST (14-36) U/L ALT (9-52) U/L Total Protein (6.3-8.2) g/dL Albumin (3.5-5.0) g/dL Urine Appearance (Clear) Urine RBC (0-5) /hpf Urine WBC (0-5) /hpf Urine Bacteria (None) /hpf Hyaline Casts (0-2) /lpf Urine Mucus (None) /hpf 06/30/18 06/30/18 06/30/18 Range/Units 19:06 21:01 21:16 WBC (3.8-10.6) k/uL RBC (3.80-5.40) m/uL Hgb (11.4-16.0) gm/dL Hct (34.0-46.0) % RDW (11.5-15.5) % Plt Count (150-450) k/uL Neutrophils # (1.3-7.7) k/uL Chloride (98-107) mmol/L BUN (7-17) mg/dL Creatinine (0.52-1.04) mg/dL POC Glucose (mg/dL) 129 H 69 L 73 L (75-99) mg/dL AST (14-36) U/L ALT (9-52) U/L Total Protein (6.3-8.2) g/dL Albumin (3.5-5.0) g/dL Urine Appearance (Clear) Urine RBC (0-5) /hpf Urine WBC (0-5) /hpf Urine Bacteria (None) /hpf Hyaline Casts (0-2) /lpf Urine Mucus (None) /hpf 06/30/18 06/30/18 07/01/18 Range/Units 22:00 23:02 00:00 WBC (3.8-10.6) k/uL RBC (3.80-5.40) m/uL Hgb (11.4-16.0) gm/dL Hct (34.0-46.0) % RDW (11.5-15.5) % Plt Count (150-450) k/uL Neutrophils # (1.3-7.7) k/uL Chloride (98-107) mmol/L BUN (7-17) mg/dL Creatinine (0.52-1.04) mg/dL POC Glucose (mg/dL) 104 H 112 H 125 H (75-99) mg/dL AST (14-36) U/L ALT (9-52) U/L Total Protein (6.3-8.2) g/dL Albumin (3.5-5.0) g/dL Urine Appearance (Clear) Urine RBC (0-5) /hpf Urine WBC (0-5) /hpf Urine Bacteria (None) /hpf Hyaline Casts (0-2) /lpf Urine Mucus (None) /hpf 07/01/18 07/01/18 07/01/18 Range/Units 02:04 03:01 03:30 WBC (3.8-10.6) k/uL RBC (3.80-5.40) m/uL Hgb (11.4-16.0) gm/dL Hct (34.0-46.0) % RDW (11.5-15.5) % Plt Count (150-450) k/uL Neutrophils # (1.3-7.7) k/uL Chloride (98-107) mmol/L BUN (7-17) mg/dL Creatinine (0.52-1.04) mg/dL POC Glucose (mg/dL) 119 H 106 H (75-99) mg/dL AST (14-36) U/L ALT (9-52) U/L Total Protein (6.3-8.2) g/dL Albumin (3.5-5.0) g/dL Urine Appearance Turbid H (Clear) Urine RBC >182 H (0-5) /hpf Urine WBC 143 H (0-5) /hpf Urine Bacteria Rare H (None) /hpf Hyaline Casts 368 H (0-2) /lpf Urine Mucus Many H (None) /hpf 07/01/18 07/01/18 07/01/18 Range/Units 03:40 03:40 04:00 WBC 14.7 H (3.8-10.6) k/uL RBC 2.39 L (3.80-5.40) m/uL Hgb 7.1 L (11.4-16.0) gm/dL Hct 21.1 L (34.0-46.0) % RDW 15.8 H (11.5-15.5) % Plt Count 140 L (150-450) k/uL Neutrophils # 10.6 H (1.3-7.7) k/uL Chloride 108 H (98-107) mmol/L BUN 23 H (7-17) mg/dL Creatinine 0.51 L (0.52-1.04) mg/dL POC Glucose (mg/dL) 111 H (75-99) mg/dL AST 72 H (14-36) U/L ALT 86 H (9-52) U/L Total Protein 5.2 L (6.3-8.2) g/dL Albumin 3.1 L (3.5-5.0) g/dL Urine Appearance (Clear) Urine RBC (0-5) /hpf Urine WBC (0-5) /hpf Urine Bacteria (None) /hpf Hyaline Casts (0-2) /lpf Urine Mucus (None) /hpf 07/01/18 07/01/18 07/01/18 Range/Units 06:12 07:03 08:02 WBC (3.8-10.6) k/uL RBC (3.80-5.40) m/uL Hgb (11.4-16.0) gm/dL Hct (34.0-46.0) % RDW (11.5-15.5) % Plt Count (150-450) k/uL Neutrophils # (1.3-7.7) k/uL Chloride (98-107) mmol/L BUN (7-17) mg/dL Creatinine (0.52-1.04) mg/dL POC Glucose (mg/dL) 109 H 124 H 126 H (75-99) mg/dL AST (14-36) U/L ALT (9-52) U/L Total Protein (6.3-8.2) g/dL Albumin (3.5-5.0) g/dL Urine Appearance (Clear) Urine RBC (0-5) /hpf Urine WBC (0-5) /hpf Urine Bacteria (None) /hpf Hyaline Casts (0-2) /lpf Urine Mucus (None) /hpf 07/01/18 07/01/18 07/01/18 Range/Units 09:05 10:03 11:11 WBC (3.8-10.6) k/uL RBC (3.80-5.40) m/uL Hgb (11.4-16.0) gm/dL Hct (34.0-46.0) % RDW (11.5-15.5) % Plt Count (150-450) k/uL Neutrophils # (1.3-7.7) k/uL Chloride (98-107) mmol/L BUN (7-17) mg/dL Creatinine (0.52-1.04) mg/dL POC Glucose (mg/dL) 132 H 113 H 125 H (75-99) mg/dL AST (14-36) U/L ALT (9-52) U/L Total Protein (6.3-8.2) g/dL Albumin (3.5-5.0) g/dL Urine Appearance (Clear) Urine RBC (0-5) /hpf Urine WBC (0-5) /hpf Urine Bacteria (None) /hpf Hyaline Casts (0-2) /lpf Urine Mucus (None) /hpf Microbiology - Last 24 Hours (Table) 07/01/18 03:30 Urine Culture - Preliminary Urine,Voided Assessment and Plan Assessment: 1. Coronary artery disease, aortic valve stenosis, and moderate mitral valve regurgitation; POD #3 - status post 2 vessel coronary bypass/ aortic valve replacement with a bioprosthetic valve, and mitral valve repair and exclusion of left atrial appendage - Patient remains on dual antiplatelet therapy; cardiac cardiology is following and is uptitrating metoprolol dose - Patient was started on renal dose of dopamine and has been diuresed with Lasix -Continue with pain control and incentive spirometry 2. Postop respiratory failure; requiring mechanical ventilation - patient was successfully extubated on postop day 1, on 06/29/2018; remained stable 3. Acute postoperative blood loss anemia; hemoglobin remained stable at 7.1 - We will continue to monitor H&H closely and transfuse if hemoglobin is less than 7 4. Diabetes mellitus type 2; continue to monitor Accu-Cheks with insulin sliding scale 5. Hypertension; stable on home dose of lisinopril 5 mg twice a day along with metoprolol 25 mg twice a day 6. Hyperlipidemia; Lipitor 40 mg daily 7. Hypothyroidism; clinically euthyroid on home dose of levothyroxine 8. DVT prophylaxis; heparin 5000 units subcu every 8 hours CODE STATUS; full code
[2018-07-01 16:45] LABS: Glucose,Whole Blood 142 mg/dL (75-99)
--- NOTE | 2018-07-01 17:05 | P.PN ---
Subjective Progress Note Date: 07/01/18 On 07/01/2018 I'm seeing this patient for a follow-up. The patient is postop day #3 following an aortic valve replacement, mitral valve repair and two-vessel bypass surgery. The patient is doing extremely well. The mediastinal chest tube had been removed and the patient is a left pleural chest tube in place and output has been approximately a few cc, probably related to his for today. The patient is still on pressors and the patient is requiring Primacor at 0.2 micrograms for hemodynamic support. Urine output was on dopamine was added at the renal dose. This improved her urine output and the patient is producing approximately 30-40 mL an hour. Otherwise, the patient is awake and alert. No significant respiratory distress. Sternum stable clean and intact. She is using incentive spirometer and she is pulling 700 mL. She is afebrile. No altered mentation. She is following commands and answering questions appropriately. There has been no other significant events over the past 24 h ours. Her cardiac rhythm is showing normal sinus with occasional PACs. Insulin is at 5.5 units an hour and the patient has excellent blood sugar control. She is on a combination of aspirin and Plavix. He is also on Synthroid. Lopressor 25 mg by mouth twice a day and lisinopril was also added. Objective - Vital Signs Vital signs: Vital Signs Temp 98.0 F 07/01/18 16:00 Pulse 93 07/01/18 16:30 Resp 19 07/01/18 16:30 BP 133/76 07/01/18 16:30 Pulse Ox 96 07/01/18 16:30 Intake & Output 06/30/18 07/01/18 07/01/18 18:59 06:59 18:59 Intake Total 713.873 534.140 512.984 Output Total 498 322 580 Balance 215.873 212.140 -67.016 Weight 90.8 kg 90.3 kg Intake: IV 396 453 390 Dextrose/Water 1 250ml. 21 30 bag @ 2 MCG/KG/MIN 3.405 mls/hr IV .Q24H YUD[facility] with DOPamine DRIP 800 mg Rx#: [id number] Lactated Ringers 1,000 ml 330 360 300 @ 20 mls/hr IV .Q24H [facility] Rx#:[id number] Pressure Bag 66 72 60 Intake, IV Titration 87.873 81.140 122.984 Amount Insulin Regular 100 unit 27.945 8.863 54.793 In Sodium Chloride 0.9% 100 ml @ Per Protocol IV .Q0M YUDITH Rx#:[id number] Milrinone-D5w Pmx 20 mg 59.928 72.277 68.191 In Dextrose/Water 1 100ml .bag @ 0.1 MCG/KG/MIN 2. 724 mls/hr IV .Q24H [facility]UD[facility] Rx#:[id number] Oral 230 Output: Chest Tube Drainage 180 60 90 Bilateral Mediastinal 40 20 20 Chest Tube Left 140 40 70 Drainage 25 10 Left Calf 25 10 Urine 293 252 490 Other: Voiding Method Indwelling Catheter Indwelling Catheter ABP, PAP, CO, CI - Last Documented Arterial Blood Pressure 129/60 Pulmonary Artery Pressure 28/14 Cardiac Output 5 Cardiac Index 2.5 - Exam Constitutional Comment(s): Restless General appearance: Present: no acute distress, obese - Respiratory Details: Diminished breath sounds bilaterally otherwise clear breath sounds are equal and symmetrical in the patient left-sided chest tube in place. - Cardiovascular Details: Regular rhythm and tachycardic rate. S1 and S2 present, negative for S3, gallop or murmur. Sternum is stable. - Gastrointestinal Gastrointestinal Comment(s): Abdomen soft, nontender and nondistended. Active bowel sounds all 4 abdominal quadrants. OG tube in place to low intermittent wall suction. No guarding or rigidity. - Genitourinary Genitourinary Comment(s): Mendoza catheter for accurate I&O. Draining clear yellow urine, 305 mL output in the last 8 hours. - Integumentary Integumentary Comment(s): Skin is warm and dry. No clubbing or cyanosis is present. Midline sternal incision is clean, dry with dressing clean, dry and intact. Left lower leg EVH site clean, dry and approximated. No drainage or redness is present. RESHMA drain in place to her left lower extremity draining thin serosanguineous drainage. 30 mL output in the last 8 hours, 60 mL output since surgery. - Neurologic Neurologic Comment(s): Sedated on Precedex and the patient is currently off propofol Moving all 4 extre mities appropriately, following commands. Neurologic: Present: CNII-XII intact - Musculoskeletal Musculoskeletal: Present: strength equal bilaterally - Labs CBC & Chem 7: 07/01/18 03:40 07/01/18 03:40 Labs: Abnormal Lab Results - Last 24 Hours (Table) 06/30/18 06/30/18 06/30/18 Range/Units 17:10 18:19 19:06 WBC (3.8-10.6) k/uL RBC (3.80-5.40) m/uL Hgb (11.4-16.0) gm/dL Hct (34.0-46.0) % RDW (11.5-15.5) % Plt Count (150-450) k/uL Neutrophils # (1.3-7.7) k/uL Chloride (98-107) mmol/L BUN (7-17) mg/dL Creatinine (0.52-1.04) mg/dL POC Glucose (mg/dL) 167 H 162 H 129 H (75-99) mg/dL AST (14-36) U/L ALT (9-52) U/L Total Protein (6.3-8.2) g/dL Albumin (3.5-5.0) g/dL Urine Appearance (Clear) Urine RBC (0-5) /hpf Urine WBC (0-5) /hpf Urine Bacteria (None) /hpf Hyaline Casts (0-2) /lpf Urine Mucus (None) /hpf 06/30/18 06/30/18 06/30/18 Range/Units 21:01 21:16 22:00 WBC (3.8-10.6) k/uL RBC (3.80-5.40) m/uL Hgb (11.4-16.0) gm/dL Hct (34.0-46.0) % RDW (11.5-15.5) % Plt Count (150-450) k/uL Neutrophils # (1.3-7.7) k/uL Chloride (98-107) mmol/L BUN (7-17) mg/dL Creatinine (0.52-1.04) mg/dL POC Glucose (mg/dL) 69 L 73 L 104 H (75-99) mg/dL AST (14-36) U/L ALT (9-52) U/L Total Protein (6.3-8.2) g/dL Albumin (3.5-5.0) g/dL Urine Appearance (Clear) Urine RBC (0-5) /hpf Urine WBC (0-5) /hpf Urine Bacteria (None) /hpf Hyaline Casts (0-2) /lpf Urine Mucus (None) /hpf 06/30/18 07/01/18 07/01/18 Range/Units 23:02 00:00 02:04 WBC (3.8-10.6) k/uL RBC (3.80-5.40) m/uL Hgb (11.4-16.0) gm/dL Hct (34.0-46.0) % RDW (11.5-15.5) % Plt Count (150-450) k/uL Neutrophils # (1.3-7.7) k/uL Chloride (98-107) mmol/L BUN (7-17) mg/dL Creatinine (0.52-1.04) mg/dL POC Glucose (mg/dL) 112 H 125 H 119 H (75-99) mg/dL AST (14-36) U/L ALT (9-52) U/L Total Protein (6.3-8.2) g/dL Albumin (3.5-5.0) g/dL Urine Appearance (Clear) Urine RBC (0-5) /hpf Urine WBC (0-5) /hpf Urine Bacteria (None) /hpf Hyaline Casts (0-2) /lpf Urine Mucus (None) /hpf 07/01/18 07/01/18 07/01/18 Range/Units 03:01 03:30 03:40 WBC 14.7 H (3.8-10.6) k/uL RBC 2.39 L (3.80-5.40) m/uL Hgb 7.1 L (11.4-16.0) gm/dL Hct 21.1 L (34.0-46.0) % RDW 15.8 H (11.5-15.5) % Plt Count 140 L (150-450) k/uL Neutrophils # 10.6 H (1.3-7.7) k/uL Chloride (98-107) mmol/L BUN (7-17) mg/dL Creatinine (0.52-1.04) mg/dL POC Glucose (mg/dL) 106 H (75-99) mg/dL AST (14-36) U/L ALT (9-52) U/L Total Protein (6.3-8.2) g/dL Albumin (3.5-5.0) g/dL Urine Appearance Turbid H (Clear) Urine RBC >182 H (0-5) /hpf Urine WBC 143 H (0-5) /hpf Urine Bacteria Rare H (None) /hpf Hyaline Casts 368 H (0-2) /lpf Urine Mucus Many H (None) /hpf 07/01/18 07/01/18 07/01/18 Range/Units 03:40 04:00 06:12 WBC (3.8-10.6) k/uL RBC (3.80-5.40) m/uL Hgb (11.4-16.0) gm/dL Hct (34.0-46.0) % RDW (11.5-15.5) % Plt Count (150-450) k/uL Neutrophils # (1.3-7.7) k/uL Chloride 108 H (98-107) mmol/L BUN 23 H (7-17) mg/dL Creatinine 0.51 L (0.52-1.04) mg/dL POC Glucose (mg/dL) 111 H 109 H (75-99) mg/dL AST 72 H (14-36) U/L ALT 86 H (9-52) U/L Total Protein 5.2 L (6.3-8.2) g/dL Albumin 3.1 L (3.5-5.0) g/dL Urine Appearance (Clear) Urine RBC (0-5) /hpf Urine WBC (0-5) /hpf Urine Bacteria (None) /hpf Hyaline Casts (0-2) /lpf Urine Mucus (None) /hpf 07/01/18 07/01/18 07/01/18 Range/Units 07:03 08:02 09:05 WBC (3.8-10.6) k/uL RBC (3.80-5.40) m/uL Hgb (11.4-16.0) gm/dL Hct (34.0-46.0) % RDW (11.5-15.5) % Plt Count (150-450) k/uL Neutrophils # (1.3-7.7) k/uL Chloride (98-107) mmol/L BUN (7-17) mg/dL Creatinine (0.52-1.04) mg/dL POC Glucose (mg/dL) 124 H 126 H 132 H (75-99) mg/dL AST (14-36) U/L ALT (9-52) U/L Total Protein (6.3-8.2) g/dL Albumin (3.5-5.0) g/dL Urine Appearance (Clear) Urine RBC (0-5) /hpf Urine WBC (0-5) /hpf Urine Bacteria (None) /hpf Hyaline Casts (0-2) /lpf Urine Mucus (None) /hpf 07/01/18 07/01/18 07/01/18 Range/Units 10:03 11:11 14:07 WBC (3.8-10.6) k/uL RBC (3.80-5.40) m/uL Hgb (11.4-16.0) gm/dL Hct (34.0-46.0) % RDW (11.5-15.5) % Plt Count (150-450) k/uL Neutrophils # (1.3-7.7) k/uL Chloride (98-107) mmol/L BUN (7-17) mg/dL Creatinine (0.52-1.04) mg/dL POC Glucose (mg/dL) 113 H 125 H 158 H (75-99) mg/dL AST (14-36) U/L ALT (9-52) U/L Total Protein (6.3-8.2) g/dL Albumin (3.5-5.0) g/dL Urine Appearance (Clear) Urine RBC (0-5) /hpf Urine WBC (0-5) /hpf Urine Bacteria (None) /hpf Hyaline Casts (0-2) /lpf Urine Mucus (None) /hpf 07/01/18 07/01/18 Range/Units 15:18 16:19 WBC (3.8-10.6) k/uL RBC (3.80-5.40) m/uL Hgb (11.4-16.0) gm/dL Hct (34.0-46.0) % RDW (11.5-15.5) % Plt Count (150-450) k/uL Neutrophils # (1.3-7.7) k/uL Chloride (98-107) mmol/L BUN (7-17) mg/dL Creatinine (0.52-1.04) mg/dL POC Glucose (mg/dL) 159 H 142 H (75-99) mg/dL AST (14-36) U/L ALT (9-52) U/L Total Protein (6.3-8.2) g/dL Albumin (3.5-5.0) g/dL Urine Appearance (Clear) Urine RBC (0-5) /hpf Urine WBC (0-5) /hpf Urine Bacteria (None) /hpf Hyaline Casts (0-2) /lpf Urine Mucus (None) /hpf Microbiology - Last 24 Hours (Table) 07/01/18 03:30 Urine Culture - Preliminary Urine,Voided Assessment and Plan Plan: 1 coronary artery disease and the patient is status post two-vessel bypass surgery and the patient is postop day #3. The patient remains on a low-dose Primacor drip and dopamine was added renal dose to augment urine output. 2 moderate to severe aortic stenosis and the patient is status post aortic valve replacement with a bioprosthetic aortic valve and the patient is postop day #3 3 moderate mitral regurgitation and the patient is status post mitral valve repair with a 26 mm annular flex ring 4 acute hypoxic respiratory failure, and expected outcome post thoracotomy cardiac surgery and this has recovered and the patient is currently on oxygen at 4 L per minute nasal cannula. 5 acute blood loss anemia with a stable hemoglobin for now 6 diabetes mellitus type 2, on an insulin drip for now 7 hypertension 8 hyperlipidemia 9 peripheral vascular disease 7 hypothyroidism 13 rheumatoid arthritis 14 acid reflux. Plan Wean off Primacor and discontinue. Discontinue dopamine. Later stage. The patient is doing extremely well. We'll keep the left pleural chest tube for today. Repeat chest x-ray in the morning. Continue using incentive spirometer. No other significant events otherwise. Rest of the cardiac medication were reviewed. We'll continue to follow.
[2018-07-01 17:26] LABS: Glucose,Whole Blood 109 mg/dL (75-99)
[2018-07-01 18:31] LABS: Glucose,Whole Blood 99 mg/dL (75-99)
[2018-07-01] MEDS ORDERED: ALBUMIN HUMAN 5% 250 ML in EMPTY BAG 1 BAG IVPB ONE (18:44)
[2018-07-01 19:48] LABS: Glucose,Whole Blood 123 mg/dL (75-99)
[2018-07-01] MEDS: SENNOSIDES-DOCUSATE SODIUM 1 EACH TAB PO SCH (21:11)
[2018-07-01] MEDS ORDERED: DEXTROSE/WATER 1 250ML.BAG with DOPamine DRIP 800 MG IV SCH (21:15)
[2018-07-01 21:49] LABS: Glucose,Whole Blood 141 mg/dL (75-99)
[2018-07-01 22:15] LABS: Glucose,Whole Blood 134 mg/dL (75-99)
[2018-07-01 23:10] LABS: Glucose,Whole Blood 87 mg/dL (75-99)
[2018-07-02 00:18] LABS: Glucose,Whole Blood 105 mg/dL (75-99)
[2018-07-02] MEDS: HEPARIN SODIUM,PORCINE 5,000 UNIT/ML 1 ML VIAL SQ SCH ×3 (00:18→18:22)
[2018-07-02] MEDS: KETOROLAC 30 MG/ML 1 ML VIAL IVP SCH ×4 (00:18→18:26)
[2018-07-02] MEDS: METOPROLOL TARTRATE 25 MG TAB PO SCH ×2 (01:45→08:28)
[2018-07-02 02:29] LABS: Glucose,Whole Blood 109 mg/dL (75-99)
[2018-07-02] MEDS: ACETAMINOPHEN TAB 500 MG TAB PO PRN (03:01)
[2018-07-02 03:21] LABS: Glucose,Whole Blood 95 mg/dL (75-99)
[2018-07-02 03:59] LABS: Basophils % (A) 0 %; Eosinophils # (A) 0.4 k/uL (0-0.7); Eosinophils % (A) 3 %; HCT 21.6 % (34.0-46.0); Lymphocytes # (A) 2.6 k/uL (1.0-4.8); Lymphocytes % (A) 21 %; MCH 29.2 pg (25.0-35.0); MCHC 32.4 g/dL (31.0-37.0); MCV 90.1 fL (80.0-100.0); Mean Platelet Volume 8.7; Monocytes # (A) 0.5 k/uL (0-1.0); Monocytes % (A) 4 %; Neutrophils # (A) 8.9 k/uL (1.3-7.7); Neutrophils % (A) 71 %; Platelet Count 151 k/uL (150-450); RDW 15.9 % (11.5-15.5); WBC 12.6 k/uL (3.8-10.6)
[2018-07-02 04:19] LABS: African American GFR (CKD) >90 (>60 ml/min/1.73 sqM); Anion Gap 6 mmol/L; Blood Urea Nitrogen 22 mg/dL (7-17); Calcium 8.5 mg/dL (8.4-10.2); Carbon Dioxide 24 mmol/L (22-30); Chloride 108 mmol/L (98-107); Glucose 95 mg/dL (74-99); Potassium 4.4 mmol/L (3.5-5.1); Sodium 138 mmol/L (137-145)
[2018-07-02 04:39] LABS: Glucose,Whole Blood 98 mg/dL (75-99)
[2018-07-02 05:05] LABS: Glucose,Whole Blood 87 mg/dL (75-99)
[2018-07-02] MEDS: LEVOTHYROXINE 50 MCG TAB PO SCH (06:19)
[2018-07-02 06:21] LABS: Glucose,Whole Blood 100 mg/dL (75-99)
[2018-07-02] MEDS: LISINOPRIL 5 MG TAB PO SCH ×2 (06:27→15:20)
--- NOTE | 2018-07-02 06:33 | XR ---
EXAMINATION TYPE: XR chest 1V portable DATE OF EXAM: 07/02/2018 HISTORY: post cardiac surgery. REFERENCE: Previous study dated 07/01/2018. FINDINGS: There has been a midline sternotomy. A left pleural drain remains in place. The heart is enlarged. There is bibasilar atelectasis. No definite pleural fluid is seen. IMPRESSION: NO SIGNIFICANT INTERVAL CHANGE IN THE APPEARANCE OF THE CHEST.
[2018-07-02] MEDS: PANTOPRAZOLE 40 MG TABLET PO SCH (06:51)
--- NOTE | 2018-07-02 06:53 | P.PN ---
Subjective Progress Note Date: 07/02/18 Principal diagnosis: Status post open heart This is a 72-year-old female patient who sees Dr. Colon in the office as an outpatient who was diagnosed recently with severe triple-vessel coronary artery disease as well as moderate to severe aortic stenosis. She was referred to soha CABG along with aortic valve replacement. The patient underwent coronary arteriogram is grafting with CUMMINGS to LAD, SVG to PDA, as well as aortic valve replacement and mitral valve repair. On follow-up with the patient today, July 022018, overall clinically she is doing good. She still on a small dose of dopamine for renal perfusion. She continues to be on dual antiplatelet therapy along with a statin. The urine output has been marginal and because of that she was started on the dopamine. Otherwise she has been maintaining normal sinus mechanism. The chest x-ray did not show any new changes. Objective - Vital Signs Vital signs: Vital Signs Temp 98 F 07/02/18 04:00 Pulse 82 07/02/18 06:00 Resp 15 07/02/18 06:00 BP 111/63 07/02/18 06:00 Pulse Ox 97 07/02/18 06:00 Intake & Output 07/01/18 07/01/18 07/02/18 06:59 18:59 06:59 Intake Total 534.140 840.984 411.144 Output Total 148 774 6665 Balance 212.140 45.984 -649.856 Weight 90.3 kg 90.3 kg Intake: IV 453 718 373.8 Dextrose/Water 1 250ml. 21 36 21.8 bag @ 2 MCG/KG/MIN 3.405 mls/hr IV .Q24H YDUITH with DOPamine DRIP 800 mg Rx#: [id number] Lactated Ringers 1,000 ml 360 360 280 @ 20 mls/hr IV .Q24H [facility]UD[facility] Rx#:[id number] Pressure Bag 72 72 72 albumin 250 Intake, IV Titration 81.140 122.984 37.344 Amount Insulin Regular 100 unit 8.863 54.793 37.344 In Sodium Chloride 0.9% 100 ml @ Per Protocol IV .Q0M YUDITH Rx#:[id number] Milrinone-D5w Pmx 20 mg 72.277 68.191 In Dextrose/Water 1 100ml .bag @ 0.1 MCG/KG/MIN 2. 724 mls/hr IV .Q24H [facility] Rx#:[id number] Output: Chest Tube Drainage 60 130 160 Bilateral Mediastinal 20 20 Chest Tube Left 40 110 160 Drainage 10 50 Left Calf 10 50 Urine 252 665 851 Other: Voiding Method Indwelling Catheter Indwelling Catheter Indwelling Catheter # Bowel Movements 1 ABP, PAP, CO, CI - Last Documented Arterial Blood Pressure 123/58 Pulmonary Artery Pressure 28/14 Cardiac Output 5 Cardiac Index 2.5 - Constitutional General appearance: Present: no acute distress - Respiratory Respiratory: bilateral: diminished - Cardiovascular Rhythm: regular Heart sounds: normal: S1, S2 - Labs CBC & Chem 7: 07/02/18 03:35 07/02/18 03:35 Labs: Abnormal Lab Results - Last 24 Hours (Table) 07/01/18 07/01/18 07/01/18 Range/Units 07:03 08:02 09:05 WBC (3.8-10.6) k/uL RBC (3.80-5.40) m/uL Hgb (11.4-16.0) gm/dL Hct (34.0-46.0) % RDW (11.5-15.5) % Neutrophils # (1.3-7.7) k/uL Chloride (98-107) mmol/L BUN (7-17) mg/dL POC Glucose (mg/dL) 124 H 126 H 132 H (75-99) mg/dL 07/01/18 07/01/18 07/01/18 Range/Units 10:03 11:11 14:07 WBC (3.8-10.6) k/uL RBC (3.80-5.40) m/uL Hgb (11.4-16.0) gm/dL Hct (34.0-46.0) % RDW (11.5-15.5) % Neutrophils # (1.3-7.7) k/uL Chloride (98-107) mmol/L BUN (7-17) mg/dL POC Glucose (mg/dL) 113 H 125 H 158 H (75-99) mg/dL 07/01/18 07/01/18 07/01/18 Range/Units 15:18 16:19 17:23 WBC (3.8-10.6) k/uL RBC (3.80-5.40) m/uL Hgb (11.4-16.0) gm/dL Hct (34.0-46.0) % RDW (11.5-15.5) % Neutrophils # (1.3-7.7) k/uL Chloride (98-107) mmol/L BUN (7-17) mg/dL POC Glucose (mg/dL) 159 H 142 H 109 H (75-99) mg/dL 07/01/18 07/01/18 07/01/18 Range/Units 19:44 21:23 22:13 WBC (3.8-10.6) k/uL RBC (3.80-5.40) m/uL Hgb (11.4-16.0) gm/dL Hct (34.0-46.0) % RDW (11.5-15.5) % Neutrophils # (1.3-7.7) k/uL Chloride (98-107) mmol/L BUN (7-17) mg/dL POC Glucose (mg/dL) 123 H 141 H 134 H (75-99) mg/dL 07/02/18 07/02/18 07/02/18 Range/Units 00:17 02:04 03:35 WBC 12.6 H (3.8-10.6) k/uL RBC 2.40 L (3.80-5.40) m/uL Hgb 7.0 L (11.4-16.0) gm/dL Hct 21.6 L (34.0-46.0) % RDW 15.9 H (11.5-15.5) % Neutrophils # 8.9 H (1.3-7.7) k/uL Chloride (98-107) mmol/L BUN (7-17) mg/dL POC Glucose (mg/dL) 105 H 109 H (75-99) mg/dL 07/02/18 07/02/18 Range/Units 03:35 06:06 WBC (3.8-10.6) k/uL RBC (3.80-5.40) m/uL Hgb (11.4-16.0) gm/dL Hct (34.0-46.0) % RDW (11.5-15.5) % Neutrophils # (1.3-7.7) k/uL Chloride 108 H (98-107) mmol/L BUN 22 H (7-17) mg/dL POC Glucose (mg/dL) 100 H (75-99) mg/dL Microbiology - Last 24 Hours (Table) 07/01/18 03:30 Urine Culture - Preliminary Urine,Voided Assessment and Plan Assessment: Assessment #1 status post CABG 2 along with aortic valve replacement and mitral valve repair #2 hypertension which has improved #3 anemia which is a stable #4 multiple comorbid conditions Plan #1 continue the current medical regimen #2 continue monitoring the hemoglobin and kidney function #3 continue dual antiplatelet therapy #4 follow-up with the patient
[2018-07-02] MEDS: IPRATROPIUM-ALBUTEROL 3 ML NEB INHALATION SCH ×4 (07:06→19:52)
[2018-07-02] MEDS: ASPIRIN 81 MG PO SCH (08:18)
[2018-07-02] MEDS: CLOPIDOGREL 75 MG TAB PO SCH (08:18)
[2018-07-02] MEDS: ATORVASTATIN 40 MG TAB PO SCH (08:19)
[2018-07-02 12:12] LABS: Glucose,Whole Blood 112 mg/dL (75-99)
--- NOTE | 2018-07-02 12:24 | P.PN ---
Subjective Progress Note Date: 07/02/18 Principal diagnosis: Triple-vessel coronary artery disease, moderate to severe aortic valve stenosis, moderate mitral valve regurgitation, uncontrolled diabetes mellitus type 2 with preoperative hemoglobin A1c 8.3%, hypertension, hyperlipidemia, peripheral vascular disease, previous tobacco dependence, hypothyroid, rheumatoid arthritis, GERD, preoperative urinary tract infection with group B strep. POD #4 double vessel coronary artery bypass grafting using the left internal mammary artery to the left anterior descending coronary artery, reverse greater saphenous vein graft from the aorta to the posterior descending coronary artery. Aortic valve replacement using a 21 mm Inspiris pericardial bioprosthesis, mitral valve repair using a posterior annuloplasty 26 mm AnnuloFlex ring, exclusion of the left atrial appendage with a 35 mm AtriClip, endoscopic harvesting of the left greater saphenous vein, intraoperative transesophageal echocardiogram, epi-aortic scanning, and graft flow measurements using the Hydro-Run system. Postoperative acute blood loss anemia, expected outcome given cardiopulmonary bypass and hemodilution. The patient is currently sitting up in a recliner in no acute distress. States pain is controlled on current medication regimen, denies shortness of breath. Hemodynamically stable although patient was on dopamine overnight. Primacor discontinued yesterday. Remains in normal sinus rhythm. No new complaints. Objective - Vital Signs Vital signs: Vital Signs Temp 98.6 F 07/02/18 08:00 Pulse 80 07/02/18 11:24 Resp 13 07/02/18 10:00 BP 128/70 07/02/18 09:30 Pulse Ox 100 07/02/18 10:00 Intake & Output 07/01/18 07/02/18 07/02/18 18:59 06:59 18:59 Intake Total 840.984 411.144 207 Output Total 795 1061 395 Balance 45.984 -649.856 -188 Weight 90.3 kg Intake: IV 718 373.8 107 Dextrose/Water 1 250ml. 36 21.8 3 bag @ 2 MCG/KG/MIN 3.405 mls/hr IV .Q24H YUDITH with DOPamine DRIP 800 mg Rx#: [id number] Lactated Ringers 1,000 ml 360 280 80 @ 20 mls/hr IV .Q24H [facility] Rx#:[id number] Pressure Bag 72 72 24 albumin 250 Intake, IV Titration 122.984 37.344 Amount Insulin Regular 100 unit 54.793 37.344 In Sodium Chloride 0.9% 100 ml @ Per Protocol IV .Q0M [facility]UD[facility] Rx#:[id number] Milrinone-D5w Pmx 20 mg 68.191 In Dextrose/Water 1 100ml .bag @ 0.1 MCG/KG/MIN 2. 724 mls/hr IV .Q24H [facility]UD[facility] Rx#:[id number] Oral 100 Output: Chest Tube Drainage 130 160 50 Bilateral Mediastinal 20 Chest Tube Left 110 160 50 Drainage 50 20 Left Calf 50 20 Urine 665 851 325 Other: Voiding Method Indwelling Catheter Indwelling Catheter Indwelling Catheter # Bowel Movements 1 1 ABP, PAP, CO, CI - Last Documented Arterial Blood Pressure 122/52 Pulmonary Artery Pressure 28/14 Cardiac Output 5 Cardiac Index 2.5 - Constitutional General appearance: Present: cooperative, no acute distress, obese - Respiratory Details: Lungs sounds diminished bilaterally. Respirations even, nonlabored. Currently on 2 L nasal cannula with suction saturation 100%. Able to achieve 500 mL on her incentive spirometry. Strong cough. Left pleural chest tube to continuous wall suction, 120 mL serosanguineous drainage overnight, 250 mL in the last 24 hours. No air leaks present. - Cardiovascular Details: S1, S2 present. Regular rate and rhythm, sinus rhythm on telemetry. Sternum stable. A/V epicardial pacemaker wires present, grounded. Palpable peripheral pulses bilaterally. No edema present. No calf pain or tenderness noted. Right internal jugular Cordis, right radial arterial line present, remains hemodynamically stable. Heart hugger in place with patient demonstrating appropriate use. Antiembolism stockings, SCDs present. - Gastrointestinal Gastrointestinal Comment(s): Abdomen soft, nontender, nondistended. Active bowel sounds present 4 quadra nts. Positive bowel movement 5/3. Tolerating diet. - Genitourinary Genitourinary Comment(s): Mendoza present draining blood-tinged urine. Output dropped down again overnight, dopamine restarted with improvement in urine output. - Neurologic Neurologic: Present: CNII-XII intact - Musculoskeletal Musculoskeletal: Present: gait normal, generalized weakness, strength equal bilaterally - Psychiatric Psychiatric: Present: A&O x's 3, appropriate affect, intact judgment & insight - Allied health notes Allied health notes reviewed: nursing - Labs CBC & Chem 7: 07/02/18 03:35 07/02/18 03:35 Labs: Abnormal Lab Results - Last 24 Hours (Table) 07/01/18 07/01/18 07/01/18 Range/Units 14:07 15:18 16:19 WBC (3.8-10.6) k/uL RBC (3.80-5.40) m/uL Hgb (11.4-16.0) gm/dL Hct (34.0-46.0) % RDW (11.5-15.5) % Neutrophils # (1.3-7.7) k/uL Chloride (98-107) mmol/L BUN (7-17) mg/dL POC Glucose (mg/dL) 158 H 159 H 142 H (75-99) mg/dL 07/01/18 07/01/18 07/01/18 Range/Units 17:23 19:44 21:23 WBC (3.8-10.6) k/uL RBC (3.80-5.40) m/uL Hgb (11.4-16.0) gm/dL Hct (34.0-46.0) % RDW (11.5-15.5) % Neutrophils # (1.3-7.7) k/uL Chloride (98-107) mmol/L BUN (7-17) mg/dL POC Glucose (mg/dL) 109 H 123 H 141 H (75-99) mg/dL 07/01/18 07/02/18 07/02/18 Range/Units 22:13 00:17 02:04 WBC (3.8-10.6) k/uL RBC (3.80-5.40) m/uL Hgb (11.4-16.0) gm/dL Hct (34.0-46.0) % RDW (11.5-15.5) % Neutrophils # (1.3-7.7) k/uL Chloride (98-107) mmol/L BUN (7-17) mg/dL POC Glucose (mg/dL) 134 H 105 H 109 H (75-99) mg/dL 07/02/18 07/02/18 07/02/18 Range/Units 03:35 03:35 06:06 WBC 12.6 H (3.8-10.6) k/uL RBC 2.40 L (3.80-5.40) m/uL Hgb 7.0 L (11.4-16.0) gm/dL Hct 21.6 L (34.0-46.0) % RDW 15.9 H (11.5-15.5) % Neutrophils # 8.9 H (1.3-7.7) k/uL Chloride 108 H (98-107) mmol/L BUN 22 H (7-17) mg/dL POC Glucose (mg/dL) 100 H (75-99) mg/dL 07/02/18 Range/Units 12:09 WBC (3.8-10.6) k/uL RBC (3.80-5.40) m/uL Hgb (11.4-16.0) gm/dL Hct (34.0-46.0) % RDW (11.5-15.5) % Neutrophils # (1.3-7.7) k/uL Chloride (98-107) mmol/L BUN (7-17) mg/dL POC Glucose (mg/dL) 112 H (75-99) mg/dL Microbiology - Last 24 Hours (Table) 07/01/18 03:30 Urine Culture - Preliminary Urine,Voided - Imaging and Cardiology Chest x-ray: report reviewed, image reviewed Assessment and Plan Assessment: 1. Triple-vessel coronary artery disease, status post coronary artery bypass graft surgery 2. Moderate to severe aortic valve stenosis, status post aortic valve replacement 3. Moderate mitral valve regurgitation, status post mitral valve repair 4. Uncontrolled type 2 diabetes mellitus with preoperative hemoglobin A1c 8.3% 5. Hypertension 6. Hyperlipidemia 7. Peripheral vascular disease 8. Hypothyroidism 9. Previous tobacco dependence with preoperative FEV1 77% of predicted 10. GERD 11. Rheumatoid arthritis 12. Preoperative group B strep urinary tract infection 13. Postoperative acute blood loss anemia, expected Plan: 1. Continue low-dose aspirin, statin, Plavix, lisinopril, beta mirian therapy. Will increase beta mirian therapy as tolerated. Hold parameters placed on blood pressure medications as patient appears need a higher pressure for adequate urine output. 2. Dopamine discontinued. 3. Wean O2 as tolerated. Encourage incentive spirometry 10 times every hour while awake. 4. Bronchodilators per pulmonology. 5. Encourage continued smoking cessation. 6. Increase activity, ambulate as tolerated. PT/OT/cardiac rehab following. 7. Will monitor daily labs and x-rays. Electrolyte replacement per protocol. No further transfusions at this time. 8. Pain control with current medication regimen. No narcotics. 9. Insulin management per primary care service. 10. Left pleural chest tube discontinued without incident. Will continue arterial line, Cordis for another 24 hours. 11. Keep Mendoza catheter for now for strict accurate I and O's. 12. GI/DVT prophylaxis. 13. More recommendations to follow based on patient's clinical course. Time with Patient: Greater than 30
[2018-07-02] MEDS: MULTIVITAMINS, THERA 1 EACH TAB PO SCH (13:00)
[2018-07-02] MEDS ORDERED: HYDROcodone/APAP 5-325MG 1 EACH TAB PO PRN (13:18)
[2018-07-02] MEDS: INSULIN ASPART (NovoLOG) 100 UNIT/ML VIAL SQ SCH ×3 (13:42→21:12)
[2018-07-02] MEDS ORDERED: DEXTROSE/WATER 1 250ML.BAG with DOPamine DRIP 800 MG IV SCH ×2 (14:30→18:31)
--- NOTE | 2018-07-02 15:17 | P.PN ---
Subjective Progress Note Date: 07/02/18 On 07/02/2018 the patient is postop day #4. All of the chest is a been removed today. The patient's sternum stable clean and intact. The patient is hemodynamically stable. Chest x-ray is not showing any acute abnormalities. Note that the chest x-ray was done prior to the left pleural chest tube being removed. The patient is using incentive spirometer. She is almost reaching 800 mL on her incentive spirometer. She is producing adequate amount of urine output. No pressors for now. Cardiac rhythm is sinus. The patient is some subcu insulin and insulin drip has been discontinued. The patient is on dopamine at 2 mics per KG per minute. No other issues for now. Her pain is under good control pH is ambulating. No altered mentation. No cardiac arrhythmia. Urine output is order of 30 cc/ hour. Objective - Vital Signs Vital signs: Vital Signs Temp 98.5 F 07/02/18 12:30 Pulse 81 07/02/18 14:00 Resp 17 07/02/18 14:00 BP 106/65 07/02/18 14:00 Pulse Ox 96 07/02/18 14:00 Intake & Output 07/01/18 07/02/18 07/02/18 18:59 06:59 18:59 Intake Total 840.984 411.144 311 Output Total 795 1061 520 Balance 45.984 -649.856 -209 Weight 90.3 kg Intake: IV 718 373.8 211 Dextrose/Water 1 250ml. 36 21.8 3 bag @ 2 MCG/KG/MIN 3.405 mls/hr IV .Q24H [facility] with DOPamine DRIP 800 mg Rx#: [id number] Lactated Ringers 1,000 ml 360 280 160 @ 20 mls/hr IV .Q24H [facility] Rx#:[id number] Pressure Bag 72 72 48 albumin 250 Intake, IV Titration 122.984 37.344 Amount Insulin Regular 100 unit 54.793 37.344 In Sodium Chloride 0.9% 100 ml @ Per Protocol IV .Q0M [facility] Rx#:[id number] Milrinone-D5w Pmx 20 mg 68.191 In Dextrose/Water 1 100ml .bag @ 0.1 MCG/KG/MIN 2. 724 mls/hr IV .Q24H [facility] Rx#:[id number] Oral 100 Output: Chest Tube Drainage 130 160 50 Bilateral Mediastinal 20 Chest Tube Left 110 160 50 Drainage 50 20 Left Calf 50 20 Urine 665 851 450 Other: Voiding Method Indwelling Catheter Indwelling Catheter Indwelling Catheter # Bowel Movements 1 1 ABP, PAP, CO, CI - Last Documented Arterial Blood Pressure 123/49 Pulmonary Artery Pressure 28/14 Cardiac Output 5 Cardiac Index 2.5 - Exam Constitutional Comment(s): Restless General appearance: Present: no acute distress, obese - Respiratory Details: Diminished breath sounds bilaterally otherwise clear breath sounds are equal and symmetrical in the patient left-sided chest tube in place. - Cardiovascular Details: Regular rhythm and tachycardic rate. S1 and S2 present, negative for S3, gallop or murmur. Sternum is stable. - Gastrointestinal Gastrointestinal Comment(s): Abdomen soft, nontender and nondistended. Active bowel sounds all 4 abdominal quadrants. OG tube in place to low intermittent wall suction. No guarding or rigidity. - Genitourinary Genitourinary Comment(s): Mendoza catheter for accurate I&O. Draining clear yellow urine, - Integumentary Integumentary Comment(s): Skin is warm and dry. No clubbing or cyanosis is present. Midline sternal incision is clean, dry with dressing clean, dry and intact. Left lower leg EVH site clean, dry and approximated. No drainage or redness is present. - Neurologic Neurologic Comment(s): Sedated on Precedex and the patient is currently off propofol Moving all 4 extremities appropriately, following commands. Neurologic: Present: CNII-XII intact - Musculoskeletal Musculoskeletal: Present: strength equal bilaterally - Labs CBC & Chem 7: 07/02/18 03:35 07/02/18 03:35 Labs: Abnormal Lab Results - Last 24 Hours (Table) 07/01/18 07/01/18 07/01/18 Range/Units 15:18 16:19 17:23 WBC (3.8-10.6) k/uL RBC (3.80-5.40) m/uL Hgb (11.4-16.0) gm/dL Hct (34.0-46.0) % RDW (11.5-15.5) % Neutrophils # (1.3-7.7) k/uL Chloride (98-107) mmol/L BUN (7-17) mg/dL POC Glucose (mg/dL) 159 H 142 H 109 H (75-99) mg/dL 07/01/18 07/01/18 07/01/18 Range/Units 19:44 21:23 22:13 WBC (3.8-10.6) k/uL RBC (3.80-5.40) m/uL Hgb (11.4-16.0) gm/dL Hct (34.0-46.0) % RDW (11.5-15.5) % Neutrophils # (1.3-7.7) k/uL Chloride (98-107) mmol/L BUN (7-17) mg/dL POC Glucose (mg/dL) 123 H 141 H 134 H (75-99) mg/dL 07/02/18 07/02/18 07/02/18 Range/Units 00:17 02:04 03:35 WBC 12.6 H (3.8-10.6) k/uL RBC 2.40 L (3.80-5.40) m/uL Hgb 7.0 L (11.4-16.0) gm/dL Hct 21.6 L (34.0-46.0) % RDW 15.9 H (11.5-15.5) % Neutrophils # 8.9 H (1.3-7.7) k/uL Chloride (98-107) mmol/L BUN (7-17) mg/dL POC Glucose (mg/dL) 105 H 109 H (75-99) mg/dL 07/02/18 07/02/18 07/02/18 Range/Units 03:35 06:06 12:09 WBC (3.8-10.6) k/uL RBC (3.80-5.40) m/uL Hgb (11.4-16.0) gm/dL Hct (34.0-46.0) % RDW (11.5-15.5) % Neutrophils # (1.3-7.7) k/uL Chloride 108 H (98-107) mmol/L BUN 22 H (7-17) mg/dL POC Glucose (mg/dL) 100 H 112 H (75-99) mg/dL Microbiology - Last 24 Hours (Table) 07/01/18 03:30 Urine Culture - Final Urine,Voided Assessment and Plan Plan: 1 coronary artery disease and the patient is status post two-vessel bypass surgery and the patient is postop day #4. 2 moderate to severe aortic stenosis and the patient is status post aortic valve replacement with a bioprosthetic aortic valve and the patient is postop day #4 3 moderate mitral regurgitation and the patient is status post mitral valve repair with a 26 mm annular flex ring 4 acute hypoxic respiratory failure, and expected outcome post thoracotomy cardiac surgery and this has recovered and the patient is currently on RA. 5 acute blood loss anemia with a stable hemoglobin for now 7.0 6 diabetes mellitus type 2, off insulin drip 7 hypertension 8 hyperlipidemia 9 peripheral vascular disease 7 hypothyroidism 13 rheumatoid arthritis 14 acid reflux. Plan I'm going to pass the patient increased level of activity as tolerated. Keep the dopamine drip for now in regards to her urine output. Renal function is stable. Continue using incentive spirometer. Adequate pain control. Continue aspirin and Plavix. Continue statins. Continue beta blockers. Keep in the intensive care unit for now.
[2018-07-02 17:06] LABS: Glucose,Whole Blood 131 mg/dL (75-99)
[2018-07-02] MEDS ORDERED: DOPamine DRIP 800 MG in DEXTROSE/WATER 1 250ML.BAG IV SCH (20:00)
[2018-07-02] MEDS: LACTATED RINGERS 1,000 ML IV SCH (20:09)
--- NOTE | 2018-07-02 20:29 | PN ---
PROGRESS NOTE DATE OF SERVICE: 07/02/18. PRESENTING COMPLAINT: Coronary bypass. INTERVAL HISTORY: Patient is status post prosthetic aortic valve replacement with mitral valve repair and 2 vessel coronary bypass. Sitting up in a chair. Patient did to walk a little bit. Did tolerate some diet. Breathing is better. REVIEW OF SYSTEMS: Done for constitutional, cardiovascular, GI, pulmonary; relevant findings as above. CURRENT MEDICATIONS: Reviewed. PHYSICAL EXAMINATION: VITAL SIGNS: Temperature 98.9, pulse 107, respiration 14, blood pressure 127/79, pulse ox 95% on room air. GENERAL APPEARANCE: Sitting up in a chair, a bit tired. EYES: Pupils equal. Conjunctivae pale. NECK: JVD unable to assess. Mass not palpable. RESPIRATORY: Effort increased. LUNGS: Diminished breath sounds. CARDIOVASCULAR: First and second sounds are normal, minimal edema. ABDOMEN: Soft, nontender. Liver and spleen not palpable. PSYCHIATRY: Alert and oriented x3. Mood and affect normal. INVESTIGATIONS: Accu-Cheks are noted. White count 12.6, hemoglobin 7.0, potassium 4.4, BUN 22, creatinine 0.54. ASSESSMENT: 1. Coronary artery bypass. 2. Coronary artery disease. 3. Prosthetic aortic valve replacement. 4. Mitral valve repair. 5. Acute severe blood loss anemia expected from surgery. 6. Diabetes mellitus type 2 on oral hypoglycemic. 7. Gastroesophageal reflux disease. 8. Hyperlipidemia. 9. Essential hypertension. 10.Rheumatoid arthritis. 11.Hypothyroid. 12.Chronic insomnia. 13.Hiatal hernia. 14.Acute respiratory failure support from ventilator postoperative, now done. PLAN: Continue current medication and treatment plan. Care was discussed with the patient. Follow. MMODL / IJN: [id number] /
[2018-07-02 20:53] LABS: Glucose,Whole Blood 179 mg/dL (75-99)
[2018-07-02] MEDS: METOPROLOL TARTRATE 12.5 MG TAB PO SCH (21:10)
[2018-07-02] MEDS: SENNOSIDES-DOCUSATE SODIUM 1 EACH TAB PO SCH (21:11)
[2018-07-03] MEDS: HEPARIN SODIUM,PORCINE 5,000 UNIT/ML 1 ML VIAL SQ SCH ×3 (02:18→17:09)
[2018-07-03] MEDS: KETOROLAC 30 MG/ML 1 ML VIAL IVP SCH ×2 (02:18→06:46)
[2018-07-03 05:45] LABS: Anisocytosis Slight; Basophils # (A) 0.1 k/uL (0-0.2); Basophils % (A) 0 %; Eosinophils # (A) 0.5 k/uL (0-0.7); Eosinophils % (A) 4 %; HCT 22.4 % (34.0-46.0); HGB 7.3 gm/dL (11.4-16.0); Lymphocytes # (A) 2.7 k/uL (1.0-4.8); Lymphocytes % (A) 22 %; MCH 29.8 pg (25.0-35.0); MCHC 32.8 g/dL (31.0-37.0); MCV 90.8 fL (80.0-100.0); Mean Platelet Volume 8.1; Monocytes # (A) 0.5 k/uL (0-1.0); Monocytes % (A) 4 %; Neutrophils # (A) 8.1 k/uL (1.3-7.7); Neutrophils % (A) 67 %; Platelet Count 191 k/uL (150-450); RBC 2.47 m/uL (3.80-5.40); RDW 16.8 % (11.5-15.5); WBC 12.2 k/uL (3.8-10.6)
[2018-07-03 05:57] LABS: African American GFR (CKD) >90 (>60 ml/min/1.73 sqM); Anion Gap 4 mmol/L; Blood Urea Nitrogen 19 mg/dL (7-17); Calcium 8.3 mg/dL (8.4-10.2); Carbon Dioxide 25 mmol/L (22-30); Chloride 109 mmol/L (98-107); Glucose 109 mg/dL (74-99); Potassium 4.1 mmol/L (3.5-5.1); Sodium 138 mmol/L (137-145)
[2018-07-03] MEDS: LEVOTHYROXINE 50 MCG TAB PO SCH (06:46)
--- NOTE | 2018-07-03 07:06 | XR ---
EXAMINATION TYPE: XR chest 2V DATE OF EXAM: 07/03/2018 HISTORY: post cardiac surgery. REFERENCE: Previous study dated 07/02/2018. FINDINGS: There has been a midline sternotomy. The patient's left pleural drain has been removed. The re is a tiny left apical pneumothorax. Mediastinal drain remains in place. The heart is enlarged. There is some left basilar atelectasis. Th e right lung is clear. I cannot exclude tiny, bilateral effusions. IMPRESSION: 1. RESIDUAL, TINY LEFT APICAL PNEUMOTHORAX. 2. LEFT BASILAR ATELECTASIS. 3. TINY, BILATERAL EFFUSIONS.
[2018-07-03] MEDS: INSULIN ASPART (NovoLOG) 100 UNIT/ML VIAL SQ SCH ×4 (07:10→22:19)
--- NOTE | 2018-07-03 07:12 | P.PN ---
Subjective Progress Note Date: 07/03/18 Principal diagnosis: Status post open heart This is a 72-year-old female patient who sees Dr. Colon in the office as an outpatient who was diagnosed recently with severe triple-vessel coronary artery disease as well as moderate to severe aortic stenosis. She was referred to [facility] CABG along with aortic valve replacement. The patient underwent coronary arteriogram is grafting with CUMMINGS to LAD, SVG to PDA, as well as aortic valve replacement and mitral valve repair. On follow-up with the patient today, July [id number], the patient overall is doing better. She has been maintaining normal sinus mechanism. She still requires small dose of dopamine for renal perfusion. She continues to be on dual antiplatelet therapy along with statin. Objective - Vital Signs Vital signs: Vital Signs Temp 97.6 F 07/03/18 04:00 Pulse 103 H 07/03/18 04:30 Resp 15 07/03/18 04:30 BP 119/72 07/03/18 04:30 Pulse Ox 97 07/03/18 04:30 Intake & Output 07/02/18 07/03/18 07/03/18 18:59 06:59 18:59 Intake Total 409 634 Output Total 810 765 Balance -401 -131 Intake: IV 309 234 Dextrose/Water 1 250ml. 3 bag @ 2 MCG/KG/MIN 3.405 mls/hr IV .Q24H [facility] with DOPamine DRIP 800 mg Rx#: [id number] Lactated Ringers 1,000 ml 240 180 @ 20 mls/hr IV .Q24H [facility] Rx#:[id number] Pressure Bag 66 54 Oral 100 400 Output: Chest Tube Drainage 50 Chest Tube Left 50 Drainage 20 Left Calf 20 Urine 740 765 Other: Voiding Method Indwelling Catheter Indwelling Catheter # Bowel Movements 1 ABP, PAP, CO, CI - Last Documented Arterial Blood Pressure 144/64 Pulmonary Artery Pressure 28/14 Cardiac Output 5 Cardiac Index 2.5 - Constitutional General appearance: Present: no acute distress - Respiratory Respiratory: bilateral: diminished - Cardiovascular Rhythm: regular - Labs CBC & Chem 7: 07/03/18 05:00 07/03/18 05:00 Labs: Abnormal Lab Results - Last 24 Hours (Table) 07/02/18 07/02/18 07/02/18 Range/Units 12:09 17:04 20:49 WBC (3.8-10.6) k/uL RBC (3.80-5.40) m/uL Hgb (11.4-16.0) gm/dL Hct (34.0-46.0) % RDW (11.5-15.5) % Neutrophils # (1.3-7.7) k/uL Chloride (98-107) mmol/L BUN (7-17) mg/dL Creatinine (0.52-1.04) mg/dL Glucose (74-99) mg/dL POC Glucose (mg/dL) 112 H 131 H 179 H (75-99) mg/dL Calcium (8.4-10.2) mg/dL 07/03/18 07/03/18 Range/Units 05:00 05:00 WBC 12.2 H (3.8-10.6) k/uL RBC 2.47 L (3.80-5.40) m/uL Hgb 7.3 L (11.4-16.0) gm/dL Hct 22.4 L (34.0-46.0) % RDW 16.8 H (11.5-15.5) % Neutrophils # 8.1 H (1.3-7.7) k/uL Chloride 109 H (98-107) mmol/L BUN 19 H (7-17) mg/dL Creatinine 0.47 L (0.52-1.04) mg/dL Glucose 109 H (74-99) mg/dL POC Glucose (mg/dL) (75-99) mg/dL Calcium 8.3 L (8.4-10.2) mg/dL Microbiology - Last 24 Hours (Table) 07/01/18 03:30 Urine Culture - Final Urine,Voided Assessment and Plan Assessment: Assessment #1 status post CABG 2 along with aortic valve replacement and mitral valve repair #2 hypertension which has improved #3 anemia which is a stable #4 multiple comorbid conditions Plan #1 continue the current medical regimen #2 continue monitoring the hemoglobin and kidney function #3 continue dual antiplatelet therapy #4 follow-up with the patient
[2018-07-03 07:21] LABS: Glucose,Whole Blood 88 mg/dL (75-99)
[2018-07-03] MEDS: IPRATROPIUM-ALBUTEROL 3 ML NEB INHALATION SCH ×2 (07:54→12:34)
[2018-07-03] MEDS: METOPROLOL TARTRATE 12.5 MG TAB PO SCH ×2 (09:52→22:19)
[2018-07-03] MEDS: CLOPIDOGREL 75 MG TAB PO SCH (09:53)
[2018-07-03] MEDS: ATORVASTATIN 40 MG TAB PO SCH (09:53)
[2018-07-03] MEDS: ASPIRIN 81 MG PO SCH (09:53)
[2018-07-03] MEDS: PANTOPRAZOLE 40 MG TABLET PO SCH (09:53)
[2018-07-03] MEDS: ONDANSETRON 4 MG/2 ML VIAL IVP PRN ×2 (09:53→15:37)
[2018-07-03] MEDS ORDERED: METOPROLOL TARTRATE 12.5 MG TAB PO STA (10:51)
[2018-07-03 11:57] LABS: Glucose,Whole Blood 134 mg/dL (75-99)
[2018-07-03] MEDS: LACTATED RINGERS 1,000 ML IV SCH (11:59)
[2018-07-03] MEDS: MULTIVITAMINS, THERA 1 EACH TAB PO SCH (12:00)
--- NOTE | 2018-07-03 12:10 | P.PN ---
Subjective Progress Note Date: 07/03/18 Principal diagnosis: Triple-vessel coronary artery disease, moderate to severe aortic valve stenosis, moderate mitral valve regurgitation, uncontrolled diabetes mellitus type 2 with preoperative hemoglobin A1c 8.3%, hypertension, hyperlipidemia, peripheral vascular disease, previous tobacco dependence, hypothyroid, rheumatoid arthritis, GERD, preoperative urinary tract infection with group B strep. POD #5 double vessel coronary artery bypass grafting using the left internal mammary artery to the left anterior descending coronary artery, reverse greater saphenous vein graft from the aorta to the posterior descending coronary artery. Aortic valve replacement using a 21 mm Inspiris pericardial bioprosthesis, mitral valve repair using a posterior annuloplasty 26 mm AnnuloFlex ring, exclusion of the left atrial appendage with a 35 mm AtriClip, endoscopic harvesting of the left greater saphenous vein, intraoperative transesophageal echocardiogram, epi-aortic scanning, and graft flow measurements using the proVITAL system. Postoperative acute blood loss anemia, expected outcome given cardiopulmonary bypass and hemodilution. The patient is currently sitting up in a recliner in no acute distress. States pain is controlled on current medication regimen, denies shortness of breath. Remains in normal sinus rhythm. Hemodynamically stable, dopamine was restarted last night secondary to low urine output, discontinued early this morning. No new complaints. Objective - Vital Signs Vital signs: Vital Signs Temp 98.4 F 07/03/18 10:00 Pulse 81 07/03/18 11:00 Resp 10 L 07/03/18 11:00 BP 136/83 07/03/18 11:00 Pulse Ox 94 L 07/03/18 11:00 Intake & Output 07/02/18 07/03/18 07/03/18 18:59 06:59 18:59 Intake Total 409 706.966 132.54 Output Total 810 890 240 Balance -401 -183.034 -107.46 Intake: IV 309 286 130 Dextrose/Water 1 250ml. 3 bag @ 2 MCG/KG/MIN 3.405 mls/hr IV .Q24H [facility] with DOPamine DRIP 800 mg Rx#: [id number] Lactated Ringers 1,000 ml 240 220 100 @ 20 mls/hr IV .Q24H [facility] Rx#:[id number] Pressure Bag 66 66 30 Intake, IV Titration 20.966 2.54 Amount DOPamine DRIP 800 mg In 20.966 2.54 Dextrose/Water 1 250ml. bag @ 2 MCG/KG/MIN 3.386 mls/hr IV .Q24H [facility] Rx#: [id number] Oral 100 400 Output: Chest Tube Drainage 50 Chest Tube Left 50 Drainage 20 Left Calf 20 Urine 740 890 240 Other: Voiding Method Indwelling Catheter Indwelling Catheter # Bowel Movements 1 ABP, PAP, CO, CI - Last Documented Arterial Blood Pressure 175/78 Pulmonary Artery Pressure 28/14 Cardiac Output 5 Cardiac Index 2.5 - Constitutional General appearance: Present: cooperative, no acute distress, obese - Respiratory Details: Lungs sounds diminished bilaterally. Respirations even, nonlabored. Currently on room air with oxygen saturation 97%. Able to achieve 750 mL on her incentive spirometry. Strong cough. - Cardiovascular Details: S1, S2 present. Regular rate and rhythm, sinus rhythm on telemetry. Sternum stable. A/V epicardial pacemaker wires present, grounded. Palpable peripheral pulses bilaterally. No edema present. No calf pain or tenderness noted. Right internal jugular Cordis, right radial arterial line present, remains hemodynamically stable. Heart hugger in place with patient demonstrating appropriate use. Antiembolism stockings, SCDs present. - Gastrointestinal Gastrointestinal Comment(s): Abdomen soft, nontender, nondistended. Active bowel sounds present 4 quadrants. Positive bowel movement 5/4. Tolerating diet. - Genitourinary Genitourinary Comment(s): Mendoza present draining yellow urine. Output dropped down again overnight, dopamine restarted with improvement in urine output, discontinued again this morning. - Integumentary Integumentary Comment(s): Skin is warm and dry with evidence of good perfusion. Anterior chest incision well approximated and covered with dry intact dressing. Left lower extremity EVH site well approximated. - Neurologic Neurologic: Present: CNII-XII intact - Musculoskeletal Musculoskeletal: Present: gait normal, strength equal bilaterally - Psychiatric Psychiatric: Present: A&O x's 3, appropriate affect, intact judgment & insight - Allied health notes Allied health notes reviewed: nursing - Labs CBC & Chem 7: 07/03/18 05:00 07/03/18 05:00 Labs: Abnormal Lab Results - Last 24 Hours (Table) 07/02/18 07/02/18 07/02/18 Range/Units 12:09 17:04 20:49 WBC (3.8-10.6) k/uL RBC (3.80-5.40) m/uL Hgb (11.4-16.0) gm/dL Hct (34.0-46.0) % RDW (11.5-15.5) % Neutrophils # (1.3-7.7) k/uL Chloride (98-107) mmol/L BUN (7-17) mg/dL Creatinine (0.52-1.04) mg/dL Glucose (74-99) mg/dL POC Glucose (mg/dL) 112 H 131 H 179 H (75-99) mg/dL Calcium (8.4-10.2) mg/dL 07/03/18 07/03/18 07/03/18 Range/Units 05:00 05:00 11:49 WBC 12.2 H (3.8-10.6) k/uL RBC 2.47 L (3.80-5.40) m/uL Hgb 7.3 L (11.4-16.0) gm/dL Hct 22.4 L (34.0-46.0) % RDW 16.8 H (11.5-15.5) % Neutrophils # 8.1 H (1.3-7.7) k/uL Chloride 109 H (98-107) mmol/L BUN 19 H (7-17) mg/dL Creatinine 0.47 L (0.52-1.04) mg/dL Glucose 109 H (74-99) mg/dL POC Glucose (mg/dL) 134 H (75-99) mg/dL Calcium 8.3 L (8.4-10.2) mg/dL Microbiology - Last 24 Hours (Table) 07/01/18 03:30 Urine Culture - Final Urine,Voided - Imaging and Cardiology Chest x-ray: report reviewed, image reviewed Assessment and Plan Assessment: 1. Triple-vessel coronary artery disease, status post coronary artery bypass graft surgery 2. Moderate to severe aortic valve stenosis, status post aortic valve replacement 3. Moderate mitral valve regurgitation, status post mitral valve repair 4. Uncontrolled type 2 diabetes mellitus with preoperative hemoglobin A1c 8.3% 5. Hypertension 6. Hyperlipidemia 7. Peripheral vascular disease 8. Hypothyroidism 9. Previous tobacco dependence with preoperative FEV1 77% of predicted 10. GERD 11. Rheumatoid arthritis 12. Preoperative group B strep urinary tract infection 13. Postoperative acute blood loss anemia, expected Plan: 1. Continue low-dose aspirin, statin, Plavix, lisinopril, beta mirian therapy. Will increase beta mirian therapy as tolerated. Hold parameters placed on blood pressure medications as patient appears need a higher pressure for adequate urine output. 2. Dopamine discontinued. 3. Encourage incentive spirometry 10 times every hour while awake. 4. Bronchodilators per pulmonology. 5. Encourage continued smoking cessation. 6. Increase activity, ambulate as tolerated. PT/OT/cardiac rehab following. 7. Will monitor daily labs and x-rays. Electrolyte replacement per protocol. No further transfusions at this time. 8. Pain control with current medication regimen. 9. Insulin management per primary care service. 10. Discontinue Cordis, Mendoza catheter. May bladder scan every 6 hours and straight cath for greater than 300 mL. 11. GI/DVT prophylaxis. 12. More recommendations to follow based on patient's clinical course. Time with Patient: Greater than 30
--- NOTE | 2018-07-03 13:35 | P.PN ---
Subjective Progress Note Date: 07/03/18 On 07/03/2018 the patient is postop day #5. Doing extremely well. No specific complaints. The patient is ambulating. Chest tubes were all removed. Hemodynamically stable. She is sitting up on the recliner. She is using incentive spirometer pH is somewhat edematous stable. Dopamine was started last night secondary to low urine output and discontinued this morning. No other new complaints for now. She is afebrile. Pulse is 94% with of oxygen by nasal cannula. Chest exit showed no acute abnormalities. Findings and essentially suggestive of postsurgical changes. Adequate mental status. Tolerating diet. Objective - Vital Signs Vital signs: Vital Signs Temp 98.2 F 07/03/18 12:00 Pulse 80 07/03/18 13:00 Resp 11 L 07/03/18 13:00 BP 150/67 07/03/18 13:00 Pulse Ox 93 L 07/03/18 13:00 Intake & Output 07/02/18 07/03/18 07/03/18 18:59 06:59 18:59 Intake Total 409 706.966 158.54 Output Total 810 890 252 Balance -401 -183.034 -93.46 Intake: IV 309 286 156 Dextrose/Water 1 250ml. 3 bag @ 2 MCG/KG/MIN 3.405 mls/hr IV .Q24H [facility] with DOPamine DRIP 800 mg Rx#: [id number] Lactated Ringers 1,000 ml 240 220 120 @ 20 mls/hr IV .Q24H [facility] Rx#:[id number] Pressure Bag 66 66 36 Intake, IV Titration 20.966 2.54 Amount DOPamine DRIP 800 mg In 20.966 2.54 Dextrose/Water 1 250ml. bag @ 2 MCG/KG/MIN 3.386 mls/hr IV .Q24H [facility] Rx#: [id number] Oral 100 400 Output: Chest Tube Drainage 50 Chest Tube Left 50 Drainage 20 Left Calf 20 Urine 740 890 252 Other: Voiding Method Indwelling Catheter Indwelling Catheter # Bowel Movements 1 ABP, PAP, CO, CI - Last Documented Arterial Blood Pressure 175/78 Pulmonary Artery Pressure 28/14 Cardiac Output 5 Cardiac Index 2.5 - Exam Constitutional Comment(s): Restless General appearance: Present: no acute distress, obese - Respiratory Details: Diminished breath sounds bilaterally otherwise clear breath sounds are equal and symmetrical in the patient left-sided chest tube in place. - Cardiovascular Details: Regular rhythm and tachycardic rate. S1 and S2 present, negative for S3, gallop or murmur. Sternum is stable. - Gastrointestinal Gastrointestinal Comment(s): Abdomen soft, nontender and nondistended. Active bowel sounds all 4 abdominal quadrants. OG tube in place to low intermittent wall suction. No guarding or rigidity. - Genitourinary Genitourinary Comment(s): Mendoza catheter for accurate I&O. Draining clear yellow urine, - Integumentary Integumentary Comment(s): Skin is warm and dry. No clubbing or cyanosis is present. Midline sternal incision is clean, dry with dressing clean, dry and intact. Left lower leg EVH site clean, dry and approximated. No drainage or redness is present. - Neurologic Neurologic Comment(s): Sedated on Precedex and the patient is currently off propofol Moving all 4 extremities appropriately, following commands. Neurologic: Present: CNII-XII intact - Musculoskeletal Musculoskeletal: Present: strength equal bilaterally - Labs CBC & Chem 7: 07/03/18 05:00 07/03/18 05:00 Labs: Abnormal Lab Results - Last 24 Hours (Table) 07/02/18 07/02/18 07/03/18 Range/Units 17:04 20:49 05:00 WBC 12.2 H (3.8-10.6) k/uL RBC 2.47 L (3.80-5.40) m/uL Hgb 7.3 L (11.4-16.0) gm/dL Hct 22.4 L (34.0-46.0) % RDW 16.8 H (11.5-15.5) % Neutrophils # 8.1 H (1.3-7.7) k/uL Chloride (98-107) mmol/L BUN (7-17) mg/dL Creatinine (0.52-1.04) mg/dL Glucose (74-99) mg/dL POC Glucose (mg/dL) 131 H 179 H (75-99) mg/dL Calcium (8.4-10.2) mg/dL 07/03/18 07/03/18 Range/Units 05:00 11:49 WBC (3.8-10.6) k/uL RBC (3.80-5.40) m/uL Hgb (11.4-16.0) gm/dL Hct (34.0-46.0) % RDW (11.5-15.5) % Neutrophils # (1.3-7.7) k/uL Chloride 109 H (98-107) mmol/L BUN 19 H (7-17) mg/dL Creatinine 0.47 L (0.52-1.04) mg/dL Glucose 109 H (74-99) mg/dL POC Glucose (mg/dL) 134 H (75-99) mg/dL Calcium 8.3 L (8.4-10.2) mg/dL Microbiology - Last 24 Hours (Table) 07/01/18 03:30 Urine Culture - Final Urine,Voided Assessment and Plan Plan: 1 coronary artery disease and the patient is status post two-vessel bypass surgery and the patient is postop day #5 2 moderate to severe aortic stenosis and the patient is status post aortic valve replacement with a bioprosthetic aortic valve and the patient is postop day #5 3 moderate mitral regurgitation and the patient is status post mitral valve repair with a 26 mm annular flex ring 4 acute hypoxic respiratory failure, and expected outcome post thoracotomy cardiac surgery and this has recovered and the patient is currently on RA. 5 acute blood loss anemia with a stable hemoglobin for now 7.3, and expected outcome of surgery 6 diabetes mellitus type 2, off insulin drip 7 hypertension 8 hyperlipidemia 9 peripheral vascular disease 7 hypothyroidism 13 rheumatoid arthritis 14 acid reflux. Plan Continue aspirin and Plavix. Continue beta blockers and lisinopril. Monitor urine output. Discontinue the dopamine drip. Incentive spirometer. PTOT. Possibly a cardiac rehabilitation within next few days. We'll continue to follow.
[2018-07-03] MEDS: ACETAMINOPHEN TAB 500 MG TAB PO PRN (14:10)
[2018-07-03] MEDS: LISINOPRIL 5 MG TAB PO SCH (15:32)
[2018-07-03 17:00] LABS: Glucose,Whole Blood 182 mg/dL (75-99)
[2018-07-03 17:00] LABS: Glucose,Whole Blood 194 mg/dL (75-99)
[2018-07-03 21:13] LABS: Glucose,Whole Blood 145 mg/dL (75-99)
[2018-07-03] MEDS: SENNOSIDES-DOCUSATE SODIUM 1 EACH TAB PO SCH (22:20)
[2018-07-03 22:49] LABS: Glucose,Whole Blood 144 mg/dL (75-99)
[2018-07-04] MEDS: HEPARIN SODIUM,PORCINE 5,000 UNIT/ML 1 ML VIAL SQ SCH ×3 (03:30→17:29)
[2018-07-04 06:10] LABS: Anisocytosis Slight; Basophils # (A) 0.1 k/uL (0-0.2); Basophils % (A) 1 %; Eosinophils # (A) 0.4 k/uL (0-0.7); Eosinophils % (A) 3 %; Hypochromasia Slight; Lymphocytes # (A) 2.4 k/uL (1.0-4.8); Lymphocytes % (A) 18 %; MCHC 32.1 g/dL (31.0-37.0); MCV 93.4 fL (80.0-100.0); Macrocytosis Slight; Mean Platelet Volume 8.3; Monocytes # (A) 0.7 k/uL (0-1.0); Monocytes % (A) 5 %; Neutrophils # (A) 9.5 k/uL (1.3-7.7); Neutrophils % (A) 72 %; Platelet Count 275 k/uL (150-450); RBC 2.67 m/uL (3.80-5.40); RDW 19.2 % (11.5-15.5); WBC 13.3 k/uL (3.8-10.6)
[2018-07-04 06:24] LABS: African American GFR (CKD) >90 (>60 ml/min/1.73 sqM); Anion Gap 5 mmol/L; Blood Urea Nitrogen 18 mg/dL (7-17); Calcium 8.6 mg/dL (8.4-10.2); Carbon Dioxide 26 mmol/L (22-30); Chloride 106 mmol/L (98-107); Glucose 113 mg/dL (74-99); Potassium 4.3 mmol/L (3.5-5.1); Sodium 137 mmol/L (137-145)
[2018-07-04] MEDS: INSULIN ASPART (NovoLOG) 100 UNIT/ML VIAL SQ SCH ×4 (07:10→21:08)
[2018-07-04] MEDS: LEVOTHYROXINE 50 MCG TAB PO SCH (07:12)
--- NOTE | 2018-07-04 07:15 | XR ---
EXAMINATION TYPE: XR chest 1V portable DATE OF EXAM: 07/04/2018 HISTORY: Shortness of breath. COMPARISON: 07/03/2018 TECHNIQUE: Single view of the chest is submitted. FINDINGS: Demonstrated are scattered senescent parenchymal change. There is pulmonary venous congestion with small effusions and cardiomegaly compatible with mild conge stive failure. Hilar and mediastinal structures are within normal limits. Degenerative changes are seen of the dorsal spine. IMPRESSION: 1. There is pulmonary venous congestion with small effusions and cardiomegaly compatible with mild c ongestive failure.
--- NOTE | 2018-07-04 07:44 | P.PN ---
Subjective Progress Note Date: 07/04/18 Principal diagnosis: Status post open heart This is a 72-year-old female patient who sees Dr. Colon in the office as an outpatient who was diagnosed recently with severe triple-vessel coronary artery disease as well as moderate to severe aortic stenosis. She was referred to [facility] CABG along with aortic valve replacement. The patient underwent coronary arteriogram is grafting with CUMMINGS to LAD, SVG to PDA, as well as aortic valve replacement and mitral valve repair. On follow-up with the patient today, July 042018, overall she is doing better. She was on dopamine for renal perfusion yesterday and that was DC. She has been making good urine. She continues to be in sinus rhythm. She is on [facility] medical treatment. Objective - Vital Signs Vital signs: Vital Signs Temp 98.8 F 07/04/18 00:00 Pulse 82 07/04/18 04:00 Resp 28 H 07/04/18 04:00 BP 152/71 07/04/18 01:00 Pulse Ox 98 07/04/18 04:00 Intake & Output 07/03/18 07/04/18 07/04/18 18:59 06:59 18:59 Intake Total 302.54 253 Output Total 322 575 Balance -19.46 -322 Intake: IV 300 253 Lactated Ringers 1,000 ml 240 220 @ 20 mls/hr IV .Q24H [facility] Rx#:[id number] Pressure Bag 60 33 Intake, IV Titration 2.54 Amount DOPamine DRIP 800 mg In 2.54 Dextrose/Water 1 250ml. bag @ 2 MCG/KG/MIN 3.386 mls/hr IV .Q24H [facility] Rx#: [id number] Output: Urine 322 575 Other: Voiding Method Indwelling Catheter Indwelling Catheter ABP, PAP, CO, CI - Last Documented Arterial Blood Pressure 175/78 Pulmonary Artery Pressure 28/14 Cardiac Output 5 Cardiac Index 2.5 - Constitutional General appearance: Present: no acute distress - Respiratory Respiratory: bilateral: diminished - Cardiovascular Rhythm: regular - Labs CBC & Chem 7: 07/04/18 05:50 07/04/18 05:50 Labs: Abnormal Lab Results - Last 24 Hours (Table) 07/03/18 07/03/18 07/03/18 Range/Units 11:49 16:55 16:56 WBC (3.8-10.6) k/uL RBC (3.80-5.40) m/uL Hgb (11.4-16.0) gm/dL Hct (34.0-46.0) % RDW (11.5-15.5) % Neutrophils # (1.3-7.7) k/uL BUN (7-17) mg/dL Creatinine (0.52-1.04) mg/dL Glucose (74-99) mg/dL POC Glucose (mg/dL) 134 H 182 H 194 H (75-99) mg/dL 07/03/18 07/03/18 07/04/18 Range/Units 21:10 22:18 05:50 WBC 13.3 H (3.8-10.6) k/uL RBC 2.67 L (3.80-5.40) m/uL Hgb 8.0 L (11.4-16.0) gm/dL Hct 25.0 L (34.0-46.0) % RDW 19.2 H (11.5-15.5) % Neutrophils # 9.5 H (1.3-7.7) k/uL BUN (7-17) mg/dL Creatinine (0.52-1.04) mg/dL Glucose (74-99) mg/dL POC Glucose (mg/dL) 145 H 144 H (75-99) mg/dL 07/04/18 Range/Units 05:50 WBC (3.8-10.6) k/uL RBC (3.80-5.40) m/uL Hgb (11.4-16.0) gm/dL Hct (34.0-46.0) % RDW (11.5-15.5) % Neutrophils # (1.3-7.7) k/uL BUN 18 H (7-17) mg/dL Creatinine 0.49 L (0.52-1.04) mg/dL Glucose 113 H (74-99) mg/dL POC Glucose (mg/dL) (75-99) mg/dL Assessment and Plan Assessment: Assessment #1 status post CABG 2 along with aortic valve replacement and mitral valve repair #2 hypertension which has improved #3 anemia which is a stable #4 multiple comorbid conditions Plan #1 continue the current medical regimen #2 continue monitoring the hemoglobin and kidney function #3 continue dual antiplatelet therapy #4 follow-up with the patient
[2018-07-04] MEDS ORDERED: FUROSEMIDE 10 MG/ML 2 ML VIAL IV ONE (08:07)
[2018-07-04] MEDS: ASPIRIN 81 MG PO SCH (09:21)
[2018-07-04] MEDS: PANTOPRAZOLE 40 MG TABLET PO SCH (09:21)
[2018-07-04] MEDS: METOPROLOL TARTRATE 12.5 MG TAB PO SCH (09:22)
[2018-07-04] MEDS: ATORVASTATIN 40 MG TAB PO SCH (09:22)
[2018-07-04] MEDS: CLOPIDOGREL 75 MG TAB PO SCH (09:22)
--- NOTE | 2018-07-04 10:48 | P.CONS ---
History of Present Illness - Chief Complaint Cardiac debility - History of Present Illness I had the opportunity to see patient for inpatient rehab consultation with regard to cardiac debility. She was admitted to [facility] June 28 with the known cardiac disease. Underwent CABG three-vessel and aVR. Seen in consultation by Dr. Downey and Kait. Chest x-rays followed demonstrate congestion, effusions, cardiomegaly. PT reports two-person moderate assistance for bed and functional mobility. OT prescribed. Previous functional history as elicited from patient: 72-year-old right-handed white female who is lives in one floor home with . Patient retired in works part-time as a software engineering associate manager. Patient independent with cooking, laundry, driving, standing shower and gait without device. History smoking in the remote past and doesn't smoke or drink currently. Dr. Martin his regular doctor. Family medical history [place] both parents. Review of Systems Review of systems: ENT: Denies sneezes or discharge. Eyes: Denies discharge or photophobia. Cardiac: Mild chest discomfort. Pulmonary: Mild shortness of breath. Breast: Denies discharge or lumps. Gastrointestinal: Denies nausea, emesis, constipation, diarrhea. Genitourinary: Denies discharge or frequency. Musculoskeletal: Denies muscle or bone aches. Neurologic: Denies motor or sensory change. Endocrine: Denies shakes or sweats. Oncology: Denies cancers. Dermatologic: Denies rash, itching, pruritus. ALLERGY/immunology: Denies sneezes, rashes. Past Medical History Past Medical History: CVA/TIA, Diabetes Mellitus, GERD/Reflux, Hyperlipidemia, Hypertension, Pneumonia, Rheumatoid Arthritis (RA), Thyroid Disorder Additional Past Medical History / Comment(s): states TIA over 30yrs ago- no residual effects, "Chest pressure". heart murmur, SOB on exertion, walking pneumonia long time ago, insomnia, "3 hiatal hernias", hx IBS History of Any Multi-Drug Resistant Organisms: None Reported Past Surgical History: Bowel Resection, Heart Catheterization, Hysterectomy, Orthopedic Surgery, Tonsillectomy Additional Past Surgical History / Comment(s): left knee arthroscopy, orif left ankle with plate and screws-hardware later removed, uri cataracts, hemmor hoidectomy, "perforated colon with colonoscopy",heart cath. 03-23-18 Past Anesthesia/Blood Transfusion Reactions: No Reported Reaction Additional Past Anesthesia/Blood Transfusion Reaction / Comm: no hx blood transfusion Smoking Status: Former smoker - Past Family History Mother Family Medical History: No Reported History Medications and Allergies Home Medications Medication Instructions Recorded Confirmed Type Levothyroxine Sodium [Synthroid] 50 mcg PO QAM 10/19/16 06/28/18 History Insulin Degludec [Tresiba 45 unit SQ HS 01/01/18 06/28/18 History Flextouch U-100] Multivitamins, Thera [Multivitamin 1 tab PO DAILY 01/01/18 06/28/18 History (formulary)] Atorvastatin [Lipitor] 40 mg PO HS 03/18/18 06/28/18 History Docusate [Colace] 100 mg PO DAILY PRN 03/18/18 06/28/18 History Enalapril [Vasotec] 5 mg PO DAILY@1200 03/18/18 06/28/18 History Dulaglutide [Trulicity] 1.5 mg SQ MO 06/16/18 06/28/18 History Mupirocin 2% Oint [Bactroban 2% 1 applic NASAL BID 06/16/18 06/28/18 History Oint] Cephalexin [Keflex] 500 mg PO Q6HR 06/27/18 06/28/18 History Allergies Allergy/AdvReac Type Severity Reaction Status Date / Time nickel Allergy per alg Verified 06/28/18 16:13 testing Physical Exam Vitals: Vital Signs Temp Pulse Resp BP Pulse Ox 07/04/18 08:00 84 22 87 L 07/04/18 07:00 89 22 95 07/04/18 06:00 86 18 97 07/04/18 05:00 85 18 97 07/04/18 04:00 82 28 H 98 07/04/18 03:00 78 19 98 07/04/18 02:00 81 23 97 07/04/18 01:00 80 17 152/71 97 07/04/18 00:00 98.8 F 81 21 159/74 98 07/03/18 23:30 87 28 H 141/84 95 07/03/18 23:00 77 21 139/70 97 07/03/18 22:00 84 21 141/76 96 07/03/18 21:00 81 22 87 L 07/03/18 20:00 98.0 F 82 21 141/60 92 L 07/03/18 19:00 81 21 141/60 91 L 07/03/18 18:00 82 16 119/52 91 L 07/03/18 17:00 77 16 105/60 90 L 07/03/18 16:00 98.2 F 75 21 107/67 92 L 07/03/18 15:00 77 20 118/65 94 L 07/03/18 14:00 80 22 124/62 93 L 07/03/18 13:00 80 11 L 150/67 93 L 07/03/18 12:00 98.2 F 82 20 123/75 95 07/03/18 11:00 81 10 L 136/83 94 L Intake and Output 07/03/18 07/04/18 07/04/18 22:59 06:59 14:59 Intake Total 184 184 23 Output Total 575 Balance 184 -391 23 Intake: IV 184 184 3 Lactated Ringers 1,000 ml 160 160 @ 20 mls/hr IV .Q24H [facility] Rx#:[id number] Pressure Bag 24 24 3 Albumin 20 Lactated Ringers 1,000 ml 20 @ 20 mls/hr IV .Q24H [facility] Rx#:[id number] Output: Urine 575 Other: Voiding Method Indwelling Catheter Indwelling Catheter Weight 91.2 kg Skin: Good color, texture, turgor. General: Overweight build and comfortable appearance. Head: Normocephalic, atraumatic. Eyes: Symmetric. Pupils equal round. Ears: Symmetric. Hearing within normal limits. Mouth: Clear. Neck: Supple. Carotid without bruit. Cardiac: Regular rate and rhythm. Sternotomy clean and dressed. Wearing harness. Lungs: Clear anteriorly and posteriorly. Abdomen: Soft active nontender. Extremities: Normal tone. Neurological: Mental status: Alert, cooperative, pleasant. Cranial nerves: Symmetric facial tone and trapezius. Motor: Normal strength and isolation all 4 limbs. Sensation: Intact throughout. DTRs: Symmetric and equal throughout. Mobility: Sitting in Nelsy chair. Results CBC & Chem 7: 07/04/18 05:50 07/04/18 05:50 Labs: Abnormal Lab Results - Last 24 Hours (Table) 07/03/18 07/03/18 07/03/18 Range/Units 11:49 16:55 16:56 WBC (3.8-10.6) k/uL RBC (3.80-5.40) m/uL Hgb (11.4-16.0) gm/dL Hct (34.0-46.0) % RDW (11.5-15.5) % Neutrophils # (1.3-7.7) k/uL BUN (7-17) mg/dL Creatinine (0.52-1.04) mg/dL Glucose (74-99) mg/dL POC Glucose (mg/dL) 134 H 182 H 194 H (75-99) mg/dL 07/03/18 07/03/18 07/04/18 Range/Units 21:10 22:18 05:50 WBC 13.3 H (3.8-10.6) k/uL RBC 2.67 L (3.80-5.40) m/uL Hgb 8.0 L (11.4-16.0) gm/dL Hct 25.0 L (34.0-46.0) % RDW 19.2 H (11.5-15.5) % Neutrophils # 9.5 H (1.3-7.7) k/uL BUN (7-17) mg/dL Creatinine (0.52-1.04) mg/dL Glucose (74-99) mg/dL POC Glucose (mg/dL) 145 H 144 H (75-99) mg/dL 07/04/18 Range/Units 05:50 WBC (3.8-10.6) k/uL RBC (3.80-5.40) m/uL Hgb (11.4-16.0) gm/dL Hct (34.0-46.0) % RDW (11.5-15.5) % Neutrophils # (1.3-7.7) k/uL BUN 18 H (7-17) mg/dL Creatinine 0.49 L (0.52-1.04) mg/dL Glucose 113 H (74-99) mg/dL POC Glucose (mg/dL) (75-99) mg/dL Assessment and Plan (1) Arteriosclerosis of coronary artery Current Visit: Yes Status: Acute Code(s): I25.10 - ATHSCL HEART DISEASE OF [place] CORONARY ARTERY W/O ANG PCTRS SNOMED Code(s): 52691060 Plan: Impression: 1. Cardiac debility. 2. Coronary artery disease with history CABG three-vessel and aVR. 3. Overweight. 4. Hypertension. 5. Diabetes. 6. History of stroke. 7. Rheumatoid arthritis. Comes plan: At this time PT ongoing and OT prescribed. Discussed possible inpatient rehab with patient. Her goal however is return to home tomorrow. Apparently staff is aware of this desire as well.
[2018-07-04 11:58] LABS: Glucose,Whole Blood 116 mg/dL (75-99)
[2018-07-04] MEDS ORDERED: LISINOPRIL 5 MG TAB PO SCH (12:00)
--- NOTE | 2018-07-04 12:00 | P.PN ---
Subjective Progress Note Date: 07/04/18 Principal diagnosis: Triple-vessel coronary artery disease, moderate to severe aortic valve stenosis, moderate mitral valve regurgitation, uncontrolled diabetes mellitus type 2 with preoperative hemoglobin A1c 8.3%, hypertension, hyperlipidemia, peripheral vascular disease, previous tobacco dependence, hypothyroid, rheumatoid arthritis, GERD, preoperative urinary tract infection with group B strep. POD #6 double vessel coronary artery bypass grafting using the left internal mammary artery to the left anterior descending coronary artery, reverse greater saphenous vein graft from the aorta to the posterior descending coronary artery. Aortic valve replacement using a 21 mm Inspiris pericardial bioprosthesis, mitral valve repair using a posterior annuloplasty 26 mm AnnuloFlex ring, exclusion of the left atrial appendage with a 35 mm AtriClip, endoscopic harvesting of the left greater saphenous vein, intraoperative transesophageal echocardiogram, epi-aortic scanning, and graft flow measurements using the [employer] system. Postoperative acute blood loss anemia, expected outcome given cardiopulmonary bypass and hemodilution. The patient is currently sitting up in a recliner in no acute distress. States pain is controlled on current medication regimen, denies shortness of breath. Remains in normal sinus rhythm. Hemodynamically stable off dopamine for over 24 hours. Patient is frustrated with being here and is wanting to go home in the next 24 hours. Objective - Vital Signs Vital signs: Vital Signs Temp 98.8 F 07/04/18 00:00 Pulse 84 07/04/18 08:00 Resp 22 07/04/18 08:00 BP 152/71 07/04/18 01:00 Pulse Ox 87 L 07/04/18 08:00 Intake & Output 07/03/18 07/04/18 07/04/18 18:59 06:59 18:59 Intake Total 302.54 276 23 Output Total 322 575 Balance -19.46 -299 23 Weight 91.2 kg Intake: IV 300 276 3 Lactated Ringers 1,000 ml 240 240 @ 20 mls/hr IV .Q24H [facility] Rx#:[id number] Pressure Bag 60 36 3 Intake, IV Titration 2.54 Amount DOPamine DRIP 800 mg In 2.54 Dextrose/Water 1 250ml. bag @ 2 MCG/KG/MIN 3.386 mls/hr IV .Q24H [facility] Rx#: [id number] Albumin 20 Lactated Ringers 1,000 ml 20 @ 20 mls/hr IV .Q24H [facility] Rx#:[id number] Output: Urine 322 575 Other: Voiding Method Indwelling Catheter Indwelling Catheter ABP, PAP, CO, CI - Last Documented Arterial Blood Pressure 175/78 Pulmonary Artery Pressure 28/14 Cardiac Output 5 Cardiac Index 2.5 - Constitutional General appearance: Present: no acute distress, obese - Respiratory Details: Lungs sounds diminished bilaterally. Respirations even, nonlabored. Currently on room air with oxygen saturation 97%. Able to achieve 750 mL on her incentive spirometry. Strong cough. - Cardiovascular Details: S1, S2 present. Regular rate and rhythm, sinus rhythm on telemetry. Sternum stable. A/V epicardial pacemaker wires present, grounded. Palpable peripheral pulses bilaterally. No edema present. No calf pain or tenderness noted. Right internal jugular Cordis present. Heart hugger in place with patient demo nstrating appropriate use. Antiembolism stockings, SCDs present. - Gastrointestinal Gastrointestinal Comment(s): Abdomen soft, nontender, nondistended. Active bowel sounds present 4 quadrants. Positive bowel movement 5/4. Tolerating diet. - Genitourinary Genitourinary Comment(s): Mendoza discontinued yesterday. Patient did void twice last night, 150-225 mL at a time. - Integumentary Integumentary Comment(s): Skin is warm and dry with evidence of good perfusion. Anterior chest incision well approximated and covered with dry intact dressing. Left lower extremity EV H site well approximated. - Neurologic Neurologic: Present: CNII-XII intact - Musculoskeletal Musculoskeletal: Present: generalized weakness, strength equal bilaterally - Psychiatric Psychiatric: Present: A&O x's 3, appropriate affect, intact judgment & insight - Allied health notes Allied health notes reviewed: nursing - Labs CBC & Chem 7: 07/04/18 05:50 07/04/18 05:50 Labs: Abnormal Lab Results - Last 24 Hours (Table) 07/03/18 07/03/18 07/03/18 Range/Units 11:49 16:55 16:56 WBC (3.8-10.6) k/uL RBC (3.80-5.40) m/uL Hgb (11.4-16.0) gm/dL Hct (34.0-46.0) % RDW (11.5-15.5) % Neutrophils # (1.3-7.7) k/uL BUN (7-17) mg/dL Creatinine (0.52-1.04) mg/dL Glucose (74-99) mg/dL POC Glucose (mg/dL) 134 H 182 H 194 H (75-99) mg/dL 07/03/18 07/03/18 07/04/18 Range/Units 21:10 22:18 05:50 WBC 13.3 H (3.8-10.6) k/uL RBC 2.67 L (3.80-5.40) m/uL Hgb 8.0 L (11.4-16.0) gm/dL Hct 25.0 L (34.0-46.0) % RDW 19.2 H (11.5-15.5) % Neutrophils # 9.5 H (1.3-7.7) k/uL BUN (7-17) mg/dL Creatinine (0.52-1.04) mg/dL Glucose (74-99) mg/dL POC Glucose (mg/dL) 145 H 144 H (75-99) mg/dL 07/04/18 Range/Units 05:50 WBC (3.8-10.6) k/uL RBC (3.80-5.40) m/uL Hgb (11.4-16.0) gm/dL Hct (34.0-46.0) % RDW (11.5-15.5) % Neutrophils # (1.3-7.7) k/uL BUN 18 H (7-17) mg/dL Creatinine 0.49 L (0.52-1.04) mg/dL Glucose 113 H (74-99) mg/dL POC Glucose (mg/dL) (75-99) mg/dL - Imaging and Cardiology Chest x-ray: report reviewed, image reviewed Assessment and Plan Assessment: 1. Triple-vessel coronary artery disease, status post coronary artery bypass graft surgery 2. Moderate to severe aortic valve stenosis, status post aortic valve replacement 3. Moderate mitral valve regurgitation, status post mitral valve repair 4. Uncontrolled type 2 diabetes mellitus with preoperative hemoglobin A1c 8.3% 5. Hypertension 6. Hyperlipidemia 7. Peripheral vascular disease 8. Hypothyroidism 9. Previous tobacco dependence with preoperative FEV1 77% of predicted 10. GERD 11. Rheumatoid arthritis 12. Preoperative group B strep urinary tract infection 13. Postoperative acute blood loss anemia, expected Plan: 1. Continue low-dose aspirin, statin, Plavix, lisinopril, beta mirian therapy. Will increase beta mirian therapy as tolerated. Hold parameters placed on bl ood pressure medications as patient appears need a higher pressure for adequate urine output. 2. Will give 20 mg IV Lasix today. 3. Encourage incentive spirometry 10 times every hour while awake. 4. Bronchodilators per pulmonology. 5. Encourage continued smoking cessation. 6. Increase activity, ambulate as tolerated. PT/OT/cardiac rehab following. 7. Will monitor daily labs and x-rays. Electrolyte replacement per protocol. No further transfusions at this time. 8. Pain control with current medication regimen. 9. Insulin management per primary care service. 10. Midline catheter placed, discontinue Cordis 11. GI/DVT prophylaxis. 12. Will place transfers with resulting cardiac stepdown unit. May transfer when bed available. 13. Discharge planning in progress. Dr. Ardon consulted for possibility of inpatient rehab. 14. More recommendations to follow based on patient's clinical course. Time with Patient: Greater than 30
--- NOTE | 2018-07-04 12:31 | P.PN ---
Subjective Progress Note Date: 07/04/18 Principal diagnosis: Status post CABG, postoperative day #6 and aortic valve replacement, mitral valve repair Triple-vessel coronary artery disease, moderate to severe aortic valve stenosis, moderate mitral valve regurgitation, uncontrolled diabetes mellitus type 2 with preoperative hemoglobin A1c 8.3%, hypertension, hyperlipidemia, peripheral vascular disease, previous tobacco dependence, hypothyroid, rheumatoid arthritis, GERD, preoperative urinary tract infection with group B strep. POD #6 double vessel coronary artery bypass grafting using the left internal mammary artery to the left anterior descending coronary artery, reverse greater saphenous vein graft from the aorta to the posterior descending coronary artery. Aortic valve replacement using a 21 mm Inspiris pericardial bioprosthesis, mitral valve repair using a posterior annuloplasty 26 mm AnnuloFlex ring, exclusion of the left atrial appendage with a 35 mm AtriClip, endoscopic harvesting of the left greater saphenous vein, intraoperative transesophageal echocardiogram, epi-aortic scanning, and graft flow measurements using the [employer] system. Patient was evaluated today on 07/04/2018, sitting in a recliner, in no distress, basically asymptomatic. No cough no wheezing no shortness of breath, and no chest pain. Chest x-ray showed mostly some minimal pulmonary vascular congestion. Labs were all reviewed CBC is relatively normal hemoglobin is 8.0 lites are normal renal profile is normal Objective - Vital Signs Vital signs: Vital Signs Temp 98.8 F 07/04/18 00:00 Pulse 83 07/04/18 12:00 Resp 23 07/04/18 12:00 BP 139/80 07/04/18 12:00 Pulse Ox 93 L 07/04/18 12:00 Intake & Output 07/03/18 07/04/18 07/04/18 18:59 06:59 18:59 Intake Total 302.54 276 335 Output Total 322 575 1 Balance -19.46 -299 334 Weight 91.2 kg Intake: IV 300 276 115 Lactated Ringers 1,000 ml 240 240 100 @ 20 mls/hr IV .Q24H [facility] Rx#:[id number] Pressure Bag 60 36 15 Intake, IV Titration 2.54 Amount DOPamine DRIP 800 mg In 2.54 Dextrose/Water 1 250ml. bag @ 2 MCG/KG/MIN 3.386 mls/hr IV .Q24H [facility] Rx#: [id number] Oral 200 Albumin 20 Lactated Ringers 1,000 ml 20 @ 20 mls/hr IV .Q24H [facility] Rx#:[id number] Output: Urine 322 575 Stool 1 Other: Voiding Method Indwelling Catheter Indwelling Catheter # Voids 1 ABP, PAP, CO, CI - Last Documented Arterial Blood Pressure 175/78 Pulmonary Artery Pressure 28/14 Cardiac Output 5 Cardiac Index 2.5 - Exam Physical Exam: Revealed a 72-year-old female in no distress. Very pleasant. Head: Atraumatic, normocephalic. HEENT:[Neck is supple.] [No neck masses.] [No thyromegaly.] [No JVD.] Chest: [Slightly diminished breath sounds at the bases. no crackles, no r honchi, no wheezes.] Achieving 750 ML on incentive spirometry, has a strong cough. Cardiac Exam: [Normal S1 and S2, no S3 gallop, no murmur.] Abdomen: [Soft, nontender, no megaly, no rebound, no guarding, normal bowel sounds.] Extremities: [No clubbing, no edema, no cyanosis.] Neurological Exam: [No focal neurologic deficit.] Alert oriented 3. Psychiatric: Normal mood affect and mental status examination. Lymphatics: No lymphadenopathy. Skin: No rashes - Labs CBC & Chem 7: 07/04/18 05:50 07/04/18 05:50 Labs: Abnormal Lab Results - Last 24 Hours (Table) 07/03/18 07/03/18 07/03/18 Range/Units 16:55 16:56 21:10 WBC (3.8-10.6) k/uL RBC (3.80-5.40) m/uL Hgb (11.4-16.0) gm/dL Hct (34.0-46.0) % RDW (11.5-15.5) % Neutrophils # (1.3-7.7) k/uL BUN (7-17) mg/dL Creatinine (0.52-1.04) mg/dL Glucose (74-99) mg/dL POC Glucose (mg/dL) 182 H 194 H 145 H (75-99) mg/dL 07/03/18 07/04/18 07/04/18 Range/Units 22:18 05:50 05:50 WBC 13.3 H (3.8-10.6) k/uL RBC 2.67 L (3.80-5.40) m/uL Hgb 8.0 L (11.4-16.0) gm/dL Hct 25.0 L (34.0-46.0) % RDW 19.2 H (11.5-15.5) % Neutrophils # 9.5 H (1.3-7.7) k/uL BUN 18 H (7-17) mg/dL Creatinine 0.49 L (0.52-1.04) mg/dL Glucose 113 H (74-99) mg/dL POC Glucose (mg/dL) 144 H (75-99) mg/dL 07/04/18 Range/Units 11:55 WBC (3.8-10.6) k/uL RBC (3.80-5.40) m/uL Hgb (11.4-16.0) gm/dL Hct (34.0-46.0) % RDW (11.5-15.5) % Neutrophils # (1.3-7.7) k/uL BUN (7-17) mg/dL Creatinine (0.52-1.04) mg/dL Glucose (74-99) mg/dL POC Glucose (mg/dL) 116 H (75-99) mg/dL Assessment and Plan Assessment: Impression: 1 status post CABG for triple vessel coronary artery disease, status post aortic valve replacement, status post mitral valve repair, postoperative day #6. 2 multiple comorbidities including type 2 diabetes, hypertension, hyperlipidemia, peripheral vessel occlusive disease, hypothyroidism, tobacco dependence syndrome, rheumatoid arthritis and postoperative acute blood loss anemia, expected. Recommendation: Continue beta blockers, Plavix And aspirin and lisinopril. Continue incentive spirometry Diurese gently as needed on a daily basis Encourage incentive spirometry Continue bronchodilators Increase activity as tolerated, PT OT and cardiac rehab on outpatient basis. Continue insulin for poorly controlled diabetes. Continue GI and DVT prophylaxis Discharge planning to rehab is in progress. We'll continue to follow. Time with Patient: Less than 30
[2018-07-04] MEDS: MULTIVITAMINS, THERA 1 EACH TAB PO SCH (13:50)
[2018-07-04] MEDS ORDERED: DEXTROSE 5% IN WATER 100 ML with AMIODARONE 150 MG IV ONE (14:30)
[2018-07-04 16:53] LABS: Glucose,Whole Blood 250 mg/dL (75-99)
[2018-07-04] MEDS: METOPROLOL TARTRATE 25 MG TAB PO SCH ×2 (17:29→21:42)
--- NOTE | 2018-07-04 19:49 | PN ---
PROGRESS NOTE DATE OF SERVICE: 07/03/2018 PRESENTING COMPLAINT: Coronary artery bypass. INTERVAL HISTORY: I cannot trace my note from yesterday and so am dictating it again. The patient is status post prosthetic aortic valve replacement and mitral valve repair and 2-vessel coronary artery bypass. She is sitting up. Did tolerate some diet. Did walk better. Breathing is much improved. REVIEW OF SYSTEMS: Done for constitutional, cardiovascular, GI, pulmonary; relevant findings as above. CURRENT MEDICATIONS: Reviewed. PHYSICAL EXAMINATION: VITAL SIGNS: Temperature 98.2, pulse 75, respiration 16, blood pressure 107/67, pulse ox 92% on room air. GENERAL APPEARANCE: Sitting on bed, awake. EYES: Pupils equal. Conjunctivae pale. NECK: JVD unable to assess. Mass not palpable. RESPIRATORY: Effort increased. LUNGS: Decreased breath sounds. CARDIOVASCULAR: First and second sounds normal. Minimal edema. ABDOMEN: Soft, nontender. Liver and spleen not palpable. PSYCHIATRY: Alert and oriented x3. Mood and affect normal. INVESTIGATIONS: White count 12.2, hemoglobin 7.3, platelets 191. Potassium 4.1, BUN 19, creatinine 0.47. Accu-Cheks are noted. ASSESSMENT: 1. Coronary artery disease with bypass. 2. Coronary artery disease. 3. Prosthetic aortic valve replacement. 4. Mitral valve repair. 5. Acute severe blood loss anemia, expected from surgery. 6. Diabetes mellitus, type 2, on oral hypoglycemic. 7. Gastroesophageal reflux disease. 8. Hyperlipidemia. 9. Essential hypertension. 10.Rheumatoid arthritis. 11.Hypothyroid. 12.Chronic insomnia. 13.Hiatal hernia. 14.Acute respiratory failure with ventilator support, status post. PLAN: Overall continues to improve. Continue medication and treatment plan. She has been out of bed. Overall doing much better. MMODL / IJN: [id number] /
--- NOTE | 2018-07-04 19:56 | PN ---
PROGRESS NOTE DATE OF SERVICE: 07/04/2018 PRESENTING COMPLAINT: Coronary artery bypass. INTERVAL HISTORY: Patient is status post prosthetic aortic valve replacement with mitral valve repair and 2-vessel coronary artery bypass. Continues to improve. Eating well. Breathing is much improved. Walking well. The patient is in overflow. REVIEW OF SYSTEMS: Done for constitutional, cardiovascular, GI, pulmonary; relevant findings as above. CURRENT MEDICATIONS: Reviewed. PHYSICAL EXAMINATION: VITAL SIGNS: Afebrile. Pulse 83, respiration 23, blood pressure 139/80, pulse ox 93% on room air. GENERAL APPEARANCE: Sitting up. Comfortable. EYES: Pupils equal. Conjunctivae pale. NECK: JVD unable to assess. Mass not palpable. RESPIRATORY: Effort increased. LUNGS: Decreased breath sounds. CARDIOVASCULAR: First and second sounds normal. Minimal edema. ABDOMEN: Soft, non-tender. Liver and spleen not palpable. PSYCHIATRY: Alert and oriented x3. Mood and affect normal. INVESTIGATIONS: White count 13.3, hemoglobin 8, platelets 275. Potassium 4.3, BUN 18, creatinine 0.49. Accu-Cheks 116, 250. ASSESSMENT: 1. Coronary artery bypass and prosthetic aortic valve replacement and mitral valve repair. 2. Coronary artery disease. 3. Acute severe blood loss anemia, expected from surgery. 4. Diabetes mellitus, type 2, on oral hypoglycemic. 5. Gastroesophageal reflux disease. 6. Hyperlipidemia. 7. Essential hypertension. 8. Rheumatoid arthritis. 9. Hypothyroid. 10.Chronic insomnia. 11.Hiatal hernia. 12.Status post ventilator support for acute postoperative respiratory failure. PLAN: Overall doing much better. Ambulating well. Patient is on medical floor overflow to the ICU. Otherwise doing well. MMODL / IJN: [id number] /
[2018-07-04 20:45] LABS: Glucose,Whole Blood 104 mg/dL (75-99)
[2018-07-04] MEDS: SENNOSIDES-DOCUSATE SODIUM 1 EACH TAB PO SCH (21:33)
[2018-07-05] MEDS: HEPARIN SODIUM,PORCINE 5,000 UNIT/ML 1 ML VIAL SQ SCH ×3 (00:41→15:36)
[2018-07-05 06:12] LABS: Anisocytosis Slight; HCT 26.6 % (34.0-46.0); HGB 8.5 gm/dL (11.4-16.0); Hypochromasia Slight; MCH 29.8 pg (25.0-35.0); MCHC 31.9 g/dL (31.0-37.0); MCV 93.5 fL (80.0-100.0); Macrocytosis Slight; Mean Platelet Volume 7.9; Platelet Count 348 k/uL (150-450); RBC 2.84 m/uL (3.80-5.40); RDW 19.4 % (11.5-15.5); WBC 16.3 k/uL (3.8-10.6)
[2018-07-05 06:23] LABS: African American GFR (CKD) >90 (>60 ml/min/1.73 sqM); Anion Gap 9 mmol/L; Blood Urea Nitrogen 14 mg/dL (7-17); Calcium 8.6 mg/dL (8.4-10.2); Carbon Dioxide 26 mmol/L (22-30); Chloride 103 mmol/L (98-107); Glucose 100 mg/dL (74-99); Magnesium 1.7 mg/dL (1.6-2.3); Potassium 4.2 mmol/L (3.5-5.1); Sodium 138 mmol/L (137-145)
[2018-07-05 07:11] LABS: Glucose,Whole Blood 100 mg/dL (75-99)
[2018-07-05] MEDS: INSULIN ASPART (NovoLOG) 100 UNIT/ML VIAL SQ SCH ×4 (07:21→20:30)
[2018-07-05] MEDS: LEVOTHYROXINE 50 MCG TAB PO SCH (07:23)
[2018-07-05] MEDS: MAGNESIUM SULFATE-D5W PMX 1 GM in DEXTROSE/WATER 1 100ML.BAG IVPB SCH ×2 (07:23→09:39)
[2018-07-05] MEDS: METOPROLOL TARTRATE 25 MG TAB PO SCH (07:25)
[2018-07-05] MEDS: PANTOPRAZOLE 40 MG TABLET PO SCH (07:25)
--- NOTE | 2018-07-05 07:34 | P.PN ---
Subjective Progress Note Date: 07/05/18 Principal diagnosis: Status post open heart This is a 72-year-old female patient who sees Dr. Colon in the office as an outpatient who was diagnosed recently with severe triple-vessel coronary artery disease as well as moderate to severe aortic stenosis. She was referred to soha CABG along with aortic valve replacement. The patient underwent coronary arteriogram is grafting with CUMMINGS to LAD, SVG to PDA, as well as aortic valve replacement and mitral valve repair. On follow-up with the patient today, 07/05/2018, the patient is doing better clinically. She continues to be hemodynamic is stable. She is on maximize medical treatment. We'll continue following up with the patient. Objective - Vital Signs Vital signs: Vital Signs Temp 98.2 F 07/05/18 05:00 Pulse 80 07/05/18 07:00 Resp 17 07/05/18 07:00 BP 168/86 07/05/18 07:00 Pulse Ox 93 L 07/05/18 07:00 Intake & Output 07/04/18 07/05/18 07/05/18 18:59 06:59 18:59 Intake Total 725 200 Output Total 1 200 Balance 724 0 Intake: IV 255 200 Amiodarone 100 Lactated Ringers 1,000 ml 140 200 @ 20 mls/hr IV .Q24H [facility] Rx#:[id number] Pressure Bag 15 Oral 450 Albumin 20 Lactated Ringers 1,000 ml 20 @ 20 mls/hr IV .Q24H [facility] Rx#:[id number] Output: Urine 0 200 Stool 1 Other: Voiding Method Indwelling Catheter Bedside Commode # Voids 1 0 # Bowel Movements 1 ABP, PAP, CO, CI - Last Documented Arterial Blood Pressure 175/78 Pulmonary Artery Pressure 28/14 Cardiac Output 5 Cardiac Index 2.5 - Constitutional General appearance: Present: no acute distress - Respiratory Respiratory: bilateral: diminished - Cardiovascular Rhythm: regular Heart sounds: normal: S1, S2 - Labs CBC & Chem 7: 07/05/18 05:51 07/05/18 05:51 Labs: Abnormal Lab Results - Last 24 Hours (Table) 07/04/18 07/04/18 07/04/18 Range/Units 11:55 16:51 20:42 WBC (3.8-10.6) k/uL RBC (3.80-5.40) m/uL Hgb (11.4-16.0) gm/dL Hct (34.0-46.0) % RDW (11.5-15.5) % Glucose (74-99) mg/dL POC Glucose (mg/dL) 116 H 250 H 104 H (75-99) mg/dL 07/05/18 07/05/18 07/05/18 Range/Units 05:51 05:51 07:08 WBC 16.3 H (3.8-10.6) k/uL RBC 2.84 L (3.80-5.40) m/uL Hgb 8.5 L (11.4-16.0) gm/dL Hct 26.6 L (34.0-46.0) % RDW 19.4 H (11.5-15.5) % Glucose 100 H (74-99) mg/dL POC Glucose (mg/dL) 100 H (75-99) mg/dL Assessment and Plan Assessment: Assessment #1 status post CABG 2 along with aortic valve replacement and mitral valve repair #2 hypertension which has improved #3 anemia which is a stable #4 multiple comorbid conditions Plan #1 continue the current medical regimen #2 continue monitoring the hemoglobin and kidney function #3 continue dual antiplatelet therapy #4 follow-up with the patient
[2018-07-05] MEDS ORDERED: METOPROLOL TARTRATE 25 MG TAB PO STA (07:39)
[2018-07-05] MEDS ORDERED: FUROSEMIDE 10 MG/ML 2 ML VIAL IV ONE (07:45)
[2018-07-05] MEDS: ATORVASTATIN 40 MG TAB PO SCH (08:14)
[2018-07-05] MEDS: ASPIRIN 81 MG PO SCH (08:14)
[2018-07-05] MEDS: CLOPIDOGREL 75 MG TAB PO SCH (08:14)
[2018-07-05] MEDS: LISINOPRIL 5 MG TAB PO SCH ×2 (08:15→20:53)
[2018-07-05] MEDS: ACETAMINOPHEN TAB 500 MG TAB PO PRN ×2 (08:22→15:36)
--- NOTE | 2018-07-05 08:23 | XR ---
EXAMINATION TYPE: XR chest 1V portable DATE OF EXAM: 07/05/2018 COMPARISON: 07/04/2018 INDICATION: Postop CABG TECHNIQUE: Single frontal view of the chest is obtained. FINDINGS: The heart size is stable in size. The pulmonary vasculature is normal. Small left pleural effusion is present. Postsurgical changes from prior cardiac valve surgery is evident. IMPRESSION: 1. Small left pleural effusion. 2. Mild cardiomegaly.
--- NOTE | 2018-07-05 10:42 | P.PN ---
Subjective Progress Note Date: 07/05/18 Principal diagnosis: Status post CABG, postoperative day #7 and aortic valve replacement, mitral valve repair Triple-vessel coronary artery disease, moderate to severe aortic valve stenosis, moderate mitral valve regurgitation, uncontrolled diabetes mellitus type 2 with preoperative hemoglobin A1c 8.3%, hypertension, hyperlipidemia, peripheral vascular disease, previous tobacco dependence, hypothyroid, rheumatoid arthritis, GERD, preoperative urinary tract infection with group B strep. POD #6 double vessel coronary artery bypass grafting using the left internal mammary artery to the left anterior descending coronary artery, reverse greater saphenous vein graft from the aorta to the posterior descending coronary artery. Aortic valve replacement using a 21 mm Inspiris pericardial bioprosthesis, mitral valve repair using a posterior annuloplasty 26 mm AnnuloFlex ring, exclusion of the left atrial appendage with a 35 mm AtriClip, endoscopic harvesting of the left greater saphenous vein, intraoperative transesophageal echocardiogram, epi-aortic scanning, and graft flow measurements using the [employer] system. Patient was evaluated today on 07/04/2018, sitting in a recliner, in no distress, basically asymptomatic. No cough no wheezing no shortness of breath, and no chest pain. Chest x-ray showed mostly some minimal pulmonary vascular congestion. Labs were all reviewed CBC is relatively normal hemoglobin is 8.0 lites are normal renal profile is normal Reevaluated today on 07/05/2018, patient is doing well, relatively asymptomatic, denies any cough no wheezing no shortness of breath, no chest pain. She is hemodynamically stable, and labs were reviewed she had normal electrolytes is normal CBC hemoglobin is 8.5. Objective - Vital Signs Vital signs: Vital Signs Temp 98.5 F 07/05/18 08:00 Pulse 74 07/05/18 10:00 Resp 24 07/05/18 10:00 BP 128/80 07/05/18 10:00 Pulse Ox 93 L 07/05/18 10:00 Intake & Output 07/04/18 07/05/18 07/05/18 18:59 06:59 18:59 Intake Total 725 200 200 Output Total 1 200 700 Balance 724 0 -500 Intake: IV 255 200 0 Amiodarone 100 Lactated Ringers 1,000 ml 140 200 0 @ 20 mls/hr IV .Q24H [facility] Rx#:[id number] Pressure Bag 15 Intake, IV Titration 200 Amount Magnesium Sulfate-D5w Pmx 200 1 gm In Dextrose/Water 1 100ml.bag @ 100 mls/hr IVPB Q1H [facility] Rx#: [id number] Oral 450 Albumin 20 Lactated Ringers 1,000 ml 20 @ 20 mls/hr IV .Q24H [facility] Rx#:[id number] Output: Urine 0 200 700 Stool 1 Other: Voiding Method Indwelling Catheter Bedside Commode Bedside Commode # Voids 1 0 250 # Bowel Movements 1 ABP, PAP, CO, CI - Last Documented Arterial Blood Pressure 175/78 Pulmonary Artery Pressure 28/14 Cardiac Output 5 Cardiac Index 2.5 - Exam Physical Exam: Revealed a 72-year-old female in no distress. On room air Head: Atraumatic, normocephalic. HEENT:[Neck is supple.] [No neck masses.] [No thyromegaly.] [No JVD.] Chest: [Clear breath sound bilaterally no crackles or rhonchi or wheezes Cardiac Exam: [Normal S1 and S2, no S3 gallop, no murmur.] Abdomen: [Soft, nontender, no megaly, no rebound, no guarding, normal bowel sounds.] Extremities: [No clubbing, no edema, no cyanosis.] Neurological Exam: [No focal neurologic deficit.] Alert oriented 3. Psychiatric: Normal mood affect and mental status examination. Lymphatics: No lymphadenopathy. Skin: No rashes - Labs CBC & Chem 7: 07/05/18 05:51 07/05/18 05:51 Labs: Abnormal Lab Results - Last 24 Hours (Table) 07/04/18 07/04/18 07/04/18 Range/Units 11:55 16:51 20:42 WBC (3.8-10.6) k/uL RBC (3.80-5.40) m/uL Hgb (11.4-16.0) gm/dL Hct (34.0-46.0) % RDW (11.5-15.5) % Glucose (74-99) mg/dL POC Glucose (mg/dL) 116 H 250 H 104 H (75-99) mg/dL 07/05/18 07/05/18 07/05/18 Range/Units 05:51 05:51 07:08 WBC 16.3 H (3.8-10.6) k/uL RBC 2.84 L (3.80-5.40) m/uL Hgb 8.5 L (11.4-16.0) gm/dL Hct 26.6 L (34.0-46.0) % RDW 19.4 H (11.5-15.5) % Glucose 100 H (74-99) mg/dL POC Glucose (mg/dL) 100 H (75-99) mg/dL Assessment and Plan Assessment: Impression: 1 status post CABG for triple vessel coronary artery disease, status post aortic valve replacement, status post mitral valve repair, postoperative day #7 2 multiple comorbidities including type 2 diabetes, hypertension, hyperlipidemia, peripheral vessel occlusive disease, hypothyroidism, tobacco dependence syndrome, rheumatoid arthritis and postoperative acute blood loss anemia, expected. Recommendation: Continue beta blockers, Plavix And aspirin and lisinopril. Continue incentive spirometry Diurese gently as needed on a daily basis Encourage incentive spirometry Continue bronchodilators Increase activity as tolerated, PT OT and cardiac rehab on outpatient basis. Continue insulin for poorly controlled diabetes. Continue GI and DVT prophylaxis A likely be transferred out of the ICU to a monitor bed on selective today, and working on eventual transfer to rehab. We'll continue to follow. Time with Patient: Less than 30
[2018-07-05] MEDS: FUROSEMIDE 10 MG/ML 2 ML VIAL IV SCH ×2 (11:00→20:52)
[2018-07-05] MEDS: MULTIVITAMINS, THERA 1 EACH TAB PO SCH (12:42)
--- NOTE | 2018-07-05 12:42 | P.PN ---
Subjective Progress Note Date: 07/05/18 Principal diagnosis: Triple-vessel coronary artery disease, moderate to severe aortic valve stenosis, moderate mitral valve regurgitation, uncontrolled diabetes mellitus type 2 with preoperative hemoglobin A1c 8.3%, hypertension, hyperlipidemia, peripheral vascular disease, previous tobacco dependence, hypothyroid, rheumatoid arthritis, GERD, preoperative urinary tract infection with group B strep. POD #7 double vessel coronary artery bypass grafting using the left internal mammary artery to the left anterior descending coronary artery, reverse greater saphenous vein graft from the aorta to the posterior descending coronary artery. Aortic valve replacement using a 21 mm Inspiris pericardial bioprosthesis, mitral valve repair using a posterior annuloplasty 26 mm AnnuloFlex ring, exclusion of the left atrial appendage with a 35 mm AtriClip, endoscopic harvesting of the left greater saphenous vein, intraoperative transesophageal echocardiogram, epi-aortic scanning, and graft flow measurements using the [employer] system. Postoperative acute blood loss anemia, expected outcome given cardiopulmonary bypass and hemodilution. The patient is currently sitting up in a recliner in no acute distress. States pain is controlled on current medication regimen, denies shortness of breath. Remains in normal sinus rhythm. Hemodynamically stable. Patient is frustrated with being here and is wanting to go home in the next 24 hours. Objective - Vital Signs Vital signs: Vital Signs Temp 98.5 F 07/05/18 08:00 Pulse 74 07/05/18 12:19 Resp 22 07/05/18 11:00 BP 117/82 07/05/18 12:19 Pulse Ox 93 L 07/05/18 11:00 Intake & Output 07/04/18 07/05/18 07/05/18 18:59 06:59 18:59 Intake Total 725 200 200 Output Total 1 200 1100 Balance 724 0 -900 Intake: IV 255 200 0 Amiodarone 100 Lactated Ringers 1,000 ml 140 200 0 @ 20 mls/hr IV .Q24H [facility] Rx#:[id number] Pressure Bag 15 Intake, IV Titration 200 Amount Magnesium Sulfate-D5w Pmx 200 1 gm In Dextrose/Water 1 100ml.bag @ 100 mls/hr IVPB Q1H [facility] Rx#: [id number] Oral 450 Albumin 20 Lactated Ringers 1,000 ml 20 @ 20 mls/hr IV .Q24H [facility] Rx#:[id number] Output: Urine 0 200 1100 Stool 1 Other: Voiding Method Indwelling Catheter Bedside Commode Bedside Commode # Voids 1 0 250 # Bowel Movements 1 ABP, PAP, CO, CI - Last Documented Arterial Blood Pressure 175/78 Pulmonary Artery Pressure 28/14 Cardiac Output 5 Cardiac Index 2.5 - Constitutional General appearance: Present: cooperative, no acute distress - Respiratory Details: Lungs sounds diminished bilaterally. Respirations even, nonlabored. Currently on room air with oxygen saturation 96%. Able to achieve 500 mL on her incentive spirometry. Strong cough. - Cardiovascular Details: S1, S2 present. Regular rate and rhythm, sinus rhythm on telemetry. Sternum stable. A/V epicardial pacemaker wires present, grounded. Palpable peripheral pulses bilaterally. No edema present. No calf pain or tenderness noted. Heart hugger in place with patient demonstrating appropriate use. Antiembolism stockings, SCDs present. - Gastrointestinal Gastrointestinal Comment(s): Abdomen soft, nontender, nondistended. Active bowel sounds present 4 quadrants. Positive bowel movement. Tolerating diet. - Genitourinary Genitourinary Comment(s): Continues to void clear, yellow urine. - Integumentary Integumentary Comment(s): Skin is warm and dry with evidence of good perfusion. Anterior chest incision well approximated and covered with dry intact dressing. Left lower extremity EVH site well approximated. - Neurologic Neurologic: Present: CNII-XII intact - Musculoskeletal Musculoskeletal: Present: gait normal, generalized weakness, strength equal bilaterally - Psychiatric Psychiatric: Present: A&O x's 3, appropriate affect, intact judgment & insight - Allied health notes Allied health notes reviewed: nursing - Labs CBC & Chem 7: 07/05/18 05:51 07/05/18 05:51 Labs: Abnormal Lab Results - Last 24 Hours (Table) 07/04/18 07/04/18 07/05/18 Range/Units 16:51 20:42 05:51 WBC 16.3 H (3.8-10.6) k/uL RBC 2.84 L (3.80-5.40) m/uL Hgb 8.5 L (11.4-16.0) gm/dL Hct 26.6 L (34.0-46.0) % RDW 19.4 H (11.5-15.5) % Glucose (74-99) mg/dL POC Glucose (mg/dL) 250 H 104 H (75-99) mg/dL 07/05/18 07/05/18 Range/Units 05:51 07:08 WBC (3.8-10.6) k/uL RBC (3.80-5.40) m/uL Hgb (11.4-16.0) gm/dL Hct (34.0-46.0) % RDW (11.5-15.5) % Glucose 100 H (74-99) mg/dL POC Glucose (mg/dL) 100 H (75-99) mg/dL - Imaging and Cardiology Chest x-ray: report reviewed, image reviewed Assessment and Plan Assessment: 1. Triple-vessel coronary artery disease, status post coronary artery bypass graft surgery 2. Moderate to severe aortic valve stenosis, status post aortic valve replacement 3. Moderate mitral valve regurgitation, status post mitral valve repair 4. Uncontrolled type 2 diabetes mellitus with preoperative hemoglobin A1c 8.3% 5. Hypertension 6. Hyperlipidemia 7. Peripheral vascular disease 8. Hypothyroidism 9. Previous tobacco dependence with preoperative FEV1 77% of predicted 10. GERD 11. Rheumatoid arthritis 12. Preoperative group B strep urinary tract infection 13. Postoperative acute blood loss anemia, expected Plan: 1. Continue low-dose aspirin, statin, Plavix, lisinopril, beta mirian therapy. Will increase beta mirian therapy as tolerated. Lisinopril increased. 2. Will start 20 mg IV Lasix twice daily . 3. Encourage incentive spirometry 10 times every hour while awake. 4. Bronchodilators per pulmonology. 5. Encourage continued smoking cessation. 6. Increase activity, ambulate as tolerated. PT/OT/cardiac rehab following. 7. Will monitor daily labs and x-rays. Electrolyte replacement per protocol. No further transfusions at this time. 8. Pain control with current medication regimen. 9. Insulin management per primary care service. 10. GI/DVT prophylaxis. 11. Transfer orders placed for cardiac stepdown unit. May transfer when bed available. 12. Discharge planning in progress. Dr. Ardon consulted for possibility of inpatient rehab. Anticipate discharge in the next 24-48 hours to home with home care versus inpatient rehab. 13. More recommendations to follow based on patient's clinical course. Time with Patient: Greater than 30
[2018-07-05 12:44] LABS: Glucose,Whole Blood 124 mg/dL (75-99)
[2018-07-05 17:46] LABS: Glucose,Whole Blood 138 mg/dL (75-99)
[2018-07-05 20:31] LABS: Glucose,Whole Blood 108 mg/dL (75-99)
[2018-07-05] MEDS: SENNOSIDES-DOCUSATE SODIUM 1 EACH TAB PO SCH (20:53)
[2018-07-05] MEDS: METOPROLOL TARTRATE 50 MG TAB PO SCH (20:53)
--- NOTE | 2018-07-05 22:40 | PN ---
PROGRESS NOTE DATE OF SERVICE: 07/05/2018. PRESENTING COMPLAINT: Cardiac surgery. INTERVAL HISTORY: Patient is status post prosthetic aortic valve replacement with mitral valve repair and 2-vessel coronary bypass. The patient did get a shower today. Eating well. Walked in the hallway. On room air. Telemetry shows sinus rhythm. is present. REVIEW OF SYSTEMS: Done for constitutional, cardiovascular, GI, pulmonary; relevant findings as above. CURRENT MEDICATIONS: Reviewed. PHYSICAL EXAMINATION: Temperature 98.5, pulse 83, respirations 21, blood pressure 165/101, pulse ox 92 percent on room air. GENERAL APPEARANCE: Lying in bed, awake. EYES: Pupils equal. Conjunctivae pale. NECK: JVD unable to assess. Mass not palpable. Respiratory effort increased. LUNGS: Decreased breath sounds. CARDIOVASCULAR: 1st and 2nd sounds normal. Minimal edema. ABDOMEN: Soft, nontender. Liver and spleen not palpable. PSYCHIATRY: Alert and oriented x3. Mood and affect normal. INVESTIGATIONS: White count 16.3, hemoglobin 8.5, potassium 4.2. BUN and creatinine normal. Accu-Cheks are noted. ASSESSMENT: 1. Coronary bypass with prostate aortic valve replacement and mitral valve repair. 2. Coronary artery disease. 3. Acute severe blood loss anemia, expected from surgery. 4. Diabetes mellitus type 2, on oral hypoglycemic. 5. Gastroesophageal reflux disease. 6. Hyperlipidemia. 7. Essential hypertension. 8. Rheumatoid arthritis. 9. Hypothyroid. 10.Chronic insomnia. 11.Hiatal hernia. 12.Status post ventilator support. PLAN: The patient continues to improve, doing better. Looking at inpatient rehab. PE discussed with the patient and the . The patient may require more aggressive rehab. We will also get opinion and consultation from Dr. Ardon. MMODL / IJN: [id number] /
[2018-07-06] MEDS: HEPARIN SODIUM,PORCINE 5,000 UNIT/ML 1 ML VIAL SQ SCH ×2 (00:53→08:12)
[2018-07-06 02:09] LABS: Glucose,Whole Blood 121 mg/dL (75-99)
[2018-07-06 05:54] LABS: Anisocytosis Slight; HCT 28.3 % (34.0-46.0); Hypochromasia Slight; MCHC 31.9 g/dL (31.0-37.0); MCV 94.3 fL (80.0-100.0); Macrocytosis Slight; Mean Platelet Volume 7.7; Platelet Count 396 k/uL (150-450); RDW 19.8 % (11.5-15.5); WBC 17.7 k/uL (3.8-10.6)
[2018-07-06 06:03] LABS: African American GFR (CKD) >90 (>60 ml/min/1.73 sqM); Anion Gap 9 mmol/L; Blood Urea Nitrogen 15 mg/dL (7-17); Calcium 8.5 mg/dL (8.4-10.2); Carbon Dioxide 26 mmol/L (22-30); Chloride 104 mmol/L (98-107); Glucose 129 mg/dL (74-99); Magnesium 1.7 mg/dL (1.6-2.3); Potassium 4.2 mmol/L (3.5-5.1); Sodium 139 mmol/L (137-145)
[2018-07-06] MEDS: INSULIN ASPART (NovoLOG) 100 UNIT/ML VIAL SQ SCH ×2 (06:09→12:34)
[2018-07-06] MEDS: LEVOTHYROXINE 50 MCG TAB PO SCH (06:10)
[2018-07-06] MEDS: PANTOPRAZOLE 40 MG TABLET PO SCH (06:10)
[2018-07-06 06:13] LABS: Glucose,Whole Blood 126 mg/dL (75-99)
[2018-07-06] MEDS: MAGNESIUM SULFATE-D5W PMX 1 GM in DEXTROSE/WATER 1 100ML.BAG IVPB SCH ×2 (06:45→08:12)
--- NOTE | 2018-07-06 07:35 | XR ---
EXAMINATION TYPE: XR chest 2V DATE OF EXAM: 07/06/2018 COMPARISON: 07/05/2018 HISTORY: 72 year-old female post cardiac surgery TECHNIQUE: PA and lateral views FINDINGS: Median sternotomy wires are present. Prosthetic aortic valve and post-CABG clips. Heart upper limits of normal size. Low lung volumes with crowded vascular markings. Small left pleural effusion with pat wilma left basilar and retrocardiac density persists. IMPRESSION: Hypoventilatory changes with continued small left pleural effusion and left basilar atelectasis and/o r consolidation.
[2018-07-06] MEDS: LISINOPRIL 5 MG TAB PO SCH (08:12)
[2018-07-06] MEDS: FUROSEMIDE 10 MG/ML 2 ML VIAL IV SCH (08:12)
[2018-07-06] MEDS: CLOPIDOGREL 75 MG TAB PO SCH (08:12)
[2018-07-06] MEDS: ATORVASTATIN 40 MG TAB PO SCH (08:12)
[2018-07-06] MEDS: ASPIRIN 81 MG PO SCH (08:12)
[2018-07-06] MEDS: METOPROLOL TARTRATE 50 MG TAB PO SCH (08:12)
--- NOTE | 2018-07-06 08:12 | P.PN ---
Subjective Progress Note Date: 07/06/18 Principal diagnosis: Triple-vessel coronary artery disease, moderate to severe aortic valve stenosis, moderate mitral valve regurgitation, history of diabetes mellitus type 2 with a preoperative hemoglobin A1c of 8.3%, hypertension, hyperlipidemia, peripheral vascular disease, history of nicotine dependence in remission smoking around 17 years ago, rheumatoid arthritis, thyroid disorder,gastroesophageal reflux disease and preoperative urinary tract infection with group B strep. POD #8 double vessel coronary artery bypass grafting using the left internal mammary artery to the left anterior descending coronary artery, a reverse greater saphenous vein graft from aorta to the posterior descending coronary artery. Aortic valve replacement using a 21 mm Inspires pericardial bioprosthesis, mitral valve repair using a posterior annuloplasty 26 mm AnnuloFlex ring, exclusion of the left atrial appendage with a 35 mm Atriclip, endoscopic harvesting of the left greater saphenous vein, intraoperative transesophageal echocardiogram, epi-aortic scanning and graft flow measurements using the [facility] system. Postoperative acute blood loss anemia, an expected outcome given cardiopulmonary bypass and hemodilution. Preoperative UTI with urine culture showing strep agalactiae group B, treated preoperatively with Keflex. The patient is currently sitting up to the bedside chair. She is in no acute distress. Tolerating her breakfast. Denies any complaints of pain or shortness of breath. Remote telemetry showing normal sinus rhythm heart rate 83. She remains hemodynamically stable and afebrile. The patient has been ambulating in the hallway with minimal assistance and continues to work with physical and occupational therapy. She is anxious to be discharged home. Magnesium is being replaced this morning per protocol. She reports that she had a bowel movement this morning. Objective - Vital Signs Vital signs: Vital Signs Temp 97.9 F 07/06/18 04:00 Pulse 70 07/06/18 04:00 Resp 18 07/06/18 04:00 BP 139/69 07/06/18 04:00 Pulse Ox 95 07/06/18 04:00 Intake & Output 07/05/18 07/06/18 07/06/18 18:59 06:59 18:59 Intake Total 200 200 Output Total 1601 750 Balance -1401 -550 Weight 85.3 kg Intake: IV 0 0 Amiodarone 0 Lactated Ringers 1,000 ml 0 @ 20 mls/hr IV .Q24H [facility] Rx#:[id number] Intake, IV Titration 200 Amount Magnesium Sulfate-D5w Pmx 200 1 gm In Dextrose/Water 1 100ml.bag @ 100 mls/hr IVPB Q1H [facility] Rx#: [id number] Oral 200 Output: Urine 1600 750 Stool 1 Other: Voiding Method Bedside Commode Toilet # Voids 250 1 # Bowel Movements 1 ABP, PAP, CO, CI - Last Documented Arterial Blood Pressure 175/78 Pulmonary Artery Pressure 28/14 Cardiac Output 5 Cardiac Index 2.5 - Constitutional General appearance: Present: cooperative, no acute distress, obese - Respiratory Details: Lungs sounds essentially clear to her bilateral upper lobes, diminished bilateral bases. Respirations are symmetrical and nonlabored. Oxygen saturation are 95% on room air. Achieving 750 mL on her incentive spirometry. - Cardiovascular Details: Regular rhythm and rate. S1 and S2 present, negative for S3, gallop or murmur. Sternum is stable. Knee-high PAYAL hose and sequential compression devices in place to bilateral lower extremities. Atrial and ventricular epicardial pacemaker wires in place and grounded. Remote telemetry showing normal sinus rhythm heart rate 83. Heart hugger is in place and she is demonstrating appropriate use. - Gastrointestinal Gastrointestinal Comment(s): Abdomen is soft, nontender and nondistended. Active bowel sounds to all 4 abdominal quadrants. Tolerating oral intake. Bowel movement this a.m. - Genitourinary Genitourinary Comment(s): Voiding clear yellow urine. - Integumentary Integumentary Comment(s): Skin is warm and dry. No clubbing or cyanosis is present. Midline sternal incision is clean, dry and approximated. Dressing is clean, dry and in place. Left lower extremity EVH site clean, dry and approximated. No drainage or redness is present. - Neurologic Neurologic: Present: CNII-XII intact - Musculoskeletal Musculoskeletal: Present: gait normal, generalized weakness, strength equal bilaterally - Psychiatric Psychiatric: Present: A&O x's 3, appropriate affect, intact judgment & insight - Allied health notes Allied health notes reviewed: nursing - Labs CBC & Chem 7: 07/06/18 05:38 07/06/18 05:38 Labs: Abnormal Lab Results - Last 24 Hours (Table) 07/05/18 07/05/18 07/05/18 Range/Units 12:40 17:15 20:29 WBC (3.8-10.6) k/uL RBC (3.80-5.40) m/uL Hgb (11.4-16.0) gm/dL Hct (34.0-46.0) % RDW (11.5-15.5) % Creatinine (0.52-1.04) mg/dL Glucose (74-99) mg/dL POC Glucose (mg/dL) 124 H 138 H 108 H (75-99) mg/dL 07/06/18 07/06/18 07/06/18 Range/Units 02:07 05:38 05:38 WBC 17.7 H (3.8-10.6) k/uL RBC 3.00 L (3.80-5.40) m/uL Hgb 9.0 L (11.4-16.0) gm/dL Hct 28.3 L (34.0-46.0) % RDW 19.8 H (11.5-15.5) % Creatinine 0.48 L (0.52-1.04) mg/dL Glucose 129 H (74-99) mg/dL POC Glucose (mg/dL) 121 H (75-99) mg/dL 07/06/18 Range/Units 06:08 WBC (3.8-10.6) k/uL RBC (3.80-5.40) m/uL Hgb (11.4-16.0) gm/dL Hct (34.0-46.0) % RDW (11.5-15.5) % Creatinine (0.52-1.04) mg/dL Glucose (74-99) mg/dL POC Glucose (mg/dL) 126 H (75-99) mg/dL - Imaging and Cardiology Chest x-ray: report reviewed, image reviewed Assessment and Plan Assessment: 1. Triple-vessel coronary artery disease status post coronary artery bypass grafting surgery 2. Moderate to severe aortic valve stenosis status post aortic valve replacement using a 21 mm Inspris bioprosthetic valve 3. Moderate mitral valve regurgitation, status post mitral valve repair using a 26 millimeter AnnuloFlex ring 4. Diabetes milliliters type 2 with a preoperative hemoglobin A1c of 8.3% 5. Hypertension 6. Hyperlipidemia 7. History of Peripheral vascular disease 8. Hypothyroidism 9. History of nicotine dependence in remission quit smoking about 17 years ago 10. Gastroesophageal reflux disease 11. History of rheumatoid arthritis 12. Postoperative acute blood loss anemia, an expected outcome given cardiopulmonary bypass and hemodilution 13. Preoperative urinary tract infection, treated Plan: 1. Continue low-dose aspirin statin, plavix, TOREY inhibitor and beta mirian. Metoprolol tartrate was increased to 50 mg twice a day yesterday. 2. Continue Lasix 20 mg IV twice a day. 3. Encourage use of her incentive spirometry 10 times every hour while awake. 4. Increase activity. PT/OT/cardiac rehab following. 5. Will monitor daily labs and chest x-rays. Electrolyte replacement per protocol. 6. Bronchodilators management per pulmonology. 7. Pain control with current medication regimen. 8. Insulin management per primary care service. 9. Remove atrial and ventricular epicardial pacemaker wires today, bed rest for 1 hour post wire removal. 10. GI/DVT prophylaxis. 11. Continue to encourage and discussed the importance of smoking cessation. 12. Discharge planning in place and is a discharge to inpatient rehab within the next 24 hours. 13. More recommendations to follow based on patient's clinical course. Time with Patient: Greater than 30
[2018-07-06] MEDS: ACETAMINOPHEN TAB 500 MG TAB PO PRN (08:17)
[2018-07-06 08:44] VITALS: RESP 20; TEMP 98.5
[2018-07-06] MEDS ORDERED: MAGNESIUM SULFATE-D5W PMX 1 GM in DEXTROSE/WATER 1 100ML.BAG IVPB SCH (09:30)
--- NOTE | 2018-07-06 10:55 | P.PN ---
Subjective Progress Note Date: 07/06/18 Principal diagnosis: Status post open heart This is a 72-year-old female patient who sees Dr. Colon in the office as an outpatient who was diagnosed recently with severe triple-vessel coronary artery disease as well as moderate to severe aortic stenosis. She was referred to [facility] CABG along with aortic valve replacement. The patient underwent coronary arteriogram is grafting with CUMMINGS to LAD, SVG to PDA, as well as aortic valve replacement and mitral valve repair. On follow-up with the patient today, 07/06/2018, the patient is doing better clinically. She continues to be hemodynamic is stable. She is on maximize medical treatment. We'll continue following up with the patient. The patient is going to be discharged home in the next 24 hours. Objective - Vital Signs Vital signs: Vital Signs Temp 98.5 F 07/06/18 08:00 Pulse 84 07/06/18 08:00 Resp 20 07/06/18 08:00 BP 117/56 07/06/18 08:00 Pulse Ox 93 L 07/06/18 08:00 Intake & Output 07/05/18 07/06/18 07/06/18 18:59 06:59 18:59 Intake Total 200 200 Output Total 1601 750 Balance -1401 -550 Weight 85.3 kg Intake: IV 0 0 Amiodarone 0 Lactated Ringers 1,000 ml 0 @ 20 mls/hr IV .Q24H [facility] Rx#:[id number] Intake, IV Titration 200 Amount Magnesium Sulfate-D5w Pmx 200 1 gm In Dextrose/Water 1 100ml.bag @ 100 mls/hr IVPB Q1H [facility] Rx#: [id number] Oral 200 Output: Urine 1600 750 Stool 1 Other: Voiding Method Bedside Commode Toilet # Voids 250 1 # Bowel Movements 1 ABP, PAP, CO, CI - Last Documented Arterial Blood Pressure 175/78 Pulmonary Artery Pressure 28/14 Cardiac Output 5 Cardiac Index 2.5 - Constitutional General appearance: Present: no acute distress - Respiratory Respiratory: bilateral: diminished - Cardiovascular Rhythm: regular Heart sounds: normal: S1, S2 - Labs CBC & Chem 7: 07/06/18 05:38 07/06/18 05:38 Labs: Abnormal Lab Results - Last 24 Hours (Table) 07/05/18 07/05/18 07/05/18 Range/Units 12:40 17:15 20:29 WBC (3.8-10.6) k/uL RBC (3.80-5.40) m/uL Hgb (11.4-16.0) gm/dL Hct (34.0-46.0) % RDW (11.5-15.5) % Creatinine (0.52-1.04) mg/dL Glucose (74-99) mg/dL POC Glucose (mg/dL) 124 H 138 H 108 H (75-99) mg/dL 07/06/18 07/06/18 07/06/18 Range/Units 02:07 05:38 05:38 WBC 17.7 H (3.8-10.6) k/uL RBC 3.00 L (3.80-5.40) m/uL Hgb 9.0 L (11.4-16.0) gm/dL Hct 28.3 L (34.0-46.0) % RDW 19.8 H (11.5-15.5) % Creatinine 0.48 L (0.52-1.04) mg/dL Glucose 129 H (74-99) mg/dL POC Glucose (mg/dL) 121 H (75-99) mg/dL 07/06/18 Range/Units 06:08 WBC (3.8-10.6) k/uL RBC (3.80-5.40) m/uL Hgb (11.4-16.0) gm/dL Hct (34.0-46.0) % RDW (11.5-15.5) % Creatinine (0.52-1.04) mg/dL Glucose (74-99) mg/dL POC Glucose (mg/dL) 126 H (75-99) mg/dL Assessment and Plan Assessment: Assessment #1 status post CABG 2 along with aortic valve replacement and mitral valve repair #2 hypertension which has improved #3 anemia which is a stable #4 multiple comorbid conditions Plan #1 continue the current medical regimen #2 continue monitoring the hemoglobin and kidney function #3 continue dual antiplatelet therapy #4 possible discharge in the next 24 hours
[2018-07-06 11:26] VITALS: BMI 30.3
[2018-07-06 12:19] LABS: Glucose,Whole Blood 134 mg/dL (75-99)
[2018-07-06] MEDS: MULTIVITAMINS, THERA 1 EACH TAB PO SCH (12:34)
--- NOTE | 2018-07-06 13:00 | P.DS ---
Providers Date of admission: 06/28/18 05:30 Expected date of discharge: 07/06/18 Attending physician: Christina Younger Consults: 06/28/18 17:27 Consult Physician Routine Consulting Provider: Alireza Carballo Consult Reason/Comments: Sliver Handler Consult: post cardiac surgery Do you want consulting provider notified?: Yes Consult Physician Routine Consulting Provider: Medardo Mendoza Consult Reason/Comments: Liyah chatterjee patient Do you want consulting provider notified?: Yes Consult Physician Routine Consulting Provider: Kellee Colon Consult Reason/Comments: Kitchen Stewardess Consult: post cardiac surgery Do you want consulting provider notified?: Yes 07/04/18 08:07 Consult Physician Routine Consulting Provider: Samir Ardon Consult Reason/Comments: inpatient rehab Do you want consulting provider notified?: Yes 07/05/18 15:06 Consult Physician Routine Consulting Provider: Samir Ardon Consult Reason/Comments: physical therapy/post CABG/ decreased strength Do you want consulting provider notified?: Yes Primary care physician: Tim Martin Hospital Course: FINAL DIAGNOSIS: 1. Triple-vessel coronary artery disease 2. Moderate to severe aortic valve stenosis 3. Moderate mitral valve regurgitation 4. Uncontrolled diabetes mellitus type 2 with preoperative hemoglobin A1c 8.3% 5. Hypertension 6. Hyperlipidemia 7. Peripheral vascular disease 8. Previous tobacco dependence with preoperative FEV1 77% of predicted 9. Hypothyroid 10. Rheumatoid arthritis 11. GERD 12. Preoperative urinary tract infection with group B strep 13. Postoperative acute blood loss anemia, expected PRINCIPAL PROCEDURE: 1. Double vessel coronary artery bypass grafting using the left internal mammary artery to the left anterior descending coronary artery, reverse greater saphenous vein graft from the aorta to the posterior descending coronary artery 2. Aortic valve replacement using a 21 mm Inspiris pericardial bioprosthesis 3. Mitral valve repair using a posterior annuloplasty 26 mm AnnuloFlex ring 4. Exclusion of the left atrial appendage with a 35 mm AtriClip 5. Endoscopic harvesting of the left greater saphenous vein 6. Intraoperative transesophageal echocardiogram 7. Epi-aortic scanning 8. Graft flow measurements using the [employer] system HISTORY OF PRESENT ILLNESS: This is a 72-year-old active female patient who follows on an outpatient basis with Dr. Anna Martin. She had complaints of worsening dyspnea on exertion and followed with Dr. Colon from [facility]. Workup included cardiac catheterization, 2-D echo, and ABBIE that showed evidence of advanced coronary artery disease as well as moderate to severe aortic valve stenosis and moderate mitral valve regurgitation. She denied any other symptoms. The patient was referred to Dr. Younger from cardiothoracic surgery. She was recommended to undergo coronary artery bypass, aortic valve replacement, and mitral valve repair. The usual perioperative course was discussed in detail with the patient and her family, all risks and benefits were explained, all questions were answered, and consent was obtained to proceed with surgery. Surgery date was scheduled and patient was asked to obtain dental clearance. HOSPITAL COURSE: The patient was brought to the hospital on 06/28/2018, taken to the preoperative area, prepared in the usual fashion, and subsequently taken to the operating room where Dr. Younger performed double vessel coronary artery bypass grafting using the left internal mammary artery to the left anterior descending coronary artery, reverse greater saphenous vein graft from the aorta to the posterior descending coronary artery, aortic valve replacement using a 21 mm Inspiris pericardial bioprosthesis, mitral valve repair using a posterior annuloplasty 26 mm AnnuloFlex ring, exclusion of the left atrial appendage with a 35 mm AtriClip, endoscopic harvesting of the left greater saphenous vein, intraoperative transesophageal echocardiogram, epi-aortic scanning, and graft flow measurements using the [facility] system. Upon completion of surgery the patient was transferred to the cardiovascular intensive care unit where she was recovered, monitored hemodynamically, and where she progressed to cardiac rehabilitation phase 1. She did experience acute blood loss anemia requiring blood transfusion. She was extubated, all lines, tubes, and drips were discontinued when appropriate, and she was transferred to 3 S. cardiac stepdown unit for further monitoring and rehabilitation. Her oxygen was titrated down, she continued to work with physical and occupational therapy, she was tolerating oral diet, her pain was controlled, and she was ready to be discharged to [facility] inpatient rehab on postoperative day #8. She received written and verbal instruction regarding her medications, activity restrictions, signs and symptoms requiring physician notification, and follow-up appointments. COMPLICATIONS: The patient experienced postoperative complications of acute blood loss anemia requiring transfusion. Patient Condition at Discharge: Stable Plan - Discharge Summary Discharge Rx Participant: Yes New Discharge Prescriptions: New Aspirin 81 mg PO DAILY chew Benzocaine/Menthol Lozeng [Cepacol lozenge] 1 each MUCOUS MEM Q2H PRN lozenge PRN Reason: Sore Throat Ipratropium-Albuterol Nebulize [Duoneb 0.5 mg-3 mg/3 ml Soln] 3 ml INHALATION RT-Q2H PRN ampul.neb PRN Reason: Shortness Of Breath Or Wheezing Heparin Sodium,Porcine [Heparin Sodium] 5,000 unit SQ Q8HR vial Furosemide [Lasix] 40 mg PO DAILY 7 Days tablet Metoprolol Tartrate [Lopressor] 50 mg PO BID tab Magnesium Oxide [Mag-Ox] 400 mg PO 1200 tab Magnesium Hydroxide [Milk of Magnesia Concentrate] 2,400 mg PO BID PRN ml PRN Reason: Constipation INSULIN ASPART (NovoLOG) [NovoLOG (formulary)] 0 unit SQ ACHS vial Clopidogrel [Plavix] 75 mg PO DAILY tab Pantoprazole [Protonix] 40 mg PO AC-BRKFST tablet.dr Metz-Docusate Sodium [Senokot-S] 2 each PO HS tab Acetaminophen Tab [Tylenol] 1,000 mg PO Q6HR PRN tab PRN Reason: Fever and/ or MILD Pain Lisinopril [Zestril] 5 mg PO BID tab Continue Levothyroxine Sodium [Synthroid] 50 mcg PO QAM Multivitamins, Thera [Multivitamin (formulary)] 1 tab PO DAILY Atorvastatin [Lipitor] 40 mg PO HS Discontinued Insulin Degludec [Tresiba Flextouch U-100] 45 unit SQ HS Enalapril [Vasotec] 5 mg PO DAILY@1200 Docusate [Colace] 100 mg PO DAILY PRN PRN Reason: Constipation Dulaglutide [Trulicity] 1.5 mg SQ MO Mupirocin 2% Oint [Bactroban 2% Oint] 1 applic NASAL BID Cephalexin [Keflex] 500 mg PO Q6HR Discharge Medication List Levothyroxine Sodium [Synthroid] 50 mcg PO QAM 10/19/16 [History] Multivitamins, Thera [Multivitamin (formulary)] 1 tab PO DAILY 01/01/18 [History] Atorvastatin [Lipitor] 40 mg PO HS 03/18/18 [History] Acetaminophen Tab [Tylenol] 1,000 mg PO Q6HR PRN tab 07/06/18 [Rx] Aspirin 81 mg PO DAILY chew 07/06/18 [Rx] Benzocaine/Menthol Lozeng [Cepacol lozenge] 1 each MUCOUS MEM Q2H PRN lozenge 07/06/18 [Rx] Clopidogrel [Plavix] 75 mg PO DAILY tab 07/06/18 [Rx] Furosemide [Lasix] 40 mg PO DAILY 7 Days tablet 07/06/18 [Rx] Heparin Sodium,Porcine [Heparin Sodium] 5,000 unit SQ Q8HR vial 07/06/18 [Rx] INSULIN ASPART (NovoLOG) [NovoLOG (formulary)] 0 unit SQ ACHS vial 07/06/18 [Rx] Ipratropium-Albuterol Nebulize [Duoneb 0.5 mg-3 mg/3 ml Soln] 3 ml INHALATION RT-Q2H PRN ampul.neb 07/06/18 [Rx] Lisinopril [Zestril] 5 mg PO BID tab 07/06/18 [Rx] Magnesium Hydroxide [Milk of Magnesia Concentrate] 2,400 mg PO BID PRN ml 07/06/18 [Rx] Magnesium Oxide [Mag-Ox] 400 mg PO 1200 tab 07/06/18 [Rx] Metoprolol Tartrate [Lopressor] 50 mg PO BID tab 07/06/18 [Rx] Pantoprazole [Protonix] 40 mg PO AC-BRKFST tablet. 07/06/18 [Rx] Sennosides-Docusate Sodium [Senokot-S] 2 each PO HS tab 07/06/18 [Rx] Follow up Appointment(s)/Referral(s): Mike Bowen MD [STAFF PHYSICIAN] - 1 Week (please make appointment upon discharge from [facility]) Kellee Colon MD [STAFF PHYSICIAN] - 1 Week (please make appointment upon dis charge from [facility]) Christina Younger MD [STAFF PHYSICIAN] - 08/05/18 10:00 am Tim Martin DO [Primary Care Provider] - 1 Week (please make appointment upon discharge from [facility]) Ambulatory/Diagnostic Orders: Complete Blood Count w/diff [LAB.AMB] Time Frame: 3 Days, Location: None Selected Comprehensive Metabolic Panel [LAB.AMB] Time Frame: 3 Days, Location: None Selected Activity/Diet/Wound Care/Special Instructions: [facility] AT [facility]: Dr. Colon for cardiology Dr. Bowen for pulmonology DISCHARGE INSTRUCTIONS: 1. No driving for 4 weeks, or until physician gives their ok. 2. The patient should sleep in their own bed, no medical bed needed. 3. Stairs are not an issue. If the bedroom is upstairs, it is advised that the patient go up at night and down in the morning for the first week. Go slowly, using handrail and take 1 step at a time. 4. PAYAL hose are to be worn for 30 days or until physician discontinues. 5. Heart hugger is to be worn 100% of the time until physician discontinues.(except when showering) 6. No lifting, pushing, or pulling more than 10 pounds for 12 weeks. The physician will advise of any restriction changes. 7. The patient is expected to continue the prescribed walking program. 8. Continue pain control per as needed orders. 9. Continue with incentive spirometry and splinting/heart hugger until otherwise directed by the physician. 10. Must shower daily using liquid antibacterial soap and a separate white washcloth for each individual incision. 11. Routine sternal incision care. No powders, lotions, ointments on incisions. 12. Please call surgeon/ELECTRON GUN INSPECTOR for temp greater than 101 F or purulent drainage from incisions. 13. A Red armband has been placed on the patient. It should be worn for 30 days post surgery and will be removed by the cardiac surgeons. If an ER visit is necessary, please make sure the number on the Red armband is called. INPATIENT REHAB/HOME HEALTH SERVICES TO PROVIDE: RN SKILLED HOME CARE SERVICES FOR POST-OP SURGICAL PATIENTS WITH THE FOLLOWING: Coronary Artery Bypass Surgery (CABG), Mitral Valve Replacement/Repair ( MVR), Aortic Valve Replacement/Repair (AVR) RN TO CONTINUE EDUCATION FROM ``ROAD TO A HEALTH HEART PATIENT EDUCATION MANUAL (GIVEN TO PATIENT IN THE HOSPITAL) MEDICATION RECONCILIATION WITH EDUCATION NEEDED ON FIRST HOME VISIT EMPHASIZE IMPORTANCE OF WEARING BREAST SUPPORT/HEART HUGGER ENCOURAGE USE OF INCENTIVE SPIROMETER 10 X EVERY HOUR WHILE AWAKE ENCOURAGE UTILIZATION OF LOWER EXTREMITY COMPRESSION STOCKINGS/PAYAL HOSE and ELEVATE LEGS ABOVE LEVEL OF HEART WHILE AT REST. ENCOURAGE AMBULATION 3-5x/day INCREASING TOLERATES, WHILE AVOID EXTREMES IN TEMPERATURE FREQUENCY: RN TO OPEN THE PATIENT WITHIN 24 HOURS OF DISCHARGE FROM THE INPATIENT REHAB WITH TELEHEALTH INSTALLED AT SOC, RN TO VISIT 2-3 X A WEEK FOR 4 WEEKS ESTABLISHED BY PATIENT NEEDS. LABORATORY: CBC, CMP TO BE DRAWN ON THE THIRD DAY AT REHAB, THEN PER PROTOCOL, (RAN STAT) FAX RESULTS TO [phone]. TELEHEALTH PARAMETERS: WEIGHT: NOTIFY MD OF WEIGHT GAIN OF 2 LBS IN 24 HOURS OR 5 LBS IN ONE WEEK HR: NOTIFY MD OF HR <55 BPM OR HR>100 BPM BP: NOTIFY MD IF BP <90/55 OR BP>140/100 O2 SAT: NOTIFY MD IF PO2<93% ON ROOM AIR SEND TELEHEALTH REPORT TO PLEATING MACHINE OPERATOR AND CARDIOVASCULAR SURGEON THE FIRST WEEK OF CARE AND THEN BI-WEEKLY. PLEASE ADDITIONALLY COMMUNICATE ANY ABNORMALS AND NEW FINDINGS TO THE SURGEONS OFFICE. Discharge Disposition: DC/TRNS INTERMEDIATE CARE FAC
--- NOTE | 2018-07-06 14:11 | P.PN ---
Subjective Progress Note Date: 07/06/18 Principal diagnosis: Coronary artery disease and patient is status post two-vessel bypass surgery postop day 2, moderate to severe aortic stenosis status post aortic valve replacement, moderate mitral regurgitation status post mitral valve repair This is 72-year-old white female patient with the past medical history of coronary artery disease with aortic valve stenosis, and mitral valve regurgitation, who has been complaining of worsening dyspnea on exertion. Cardiac catheterization, echocardiogram, and transesophageal echocardiogram revealed advanced coronary artery disease and moderate to severe aortic valve stenosis and moderate mitral valve regurgitation. Other medical history includes diabetes mellitus, hypertension, hyperlipidemia, peripheral vascular disease, previous history of CVA/TIA, hypothyroidism and previous history of nicotine dependence. Preop PFT showed a FEV1 of 77% of predicted and mild diffusion abnormalities. 2-D echo and ABBIE showed preserved systolic function with moderate hypertrophy. Patient was referred to cardiothoracic surgery for surgical intervention, and on all 06/28/2018 patient underwent two-vessel coronary artery bypass grafting, with the CUMMINGS to LAD, and the SVG to the PDA, aortic valve replacement with a bioprosthetic valve, and mitral valve repair, and left atrial appendage exclusion. Patient is seen in the postoperative period in the intensive care unit, she is sedated, intubated on mechanical ventilator, and current vent settings are assist-control mode of ventilation with a rate of 12, tidal volume 400, FiO2 of 100%, and PEEP of 5, postop blood gases were obtained, and showed pO2 of 225, pCO2 of 46, and pH of 7.33. In the rate was increased to 14, and FiO2 was cut down to 50%. IVs include lactated Ringer's at rate of 50, Primacor at 0.3 mics per kilo per minute, levo fed is at 3.8 mics per minute, nitroglycerin is at 5 mics per kilo per minute, insulin and Diprivan drip. Postop blood work showed a white blood cell count of 14.4, hemoglobin of 8.1, sodium of 136, potassium is 5.1, chloride is 109, BUN of 9, creatinine is 0.36. Patient was transfused with 2 units of packed red blood cells, 2 units of fresh frozen plasma, 2 units of platelets. Patient has diminished all chest tubes, and left pleural chest tube, with moderate amount of sanguinous output, patient is hemodynamically stable, she is being paced via atrial epicardial wires at a rate of 80. Sternal incision is clean dry and intact, with a surgical dressing. Mendoza catheter is in place, and is nonoliguric. On 06/30/2018 patient seen in the intensive care in follow-up. She is awake and alert, the patient is having moderate amount of discomfort in the left chest. Currently on 4 L of oxygen, sats at 99%, patient is afebrile, hemodynamically patient is stable, afebrile. Patient remains on a small amount of Primacor and 0.2 mics per kilo per minute, lactated ringer's at 30 mL per hour, levo fed has been weaned off, insulin drip is at 6.5 units per hour. Patient is in sinus rhythm, with controlled rate, lung sounds are diminished, patient's incentive spirometry effort is suboptimal, only 500 mL. Left pleural chest tube remains in place, with 470 mL of serosanguineous output in last 24 hours, mediastinal chest tube with 180 mL of serosanguineous output the last 24 hours, and patient is anticipated to have her mediastinal chest tube removed today by cardiothoracic surgery. Today's chest x-ray has been reviewed with Dr. Carballo, shows persistent trace pleural effusions and stable left chest tube in place without residual pneumothorax. Patient removed her Whipple-Nata catheter inadvertently last night. Today's labs have been reviewed, and showed a white blood cell, 14.7, hemoglobin of 7.5, and are is 1.0, sodium is 137, potassium is 4.3, chloride is 108, BUN of 17 creatinine 0.52. On 07/06/2018 patient seen in follow-up on selective care unit, she is sitting up in the recliner, in no acute distress, lung sounds reveal some crackles at the bases, but no rhonchi or wheezes, maintaining good oxygenation on room air, room air pulse ox is 93%, patient remains on IV diuretics currently at 20 mg every 12 hours, she is in negative fluid balance, today's chest x-ray shows a small pleural effusions, patient is tolerating ambulation, she is working on her incentive spirometer. No acute events overnight. Patient has been evaluated for inpatient rehabilitation admission, and patient is being discharged to [facility] today Objective - Vital Signs Vital signs: Vital Signs Temp 98.5 F 07/06/18 08:00 Pulse 84 07/06/18 08:00 Resp 20 07/06/18 08:00 BP 117/56 07/06/18 08:00 Pulse Ox 93 L 07/06/18 08:00 Intake & Output 07/05/18 07/06/18 07/06/18 18:59 06:59 18:59 Intake Total 200 200 Output Total 1601 750 Balance -1401 -550 Weight 85.3 kg 85.3 kg Intake: IV 0 0 Amiodarone 0 Lactated Ringers 1,000 ml 0 @ 20 mls/hr IV .Q24H YUDITH Rx#:[id number] Intake, IV Titration 200 Amount Magnesium Sulfate-D5w Pmx 200 1 gm In Dextrose/Water 1 100ml.bag @ 100 mls/hr IVPB Q1H YUDITH Rx#: [id number] Oral 200 Output: Urine 1600 750 Stool 1 Other: Voiding Method Bedside Commode Toilet # Voids 250 1 # Bowel Movements 1 ABP, PAP, CO, CI - Last Documented Arterial Blood Pressure 175/78 Pulmonary Artery Pressure 28/14 Cardiac Output 5 Cardiac Index 2.5 - Exam GENERAL EXAM:72-year-old white female on room air HEAD: Normocephalic/atraumatic. EYES: Normal reaction of pupils, equal size. Conjunctiva pink, sclera white. NOSE: Clear with pink turbinates. THROAT: No erythema or exudates. NECK: No masses, no JVD, no thyroid enlargement, no adenopathy. CHEST: No chest wall deformity. Symmetrical expansion. Sternal incision is clean dry and intact, covered with a surgical dressing, chest tube sites are clean dry and intact, AV wires are grounded LUNGS: Equal air entry with no crackles, wheeze, rhonchi or dullness. CVS: Regular rate and rhythm, normal S1 and S2, no gallops, no murmurs, no rubs ABDOMEN: Soft, nontender. No hepatosplenomegaly, normal bowel sounds, no guarding or rigidity. EXTREMITIES: No clubbing, no edema, no cyanosis, 2+ pulses and upper and lower extremities. SCDs are present on both legs MUSCULOSKELETAL: Muscle strength and tone normal. SPINE: No scoliosis or deformity SKIN: No rashes CENTRAL NERVOUS SYSTEM: Sedated No focal deficits, tone is normal in all 4 extremities. - Labs CBC & Chem 7: 07/06/18 05:38 07/06/18 05:38 Labs: Abnormal Lab Results - Last 24 Hours (Table) 07/05/18 07/05/18 07/06/18 Range/Units 17:15 20:29 02:07 WBC (3.8-10.6) k/uL RBC (3.80-5.40) m/uL Hgb (11.4-16.0) gm/dL Hct (34.0-46.0) % RDW (11.5-15.5) % Creatinine (0.52-1.04) mg/dL Glucose (74-99) mg/dL POC Glucose (mg/dL) 138 H 108 H 121 H (75-99) mg/dL 07/06/18 07/06/18 07/06/18 Range/Units 05:38 05:38 06:08 WBC 17.7 H (3.8-10.6) k/uL RBC 3.00 L (3.80-5.40) m/uL Hgb 9.0 L (11.4-16.0) gm/dL Hct 28.3 L (34.0-46.0) % RDW 19.8 H (11.5-15.5) % Creatinine 0.48 L (0.52-1.04) mg/dL Glucose 129 H (74-99) mg/dL POC Glucose (mg/dL) 126 H (75-99) mg/dL 07/06/18 Range/Units 12:17 WBC (3.8-10.6) k/uL RBC (3.80-5.40) m/uL Hgb (11.4-16.0) gm/dL Hct (34.0-46.0) % RDW (11.5-15.5) % Creatinine (0.52-1.04) mg/dL Glucose (74-99) mg/dL POC Glucose (mg/dL) 134 H (75-99) mg/dL Assessment and Plan Plan: Assessment: #1. Coronary artery disease, aortic valve stenosis, and moderate mitral valve regurgitation, status post 2 vessel coronary bypass with CUMMINGS to LAD, and SVG to the PDA, aortic valve replacement with a bioprosthetic valve, and mitral valve repair and exclusion of left atrial appendage, postop day 8 #2. Routine postoperative ventilator management, patient was successfully extubated on postop day 1, on 06/29/2018, tolerating extubation quite well #3. Acute postoperative blood loss anemia, an expected outcome of bypass surgery #4. Diabetes mellitus type 2 #5. Hypertension #6. Hyperlipidemia #7. Peripheral vascular disease #8. Previous history of smoking Plan: Increase activity as tolerated, continue encouraging deep breathing and coughing, today's chest x-ray has been reviewed with Dr. Brenner, shows small pleural effusions, patient has been diuresed, clinically she stable, no compla ints of chest pain, shortness of breath, acute events overnight, she is maintaining good oxygenation on room air. She is expected to go to inpatient rehabilitation today. I performed a history & physical examination of the patient and discussed their management with my nurse practitioner, Aye Stewart. I reviewed the nurse practitioner's note and agree with the documented findings and plan of care. Lung sounds are positive for clear breath sounds. The findings and the impression was discussed with the patient. I attest to the documentation by the nurse practitioner. Time with Patient: Less than 30
[2018-07-06 14:50] VITALS: BP 111/68; PULSE 70
--- NOTE | 2018-07-07 06:12 | PN ---
PROGRESS NOTE DATE OF SERVICE: 07/06/2018 PRESENTING COMPLAINT: Cardiac surgery. INTERVAL HISTORY: Patient is status post prosthetic aortic valve replacement and mitral valve repair and 2-vessel coronary bypass, doing well. Did tolerate a diet. Walking about. control, looking to go to rehab today. REVIEW OF SYSTEMS: Done for constitutional, cardiovascular, GI, pulmonary; relevant findings as above. CURRENT MEDICATIONS: Current medications are noted. PHYSICAL EXAMINATION: On examination, temperature 98.5, pulse 84, respiration 20, blood pressure 117/56, pulse ox 93% on room air. GENERAL APPEARANCE: Sitting up in a chair, more comfortable, cheerful. EYES: Pupils equal. Conjunctivae pale. NECK: JVD not raised. Mass not palpable. RESPIRATORY: Effort normal. LUNGS: Decreased breath sounds. CARDIOVASCULAR: First and second sounds normal. Minimal edema. ABDOMEN: Soft, nontender. Liver and spleen not palpable. PSYCHIATRY: Alert and oriented x3. Mood and affect normal. INVESTIGATIONS: White count 17.7, hemoglobin 9, platelets 396. Potassium 4.2. ASSESSMENT: 1. Coronary artery bypass with prosthetic aortic valve replacement and mitral valve repair. 2. Coronary artery disease. 3. Acute severe blood loss anemia, expected from surgery. 4. Diabetes mellitus type 2, on oral hypoglycemia. 5. Gastroesophageal reflux disease. 6. Hyperlipidemia. 7. Essential hypertension. 8. Rheumatoid arthritis. 9. Hypothyroid. 10.Chronic insomnia. 11.Hiatal hernia. 12.Status post ventilator support. PLAN: Overall doing better. The patient is probably going down to [facility] for rehab. The patient is rather cheerful and excited for discharge. MMODL / IJN: [id number] /
[2018-07-07] MEDS ORDERED: MAGNESIUM OXIDE 400 MG TAB PO SCH (12:00)
== END 2018-07-06 16:49 | DRG 219 ==
LOC: 2ORMAIN 05:30 → 2SICU 17:27 → 3SCARD 07-06 01:08
PROVIDERS: ADMIT Surgery; ATTEND Surgery
PROC: 30243K1 Transfusion of Nonautologous Frozen Plasma into Central Vein, Percutaneous Approach (ICD-10-PCS; 2018-06-28)
PROC: 30243N1 Transfusion of Nonautologous Red Blood Cells into Central Vein, Percutaneous Approach (ICD-10-PCS; 2018-06-28)
PROC: 30243R1 Transfusion of Nonautologous Platelets into Central Vein, Percutaneous Approach (ICD-10-PCS; 2018-06-28)
PROC: 5A1221Z Performance of Cardiac Output, Continuous (ICD-10-PCS; 2018-06-28)
PROC: 02L70CK Occlusion of Left Atrial Appendage with Extraluminal Device, Open Approach (ICD-10-PCS; 2018-06-28)
PROC: 02QG0ZZ Repair Mitral Valve, Open Approach (ICD-10-PCS; principal; 2018-06-28 08:00)
PROC: 02100Z9 Bypass Coronary Artery, One Artery from Left Internal Mammary, Open Approach (ICD-10-PCS; 2018-06-28 08:00)
PROC: 021009W Bypass Coronary Artery, One Artery from Aorta with Autologous Venous Tissue, Open Approach (ICD-10-PCS; 2018-06-28 08:00)
PROC: 06BQ4ZZ Excision of Left Saphenous Vein, Percutaneous Endoscopic Approach (ICD-10-PCS; 2018-06-28 08:00)
PROC: 02RF08Z Replacement of Aortic Valve with Zooplastic Tissue, Open Approach (ICD-10-PCS; 2018-06-28 08:00)
DX: I25.10 Atherosclerotic heart disease of native coronary artery without angina pectoris (principal); J96.01 Acute respiratory failure with hypoxia; D62 Acute posthemorrhagic anemia; E11.51 Type 2 diabetes mellitus with diabetic peripheral angiopathy without gangrene; E11.65 Type 2 diabetes mellitus with hyperglycemia; M06.9 Rheumatoid arthritis, unspecified; I08.0 Rheumatic disorders of both mitral and aortic valves; I10 Essential (primary) hypertension; E78.5 Hyperlipidemia, unspecified; E03.9 Hypothyroidism, unspecified; K21.9 Gastro-esophageal reflux disease without esophagitis; K58.9 Irritable bowel syndrome, unspecified; F51.04 Psychophysiologic insomnia; K44.9 Diaphragmatic hernia without obstruction or gangrene; R45.1 Restlessness and agitation; E66.3 Overweight; Z71.3 Dietary counseling and surveillance; Z68.30 Body mass index [BMI] 30.0-30.9, adult; Z79.890 Hormone replacement therapy; Z79.4 Long term (current) use of insulin; Z79.899 Other long term (current) drug therapy; Z86.73 Personal history of transient ischemic attack (TIA), and cerebral infarction without residual deficits; Z87.01 Personal history of pneumonia (recurrent); Z90.49 Acquired absence of other specified parts of digestive tract; Z90.710 Acquired absence of both cervix and uterus; Z98.42 Cataract extraction status, left eye; Z98.41 Cataract extraction status, right eye; Z87.440 Personal history of urinary (tract) infections; Z87.891 Personal history of nicotine dependence; Z91.048 Other nonmedicinal substance allergy status; Z82.49 Family history of ischemic heart disease and other diseases of the circulatory system
CPT/HCPCS: 36410; 71045; 71046; 76937; 80048; 80053; 81001; 82330; 82805; 83735; 84100; 84132; 85025; 85027; 85384; 85520; 85610; 85730; 86850; 86891; 86900; 86901; 86920; 87086; 88305; 94002; 94003; 94640

== ENCOUNTER 2018-07-15 09:32 | Emergency (ER) | payer MEDICARE, OTHER ==
[2018-07-15 09:38] VITALS: TEMP 97.7
--- NOTE | 2018-07-15 10:05 | ED ---
SOB HPI - General Chief Complaint: Shortness of Breath Stated Complaint: Fluid in lungs Time Seen by Provider: 07/15/18 09:50 Source: patient, RN notes reviewed Mode of arrival: wheelchair Limitations: no limitations - History of Present Illness Initial Comments: This is a 72-year-old female who had a a double bypass as well as valve surgery about 2 weeks ago who checked herself out AGAINST MEDICAL ADVICE of her rehab today she was sent here for evaluation for fluid in the left lung. The x-ray was done at the other facility yesterday. She complains of exertional dyspnea no fevers chills nausea vomiting sweats or other symptoms. He still has some peripheral edema. No other problems report MD Complaint: shortness of breath - Related Data Home Medications Medication Instructions Recorded Confirmed Levothyroxine Sodium [Synthroid] 50 mcg PO QAM 10/19/16 07/15/18 Multivitamins, Thera [Multivitamin 1 tab PO DAILY 01/01/18 07/15/18 (formulary)] Atorvastatin [Lipitor] 40 mg PO HS 03/18/18 07/15/18 Benzocaine/Menthol Lozeng [Cepacol 1 lozenge MUCOUS MEM Q2H PRN 07/15/18 lozenge] INSULIN ASPART (NovoLOG) [NovoLOG See Protocol SQ ACHS 07/15/18 07/15/18 (formulary)] Magnesium Oxide [Mag-Ox] 400 mg PO DAILY@1200 07/15/18 07/15/18 Sennosides-Docusate Sodium 2 tab PO HS 07/15/18 07/15/18 [Senokot-S] Previous Rx's Medication Instructions Recorded Acetaminophen Tab [Tylenol] 1,000 mg PO Q6HR PRN tab 07/06/18 Aspirin 81 mg PO DAILY chew 07/06/18 Clopidogrel [Plavix] 75 mg PO DAILY tab 07/06/18 Furosemide [Lasix] 40 mg PO DAILY 7 Days tablet 07/06/18 Ipratropium-Albuterol Nebulize 3 ml INHALATION RT-Q2H PRN 07/06/18 [Duoneb 0.5 mg-3 mg/3 ml Soln] ampul.neb Lisinopril [Zestril] 5 mg PO BID tab 07/06/18 Magnesium Hydroxide [Milk of 2,400 mg PO BID PRN ml 07/06/18 Magnesia Concentrate] Metoprolol Tartrate [Lopressor] 50 mg PO BID tab 07/06/18 Pantoprazole [Protonix] 40 mg PO AC-BRKFST tablet. 07/06/18 Allergies Allergy/AdvReac Type Severity Reaction Status Date / Time nickel Allergy per alg Verified 07/15/18 09:45 testing Review of Systems ROS Statement: Those systems with pertinent positive or pertinent negative responses have been documented in the HPI. ROS Other: All systems not noted in ROS Statement are negative. Past Medical History Past Medical History: CVA/TIA, Diabetes Mellitus, GERD/Reflux, Hyperlipidemia, Hypertension, Pneumonia, Rheumatoid Arthritis (RA), Thyroid Disorder Additional Past Medical History / Comment(s): states TIA over 30yrs ago- no residual effects, "Chest pressure". heart murmur, SOB on exertion, walking pneumonia long time ago, insomnia, "3 hiatal hernias", hx IBS History of Any Multi-Drug Resistant Organisms: None Reported Past Surgical History: Bowel Resection, Coronary Bypass/CABG, Heart Catheterization, Hysterectomy, Orthopedic Surgery, Tonsillectomy Additional Past Surgical History / Comment(s): left knee arthroscopy, orif left ankle with plate and screws-hardware later removed, uri cataracts, hemmorhoidectomy, "perforated colon with colonoscopy",heart cath. 03-23-18 Past Anesthesia/Blood Transfusion Reactions: No Reported Reaction Additional Past Anesthesia/Blood Transfusion Reaction / Comment(s): no hx blood transfusion Past Psychological History: No Psychological Hx Reported Smoking Status: Former smoker Past Alcohol Use History: None Reported Past Drug Use History: None Reported - Past Family History Mother Family Medical History: No Reported History General Exam - General Exam Comments Initial Comments: This a well-developed well-nourished awake alert oriented 3 female Limitations: no limitations General appearance: alert, in no apparent distress Head exam: Present: atraumatic, normocephalic, normal inspection Eye exam: Present: normal appearance, PERRL, EOMI. Absent: scleral icterus, conjunctival injection, periorbital swelling ENT exam: Present: normal exam, mucous membranes moist Neck exam: Present: normal inspection. Absent: tenderness, meningismus, lymphadenopathy Respiratory exam: Present: chest wall tenderness, decreased breath sounds (Decreased breath sounds a specimen on the left), other (Well-healing mid sternotomy scar no evidence of any wound dehiscence or drainage no erythema s een.). Absent: respiratory distress, wheezes, rales, rhonchi, stridor Cardiovascular Exam: Present: normal rhythm, tachycardia, normal heart sounds. Absent: systolic murmur, diastolic murmur, rubs, gallop, clicks GI/Abdominal exam: Present: soft, normal bowel sounds. Absent: distended, tenderness, guarding, rebound, rigid Extremities exam: Present: normal inspection, full ROM, normal capillary refill, pedal edema. Absent: tenderness, joint swelling, calf tenderness Back exam: Present: normal inspection Neurological exam: Present: alert, oriented X3, CN II-XII intact Psychiatric exam: Present: normal affect, normal mood Skin exam: Present: warm, dry, intact, normal color. Absent: rash Course Vital Signs 07/15/18 07/15/18 09:34 11:46 Temperature 97.7 F Pulse Rate 112 H 77 Respiratory 20 22 Rate Blood Pressure 124/56 125/60 O2 Sat by Pulse 86 L 98 Oximetry Medical Decision Making - Medical Decision Making Patient was seen by Dr. Lucia in the emergency department he did perform a thoracentesis after was marked by ultrasound a large amount of fluid was removed postop/post thoracentesis x-ray revealed improvement though still a lot of fluids she will be discharged with outpatient procedure planned. Patient would like to go home she is in agreement with this. - Lab Data Result diagrams: 07/15/18 09:54 07/15/18 09:54 Lab Results 07/15/18 07/15/18 07/15/18 Range/Units 09:54 09:54 09:54 WBC 13.3 H (3.8-10.6) k/uL RBC 3.32 L (3.80-5.40) m/uL Hgb 9.6 L (11.4-16.0) gm/dL Hct 31.8 L (34.0-46.0) % MCV 95.7 (80.0-100.0) fL MCH 28.9 (25.0-35.0) pg MCHC 30.2 L (31.0-37.0) g/dL RDW 19.0 H (11.5-15.5) % Plt Count 620 H (150-450) k/uL Neutrophils % 83 % Lymphocytes % 9 % Monocytes % 5 % Eosinophils % 1 % Basophils % 0 % Neutrophils # 11.0 H (1.3-7.7) k/uL Lymphocytes # 1.2 (1.0-4.8) k/uL Monocytes # 0.7 (0-1.0) k/uL Eosinophils # 0.1 (0-0.7) k/uL Basophils # 0.0 (0-0.2) k/uL Hypochromasia Marked Poikilocytosis Slight Anisocytosis Slight Macrocytosis Slight PT (9.0-12.0) sec INR (<1.2) APTT (22.0-30.0) sec Sodium 138 (137-145) mmol/L Potassium 5.0 (3.5-5.1) mmol/L Chloride 99 (98-107) mmol/L Carbon Dioxide 30 (22-30) mmol/L Anion Gap 9 mmol/L BUN 16 (7-17) mg/dL Creatinine 0.56 (0.52-1.04) mg/dL Est GFR (CKD-EPI)AfAm >90 (>60 ml/min/1.73 sqM) Est GFR (CKD-EPI)NonAf >90 (>60 ml/min/1.73 sqM) Glucose 175 H (74-99) mg/dL Calcium 8.7 (8.4-10.2) mg/dL Total Bilirubin 1.5 H (0.2-1.3) mg/dL AST 34 (14-36) U/L ALT 39 (9-52) U/L Alkaline Phosphatase 131 H (38-126) U/L Lactate Dehydrogenase (313-618) U/L Troponin I (0.000-0.034) ng/mL NT-Pro-B Natriuret Pep 1390 pg/mL Total Protein 6.6 (6.3-8.2) g/dL Albumin 3.2 L (3.5-5.0) g/dL 07/15/18 07/15/18 07/15/18 Range/Units 09:54 09:54 09:54 WBC (3.8-10.6) k/uL RBC (3.80-5.40) m/uL Hgb (11.4-16.0) gm/dL Hct (34.0-46.0) % MCV (80.0-100.0) fL MCH (25.0-35.0) pg MCHC (31.0-37.0) g/dL RDW (11.5-15.5) % Plt Count (150-450) k/uL Neutrophils % % Lymphocytes % % Monocytes % % Eosinophils % % Basophils % % Neutrophils # (1.3-7.7) k/uL Lymphocytes # (1.0-4.8) k/uL Monocytes # (0-1.0) k/uL Eosinophils # (0-0.7) k/uL Basophils # (0-0.2) k/uL Hypochromasia Poikilocytosis Anisocytosis Macrocytosis PT 11.6 (9.0-12.0) sec INR 1.1 (<1.2) APTT 28.1 (22.0-30.0) sec Sodium (137-145) mmol/L Potassium (3.5-5.1) mmol/L Chloride (98-107) mmol/L Carbon Dioxide (22-30) mmol/L Anion Gap mmol/L BUN (7-17) mg/dL Creatinine (0.52-1.04) mg/dL Est GFR (CKD-EPI)AfAm (>60 ml/min/1.73 sqM) Est GFR (CKD-EPI)NonAf (>60 ml/min/1.73 sqM) Glucose (74-99) mg/dL Calcium (8.4-10.2) mg/dL Total Bilirubin (0.2-1.3) mg/dL AST (14-36) U/L ALT (9-52) U/L Alkaline Phosphatase (38-126) U/L Lactate Dehydrogenase 1094 H (313-618) U/L Troponin I 0.195 H* (0.000-0.034) ng/mL NT-Pro-B Natriuret Pep pg/mL Total Protein (6.3-8.2) g/dL Albumin (3.5-5.0) g/dL - Radiology Data Radiology results: image reviewed Interpreted by me: Large pleural effusion the left lung. Disposition Clinical Impression: Pleural effusion on left, Status post thoracentesis Disposition: HOME SELF-CARE Condition: Good Instructions (If sedation given, give patient instructions): Pleural Effusion (ED) Is patient prescribed a controlled substance at d/c from ED?: No Referrals: Tim Martin DO [Primary Care Provider] - 1-2 days Johnathon Herrmann DO [Doctor of Osteopathic Medicine] - 1-2 days
[2018-07-15 10:14] LABS: Anisocytosis Slight; Basophils % (A) 0 %; Eosinophils # (A) 0.1 k/uL (0-0.7); Eosinophils % (A) 1 %; HCT 31.8 % (34.0-46.0); HGB 9.6 gm/dL (11.4-16.0); Hypochromasia Marked; Lymphocytes # (A) 1.2 k/uL (1.0-4.8); Lymphocytes % (A) 9 %; MCH 28.9 pg (25.0-35.0); MCHC 30.2 g/dL (31.0-37.0); MCV 95.7 fL (80.0-100.0); Macrocytosis Slight; Mean Platelet Volume 7.3; Monocytes # (A) 0.7 k/uL (0-1.0); Monocytes % (A) 5 %; Neutrophils % (A) 83 %; Platelet Count 620 k/uL (150-450); Poikilocytosis Slight; RBC 3.32 m/uL (3.80-5.40); WBC 13.3 k/uL (3.8-10.6)
[2018-07-15 10:23] LABS: ALT 39 U/L (9-52); AST 34 U/L (14-36); Albumin 3.2 g/dL (3.5-5.0); Alkaline Phosphatase 131 U/L (38-126); Anion Gap 9 mmol/L; Blood Urea Nitrogen 16 mg/dL (7-17); Calcium 8.7 mg/dL (8.4-10.2); Carbon Dioxide 30 mmol/L (22-30); Chloride 99 mmol/L (98-107); Glucose 175 mg/dL (74-99); Sodium 138 mmol/L (137-145); Total Bilirubin 1.5 mg/dL (0.2-1.3); Total Protein 6.6 g/dL (6.3-8.2)
--- NOTE | 2018-07-15 10:24 | XR ---
EXAMINATION TYPE: XR chest 2V DATE OF EXAM: 07/15/2018 COMPARISON: Prior chest x-ray 07/06/2018 HISTORY: Difficulty breathing and shortness of breath TECHNIQUE: Frontal and lateral views of the chest are obtained. FINDINGS: There is increasing density at the left lung base. No evident pneumothorax. Patient is pos t median sternotomy and atrial appendage clipping, aortic valve replacement. There are overlying card iac leads. IMPRESSION: Increasing left pleural effusion and associated atelectasis, correlate to exclude pneumo herb. Follow-up recommended.
[2018-07-15 10:32] LABS: INR 1.1 (<1.2); Partial Thromboplastin Time 28.1 sec (22.0-30.0); Prothrombin Time 11.6 sec (9.0-12.0)
--- NOTE | 2018-07-15 11:19 | US ---
EXAMINATION TYPE: US chest DATE OF EXAM: 07/15/2018 COMPARISON: X Ray same date CLINICAL HISTORY: Pain. left pleural effusion TECHNIQUE: Targeted ultrasound of the posterior lower bilateral chest EXAM MEASUREMENTS: Right Pleural Effusion pocket size: 3.1 cm A/P with lung floating within effusion pocket. Left Pleural Effusion pocket size: 11.4 cm A/P Left skin surface to fluid distance: 3.7 cm A/P Left side effusion pocket noted laterally that had fluid with least amount of internal debris and was marked here for possible thoracentesis outside the dept. Pulmonologists are able to review the images in the patient?s EMR. IMPRESSIONS: Large left pleural effusion. Minimal right pleural effusion.
--- NOTE | 2018-07-15 12:35 | XR ---
EXAMINATION TYPE: XR chest 1V portable DATE OF EXAM: 07/15/2018 COMPARISON: Prior chest x-ray same dated earlier time HISTORY: Status post thoracentesis TECHNIQUE: Single frontal view of the chest is obtained. FINDINGS: Interval left-sided thoracentesis, there is persistent abnormal increased density in the l eft lung base. No evident pneumothorax. IMPRESSION: No evident complication status post thoracentesis.
[2018-07-15 13:29] VITALS: BP 126/65; PULSE 76; RESP 18
[2018-07-15 14:48] LABS: Appearance,BF Bloody; Color,BF Brown; Nucleated Cells, Body Fluid 920 /uL; RBC, Body Fluid 102800 /uL
[2018-07-15 14:50] LABS: Mononuclear WBC,Body Fluid 95 %; Polynuclear WBC,Body Fluid 5 %; Total Cells Counted,Body Fluid 100
--- NOTE | 2018-07-15 18:45 | PCN ---
PROCEDURE NOTE PROCEDURE: Left thoracentesis. PREOPERATIVE DIAGNOSIS: Left pleural effusion. POSTOPERATIVE DIAGNOSIS: Left pleural effusion. DESCRIPTION OF PROCEDURE: A time-out was completed verifying correct patient, procedure, site, positioning , and implant (s) or special equipment if applicable. Ultrasound guidance was used to gigi the posterior chest and appropriate fluid pocket was identified and marked. Patient was positioned, prepped and draped in usual sterile fashion. Lidocaine was used to anesthetize the area. A Thoracentesis catheter was introduced into the pleural space and fluid was removed. Blood loss was none. A chest x-ray was ordered to evaluate for pneumothorax. Total Fluid Removed: 1250 mL from the left chest. Color of Fluid: Bloody. Fluid was sent for appropriate laboratory tests. Patient tolerated the procedure well, although she did have some coughing and some mild shortness of breath after the procedure was completed. There were no immediate complications otherwise. If she is stable and so forth and there is no pneumothorax on chest x-ray, the patient could be discharged home. MMODL / IJN: [id number] /
[2018-07-15 19:24] LABS: Total Protein, Body Fluid 3200 mg/dL
== END 2018-07-15 13:31 | disposition home or self-care (01) ==
LOC: EC 09:32
DX: J90 Pleural effusion, not elsewhere classified (principal); E07.9 Disorder of thyroid, unspecified; E78.5 Hyperlipidemia, unspecified; E11.9 Type 2 diabetes mellitus without complications; Z79.4 Long term (current) use of insulin; Z79.890 Hormone replacement therapy; Z79.899 Other long term (current) drug therapy; Z91.048 Other nonmedicinal substance allergy status; Z95.1 Presence of aortocoronary bypass graft; Z95.5 Presence of coronary angioplasty implant and graft; Z86.73 Personal history of transient ischemic attack (TIA), and cerebral infarction without residual deficits; Z87.891 Personal history of nicotine dependence; Z98.890 Other specified postprocedural states
CPT/HCPCS: 32555; 36415; 71045; 71046; 76604; 80053; 82945; 83615; 83880; 84157; 84484; 85025; 85610; 85730; 87070; 87102; 87116; 87205; 87206; 87252; 89050; 99285

== ENCOUNTER → 2018-07-19 | Day surgery (SDC) | payer MEDICARE, OTHER ==
[~2018-07-19] MED LIST changes: -ALBUMIN HUMAN 25% 50 ML IV ONE; -ASPIRIN 325 MG TAB PO ONE; -ATORVASTATIN 10 MG TAB PO ONE; -CALCIUM CHLORIDE 100 MG/ML 10 ML SYRINGE IV ONE; -CHLORHEXIDINE GLUCONATE 15 ML CUP MUCOUS MEM ONE; -CLEVIDIPINE BUTYRATE 25 MG in EMPTY BAG 1 BAG IV ONE; +DEXTROSE 5% IN WATER 1,000 ML IV ONE; -DEXTROSE 5% IN WATER 1,000 ML with POTASSIUM CHLORIDE 110 MEQ, MAGNESIUM SULFATE 16 MEQ... IV ONE; -DEXTROSE 5% IN WATER 1,000 ML with POTASSIUM CHLORIDE 25 MEQ, SODIUM CHLORIDE 2.5MEQ/ML... IRRIGATION ONE; +DEXTROSE 5% IN WATER 500 ML IV SCH; -HEPARIN SODIUM 1,000 UN/ML (10ML VL) IV ONE; -HEPARIN SODIUM,PORCINE 5,000 UNIT in SODIUM CHLORIDE 0.9% 500 ML 500 ML IV ONE; -INSULIN REGULAR 100 UNIT in SODIUM CHLORIDE 0.9% 100 ML IV ONE; -LACTATED RINGERS 1,000 ML IV ONE; -MAGNESIUM SULFATE MG 500 MG/ML IV ONE; -MANNITOL 25% 12.5 GM/50 ML VIAL IV ONE; -METOPROLOL TARTRATE 12.5 MG TAB PO ONE; -NITROGLYCERIN-D5W PMX 25 MG/250 ML BTL IV ONE; -NITROGLYCERIN-D5W PMX 50 MG in DEXTROSE/WATER 1 250ML.BAG IV ONE; -NOREPINEPHRINE 4 MG in SODIUM CHLORIDE 0.9% 250 ML IV ONE; -PAPAVERINE 360 MG in SODIUM CHLORIDE 0.9% 90 ML IV ONE; -PHENYLEPHRINE 10 MG/ML VIAL IV ONE; -PHENYLEPHRINE 40 MG in SODIUM CHLORIDE 0.9% 250 ML IV ONE; -PROPOFOL 1,000 MG/100 ML VIAL IV ONE; -PROTAMINE SULFATE 10 MG/ML 25 ML VIAL IV ONE; -PROTAMINE SULFATE 250 MG in EMPTY BAG 1 BAG IV ONE; -SODIUM BICARB 8.4% 50 ML SYR (1 MEQ/ML) IV ONE; -SODIUM CHLORIDE 0.9% 1,000 ML IV ONE; -TRANEXAMIC ACID 2,000 MG in SODIUM CHLORIDE 0.9% 80 ML IV ONE; -ceFAZolin 1,000 MG in SODIUM CHLORIDE 0.9% IRRIGATIO 1,000 ML IRRIGATION ONE; -ceFAZolin 2,000 MG in SODIUM CHLORIDE 0.9% 30 ML IVPB ONE
[2018-07-19 09:18] VITALS: RESP 16; TEMP 97.6
[2018-07-19 09:28] LABS: Mean Platelet Volume 7.2; Platelet Count 366 k/uL (150-450)
[2018-07-19 10:31] LABS: Glucose,Whole Blood 39 mg/dL (75-99)
[2018-07-19 10:54] LABS: Glucose,Whole Blood 43 mg/dL (75-99)
[2018-07-19 11:27] LABS: Glucose,Whole Blood 40 mg/dL (75-99)
--- NOTE | 2018-07-19 11:28 | XR ---
EXAMINATION TYPE: XR chest 1V portable DATE OF EXAM: 07/19/2018 COMPARISON: Prior chest x-ray 07/18/2018 HISTORY: Pleural effusion TECHNIQUE: Single frontal view of the chest is obtained. FINDINGS: There is no evident pneumothorax. Persistent basilar density noted on the left. Patient is post median sternotomy and atrial appendage clipping is present. Heart size is stable. IMPRESSION: No evident complication status post thoracentesis.
[2018-07-19 12:09] LABS: Glucose,Whole Blood 134 mg/dL (75-99)
[2018-07-19 13:06] LABS: Glucose,Whole Blood 129 mg/dL (75-99)
[2018-07-19 13:19] VITALS: BP 116/67; PULSE 105
--- NOTE | 2018-07-19 13:58 | US ---
EXAMINATION TYPE: US thoracentesis DATE OF EXAM: 07/19/2018 COMPARISON: NONE HISTORY: Pleural effusion. FINDINGS: Maximal barrier technique was utilized. The skin overlying a suitable pocket of fluid was localized and the overlying skin prepped and draped. Lidocaine was used for local anesthesia. Ultras ound was used with sterile technique. A 5 Czech catheter over guide needle was advanced into the pl eural fluid collection using ultrasound guidance and the catheter advanced, needle removed. Approxim ately 0.8 liter(s) of serous sanguinous fluid was removed. Catheter was withdrawn and hemostasis ach ieved. There is no immediate complication. The patient discharged in stable condition without compl ication. IMPRESSION: STATUS POST ULTRASOUND GUIDED THORACENTESIS, POST PROCEDURE CHEST X-RAY PENDING. THIS HI OCEDURE WAS PERFORMED BY THE UNDERSIGNED.
== END ==
LOC: RADPROMAIN 07:40
PROVIDERS: ATTEND Internal Medicine Critical Care Medicine
DX: J90 Pleural effusion, not elsewhere classified (principal)
CPT/HCPCS: 32555; 36415; 71045; 82947; 85049

== ENCOUNTER → 2018-08-02 | Outpatient (CLI) | payer MEDICARE, OTHER ==
--- NOTE | 2018-08-03 07:05 | US ---
EXAMINATION TYPE: US chest DATE OF EXAM: 08/02/2018 COMPARISON: NONE CLINICAL HISTORY: J90 Pleural Effusion. Pleural effusion gigi for thoracentesis. TECHNIQUE: Targeted ultrasound of the posterior lower left. EXAM MEASUREMENTS: Left Pleural Effusion pocket size: 11 cm Left skin surface to fluid distance: 2.4 cm Left side marked for possible thoracentesis outside the dept. Pulmonologists are able to review the images in the patient?s EMR. IMPRESSIONS: Moderate left pleural effusion with depth of 11 cm.
== END | disposition home or self-care (01) ==
LOC: RADUSWWP 16:52
PROVIDERS: ATTEND Family Medicine
DX: J90 Pleural effusion, not elsewhere classified (principal)
CPT/HCPCS: 76604

== ENCOUNTER 2018-08-17 08:12 | Day surgery (SDC) | payer MEDICARE, OTHER ==
[2018-08-17] MEDS ORDERED: ALPRAZolam 0.25 MG TAB PO ONE (08:21)
[2018-08-17 09:20] LABS: Prothrombin Time 11.1 sec (9.0-12.0)
[2018-08-17 09:21] LABS: Platelet Count 417 k/uL (150-450)
[2018-08-17 09:57] VITALS: TEMP 98.5
[2018-08-17 10:09] LABS: ALT 22 U/L (9-52); AST 46 U/L (14-36); African American GFR (CKD) >90 (>60 ml/min/1.73 sqM); Albumin 4.5 g/dL (3.5-5.0); Alkaline Phosphatase 77 U/L (38-126); Anion Gap 13 mmol/L; Blood Urea Nitrogen 12 mg/dL (7-17); Calcium 9.5 mg/dL (8.4-10.2); Carbon Dioxide 21 mmol/L (22-30); Chloride 106 mmol/L (98-107); Cholesterol 238 mg/dL (<200); Glucose 129 mg/dL (74-99); HDL Cholesterol 61 mg/dL (40-60); LDL Cholesterol,Calculated 145 mg/dL (0-99); Sodium 140 mmol/L (137-145); Total Bilirubin 1.1 mg/dL (0.2-1.3); Total Protein 8.2 g/dL (6.3-8.2); Triglycerides 159 mg/dL (<150)
[2018-08-17 10:14] LABS: Potassium 5.4 mmol/L (3.5-5.1)
[2018-08-17 10:41] VITALS: RESP 20
--- NOTE | 2018-08-17 10:42 | P.PCN ---
Date of Procedure: 08/17/18 Preoperative Diagnosis: left pleural effusion Postoperative Diagnosis: same Procedure(s) Performed: thoracentesis Anesthesia: local Estimated Blood Loss (ml): 10 Pathology: none sent Condition: stable Disposition: observation Indications for Procedure: above Operative Findings: 1.5 liters serous sanguinous fluid drain via 5 fr catheter
--- NOTE | 2018-08-17 10:53 | XR ---
EXAMINATION TYPE: XR chest 1V portable DATE OF EXAM: 08/17/2018 COMPARISON: 07/19/2018 HISTORY: Postthoracentesis TECHNIQUE: Single frontal view of the chest is obtained. FINDINGS: Interval reduction in amount pleural fluid with small pleural effusion and basilar consoli dation present. No sizable pneumothorax. Postoperative change and atherosclerotic change aorta. Heart size stable. Diffuse osteopenia and arthropathy of the shoulders. IMPRESSION: No pneumothorax identified
--- NOTE | 2018-08-17 10:57 | US ---
EXAMINATION TYPE: US thoracentesis DATE OF EXAM: 08/17/2018 COMPARISON: NONE HISTORY: Pleural effusion. FINDINGS: Maximal barrier technique was utilized. The skin overlying a suitable pocket of fluid was localized and the overlying skin prepped and draped. Lidocaine was used for local anesthesia. Ultras ound was used with sterile technique. A 5 Serbian catheter over guide needle was advanced into the pl eural fluid collection using ultrasound guidance and the catheter advanced, needle removed. Approxim ately 1.3 liter(s) of serous sanguinous fluid was removed. Catheter was withdrawn and hemostasis ach ieved. There is no immediate complication. The patient discharged in stable condition without compl ication. IMPRESSION: STATUS POST ULTRASOUND GUIDED THORACENTESIS, POST PROCEDURE CHEST X-RAY PENDING. THIS NM OCEDURE WAS PERFORMED BY THE UNDERSIGNED.
[2018-08-17 11:23] VITALS: BP 133/74; PULSE 88
== END 2018-08-17 11:30 | disposition home or self-care (01) ==
LOC: RADPROMAIN 08:12
PROVIDERS: ATTEND Family Medicine
DX: J90 Pleural effusion, not elsewhere classified (principal); I35.0 Nonrheumatic aortic (valve) stenosis; I25.10 Atherosclerotic heart disease of native coronary artery without angina pectoris; I48.91 Unspecified atrial fibrillation; Z91.040 Latex allergy status; Z79.890 Hormone replacement therapy; Z79.899 Other long term (current) drug therapy; Z79.01 Long term (current) use of anticoagulants; E03.9 Hypothyroidism, unspecified; E11.9 Type 2 diabetes mellitus without complications; E55.9 Vitamin D deficiency, unspecified; E78.5 Hyperlipidemia, unspecified
CPT/HCPCS: 32555; 36415; 71045; 80053; 80061; 85049; 85610

== ENCOUNTER → 2018-10-11 | Outpatient (CLI) | payer MEDICARE, OTHER ==
--- NOTE | 2018-10-12 14:02 | MM ---
Reason for exam: screening (asymptomatic). Last mammogram was performed 11 years and 8 months ago. History: Patient is postmenopausal. Physical Findings: A clinical breast exam by your physician is recommended on an annual basis and results should be correlated with mammographic findings. MG 3D Screening Mammo W/Cad Bilateral CC and MLO view(s) were taken. Prior study comparison: January 26, 2007, bilateral screening mammogram w/CAD. There are scattered fibroglandular densities. No suspicious abnormality. No significant changes when compared with prior studies. ASSESSMENT: Negative, BI-RAD 1 RECOMMENDATION: Routine screening mammogram of both breasts in 1 year. Manage on a clinical basis with regard to bilateral nipple pain with negative mammogram. Bilateral ultrasound could be considered if symptoms persists and/or nipple discharge.
== END | disposition home or self-care (01) ==
LOC: RADMAMWWP 10:36
PROVIDERS: ATTEND Family Medicine
DX: Z12.31 Encounter for screening mammogram for malignant neoplasm of breast (principal)
CPT/HCPCS: 77063; 77067

== ENCOUNTER → 2018-11-04 | Outpatient (CLI) | payer MEDICARE, OTHER ==
[2018-11-04 19:41] LABS: Chol/HDL Ratio 3.19; LDL Cholesterol,Calculated 129.8 mg/dL (0.0-131.0); VLDL Calculation 19.2 mg/dL (5.00-40.00)
== END | disposition home or self-care (01) ==
LOC: LABWHC1 10:52
PROVIDERS: ATTEND Nurse Practitioner Adult Health
DX: E78.2 Mixed hyperlipidemia (principal)
CPT/HCPCS: 36415; 80061; 84450; 84460

== ENCOUNTER → 2018-12-16 | Outpatient (CLI) | payer MEDICARE, OTHER ==
--- NOTE | 2018-12-16 12:49 | MR ---
EXAMINATION TYPE: MR thoracic spine wo con DATE OF EXAM: 12/16/2018 COMPARISON: None HISTORY: Back pain TECHNIQUE: Multiplanar, multisequence images of the thoracic spine were acquired without intravenous contrast. FINDINGS: The thoracic spine vertebral bodies maintain normal vertebral body height and alignment. Mu ltilevel small anterior osteophytes are seen of the thoracic spine. Multilevel disc desiccation is al so noted. Thoracic cord spinal signal is within normal limits. No epidural fluid collections are seen . T1-T2: Disc desiccation without focal disc herniation, spinal canal stenosis nor neural foraminal carlton rowing. T2-T3: Broad-based disc bulge without spinal canal stenosis. Minimal bilateral neural foraminal narro wing. Narrowing of the ventral subarachnoid space without spinal canal stenosis. T3-T4: Small broad-based disc bulge without spinal canal stenosis or neural foraminal narrowing. T4-T5 and T5-T6: Disc desiccation without spinal canal stenosis nor neural foraminal narrowing. No fo paresh disc herniation. T6-T7: Very small central disc herniation without spinal canal stenosis. Minimal bilateral neural for aminal narrowing as this is superimposed on a broad-based disc bulge. T7-T8: Broad-based disc bulge resulting in minimal bilateral neural foraminal narrowing. No focal dis c herniation or spinal canal stenosis. T8-T9: Small broad-based disc bulge and disc desiccation. No focal herniation, spinal canal stenosis or neural foraminal narrowing. T9-T10, T10-T11, T11-T12, and T12-L1: Disc desiccation without focal disc herniation, spinal canal st enosis nor neural foraminal narrowing. Bone marrow signal is overall within normal limits. IMPRESSION: 1. Very small central disc herniation at T6-T7 without spinal canal stenosis. 2. Mild multilevel degenerative disc disease of the thoracic spine resulting in minimal bilateral angel ral foraminal narrowing at T6-T7, T7-T8 and T2-T3. Disc desiccation is seen at multiple levels as wel l as broad-based disc bulges as detailed above. 3. No vertebral body height loss or malalignment of the thoracic spine. No bone marrow edema.
== END ==
LOC: RADMRIMAIN 11:35
PROVIDERS: ATTEND Family Medicine
DX: M51.24 Other intervertebral disc displacement, thoracic region (principal); M51.34 Other intervertebral disc degeneration, thoracic region
CPT/HCPCS: 72146

== ENCOUNTER 2019-03-13 16:00 | Emergency (ER) | payer MEDICARE, OTHER ==
[2019-03-13 16:14] VITALS: BP 152/79; PULSE 82; RESP 18; TEMP 97.9
[2019-03-13 17:09] LABS: Basophils % (A) 0 %; Eosinophils % (A) 0 %; HCT 43.3 % (34.0-46.0); HGB 14.4 gm/dL (11.4-16.0); Lymphocytes # (A) 1.7 k/uL (1.0-4.8); Lymphocytes % (A) 8 %; MCHC 33.2 g/dL (31.0-37.0); MCV 90.3 fL (80.0-100.0); Mean Platelet Volume 8.8; Monocytes # (A) 0.5 k/uL (0-1.0); Monocytes % (A) 3 %; Neutrophils # (A) 17.7 k/uL (1.3-7.7); Neutrophils % (A) 88 %; Platelet Count 387 k/uL (150-450); RBC 4.79 m/uL (3.80-5.40); RDW 12.8 % (11.5-15.5); WBC 20.1 k/uL (3.8-10.6)
[2019-03-13 17:18] LABS: ALT 39 U/L (4-34); AST 47 U/L (14-36); African American GFR (CKD) >90 (>60 ml/min/1.73 sqM); Albumin 4.9 g/dL (3.5-5.0); Alkaline Phosphatase 100 U/L (38-126); Amylase 87 U/L (30-110); Anion Gap 13 mmol/L; Blood Urea Nitrogen 16 mg/dL (7-17); Calcium 10.2 mg/dL (8.4-10.2); Carbon Dioxide 25 mmol/L (22-30); Chloride 101 mmol/L (98-107); Cholesterol 235 mg/dL (<200); Creatine Kinase 196 U/L (30-135); Glucose 269 mg/dL (74-99); HDL Cholesterol 88 mg/dL (40-60); LDL Cholesterol,Calculated 127 mg/dL (0-99); Non-African American GFR(CKD) 89 (>60 ml/min/1.73 sqM); Potassium 4.5 mmol/L (3.5-5.1); Sodium 139 mmol/L (137-145); Total Protein 8.5 g/dL (6.3-8.2); Triglycerides 101 mg/dL (<150)
[2019-03-13] MEDS ORDERED: KETOROLAC 30 MG/ML 1 ML VIAL IVP STA (17:25)
[2019-03-13] MEDS ORDERED: ONDANSETRON 4 MG/2 ML VIAL IVP STA (17:26)
[2019-03-13] MEDS ORDERED: SODIUM CHLORIDE 0.9% 1,000 ML IV STA (17:26)
[2019-03-13 17:33] LABS: T4, Free (Free Thyroxine) 1.67 ng/dL (0.78-2.19)
--- NOTE | 2019-03-13 18:07 | XR ---
EXAMINATION TYPE: XR KUB DATE OF EXAM: 03/13/2019 COMPARISON: 10/21/2016 HISTORY: Kidney stone. Abdominal pain TECHNIQUE: 2 views upright FINDINGS: There is no sign of intestinal obstruction or pneumoperitoneum. Fecal pattern is normal. Th ere is a faint 5 mm calcification over the right renal hilum. Lung bases are clear of consolidation. There are phleboliths in the pelvis. There is vascular calcification. IMPRESSION: Right renal calculus at the ureteropelvic junction is not changed in position compared to CT scan earlier today at 1:30 PM.
--- NOTE | 2019-03-13 18:10 | ED ---
General Adult HPI - General Chief complaint: Abdominal Pain Stated complaint: kidney stone Source: patient, RN notes reviewed Mode of arrival: ambulatory Limitations: no limitations - History of Present Illness Initial comments: 73-year-old female with a past medical history of CVA, diabetes mellitus, hyperlipidemia, hypertension, pneumonia presents to the emergency department for right lower abdominal pain and right flank pain. States this started this morning. States she saw her doctor and was diagnosed with a kidney stone. She denies fevers. Denies dysuria.Patient has no other complaints at this time including shortness of breath, chest pain, nausea or vomiting, headache, or visual changes. - Related Data Home Medications Medication Instructions Recorded Confirmed Levothyroxine Sodium [Synthroid] 50 mcg PO QAM 10/19/16 08/15/18 Multivitamins, Thera [Multivitamin 1 tab PO DAILY 01/01/18 08/15/18 (formulary)] Atorvastatin [Lipitor] 40 mg PO HS 03/18/18 08/15/18 Rivaroxaban [Xarelto] 2.5 mg PO DAILY 07/18/18 08/15/18 Acetaminophen Tab [Tylenol] 1,000 mg PO HS PRN 08/15/18 08/15/18 Aspirin 81 mg PO DAILY 08/15/18 08/15/18 Empagliflozin [Jardiance] 10 mg PO DAILY 08/15/18 08/17/18 Metoprolol Tartrate [Lopressor] 25 mg PO BID 08/15/18 08/15/18 Previous Rx's Medication Instructions Recorded Lisinopril [Zestril] 5 mg PO BID tab 07/06/18 HYDROcodone/APAP 5-325MG [[place] 1 tab PO Q6HR PRN #10 tab 03/13/19 5-325] Ondansetron [Zofran ODT] 4 mg PO Q8HR PRN #15 tab 03/13/19 Tamsulosin [Flomax] 0.4 mg PO DAILY #10 cap 03/13/19 Allergies Allergy/AdvReac Type Severity Reaction Status Date / Time nickel Allergy per alg Verified 03/13/19 16:10 testing Review of Systems ROS Statement: Those systems with pertinent positive or pertinent negative responses have been documented in the HPI. ROS Other: All systems not noted in ROS Statement are negative. Past Medical History Past Medical History: CVA/TIA, Diabetes Mellitus, GERD/Reflux, Hyperlipidemia, Hypertension, Pneumonia, Rheumatoid Arthritis (RA), Thyroid Disorder Additional Past Medical History / Comment(s): states TIA over 30yrs ago- no residual effects, "Chest pressure". heart murmur, SOB on exertion, walking pneumonia long time ago, insomnia, "3 hiatal hernias", hx IBS, "fluid collecting in lungs from open heart surgery" History of Any Multi-Drug Resistant Organisms: None Reported Past Surgical History: Bowel Resection, Coronary Bypass/CABG, Heart Catheterization, Hysterectomy, Orthopedic Surgery, Tonsillectomy Additional Past Surgical History / Comment(s): left knee arthroscopy, orif left ankle with plate and screws-hardware later removed, uri cataracts, hemmorhoidectomy, "perforated colon with colonoscopy", CABG, thoracentesis; double bypass and valve replacement May 2018. Past Anesthesia/Blood Transfusion Reactions: No Reported Reaction Additional Past Anesthesia/Blood Transfusion Reaction / Comment(s): no hx blood transfusion Past Psychological History: No Psychological Hx Reported Smoking Status: Former smoker Past Alcohol Use History: None Reported Past Drug Use History: None Reported - Past Family History Mother Family Medical History: No Reported History General Exam Limitations: no limitations General appearance: alert, in no apparent distress Head exam: Present: atraumatic, normocephalic, normal inspection Eye exam: Present: normal appearance, PERRL, EOMI. Absent: scleral icterus, conjunctival injection, periorbital swelling ENT exam: Present: normal exam, mucous membranes moist Neck exam: Present: normal inspection. Absent: tenderness, meningismus, lymphadenopathy Respiratory exam: Present: normal lung sounds bilaterally. Absent: respiratory distress, wheezes, rales, rhonchi, stridor Cardiovascular Exam: Present: regular rate, normal rhythm, normal heart sounds. Absent: systolic murmur, diastolic murmur, rubs, gallop, clicks GI/Abdominal exam: Present: soft, normal bowel sounds. Absent: distended, tenderness, guarding, rebound, rigid Back exam: Present: CVA tenderness (R). Absent: CVA tenderness (L) Course Vital Signs 03/13/19 16:10 Temperature 97.9 F Pulse Rate 82 Respiratory 18 Rate Blood Pressure 152/79 O2 Sat by Pulse 96 Oximetry Medical Decision Making - Medical Decision Making CT abdomen and pelvis shows a 6-7 mm right proximal ureteral calculus causing mild right-sided hydronephrosis. Apparently outpatient lab slip was sent down to lab with patient's blood work with several laboratory not ordered by myself. I did cancel these labs and called lab to say they were not ordered through the emergency department. However apparently through the system a request was denied and the laboratory values were obtained. They were ordered by patient's primary care provider. Vitals signs are stable. The patient is afebrile. Patient does present with symptoms consistent with kidney stone. Outpatient CT was reviewed from earlier today which did show a 6-7 mm kidney stone in the right ureter. Blood work was obtained. CBC does show a white blood cell count of 20. Urinalysis does not show evidence of infection. This leukocytosis could be reactive in nature. Minimal transaminitis which is chronic. Lactic acid 2.9 likely secondary to dehydration as patient does have ketones in her urine as well. Patient does not meet sepsis criteria, no documented infection. Patient was given plenty of fluids. Urine will be cultured. Patient's pain has resolved at this time after Toradol was given. I discussed elevated white blood cell count with patient and that she needs to follow up to ensure this is resolving. I discussed that if she has any worsening symptoms such as fevers or increased pain she needs to return to the emergency department. Patient will follow up with primary care and urology. I discussed the importance of following up with urology as this is a large stone. I discussed this case with attending Dr. Ferrera who agrees with this assessment and treatment plan. - Lab Data Result diagrams: 03/13/19 16:35 03/13/19 16:35 Lab Results 03/13/19 03/13/19 03/13/19 Range/Units 16:34 16:35 16:35 WBC 20.1 H (3.8-10.6) k/uL RBC 4.79 (3.80-5.40) m/uL Hgb 14.4 (11.4-16.0) gm/dL Hct 43.3 (34.0-46.0) % MCV 90.3 (80.0-100.0) fL MCH 30.0 (25.0-35.0) pg MCHC 33.2 (31.0-37.0) g/dL RDW 12.8 (11.5-15.5) % Plt Count 387 (150-450) k/uL Neutrophils % 88 % Lymphocytes % 8 % Monocytes % 3 % Eosinophils % 0 % Basophils % 0 % Neutrophils # 17.7 H (1.3-7.7) k/uL Lymphocytes # 1.7 (1.0-4.8) k/uL Monocytes # 0.5 (0-1.0) k/uL Eosinophils # 0.0 (0-0.7) k/uL Basophils # 0.0 (0-0.2) k/uL ESR 22 H (0-20) mm/hr Sodium 139 (137-145) mmol/L Potassium 4.5 (3.5-5.1) mmol/L Chloride 101 (98-107) mmol/L Carbon Dioxide 25 (22-30) mmol/L Anion Gap 13 mmol/L BUN 16 (7-17) mg/dL Creatinine 0.62 (0.52-1.04) mg/dL Est GFR (CKD-EPI)AfAm >90 (>60 ml/min/1.73 sqM) Est GFR (CKD-EPI)NonAf 89 (>60 ml/min/1.73 sqM) Glucose 269 H (74-99) mg/dL POC Glucose (mg/dL) (75-99) mg/dL POC Glu [employer] Reports Developer ID Plasma Lactic Acid Nikhil (0.7-2.0) mmol/L Calcium 10.2 (8.4-10.2) mg/dL Total Bilirubin 1.0 (0.2-1.3) mg/dL AST 47 H (14-36) U/L ALT 39 H (4-34) U/L Alkaline Phosphatase 100 (38-126) U/L Creatine Kinase 196 H (30-135) U/L Troponin I (0.000-0.034) ng/mL Total Protein 8.5 H (6.3-8.2) g/dL Albumin 4.9 (3.5-5.0) g/dL Triglycerides 101 (<150) mg/dL Cholesterol 235 H (<200) mg/dL LDL Cholesterol, Calc 127 H (0-99) mg/dL HDL Cholesterol 88 H (40-60) mg/dL Amylase 87 (30-110) U/L Lipase 195 (23-300) U/L TSH 0.326 L (0.465-4.680) mIU/L Free T4 1.67 (0.78-2.19) ng/dL Urine Color Urine Appearance (Clear) Urine pH (5.0-8.0) Ur Specific [place] (1.001-1.035) Urine Protein (Negative) Urine Glucose (UA) (Negative) Urine Ketones (Negative) Urine Blood (Negative) Urine Nitrite (Negative) Urine Bilirubin (Negative) Urine Urobilinogen (<2.0) mg/dL Ur Leukocyte Esterase (Negative) Urine RBC (0-5) /hpf Urine WBC (0-5) /hpf Ur Squamous Epith Cells (0-4) /hpf Urine Bacteria (None) /hpf Urine Mucus (None) /hpf 03/13/19 03/13/19 03/13/19 Range/Units 16:35 16:35 18:18 WBC (3.8-10.6) k/uL RBC (3.80-5.40) m/uL Hgb (11.4-16.0) gm/dL Hct (34.0-46.0) % MCV (80.0-100.0) fL MCH (25.0-35.0) pg MCHC (31.0-37.0) g/dL RDW (11.5-15.5) % Plt Count (150-450) k/uL Neutrophils % % Lymphocytes % % Monocytes % % Eosinophils % % Basophils % % Neutrophils # (1.3-7.7) k/uL Lymphocytes # (1.0-4.8) k/uL Monocytes # (0-1.0) k/uL Eosinophils # (0-0.7) k/uL Basophils # (0-0.2) k/uL ESR (0-20) mm/hr Sodium (137-145) mmol/L Potassium (3.5-5.1) mmol/L Chloride (98-107) mmol/L Carbon Dioxide (22-30) mmol/L Anion Gap mmol/L BUN (7-17) mg/dL Creatinine (0.52-1.04) mg/dL Est GFR (CKD-EPI)AfAm (>60 ml/min/1.73 sqM) Est GFR (CKD-EPI)NonAf (>60 ml/min/1.73 sqM) Glucose (74-99) mg/dL POC Glucose (mg/dL) (75-99) mg/dL POC Glu Microstrategy Reports Developer ID Plasma Lactic Acid Nikhil 2.9 H* (0.7-2.0) mmol/L Calcium (8.4-10.2) mg/dL Total Bilirubin (0.2-1.3) mg/dL AST (14-36) U/L ALT (4-34) U/L Alkaline Phosphatase (38-126) U/L Creatine Kinase (30-135) U/L Troponin I <0.012 (0.000-0.034) ng/mL Total Protein (6.3-8.2) g/dL Albumin (3.5-5.0) g/dL Triglycerides (<150) mg/dL Cholesterol (<200) mg/dL LDL Cholesterol, Calc (0-99) mg/dL HDL Cholesterol (40-60) mg/dL Amylase (30-110) U/L Lipase (23-300) U/L TSH (0.465-4.680) mIU/L Free T4 (0.78-2.19) ng/dL Urine Color Yellow Urine Appearance Clear (Clear) Urine pH 8.5 H (5.0-8.0) Ur Specific [place] 1.024 (1.001-1.035) Urine Protein 1+ H (Negative) Urine Glucose (UA) 1+ H (Negative) Urine Ketones 3+ H (Negative) Urine Blood Large H (Negative) Urine Nitrite Negative (Negative) Urine Bilirubin Negative (Negative) Urine Urobilinogen 2.0 (<2.0) mg/dL Ur Leukocyte Esterase Trace H (Negative) Urine RBC >182 H (0-5) /hpf Urine WBC 10 H (0-5) /hpf Ur Squamous Epith Cells 2 (0-4) /hpf Urine Bacteria Rare H (None) /hpf Urine Mucus Rare H (None) /hpf 03/13/19 Range/Units 19:06 WBC (3.8-10.6) k/uL RBC (3.80-5.40) m/uL Hgb (11.4-16.0) gm/dL Hct (34.0-46.0) % MCV (80.0-100.0) fL MCH (25.0-35.0) pg MCHC (31.0-37.0) g/dL RDW (11.5-15.5) % Plt Count (150-450) k/uL Neutrophils % % Lymphocytes % % Monocytes % % Eosinophils % % Basophils % % Neutrophils # (1.3-7.7) k/uL Lymphocytes # (1.0-4.8) k/uL Monocytes # (0-1.0) k/uL Eosinophils # (0-0.7) k/uL Basophils # (0-0.2) k/uL ESR (0-20) mm/hr Sodium (137-145) mmol/L Potassium (3.5-5.1) mmol/L Chloride (98-107) mmol/L Carbon Dioxide (22-30) mmol/L Anion Gap mmol/L BUN (7-17) mg/dL Creatinine (0.52-1.04) mg/dL Est GFR (CKD-EPI)AfAm (>60 ml/min/1.73 sqM) Est GFR (CKD-EPI)NonAf (>60 ml/min/1.73 sqM) Glucose (74-99) mg/dL POC Glucose (mg/dL) 243 H (75-99) mg/dL POC Glu Microstrategy Reports Developer ID Pedraza, Indu Plasma Lactic Acid Nikhil (0.7-2.0) mmol/L Calcium (8.4-10.2) mg/dL Total Bilirubin (0.2-1.3) mg/dL AST (14-36) U/L ALT (4-34) U/L Alkaline Phosphatase (38-126) U/L Creatine Kinase (30-135) U/L Troponin I (0.000-0.034) ng/mL Total Protein (6.3-8.2) g/dL Albumin (3.5-5.0) g/dL Triglycerides (<150) mg/dL Cholesterol (<200) mg/dL LDL Cholesterol, Calc (0-99) mg/dL HDL Cholesterol (40-60) mg/dL Amylase (30-110) U/L Lipase (23-300) U/L TSH (0.465-4.680) mIU/L Free T4 (0.78-2.19) ng/dL Urine Color Urine Appearance (Clear) Urine pH (5.0-8.0) Ur Specific [place] (1.001-1.035) Urine Protein (Negative) Urine Glucose (UA) (Negative) Urine Ketones (Negative) Urine Blood (Negative) Urine Nitrite (Negative) Urine Bilirubin (Negative) Urine Urobilinogen (<2.0) mg/dL Ur Leukocyte Esterase (Negative) Urine RBC (0-5) /hpf Urine WBC (0-5) /hpf Ur Squamous Epith Cells (0-4) /hpf Urine Bacteria (None) /hpf Urine Mucus (None) /hpf Disposition Clinical Impression: Kidney stone, Leukocytosis Disposition: HOME SELF-CARE Condition: Good Instructions (If sedation given, give patient instructions): Kidney Stones (ED) Additional Instructions: Please take [place] for pain. Do not drive or operate machinery while taking this. Take Zofran for nausea. Take Flomax as directed. Follow-up with urology by calling to make an appointment tomorrow. Follow-up with primary care as well. As discussed with like you to have a repeat white blood cell count from your doctor to ensure that this is improving. Prescriptions: Tamsulosin [Flomax] 0.4 mg PO DAILY #10 cap HYDROcodone/APAP 5-325MG [[place] 5-325] 1 tab PO Q6HR PRN #10 tab PRN Reason: Pain Ondansetron [Zofran ODT] 4 mg PO Q8HR PRN #15 tab PRN Reason: Nausea Is patient prescribed a controlled substance at d/c from ED?: No Referrals: Miguel Lopez MD [Primary Care Provider] - 1-2 days Ever Mccoy MD [STAFF PHYSICIAN] - 1-2 days Time of Disposition: 19:33
[2019-03-13 18:37] LABS: Appearance,Urine Clear (Clear); Bacteria,Urine Rare /hpf; Bilirubin,Urine Negative (Negative); Blood,Urine Large (Negative); Color,Urine Yellow; Glucose,Urine (UA) 1+ (Negative); Leukocyte Esterase,Urine Trace (Negative); Mucus,Urine Rare /hpf; Nitrite,Urine Negative (Negative); PH, Urine 8.5 (5.0-8.0); Protein,Urine 1+ (Negative); RBC,Urine >182 /hpf (0-5); Specific Gravity,Urine 1.024 (1.001-1.035); Squamous Epithelial Cell,Urine 2 /hpf (0-4); WBC,Urine 10 /hpf (0-5)
[2019-03-13 18:39] LABS: Ketones,Urine 3+ (Negative)
[2019-03-13 19:09] LABS: Glucose,Whole Blood 243 mg/dL (75-99)
[2019-03-13] MEDS ORDERED: ACET/COD 300 MG/30 MG STARTER PACK 6 TAB BTL PO STA (19:37)
== END 2019-03-13 20:00 | disposition home or self-care (01) ==
LOC: EC 16:00
DX: N13.2 Hydronephrosis with renal and ureteral calculous obstruction (principal); D72.829 Elevated white blood cell count, unspecified; E11.9 Type 2 diabetes mellitus without complications; I10 Essential (primary) hypertension; E78.5 Hyperlipidemia, unspecified; E07.9 Disorder of thyroid, unspecified; Z79.01 Long term (current) use of anticoagulants; Z79.82 Long term (current) use of aspirin; Z79.890 Hormone replacement therapy; Z79.899 Other long term (current) drug therapy; Z91.048 Other nonmedicinal substance allergy status; Z87.891 Personal history of nicotine dependence; Z95.1 Presence of aortocoronary bypass graft; Z95.2 Presence of prosthetic heart valve; Z86.73 Personal history of transient ischemic attack (TIA), and cerebral infarction without residual deficits
CPT/HCPCS: 36415; 84439; 80061; 80053; 85652; 82150; 82550; 83605; 83690; 84443; 84484; 85025; 81001; 87086; 74018; 99284; 96374; 96375; 96361; J2405; J1885; 74176

== ENCOUNTER → 2019-03-13 | Outpatient (CLI) | payer MEDICARE, OTHER ==
--- NOTE | 2019-03-13 14:11 | CT ---
EXAMINATION TYPE: CT abdomen pelvis wo con DATE OF EXAM: 03/13/2019 HISTORY: Nausea, vomiting, abdominal pain. History of perforation. CT DLP: 989 mGycm. Automated Exposure Control for Dose Reduction was Utilized. TECHNIQUE: CT scan of the abdomen and pelvis is performed without oral or IV contrast. COMPARISON: CT abdomen pelvis June 14, 2017 FINDINGS: Within the limitations of a non-contrast study, the following observations are made. LUNG BASES: Post-CABG changes with mediastinal clips and sternal wires is now present and partially i ariela. LIVER/GB: No significant abnormality is appreciated. PANCREAS: Mild generalized fat replaced atrophy particularly pancreatic head and proximal body level is thought more prominent from prior. SPLEEN: No significant abnormality is seen. ADRENALS: Persistent right adrenal mass measuring 2.2 x. 1.3 cm with Hounsfield units between 13 and 14. Lesion and not significantly changed in size from prior. KIDNEYS: There is redemonstration of 7 mm right renal calculus which has passed into proximal ureter coronal image 48 causing new mild pyelocaliectasis. The left-sided renal calculus or hydronephrosis o n current study. BOWEL: Low-lying cecum into the right pelvis. No suspicious small or large bowel dilatation. GENITAL ORGANS: Uterus surgically absent or markedly atrophic. Scattered pelvic phleboliths bilateral ly. LYMPH NODES: No greater than 1cm abdominal or pelvic lymph nodes are appreciated. OSSEOUS STRUCTURES: Moderate 2 borderline severe narrowing and spurring of both hip joints redemonstr ated. Multilevel fairly severe facet arthropathy mid to lower lumbar spine. OTHER: Bilateral gluteal muscular atrophy redemonstrated along with atrophy of the posterior lateral thigh muscles. Asymmetric atrophy of the right anterior lateral quadriceps muscle versus the opposite left side. Wide mouth hernia defect overlying the pelvis containing fat on axial image 81 redemonstr ated near site of scar incision hernia. Moderate to severe calcified plaque of the mid to distal aort a extending to the iliac branch vessels. IMPRESSION: There is 6 to 7 mm proximal right ureteral calculus on current study causing mild right-s ided hydronephrosis which has passed into the collecting system and ureter since prior 2018 CT. Results communicated to ordering physician office by telephone by reliability technologist shortly after exam was completed.
== END | disposition home or self-care (01) ==
LOC: RADCTMAIN 13:05
PROVIDERS: ATTEND Family Medicine
DX: N13.2 Hydronephrosis with renal and ureteral calculous obstruction (principal)
CPT/HCPCS: 74176

== ENCOUNTER → 2019-03-16 | Outpatient (CLI) | payer MEDICARE, OTHER ==
--- NOTE | 2019-03-16 15:29 | XR ---
EXAMINATION TYPE: XR KUB DATE OF EXAM: 03/16/2019 1:34 PM CLINICAL HISTORY: Right ureteral calculus. TECHNIQUE: Single supine KUB image of the abdomen is obtained. COMPARISON: 03/13/2019 FINDINGS: Measuring approximately 7 mm calculus overlies the right L4 transverse process. Additional right renal calculus measures approximately 6 mm. No left-sided calculi are seen. Extensive degenerat willy changes of the lumbosacral junction. No dilated large or small bowel. Extensive degenerative rossi ges of the hip joints. Multiple phleboliths in the pelvis. IMPRESSION: 7 mm calculus overlies the right transverse process of L4, slightly caudal in position fr om the prior. Additional right renal calculus is seen measuring approximate 6 mm.
== END | disposition home or self-care (01) ==
LOC: RADXRMAIN 13:18
PROVIDERS: ATTEND Urology
DX: N20.0 Calculus of kidney (principal)
CPT/HCPCS: 74018

== ENCOUNTER 2019-03-20 12:38 | Day surgery (SDC) | payer MEDICARE, OTHER ==
[2019-03-17 13:35] VITALS: BMI 26.6
--- NOTE | 2019-03-19 09:32 | P.GSHP ---
History of Present Illness H&P Date: 03/19/19 Chief Complaint: Right ureteral calculus The patient is a 73-year-old female who developed the onset of nausea, right abdominal and right flank pain on 03/13/2019. She was seen by Dr. Lopez and a urinalysis apparently showed hematuria. She was suspected to have a kidney s tone and was sent to the [facility] emergency room for further evaluation. Noncontrast CT scan of the abdomen and pelvis identified a 6-7 mm proximal right ureteral calculus with mild hydronephrosis. The patient's pain improved with analgesics and she was discharged. She was seen by me in the office on 03/15. I reviewed her CT scan and a KUB that had been obtained in the emergency room with the patient and her . She continued to have intermittent pain which required the use of Narco. I discussed further observation with the use of tamsulosin, ESWL or ureteroscopy with lithotripsy. A KUB was repeated on 03/16 and showed no change in the location of the proximal right ureteral calculus. After reviewing treatment options the patient has elected to proceed with ESWL. She has no previous history of urolithiasis, recurrent urinary tract infections or gross hematuria. Past Medical History Past Medical History: CVA/TIA, Diabetes Mellitus, Hyperlipidemia, Hypertension, Osteoarthritis (OA), Rheumatoid Arthritis (RA), Thyroid Disorder Additional Past Medical History / Comment(s): states TIA over 30yrs ago- no residual effects, "slight"heart murmur, insomnia, "3 hiatal hernias", hx IBS, kidney stone, History of Any Multi-Drug Resistant Organisms: None Reported Past Surgical History: Bowel Resection, Cardiac Valve Replacement (Bovine aortic valve), Coronary Bypass/CABG, Heart Catheterization, Hysterectomy, Orthopedic Surgery, Tonsillectomy Additional Past Surgical History / Comment(s): left knee arthroscopy, orif left ankle with plate and screws-hardware later removed, uri cataracts, hemmorhoidectomy, "perforated colon with colonoscopy", thoracentesis; CABG and aortic valve replacement May 2018. Past Anesthesia/Blood Transfusion Reactions: No Reported Reaction Additional Past Anesthesia/Blood Transfusion Reaction / Comment(s): . Smoking Status: Former smoker - Past Family History Mother Family Medical History: No Reported History Medications and Allergies Home Medications Medication Instructions Recorded Confirmed Type Levothyroxine Sodium [Synthroid] 50 mcg PO QAM 10/19/16 03/17/19 History Multivitamins, Thera [Multivitamin 1 tab PO DAILY 01/01/18 03/17/19 History (formulary)] Atorvastatin [Lipitor] 40 mg PO HS 03/18/18 03/17/19 History Acetaminophen Tab [Tylenol] 1,000 mg PO HS PRN 08/15/18 03/17/19 History Aspirin 81 mg PO DAILY 08/15/18 03/17/19 History Metoprolol Tartrate [Lopressor] 25 mg PO BID 08/15/18 03/17/19 History HYDROcodone/APAP 5-325MG [[place] 1 tab PO Q6HR PRN #10 tab 03/13/19 03/17/19 Rx 5-325] Ondansetron [Zofran ODT] 4 mg PO Q8HR PRN #15 tab 03/13/19 03/17/19 Rx Tamsulosin [Flomax] 0.4 mg PO DAILY #10 cap 03/13/19 03/17/19 Rx Biotin 10,000 mcg PO DAILY 03/17/19 03/17/19 History Enalapril [Vasotec] 5 mg PO BID 03/17/19 03/17/19 History Insulin Degludec [Tresiba] 20 units SQ HS 03/17/19 03/17/19 History Allergies Allergy/AdvReac Type Severity Reaction Status Date / Time No Known Allergies Allergy Verified 03/17/19 13:20 Surgical - Exam - General well developed, well nourished, no distress - ENT no hearing loss - Respiratory normal expansion, clear to auscultation - Cardiovascular Rhythm: regular Abnormal Heart Sounds: no systolic murmur, no diastolic murmur - Abdomen Abdomen: soft, non tender, no organomegaly Hernia: none Assessment and Plan (1) Calculus of proximal right ureter Narrative/Plan: The patient will undergo extracorporeal shockwave lithotripsy for treatment of her proximal right ureteral calculus under intravenous sedation. She is aware of the operative risks which include anesthesia, hematuria, intrarenal or perinephric hemorrhage, inability to fragment the calculus and ureteral obstruction from a calculus fragment which may require a secondary procedure for removal. Status: Acute Code(s): N20.1 - CALCULUS OF URETER SNOMED Code(s): 06084513
--- NOTE | 2019-03-20 13:08 | XR ---
EXAMINATION TYPE: XR KUB DATE OF EXAM: 03/20/2019 HISTORY: Pain Comparison: 03/16/2019Single KUB is submitted for interpretation. Findings: Right renal calculi: Right renal calculus measures 6.4 mm and is in similar position in prior study. Right ureteral calculi: Mid right ureteral calculus at the right L5 level measuring 5.2 mm with sligh t distal migration relative to the prior study. Left renal calculi: None Visualized. Left ureteral calculi: None Visualized. Pelvic calcifications: None Visualized. Bowel gas pattern is unremarkable. No free air. No mass effects. IMPRESSION: 1. Right-sided calculi as noted.
[2019-03-20] MEDS ORDERED: LIDOCAINE 1% 20 ML VIAL (10MG/ML) FOR IV START INTRADERMA ONE (13:15)
[2019-03-20] MEDS ORDERED: LACTATED RINGERS 1,000 ML IV ONE (13:15)
[2019-03-20 13:16] VITALS: TEMP 98.5
[2019-03-20 13:16] LABS: Glucose,Whole Blood 123 mg/dL (75-99)
[2019-03-20] MEDS ORDERED: fentaNYL (PF) 50 MCG/ML 2 ML AMP ONE (13:59)
[2019-03-20] MEDS ORDERED: MIDAZOLAM 2 MG/2 ML VIAL ONE (13:59)
[2019-03-20] MEDS ORDERED: KETAMINE 10 MG/ML 20 ML VIAL ONE (13:59)
[2019-03-20] MEDS ORDERED: PROPOFOL 10 MG/ML 20 ML VIAL IV ONE (13:59)
--- NOTE | 2019-03-20 14:45 | P.OP ---
Date of Procedure: 03/20/19 Preoperative Diagnosis: Right ureteral calculus Postoperative Diagnosis: Right ureteral calculus Procedure(s) Performed: Extracorporal shock wave lithotripsy Anesthesia: MAC Surgeon: Jose Kemp Estimated Blood Loss (ml): 0 Pathology: none sent Condition: stable Disposition: PACU Indications for Procedure: The patient is a 73-year-old female with a history of intermittent right flank and right abdominal pain. She was discovered to have a 7 mm calculus in the proximal right ureter on a computed tomography scan 1 week ago. She continues to have intermittent pain. After reviewing treatment options the patient has elected to proceed with ESWL. Description of Procedure: The patient was taken to the operating suite where she was placed in the supine position on the fluoroscopy table. The right ureteral calculus was identified at the L4-5 level via biplanar fluoroscopy. Intravenous sedation was given. Lithotripsy was performed using the Dornier compact delta unit. The patient received 3000 shocks at level 5 at a rate of 80/min. There appeared to be fragmentation of the calculus. The anesthesia was reversed and the patient was taken to the recovery area in satisfactory condition. She will be seen back in 1 week for followup. She will continue tamsulosin.
[2019-03-20 14:55] VITALS: RESP 16
[2019-03-20 15:25] VITALS: BP 128/78; PULSE 78
== END 2019-03-20 15:36 | disposition home or self-care (01) ==
LOC: ORWHC2ENDO 12:38
PROVIDERS: ATTEND Urology
DX: N20.1 Calculus of ureter (principal); E11.9 Type 2 diabetes mellitus without complications; E78.5 Hyperlipidemia, unspecified; I10 Essential (primary) hypertension; M19.90 Unspecified osteoarthritis, unspecified site; M06.9 Rheumatoid arthritis, unspecified; E07.9 Disorder of thyroid, unspecified; I25.10 Atherosclerotic heart disease of native coronary artery without angina pectoris; K21.9 Gastro-esophageal reflux disease without esophagitis; Z86.73 Personal history of transient ischemic attack (TIA), and cerebral infarction without residual deficits; Z87.19 Personal history of other diseases of the digestive system; G47.00 Insomnia, unspecified; Z90.49 Acquired absence of other specified parts of digestive tract; Z95.1 Presence of aortocoronary bypass graft; Z95.2 Presence of prosthetic heart valve; Z90.710 Acquired absence of both cervix and uterus; Z98.890 Other specified postprocedural states; Z90.89 Acquired absence of other organs; Z98.41 Cataract extraction status, right eye; Z98.42 Cataract extraction status, left eye; Z87.891 Personal history of nicotine dependence; Z79.890 Hormone replacement therapy; Z79.82 Long term (current) use of aspirin; Z79.4 Long term (current) use of insulin; Z79.899 Other long term (current) drug therapy
CPT/HCPCS: 74018; 50590; J2250; J3010; J2704

== ENCOUNTER → 2019-03-27 | Outpatient (CLI) | payer MEDICARE, OTHER ==
--- NOTE | 2019-03-27 14:56 | XR ---
EXAMINATION TYPE: XR KUB DATE OF EXAM: 03/27/2019 2:35 PM CLINICAL HISTORY: Right ureteral calculus. TECHNIQUE: Single upright image of the abdomen is obtained. COMPARISON: 03/20/2019 KUB FINDINGS: The previously seen 5 mm calculus adjacent to the L5 vertebral body on the right is no long er evident. There are similar appearing phleboliths scattered within the pelvis. Generalized osseous demineralization is seen with degenerative changes of the lumbosacral junction and of the bilateral h ips. No pneumoperitoneum or dilated bowel. Moderate atherosclerosis is seen of the abdominal aorta an d its branches. The previously seen calculus overlying the right renal shadow is likely within bowel on the prior exam and is no longer seen. No calculi are seen overlying the left renal shadow IMPRESSION: The previously seen 5 mm calculus adjacent to the right L5 vertebral body within the righ t ureter is no longer evident and presumably passed in the interim.
== END | disposition home or self-care (01) ==
LOC: RADXRMAIN 14:24
PROVIDERS: ATTEND Urology
DX: N20.1 Calculus of ureter (principal)
CPT/HCPCS: 74018

== ENCOUNTER → 2019-09-08 | Outpatient (CLI) | payer MEDICARE, OTHER ==
[2019-09-08 10:44] LABS: Basophils # (A) 0.1 k/uL (0-0.2); Basophils % (A) 1 %; Eosinophils # (A) 0.3 k/uL (0-0.7); Eosinophils % (A) 3 %; HCT 44.1 % (34.0-46.0); HGB 13.7 gm/dL (11.4-16.0); Lymphocytes # (A) 2.5 k/uL (1.0-4.8); Lymphocytes % (A) 22 %; MCH 28.8 pg (25.0-35.0); MCV 92.7 fL (80.0-100.0); Mean Platelet Volume 8.3; Monocytes # (A) 0.4 k/uL (0-1.0); Monocytes % (A) 4 %; Neutrophils # (A) 7.9 k/uL (1.3-7.7); Neutrophils % (A) 69 %; Platelet Count 266 k/uL (150-450); RBC 4.75 m/uL (3.80-5.40); RDW 13.8 % (11.5-15.5); WBC 11.4 k/uL (3.8-10.6)
== END | disposition home or self-care (01) ==
LOC: LABWHC1 09:49
PROVIDERS: ATTEND Family Medicine
DX: E78.5 Hyperlipidemia, unspecified (principal)
CPT/HCPCS: 36415; 80053; 80061; 82550; 85025

== ENCOUNTER 2023-07-09 17:53 | Inpatient (IN) | payer MEDICARE, OTHER ==
[2023-07-09] MEDS: SODIUM CHLORIDE 0.9% 1,000 ML IV STA ×2 (19:05→21:25)
[2023-07-09] MEDS: MORPHINE SULFATE 2 MG/ML SYRINGE IVP STA (19:07)
[2023-07-09 19:17] LABS: Basophils # (A) 0.1 k/uL (0-0.2); Basophils % (A) 0 %; Eosinophils # (A) 0.2 k/uL (0-0.7); Eosinophils % (A) 1 %; HCT 42.7 % (34.0-46.0); HGB 14.1 gm/dL (11.4-16.0); Lymphocytes # (A) 2.8 k/uL (1.0-4.8); Lymphocytes % (A) 13 %; MCH 29.7 pg (25.0-35.0); MCHC 33.1 g/dL (31.0-37.0); MCV 89.6 fL (80.0-100.0); Mean Platelet Volume 9.1; Monocytes # (A) 0.9 k/uL (0-1.0); Monocytes % (A) 4 %; Neutrophils # (A) 17.7 k/uL (1.3-7.7); Neutrophils % (A) 81 %; Platelet Count 309 k/uL (150-450); RBC 4.77 m/uL (3.80-5.40); RDW 13.6 % (11.5-15.5); WBC 21.8 k/uL (3.8-10.6)
--- NOTE | 2023-07-09 19:21 | ED ---
General Adult HPI - General Chief complaint: Fall Stated complaint: fall-L hip pain Time Seen by Provider: 07/09/23 18:15 Source: patient, EMS, RN notes reviewed, old records reviewed Mode of arrival: EMS Limitations: physical limitation - History of Present Illness Initial comments: Patient is a 77-year-old female who presents emergency department after a fall. Has a history of diabetes, hypertension, CABG, hyperlipidemia. History of TIA as well. Is not on blood thinners. Did not hit her head or lose consciousness. States she slipped and fell on her deck landing on her left hip. Complaining of a little bit of left shoulder discomfort as well from falling but primarily left hip pain. Pain is worse with movement and is unable to lift her left hip above the bed. This is abnormal for the patient presents for further evaluation. Denies any numbness. Denies any back pain or chest pain. Denies any abdominal pain. No head injury. No other acute complaints. Presents for further evaluation.Fall occurred at approximately 1 PM. She received help from friends to sit in couch however pain did not improve which is why they called EMS. - Related Data Home Medications Medication Instructions Recorded Confirmed Levothyroxine Sodium [Synthroid] 50 mcg PO DAILY 10/19/16 07/09/23 Enalapril [Vasotec] 5 mg PO DAILY 03/17/19 07/09/23 Ezetimibe [Zetia] 10 mg PO DAILY 07/09/23 07/09/23 Insulin Degludec [Tresiba 30 units SQ HS 07/09/23 07/09/23 Flextouch U-200 Pen] Semaglutide [Rybelsus] 3 mg PO DAILY 07/09/23 07/09/23 Allergies Allergy/AdvReac Type Severity Reaction Status Date / Time chrome Allergy Allergy Uncoded 07/09/23 20:24 Testing dust Allergy Allergy Uncoded 07/09/23 20:24 Testing Review of Systems ROS Statement: Those systems with pertinent positive or pertinent negative responses have been documented in the HPI. Review of Systems: CONST: Denies fever EYES: Denies blurry vision ENT: Denies nasal congestion C/V: Denies Chest pain RESP: Denies shortness of breath GI: Denies abdominal pain : Denies dysuria SKIN: Denies rash. MSK: Endorses left hip pain NEURO: Denies headache ROS Other: All systems not noted in ROS Statement are negative. Past Medical History Past Medical History: CVA/TIA, Diabetes Mellitus, Hyperlipidemia, Hypertension, Osteoarthritis (OA), Rheumatoid Arthritis (RA), Thyroid Disorder Additional Past Medical History / Comment(s): states TIA over 30yrs ago- no residual effects, "slight"heart murmur, insomnia, "3 hiatal hernias", hx IBS, kidney stone, History of Any Multi-Drug Resistant Organisms: None Reported Past Surgical History: Bowel Resection, Cardiac Valve Replacement, Coronary Bypass/CABG, Heart Catheterization, Hysterectomy, Orthopedic Surgery, Tonsillectomy Additional Past Surgical History / Comment(s): left knee arthroscopy, orif left ankle with plate and screws-hardware later removed, uri cataracts, hemmorhoidectomy, "perforated colon with colonoscopy", thoracentesis; CABG and aortic valve replacement May 2018. Past Anesthesia/Blood Transfusion Reactions: No Reported Reaction Additional Past Anesthesia/Blood Transfusion Reaction / Comment(s): . Past Psychological History: No Psychological Hx Reported Smoking Status: Former smoker Past Alcohol Use History: None Reported Past Drug Use History: None Reported - Past Family History Mother Family Medical History: No Reported History General Exam - General Exam Comments Initial Comments: General: He is in moderate distress secondary to left hip pain. HEAD: Normal with no signs of head trauma. Negative Kaur sign. Negative raccoon eyes. EYES: PERRLA, EOMI, conjunctiva normal, no discharge. Pupils are 3 mm and equal bilaterally. ENT: Hearing grossly intact, normal oropharynx. RESPIRATORY: Clear breath sounds bilaterally. No wheezes, rales, or rhonchi. C/V: Regular rate and rhythm. S1 and S2 auscultated, no edema, peripheral pulses 2+ and intact throughout ABD: Abd is soft, nontender, nondistended EXT: Reduced range of motion of left hip secondary to pain over the lateral aspect of the left hip. No shortening. No obvious deformity. Decreased range of motion as well as tenderness to palpation of the left hip. No midline cervical, thoracic, lumbar spine tenderness to palpation. Pelvis otherwise is stable. Neurovascularly intact in the the left lower extremity. SKIN: No rashes or lesions observed on exposed skin. NEURO: Alert and oriented x 4. Limitations: physical limitation Course Vital Signs 07/09/23 07/09/23 07/09/23 17:57 18:00 18:30 Temperature 98.1 F Pulse Rate 85 Respiratory 20 18 Rate Blood Pressure 207/82 168/108 O2 Sat by Pulse 99 99 97 Oximetry 07/09/23 07/09/23 07/09/23 19:00 21:10 21:44 Temperature Pulse Rate 75 85 Respiratory 16 18 16 Rate Blood Pressure 149/41 162/61 162/61 O2 Sat by Pulse 98 96 99 Oximetry Medical Decision Making - Medical Decision Making Was pt. sent in by a medical professional or institution (, PA, CHEMISTRY RESEARCH ASSISTANT, urgent care, hospital, or long-term...) When possible be specific @ -No Did you speak to anyone other than the patient for history (EMS, parent, family, police, friend...)? What history was obtained from this source @ -No Did you review nursing and triage notes (agree or disagree)? Why? @ -I reviewed and agree with nursing and triage notes Were old charts reviewed (outside hosp., previous admission, EMS record, old EKG, old radiological studies, urgent care reports/EKG's, long-term records)? Report findings @ -Old charts reviewed Differential Diagnosis (chest pain, altered mental status, abdominal pain women, abdominal pain men, vaginal bleeding, weakness, fever, dyspnea, syncope, headache, dizziness, GI bleed, back pain, seizure, CVA, palpatations, mental health, musculoskeletal)? @ -Differential Musculoskeletal Muscular strain, contusion, ligament sprain, fracture, arthritis, septic arthritis, bursitis, cellulitis, muscle spasm, nerve compression, DVT, arterial occlusion, herpes zoster, electrolyte abnormality, tumor.... This is not meant to be in all inclusive list EKG interpreted by me (3pts min.). @ -As above X-rays interpreted by me (1pt min.). @ -Hip and pelvis x-ray reveals findings consistent with subtle nondisplaced intertrochanteric fracture on the left. Shoulder x-ray and chest x-ray unremarkable for any obvious acute injury. CT interpreted by me (1pt min.). @ -None done U/S interpreted by me (1pt. min.). @ -None done What testing was considered but not performed or refused? (CT, X-rays, U/S, labs)? Why? @ -None What meds were considered but not given or refused? Why? @ -None Did you discuss the management of the patient with other professionals (professionals i.e. , PA, CHEMISTRY RESEARCH ASSISTANT, lab, RT, psych nurse, social science teacher, sampler first, teacher, loan servicing officer, piano case and bench assembler)? Give summary @ -Discussed with on-call orthopedics, Rebekah Villa who is with Dr. Shrestha. Accepted the admission and did request CT imaging be obtained of the pelvis. This was ordered and is pending. Was smoking cessation discussed for >3mins.? @ -No Was critical care preformed (if so, how long)? @ -No Were there social determinants of health that impacted care today? How? (Homelessness, low income, unemployed, alcoholism, drug addiction, transportation, low edu. Level, literacy, decrease access to med. care, alf, rehab)? @ -No Was there de-escalation of care discussed even if they declined (Discuss DNR or withdrawal of care, Hospice)? DNR status @ -No What co-morbidities impacted this encounter? (DM, HTN, Smoking, COPD, CAD, Cancer, CVA, ARF, Chemo, Hep., AIDS, mental health diagnosis, sleep apnea, morbid obesity)? @ -None Was patient admitted / discharged? Hospital course, mention meds given and route, prescriptions, significant lab abnormalities, going to OR and other pertinent info. @ -Patient presents after mechanical fall. Only obvious injury to the left hip. No head trauma, loss of consciousness. Is not on blood thinners. Will obtain x-rays as well as basic labs. Patient given analgesia medications as well as IV fluids. Patient was in agreement this plan. Laboratory studies remarkable for leukocytosis is likely reactive. Urinalysis is still pending at this time. X-rays reveal no obvious fracture or injury to the chest or shoulder but she does have what appears to be a nondisplaced intertrochanteric fracture of the left hip. I updated the patient. Pain is improved at this time but she still is reduced range of motion secondary to pain. I spoke with orthopedics on-call, JACK Villa who accepted the admission. I spoke with consulting medical team, Dr. Arias [place] who accepted the consult. Patient admitted in stable condition. CT pelvis ordered at orthopedics request. Results still pending. Patient made n.p.o. after midnight until orthopedics evaluates the patient in the morning. Undiagnosed new problem with uncertain prognosis? @ -No Drug Therapy requiring intensive monitoring for toxicity (Heparin, Nitro, Insulin, Cardizem)? @ -No Were any procedures done? @ -No Diagnosis/symptom? @ -Fall, left intertrochanteric fracture of left femur Acute, or Chronic, or Acute on Chronic? @ -Acute Uncomplicated (without systemic symptoms) or Complicated (systemic symptoms)? @ -Complicated Side effects of treatment? @ -No Exacerbation, Progression, or Severe Exacerbation? @ -No Poses a threat to life or bodily function? How? (Chest pain, USA, NH, pneumonia, PE, COPD, DKA, ARF, appy, cholecystitis, CVA, Diverticulitis, Homicidal, Suicidal, threat to staff... and all critical care pts) @ -Potentially - Lab Data Result diagrams: 07/09/23 18:57 07/09/23 18:57 Lab Results 07/09/23 07/09/23 Range/Units 18:57 18:57 WBC 21.8 H (3.8-10.6) k/uL RBC 4.77 (3.80-5.40) m/uL Hgb 14.1 (11.4-16.0) gm/dL Hct 42.7 (34.0-46.0) % MCV 89.6 (80.0-100.0) fL MCH 29.7 (25.0-35.0) pg MCHC 33.1 (31.0-37.0) g/dL RDW 13.6 (11.5-15.5) % Plt Count 309 (150-450) k/uL MPV 9.1 Neutrophils % 81 % Lymphocytes % 13 % Monocytes % 4 % Eosinophils % 1 % Basophils % 0 % Neutrophils # 17.7 H (1.3-7.7) k/uL Lymphocytes # 2.8 (1.0-4.8) k/uL Monocytes # 0.9 (0-1.0) k/uL Eosinophils # 0.2 (0-0.7) k/uL Basophils # 0.1 (0-0.2) k/uL Sodium 137 (137-145) mmol/L Potassium 4.2 (3.5-5.1) mmol/L Chloride 103 (98-107) mmol/L Carbon Dioxide 28 (22-30) mmol/L Anion Gap 6 mmol/L BUN 13 (7-17) mg/dL Creatinine 0.56 (0.52-1.04) mg/dL Est GFR (CKD-EPI)AfAm >90 (>60 ml/min/1.73 sqM) Est GFR (CKD-EPI)NonAf 89 (>60 ml/min/1.73 sqM) Glucose 121 H (74-99) mg/dL Calcium 9.7 (8.4-10.2) mg/dL - EKG Data -: EKG Interpreted by Me EKG Comments: 12-lead Electrocardiogram Interpretation Note EKG was reviewed and interpreted by myself. 12-lead ECG performed at 1839 is interpreted by me as revealing normal sinus rhythm at a rate of 73 beats per minute. [place] is normal. NH interval is 131 ms, QRS duration is 100 ms, QTc is 423 ms.. There were no obvious acute ST or T wave abnormalities to suggest myocardial ischemia or injury. Nonspecific ST-T segment T wave abnormalities. R wave progression across the precordium was satisfactory. By my interpretation this EKG is non-diagnostic for acute ischemia. Disposition Clinical Impression: Fall, Intertrochanteric fracture of left femur Disposition: ADMITTED IP TO THIS HOSP Condition: Stable Time of Disposition: 21:01
[2023-07-09 19:22] LABS: African American GFR (CKD) >90 (>60 ml/min/1.73 sqM); Anion Gap 6 mmol/L; Blood Urea Nitrogen 13 mg/dL (7-17); Calcium 9.7 mg/dL (8.4-10.2); Carbon Dioxide 28 mmol/L (22-30); Chloride 103 mmol/L (98-107); Glucose 121 mg/dL (74-99); Non-African American GFR(CKD) 89 (>60 ml/min/1.73 sqM); Potassium 4.2 mmol/L (3.5-5.1); Sodium 137 mmol/L (137-145)
--- NOTE | 2023-07-09 19:51 | XR ---
EXAMINATION TYPE: XR Hip 2 views LT and AP Pelvis DATE OF EXAM: 07/09/2023 Comparison: None Clinical History: 77-year-old female fall, pain Findings: Marked osteopenia. Moderate degenerative change of both hips. No displaced fractures seen. However, o n the frog lateral view, there is subtle lucency extending across the intertrochanteric region. Impression: Only seen on the frog-leg lateral view, subtle lucency extending across the intertrochanteric region. Unable to exclude a subtle nondisplaced intertrochanteric fracture.
--- NOTE | 2023-07-09 19:52 | XR ---
EXAMINATION TYPE: XR chest 1V portable DATE OF EXAM: 07/09/2023 Comparison: 08/17/2018 Clinical History: 77-year-old female fall, pain Findings: Heart borderline enlarged. Median sternotomy wires and post-CABG clips. Mild interstitial prominence is unchanged. No consolidation or pleural effusion. Impression: Borderline heart size. Post-CABG and other chronic changes. No definite acute process.
--- NOTE | 2023-07-09 19:56 | XR ---
EXAMINATION TYPE: XR shoulder limited LT DATE OF EXAM: 07/09/2023 COMPARISON: NONE HISTORY: 77-year-old female fall and pain TECHNIQUE: 2 views FINDINGS: There is some calcification in the region of the rotator cuff insertion or adjacent subdelt oid bursa. Some nonspecific calcification in the region of the coracoclavicular ligaments. AC joint a ppears congruent and intact. No acute fracture, subluxation, dislocation. IMPRESSION: 1. Consider calcific tendinitis/bursitis of the rotator cuff. 2. Nonspecific calcifications in the region of the coracoclavicular ligaments may reflect sequela of a prior injury. No abnormal widening or offset at this space or at the AC joint.
[2023-07-09] MEDS ORDERED: NALOXONE 0.4 MG/ML 1 ML VIAL IV PRN (21:06)
[2023-07-09] MEDS: INSULIN DETEMIR (LEVEMIR) 100 UNIT/ML SYR SQ SCH (21:44)
[2023-07-09 22:00] LABS: Appearance,Urine Clear (Clear); Bilirubin,Urine Negative (Negative); Blood,Urine Moderate (Negative); Color,Urine Colorless; Glucose,Urine (UA) Negative (Negative); Ketones,Urine Negative (Negative); Leukocyte Esterase,Urine Moderate (Negative); Mucus,Urine Rare /hpf; Nitrite,Urine Negative (Negative); PH, Urine 6.5 (5.0-8.0); Protein,Urine Negative (Negative); RBC,Urine 11 /hpf (0-5); Specific Gravity,Urine 1.011 (1.001-1.035); Urobilinogen,Urine <2.0 mg/dL (<2.0); WBC,Urine 31 /hpf (0-5)
--- NOTE | 2023-07-09 23:50 | CT ---
EXAMINATION TYPE: CT pelvis wo con CT DLP: 431.6 mGycm, Automated exposure control for dose reduction was used. DATE OF EXAM: 07/09/2023 8:44 PM COMPARISON: Earlier same day radiograph CLINICAL INDICATION:Female, 77 years old with history of eval left intertrochanteric region for fract ure; Eval left intertrochanteric region for fracture. TECHNIQUE: Noncontrast CT the bony pelvis was performed. Multiplanar reformats were created on a [employer] workstation. Contrast used: mL of , (none if empty) Oral contrast used: without Oral Contrast (none if empty) FINDINGS: Moderate degenerative changes of the lower lumbar spine with moderate to severe spinal canal stenosis L3-L4, L4-L5, L5-S1. Mild degenerative change of the SI joints. The sacrum appears intact. No acute pelvic fracture. Moderate bilateral hip arthropathy. No fracture or dislocation is seen invo lving either hip or proximal femur. Review of soft tissues demonstrates moderate to heavy calcification of the distal abdominal aorta and iliac arteries. Moderate stool throughout the colon, greatest proximally. There are several divertic rissa of the distal colon without evidence of diverticulitis. Urinary bladder is moderately distended. No free pelvic fluid is seen. Reproductive organs not seen, they have been removed. There is generalized fatty atrophy of the musculature. IMPRESSION: No acute pelvic fracture or traumatic malalignment. Moderate diffuse degenerative changes, as describ ed.
--- NOTE | 2023-07-10 03:42 | P.CONS ---
History of Present Illness - Reason for Consult Consult date: 07/09/23 - History of Present Illness Patient is a 77-year-old female with a PMH of CAD status post CABG, hypertension, hyperlipidemia, type II DM, and hypothyroidism who presents to the emergency room after a fall. Patient reports she was at home standing on her wooden deck when she tripped and fell onto her her left hip with immediate severe pain. Also reports hitting her left shoulder but that the primary injury was to the left hip. Notes that she is unable to move her left leg as a result. Denies experiencing head trauma or loss of consciousness. Also denies chest discomfort, shortness of breath, fever, chills, cough, nausea, vomiting, abdominal pain, urinary complaints, diarrhea. Reported no pain of the left hip at the time of interview except for with movement. Hip x-ray in the emergency room revealed a possible subtle nondisplaced intertrochanteric fracture. Pelvis CT without contrast in the emergency room however revealed no hip or proximal of femur fractures. EKG revealed sinus rhythm with T wave flattening in leads V5 and V6 at 73 bpm with no other ST/T wave changes noted as reviewed by me. Shoulder x-ray was negative for acute abnormalities. Chest x-ray also revealed no acute abnormalities. Laboratory evaluation was remarkable for leukocytosis of 21.8 with hemoglobin 14.1, sodium 137, potassium 4.2, glucose 121, with a UA somewhat consistent with UTI. ED documentation reviewed and case discussed with ED provider. Review of systems: Pertinent positives and negatives as discussed in HPI, a complete review of systems was performed and all other systems are negative. Physical examination: Vital signs reviewed General: non toxic, no distress, appears at stated age, normal weight Derm: no unusual rashes/lesions, warm Head: atraumatic, normocephalic, symmetric Eyes: EOMI, no lid lag, anicteric sclera, pupils equal round reactive to light ENT: Nose and ears atraumatic Neck: No cervical lymphadenopathy, trachea midline, supple Mouth: no lip lesion, mucus membranes moist Cardiovascular: S1-S2 regular with grade 3 systolic murmur appreciated, positive dorsalis pedis pulse bilateral, no edema Lungs: CTA bilateral, no rhonchi, no rales, no accessory muscle use Abdominal: soft, nontender to palpation, no guarding Ext: muscle strength 5 out of 5 in all extremities grossly except right lower extremity, RLE proximal strength limited due to pain with distal strength intact, no gross muscle atrophy, no contractures, Neuro: CN II-XI grossly intact, no gross focal neuro deficits Psych: Alert, oriented, appropriate affect Assessment: Possible left femoral intertrochanteric fracture Leukocytosis, likely secondary to acute stressor with no signs of active infection at this time Abnormal UA, asymptomatic, likely colonization Chronic conditions: CAD status post CABG, hypertension, hyperlipidemia, type II DM, hypothyroidism Imaging: Hip x-ray in the emergency room revealed a possible subtle nondisplaced intertrochanteric fracture. Pelvis CT without contrast in the emergency room however revealed no hip or proximal of femur fractures. EKG revealed sinus rhythm with T wave flattening in leads V5 and V6 at 73 bpm with no other ST/T wave changes noted as reviewed by me. Shoulder x-ray was negative for acute abnormalities. Chest x-ray also revealed no acute abnormalities. Data Review: Laboratory evaluation was remarkable for leukocytosis of 21.8 with hemoglobin 14.1, sodium 137, potassium 4.2, glucose 121, with a UA somewhat consistent with UTI. Plan: Cardiology consult for preoperative evaluation and risk stratification in light of patient's history of CAD and CABG along with significant systolic murmur Monitor CBC Continue IV fluids with normal saline 75 cc/h Insulin sliding scale and blood glucose monitoring Resume remaining home medications including enalapril and Synthroid. Hold oral hypoglycemics Obtain echocardiogram We appreciate this opportunity to be involved in this patient's care. We will follow the patient with you. For any further questions, please not hesitate to contact the sound inpatient team. Past Medical History Past Medical History: CVA/TIA, Diabetes Mellitus, Hyperlipidemia, Hypertension, Osteoarthritis (OA), Rheumatoid Arthritis (RA), Thyroid Disorder Additional Past Medical History / Comment(s): states TIA over 30yrs ago- no residual effects, "slight"heart murmur, insomnia, "3 hiatal hernias", hx IBS, kidney stone, History of Any Multi-Drug Resistant Organisms: None Reported Past Surgical History: Bowel Resection, Cardiac Valve Replacement, Coronary Bypass/CABG, Heart Catheterization, Hysterectomy, Orthopedic Surgery, Tonsillectomy Additional Past Surgical History / Comment(s): left knee arthroscopy, orif left ankle with plate and screws-hardware later removed, uri cataracts, hemmorhoidectomy, "perforated colon with colonoscopy", thoracentesis; CABG and aortic valve replacement May 2018. Past Anesthesia/Blood Transfusion Reactions: No Reported Reaction Additional Past Anesthesia/Blood Transfusion Reaction / Comm: . Past Psychological History: No Psychological Hx Reported Smoking Status: Former smoker Past Alcohol Use History: None Reported Past Drug Use History: None Reported - Past Family History Mother Family Medical History: No Reported History Medications and Allergies Home Medications Medication Instructions Recorded Confirmed Type Levothyroxine Sodium [Synthroid] 50 mcg PO DAILY 10/19/16 07/09/23 History Enalapril [Vasotec] 5 mg PO DAILY 03/17/19 07/09/23 History Ezetimibe [Zetia] 10 mg PO DAILY 07/09/23 07/09/23 History Insulin Degludec [Tresiba 30 units SQ HS 07/09/23 07/09/23 History Flextouch U-200 Pen] Semaglutide [Rybelsus] 3 mg PO DAILY 07/09/23 07/09/23 History Allergies Allergy/AdvReac Type Severity Reaction Status Date / Time chrome Allergy Allergy Uncoded 07/09/23 20:24 Testing dust Allergy Allergy Uncoded 07/09/23 20:24 Testing Physical Exam Vitals: Vital Signs Temp Pulse Resp BP Pulse Ox 07/09/23 21:44 85 16 162/61 99 07/09/23 21:10 75 18 162/61 96 07/09/23 19:00 16 149/41 98 07/09/23 18:30 18 168/108 97 07/09/23 18:00 98.1 F 85 20 207/82 99 07/09/23 17:57 99 Intake and Output 07/09/23 07/09/23 07/10/23 14:59 22:59 06:59 Other: Weight 65.771 kg Results CBC & Chem 7: 07/09/23 18:57 07/09/23 18:57 Labs: Abnormal Lab Results - Last 24 Hours (Table) 07/09/23 07/09/23 07/09/23 Range/Units 18:57 18:57 21:12 WBC 21.8 H (3.8-10.6) k/uL Neutrophils # 17.7 H (1.3-7.7) k/uL Glucose 121 H (74-99) mg/dL Urine Blood Moderate H (Negative) Ur Leukocyte Esterase Moderate H (Negative) Urine RBC 11 H (0-5) /hpf Urine WBC 31 H (0-5) /hpf Urine Mucus Rare H (None) /hpf
[2023-07-10] MEDS: LEVOTHYROXINE 50 MCG TAB PO SCH (06:10)
[2023-07-10] MEDS: MORPHINE SULFATE 4 MG/ML SYRINGE IVP PRN (06:10)
[2023-07-10 06:15] LABS: Glucose,Whole Blood 72 mg/dL (70-110)
[2023-07-10] MEDS: INSULIN ASPART (NovoLOG) 100 UNIT/ML VIAL SQ SCH (07:54)
[2023-07-10] MEDS: NON FORMULARY DRUG (Semaglutide [Rybelsus] 3 MG Tablet) PO SCH (07:55)
[2023-07-10] MEDS: lisinopriL 5 MG TAB PO SCH (08:04)
[2023-07-10] MEDS ORDERED: EZETIMIBE 10 MG TAB PO SCH (09:00)
[2023-07-10] MEDS ORDERED: CYCLOBENZAPRINE 5 MG TAB PO PRN (09:06)
--- NOTE | 2023-07-10 09:09 | P.HPOR ---
History of Present Illness H&P Date: 07/10/23 Chief Complaint: Left hip pain 77 yo female presented after a fall from standing at home with left hip pain and inability to ambulate after the fall. She c/o pain in her left hip with any motion. Rest seems to gato the pain, but as soon as she moves it is excrutiating. She states no other injury with the fall. Denies any BHT or LOC with the fall. Denies any f/c/sob/cp at this time. Review of Systems 14 points review of systems completed and as stated in HPI, all other systems reviewed are negative. Past Medical History Past Medical History: CVA/TIA, Diabetes Mellitus, Hyperlipidemia, Hypertension, Osteoarthritis (OA), Rheumatoid Arthritis (RA), Thyroid Disorder Additional Past Medical History / Comment(s): states TIA over 30yrs ago- no residual effects, "slight"heart murmur, insomnia, "3 hiatal hernias", hx IBS, kidney stone, History of Any Multi-Drug Resistant Organisms: None Reported Past Surgical History: Bowel Resection, Cardiac Valve Replacement, Coronary Bypass/CABG, Heart Catheterization, Hysterectomy, Orthopedic Surgery, Tonsillectomy Additional Past Surgical History / Comment(s): left knee arthroscopy, orif left ankle with plate and screws-hardware later removed, uri cataracts, hemmorhoidectomy, "perforated colon with colonoscopy", thoracentesis; CABG and aortic valve replacement May 2018. Past Anesthesia/Blood Transfusion Reactions: No Reported Reaction Additional Past Anesthesia/Blood Transfusion Reaction / Comment(s): . Past Psychological History: No Psychological Hx Reported Smoking Status: Former smoker Past Alcohol Use History: None Reported Past Drug Use History: None Reported - Past Family History Mother Family Medical History: No Reported History Medications and Allergies Home Medications Medication Instructions Recorded Confirmed Type Levothyroxine Sodium [Synthroid] 50 mcg PO DAILY 10/19/16 07/09/23 History Enalapril [Vasotec] 5 mg PO DAILY 03/17/19 07/09/23 History Ezetimibe [Zetia] 10 mg PO DAILY 07/09/23 07/09/23 History Insulin Degludec [Tresiba 30 units SQ HS 07/09/23 07/09/23 History Flextouch U-200 Pen] Semaglutide [Rybelsus] 3 mg PO DAILY 07/09/23 07/09/23 History Allergies Allergy/AdvReac Type Severity Reaction Status Date / Time chrome Allergy Allergy Uncoded 07/09/23 20:24 Testing dust Allergy Allergy Uncoded 07/09/23 20:24 Testing Physical Examination Osteopathic Statement: *. No significant issues noted on an osteopathic struct ural exam other than those noted in the History and Physical/Consult. Physical Exam: -Patient is alert and oriented 3 appears well-nourished well-hydrated is in no acute distress. They do not appear septic. -There is TTP about the left hip groin and trochanteric region -Upper extremities show 5 out of 5 strength in all major muscle groups. -Lower extremities with 5 out of 5 strength in all major muscle groups left lower extremity secondary to pain not tested dorsiflexion plantar flexion is 5 out of 5 -There is FROM that is painless of the b/l UE and LE in all major joints. Except for left lower extremity. There is positive log roll of the left hip with excruciating pain. There is positive Silverskiold test left leg with excruciating pain. -They are intact to light touch sensation in C5 to T1 and L2 to S1 nerve distribution. -DTR 2/4 all upper and lower extremities -Patient has palpable distal pulses all 4 ext -Compartments are soft and compressible. -Patient shows a negative Dwayne's -Neg Hoffmans b/l -Neg Clonus b/l -Neg babinski b/l Cranial nerves II through XII are grossly intact. ## Results AP pelvis and left hip x-rays: These are reviewed and demonstrate a possible lucency through the intertrochanteric region of the left hip which is visible on the lateral film only at this time. AP film does not demonstrate this fracture line. There is no displacement of this fracture no rotation. Mild osteophytic changes within the hips bilaterally. No pelvic fractures noted at this time. Computed tomography scan pelvis without: There is reviewed and demonstrate similar lucency on the sagittal views of the left hip however no other lucencies are seen on the coronal axial views. The superior intertrochanteric region. This is a questionable hairline type fracture through this area. There is no displacement. There is no pubic rami fractures or LC or APC type fractures. Jose 3 changes noted throughout the SI joints bilaterally. No acute pelvic pathology otherwise noted. Stat MRI warranted secondary to continued pain severity as well as possible fracture through left hip intertrochanteric region. - Labs Labs: Abnormal Lab Results - Last 24 Hours (Table) 07/09/23 07/09/23 07/09/23 Range/Units 18:57 18:57 21:12 WBC 21.8 H (3.8-10.6) k/uL Neutrophils # 17.7 H (1.3-7.7) k/uL Glucose 121 H (74-99) mg/dL Urine Blood Moderate H (Negative) Ur Leukocyte Esterase Moderate H (Negative) Urine RBC 11 H (0-5) /hpf Urine WBC 31 H (0-5) /hpf Urine Mucus Rare H (None) /hpf H & H 07/09/23 Range/Units 18:57 Hgb 14.1 (11.4-16.0) gm/dL Hct 42.7 (34.0-46.0) % Result Diagrams: 07/09/23 18:57 07/09/23 18:57 Assessment and Plan Assessment: 77-year-old female status post fall from standing left hip pain Possible left intertrochanteric fracture nondisplaced Complex medical patient Plan: -Appreciate leasing sales consultant and team management. -Activity: Bedrest nonweightbearing left lower extremity -Pain control: [Adequate at this time] -Meds: [reviewed] -GI ppx: senna, Miralax -Mendoza catheter in place maintain -Nothing by mouth -DVT PPX: Mechanical only at this time -Stat MRI of the left hip and pelvis pending secondary to possible hip intertrochanteric fracture. Patient is on the schedule currently for today for intertrochanteric nail pending this MRI. Giovani she has a hip fracture she cannot tolerate log roll or any movement of the hip with excruciating pain. MRI will confirm.
[2023-07-10 11:42] LABS: Glucose,Whole Blood 61 mg/dL (70-110)
[2023-07-10] MEDS: DEXTROSE 50% SYRINGE 50 ML IVP STA (11:59)
[2023-07-10] MEDS: DEXTROSE 5%-0.45% NACL 1,000 ML IV SCH (12:06)
[2023-07-10] MEDS: DEXTROSE 50% SYRINGE 50 ML IVP ONE (12:06)
[2023-07-10 12:23] LABS: Glucose,Whole Blood 159 mg/dL (70-110)
--- NOTE | 2023-07-10 13:33 | MR ---
EXAMINATION TYPE: MR hip LT wo con DATE OF EXAM: 07/10/2023 1:18 PM CLINICAL INDICATION:Female, 77 years old with history of r/o IT fracture; PHH, R/O IT fracture COMPARISON: CT 07/09/2023, plain film 07/09/2023. TECHNIQUE: Multiplanar multi-sequential magnetic resonance imaging of the left hip without contrast. IV Contrast: cc none FINDINGS: There is an acute fracture of the left femur and knee intertrochanteric region of the with IV signal edema. Additionally small hematoma along the lateral aspect along the greater trochanter measuring 32 x 18 mm is present. No additional evidence of other fractures visualized. The bony pelvis the right hip and visualized portions of the sacrum appear intact. There is edema tracking along the inner thig h muscles on the left and anterior thigh compartment near the fracture. There is a small right joint effusion. Degeneration of the labrum bilaterally no displaced fragment v isualized on arthrogram technique. Atrophy changes of the bilateral gluteus jelena and adductor musc les bilaterally. Other: Mendoza catheter in place. The uterus is surgically absent. Left ovarian simple appearing 15 mm cyst. No evidence for lymphadenopathy. Moderate amount stool in the cecum. Few scattered colonic dive rticula. IMPRESSION: Confirmation of suspicion of left femoral intertrochanteric fracture without displacement. No additio nal fractures visualized. Small hematoma over the greater trochanter. Findings communicated to Dr. Mohan Shrestha DO on 07/10/2023 1:[address] Johnathon Ivy.
--- NOTE | 2023-07-10 14:43 | P.PN ---
Subjective Progress Note Date: 07/10/23 Patient is a 77-year-old female with a history of coronary artery disease status post two-vessel CABG with aortic valve replacement and mitral valve repair, hypertension, dyslipidemia, insulin-dependent diabetes mellitus type 2, and hypothyroidism who presented to the emergency department after a fall. Patient was ultimately found to have a left femoral intertrochanteric fracture with no displacement with small hematoma. Patient seen and examined at bedside. She is having some hip pain as well as heel pain. She denies any chest pain, shortness of breath, or nausea. She was unable to tell me what valves were replaced during her open heart surgery, but we reviewed these records together and it was her aortic valve. Vital signs reviewed General: Nontoxic, no distress, appears at stated age Cardiovascular: S1S2 reg, grade 3 systolic ejection murmur Lungs: Decreased breath sounds bilateral, no rhonchi, no rales, no accessory muscle use Abdominal: Soft, nontender to palpation, no guarding Ext: No gross muscle atrophy, no edema b/l lower extremities, no contractures Neuro: CN II-XI grossly intact, no focal neuro deficits Psych: Alert, oriented, appropriate affect Assessment/Plan: 77-year-old female with left femoral intertrochanteric fracture Mechanical fall from standing -Cardiology has been consulted for preoperative clearance Diabetes mellitus type II -Patient had episode of hypoglycemia this afternoon due to prolonged n.p.o. status. Patient given 1 amp of dextrose. Dextrose 5% half-normal saline administered -Continue with sliding scale insulin -Decrease Levemir to 10 units at night -Follow blood sugars -Check A1c Coronary artery disease Status post aortic valve replacement mitral valve repair Hypertension Dyslipidemia History of TIA -Patient is only on Zetia and Vasotec at home. -Lisinopril 5 mg daily, -Resume Zetia 10 mg daily Imaging: MRI hip: Confirmation of left intertrochanteric hip fracture Data Review: Labs reviewed from admission showed white blood cell count of 21 Thank you for allowing us to participate in the care of this pleasant patient. Do not hesitate to contact us with questions. Someone can be reached from the [facility] hospitalist group all hours of the day at [phone] or via perfect serve. This dictation was prepared using [employer] voice recognition software. Though every attempt is made to correct errors during dictation some may still e xist. Objective - Vital Signs Vital signs: Vital Signs Temp 98.6 F 07/10/23 06:59 Pulse 68 07/10/23 06:59 Resp 18 07/10/23 09:37 BP 115/67 07/10/23 06:59 Pulse Ox 94 L 07/10/23 06:59 FiO2 Intake & Output 07/09/23 07/10/23 07/10/23 18:59 06:59 18:59 Intake Total 221 Output Total 100 Balance 121 Weight 65.771 kg 65.771 kg Intake: Oral 221 Output: Urine 100 Other: Voiding Method Indwelling Catheter Indwelling Catheter - Labs CBC & Chem 7: 07/09/23 18:57 07/09/23 18:57 Labs: Abnormal Lab Results - Last 24 Hours (Table) 07/09/23 07/09/23 07/09/23 Range/Units 18:57 18:57 21:12 WBC 21.8 H (3.8-10.6) k/uL Neutrophils # 17.7 H (1.3-7.7) k/uL Glucose 121 H (74-99) mg/dL POC Glucose (mg/dL) (70-110) mg/dL Urine Blood Moderate H (Negative) Ur Leukocyte Esterase Moderate H (Negative) Urine RBC 11 H (0-5) /hpf Urine WBC 31 H (0-5) /hpf Urine Mucus Rare H (None) /hpf 07/10/23 07/10/23 Range/Units 11:40 12:18 WBC (3.8-10.6) k/uL Neutrophils # (1.3-7.7) k/uL Glucose (74-99) mg/dL POC Glucose (mg/dL) 61 L 159 H (70-110) mg/dL Urine Blood (Negative) Ur Leukocyte Esterase (Negative) Urine RBC (0-5) /hpf Urine WBC (0-5) /hpf Urine Mucus (None) /hpf
--- NOTE | 2023-07-10 15:20 | P.CRDCN ---
History of Present Illness Consult date: 07/10/23 Consult reason: aortic stenosis Chief complaint: Trip and fall, possible hip fracture History of present illness: History of present illness: Patient is a pleasant 77-year-old female with significant past medical history of two-vessel CABG and aortic valve replacement as well as mitral valve repair in May 2018, hypertension, hyperlipidemia, diabetes type 2, and hypothyroidism who presented to the emergency department after a trip and fall. She had previously followed with Dr. Colon however reports that she has not seen a pearl restorer since right after her surgery 5 years ago. She reports that she tripped and fell on her deck landing on her left side and now she is having difficulty moving her left leg. Denies any dizziness or syncope. Previously to fall she has been feeling well with no chest pain or pressure. Denies any shortness of breath, dizziness, or syncope. Labs reviewed: WBCs 21.8, potassium 4.2, creatinine 0.56. She has pending MRI of her left hip to confirm fracture and then possibly head to surgery this afternoon. She did have echocardiogram done report is pending. She states she is able to walk a city block prior to this injury. REVIEW OF SYSTEMS: No fever or chills. No cough or expectoration. No diaphoresis. Patient denies headache, dizziness, blurred vision, double vision. Patient denies any stomach discomfort. No nausea, vomiting. No hematochezia. No hematemesis. Denies any black stools or blood in his stools. Denies dysuria or hematuria. No muscle weakness or numbness. No chest pain or pressure. Left leg pain. PHYSICAL EXAMINATION: This is a 77year-old female in no apparent distress at the time of my examination. HEENT: Head is atraumatic, normocephalic. Pupils are equal, round. Sclerae anicteric. Conjunctivae are clear. Mucous membranes of the mouth are moist. Neck is supple. There is no jugular venous distention. No carotid bruit is heard. CHEST EXAMINATION: Lungs are clear to auscultation. No chest wall tenderness is noted on palpation or with deep breathing. HEART EXAMINATION: Heart regular rate and rhythm. S1, S2 heard. No gallops or rub. 3/6 systolic murmur. ABDOMEN: Soft, nontender. Bowel sounds are heard. EXTREMITIES: 2+ peripheral pulses with no evidence of peripheral edema, + left leg pain, limited range of motion. NEUROLOGIC EXAMINATION: Patient is awake, alert and oriented x3. Hard of hearing. IMPRESSION AND PLAN: CAD status post CABG Status post aortic valve replacement Status post mitral valve repair Hypertension Hyperlipidemia Diabetes type 2 Hypothyroidism Possible left hip fracture PLAN: We will check echocardiogram to evaluate heart function and structure, echo was taken report is pending. Echocardiogram was reviewed by Dr. Paredes, shows EF 55-60%, mildmoderate aortic stenosis. She is cleared for surgery from a cardiac standpoint. Discussed the importance of continued cardiac follow-up as an outpatient given her significant history. Please call with any questions or concerns. I am dictating on behalf of Dr. Alfred Paredes's history/physical and assessment/plan. Past Medical History Past Medical History: CVA/TIA, Diabetes Mellitus, Hyperlipidemia, Hypertension, Osteoarthritis (OA), Rheumatoid Arthritis (RA), Thyroid Disorder Additional Past Medical History / Comment(s): states TIA over 30yrs ago- no residual effects, "slight"heart murmur, insomnia, "3 hiatal hernias", hx IBS, kidney stone, History of Any Multi-Drug Resistant Organisms: None Reported Past Surgical History: Bowel Resection, Cardiac Valve Replacement, Coronary Bypass/CABG, Heart Catheterization, Hysterectomy, Orthopedic Surgery, Tonsillectomy Additional Past Surgical History / Comment(s): left knee arthroscopy, orif left ankle with plate and screws-hardware later removed, uri cataracts, hemmorhoidectomy, "perforated colon with colonoscopy", thoracentesis; CABG and aortic valve replacement May 2018. Past Anesthesia/Blood Transfusion Reactions: No Reported Reaction Additional Past Anesthesia/Blood Transfusion Reaction / Comment(s): . Past Psychological History: No Psychological Hx Reported Smoking Status: Former smoker Past Alcohol Use History: None Reported Past Drug Use History: None Reported - Past Family History Mother Family Medical History: No Reported History Medications and Allergies Home Medications Medication Instructions Recorded Confirmed Type Levothyroxine Sodium [Synthroid] 50 mcg PO DAILY 10/19/16 07/09/23 History Enalapril [Vasotec] 5 mg PO DAILY 03/17/19 07/09/23 History Ezetimibe [Zetia] 10 mg PO DAILY 07/09/23 07/09/23 History Insulin Degludec [Tresiba 30 units SQ HS 07/09/23 07/09/23 History Flextouch U-200 Pen] Semaglutide [Rybelsus] 3 mg PO DAILY 07/09/23 07/09/23 History Allergies Allergy/AdvReac Type Severity Reaction Status Date / Time chrome Allergy Allergy Uncoded 07/09/23 20:24 Testing dust Allergy Allergy Uncoded 07/09/23 20:24 Testing Physical Exam Vitals: Vital Signs Temp Pulse Pulse Resp BP BP Pulse Ox 07/10/23 09:37 18 07/10/23 06:59 98.6 F 68 17 115/67 94 L 07/10/23 02:00 99.0 F 77 16 94/47 90 L 07/09/23 23:43 98.1 F 80 16 136/59 97 07/09/23 21:44 85 16 162/61 99 07/09/23 21:10 75 18 162/61 96 07/09/23 19:00 16 149/41 98 07/09/23 18:30 18 168/108 97 07/09/23 18:00 98.1 F 85 20 207/82 99 07/09/23 17:57 99 Intake and Output 07/09/23 07/10/23 07/10/23 22:59 06:59 14:59 Intake Total 221 Output Total 100 Balance 221 -100 Intake: Oral 221 Output: Urine 100 Other: Voiding Method Indwelling Catheter Indwelling Catheter Weight 65.771 kg Results 07/09/23 18:57 07/09/23 18:57 CBC 07/09/23 Range/Units 18:57 WBC 21.8 H (3.8-10.6) k/uL RBC 4.77 (3.80-5.40) m/uL Hgb 14.1 (11.4-16.0) gm/dL Hct 42.7 (34.0-46.0) % Plt Count 309 (150-450) k/uL Comprehensive Metabolic Panel 07/09/23 Range/Units 18:57 Sodium 137 (137-145) mmol/L Potassium 4.2 (3.5-5.1) mmol/L Chloride 103 (98-107) mmol/L Carbon Dioxide 28 (22-30) mmol/L BUN 13 (7-17) mg/dL Creatinine 0.56 (0.52-1.04) mg/dL Glucose 121 H (74-99) mg/dL Calcium 9.7 (8.4-10.2) mg/dL Current Medications Generic Name Dose Route Start Last Admin Trade Name Freq PRN Reason Stop Dose Admin Hydrocodone Bitart/Acetaminophen 1 each 07/10/23 09:07 Hydrocodone/Apap 5-325mg 1 Each Tab PO Q4HR PRN Moderate Pain (Scale 4 to 6) Hydrocodone Bitart/Acetaminophen 1 each 07/10/23 09:07 Hydrocodone/Apap 7.5-325mg 1 Each Tab PO Q6HR PRN Severe Pain (Scale 7 to 10) Cyclobenzaprine HCl 5 mg 07/10/23 09:06 Cyclobenzaprine 5 Mg Tab PO TID PRN Muscle Spasm Dextrose/Sodium Chloride 1,000 mls @ 75 mls/hr 07/10/23 12:00 07/10/23 12:06 Dextrose 5%-1/2ns Iv Soln IV 75 mls/hr .[id number] YUDITH Administration Insulin Aspart 0 unit 07/10/23 07:30 07/10/23 11:42 Insulin Aspart (Novolog) 100 Unit/Ml Vial SQ Not Given ACHS [facility] Protocol Insulin Detemir 10 unit 07/10/23 21:00 Insulin Detemir (Levemir) 100 Unit/Ml Syr SQ [facility] Levothyroxine Sodium 50 mcg 07/10/23 06:30 07/10/23 06:10 Levothyroxine 50 Mcg Tab PO 50 mcg DAILY@0630 YUDITH Administration Lisinopril 5 mg 07/10/23 09:00 07/10/23 08:04 Lisinopril 5 Mg Tab PO 5 mg DAILY YUDITH Administration Morphine Sulfate 4 mg 07/10/23 06:00 07/10/23 06:10 Morphine Sulfate 4 Mg/Ml Syringe IVP 4 mg Q4HR PRN Administration Pain Naloxone HCl 0.2 mg 07/09/23 21:06 Naloxone 0.4 Mg/Ml 1 Ml Vial IV Q2M PRN Opioid Reversal Non-Formulary Medication 3 mg 07/10/23 09:00 07/10/23 08:18 Semaglutide [Rybelsus] PO Not Given DAILY YUDITH Intake and Output 07/09/23 07/10/23 07/10/23 22:59 06:59 14:59 Intake Total 221 Output Total 100 Balance 221 -100 Intake: Oral 221 Output: Urine 100 Other: Voiding Method Indwelling Catheter Indwelling Catheter Weight 65.771 kg 07/09/23 18:57 07/09/23 18:57
--- NOTE | 2023-07-10 16:30 | CA ---
Transthoracic Echo Report Name: Amena Blank Age: 77 Gender: F : 1945 Exam Date: 07/10/2023 08:55 Exam Location: [facility] Ht (in): 66 Wt (lb): 145 Ordering Physician: Bethany Arguelles MD Attending/Referring Phys: Head Tennis Coach Nasima Hughes RDCS Procedure CPT: Indications: Murmur Cardiac Hx: Technical Quality: Fair Contrast 1: Total Dose (mL): Contrast 2: Total Dose (mL): MEASUREMENTS (Male / Female) Normal Values 2D ECHO LV Diastolic Diameter PLAX 4.0 cm 4.2 - 5.9 / 3.9 - 5.3 cm LV Systolic Diameter PLAX 2.7 cm IVS Diastolic Thickness 1.3 cm 0.6 - 1.0 / 0.6 - 0.9 cm LVPW Diastolic Thickness 1.2 cm 0.6 - 1.0 / 0.6 - 0.9 cm LV Relative Wall Thickness 0.6 RV Internal Dim ED PLAX 2.7 cm LVOT Diameter 1.8 cm LA Volume 71.0 cm??? 18 - 58 / 22 - 52 cm??? LA Volume Index 40.4 cm???/m??? 16 - 28 cm???/m??? M-MODE Aortic Root Diameter MM 3.0 cm LA Systolic Diameter MM 3.6 cm LA Ao Ratio MM 1.2 AV Cusp Separation MM 1.4 cm DOPPLER AV Peak Velocity 333.7 cm/s AV Peak Gradient 44.5 mmHg AV Mean Velocity 217.5 cm/s AV Mean Gradient 22.6 mmHg AV Velocity Time Integral 65.9 cm LVOT Peak Velocity 113.3 cm/s LVOT Peak Gradient 5.1 mmHg LVOT Velocity Time Integral 21.9 cm LVOT Stroke Volume 58.7 cm??? LVOT Stroke Volume Index 33.6 ml/m??? LVOT Cardiac Index 2071.6 cm???/min???m??? AV Area Cont Eq vti 0.9 cm??? AV Area Cont Eq pk 0.9 cm??? MV Peak Velocity 196.7 cm/s MV Peak Gradient 15.5 mmHg MV Mean Velocity 95.7 cm/s MV Mean Gradient 4.5 mmHg MV Velocity Time Integral 48.4 cm MV Area PHT 3.1 cm??? Mitral E Point Velocity 124.9 cm/s Mitral A Point Velocity 105.9 cm/s Mitral E to A Ratio 1.2 MV Deceleration Time 248.2 ms MV E' Velocity 4.8 cm/s Mitral E to MV E' Ratio 26.3 TR Peak Velocity 276.4 cm/s TR Peak Gradient 30.6 mmHg Right Ventricular Systolic Press 35.1 mmHg FINDINGS Left Ventricle Mildly increased left ventricular wall thickness. Left ventricular cavity size normal. No obvious regional wall motion abnormalities. Abnormal (paradoxical) septal motion consistent with postoperative state. Left ventricular ejection fraction is estimated at 55-60 %. Grade 2 diastolic dysfunction. Right Ventricle Normal right ventricular size and function. Mild pulmonary hypertension. Right Atrium Normal right atrial size. Left Atrium Moderately increased left atrial volume. Mildly increased left atrial area. Mitral Valve Structurally normal mitral valve. Mitral valve thickened. Moderate mitral annular calcification. Cbja-gw-lrhxrzlf mitral regurgitation. Aortic Valve Ifbj-nm-dyzvihll aortic stenosis with a peak gradient of 45 mmHg and a mean gradient of 23 mmHg. No aortic regurgitation. Tricuspid Valve Structurally normal tricuspid valve. Illw-oh-obpyikrb tricuspid regurgitation. Pulmonic Valve Structurally normal pulmonic valve. Pericardium No pericardial effusion. Aorta Normal size aortic root and proximal ascending aorta. CONCLUSIONS Mild increased left ventricular wall thickness Left ventricular ejection fraction 55-60% Mild to moderate mitral regurgitation Mild to moderate aortic stenosis with a mean gradient 23 mmHg Mild to moderate tricuspid regurgitation RVSP 35 No pericardial effusion Previewed by: Dr. Alfred Paredes DO (Electronically Signed) Final Date: 10 Jul 2023 16:29
--- NOTE | 2023-07-10 16:40 | P.PN ---
Progress Note - Text Progress Note Date: 07/10/23 MRI LEFT HIP REVIEWED WITH RADIOLOGY Left hip Intertrochanteric fracture, two part, non displaced noted. She will go for surgery today for IMN fixation. Pt is NPO.
[2023-07-10 16:49] LABS: Glucose,Whole Blood 75 mg/dL (70-110)
[2023-07-10] MEDS: INSULIN DETEMIR (LEVEMIR) 100 UNIT/ML SYR SQ SCH (19:08)
[2023-07-10] MEDS ORDERED: TRANEXAMIC 1,000 MG/100ML-NACL 1,000 MG in SALINE 1 100ML.BAG IVPB PRN (20:10)
[2023-07-10 20:53] LABS: Glucose,Whole Blood 118 mg/dL (70-110)
[2023-07-10] MEDS ORDERED: INSULIN DETEMIR (LEVEMIR) 100 UNIT/ML SYR SQ SCH (21:00)
[2023-07-10] MEDS ORDERED: ROCURONIUM 10 MG/ML (5 ML VIAL) IV ONE (21:08)
[2023-07-10] MEDS ORDERED: GLYCOPYRROLATE 0.2 MG/ML 2 ML VIAL ONE (21:08)
[2023-07-10] MEDS ORDERED: ePHEDrine 50 MG/ML 1 ML VIAL ONE (21:08)
[2023-07-10] MEDS ORDERED: PROPOFOL 10 MG/ML 20 ML VIAL IV ONE (21:08)
[2023-07-10] MEDS ORDERED: SUCCINYLCHOLINE CHLORIDE 200 MG/10 ML VIAL IV ONE (21:08)
[2023-07-10] MEDS ORDERED: LIDOCAINE 1% INJ 10MG/ML (20 ML MDV) ONE (21:08)
[2023-07-10] MEDS ORDERED: NEOSTIGMINE 1 MG/ML 10 ML VIAL ONE (21:08)
[2023-07-10] MEDS ORDERED: fentaNYL (PF) 50 MCG/ML 2 ML AMP ONE (21:08)
[2023-07-10] MEDS: IV FLUID CONTINUATION 1,000 ML IV ONE ×2 (21:13→21:31)
[2023-07-10] MEDS ORDERED: HYDROmorphone 1 MG/ML 1 ML SYRINGE IVP PRN (22:25)
[2023-07-10] MEDS ORDERED: HYDROmorphone 0.5 MG/0.5 ML SYRINGE IVP PRN (22:25)
[2023-07-10] MEDS ORDERED: NALOXONE 0.4 MG/ML 1 ML VIAL IV PRN (22:25)
[2023-07-10] MEDS: LIDOCAINE 2% INJ 20 MG/ML SQ ONE (22:27)
[2023-07-10] MEDS: BUPIVACAINE (PF) 0.25% 30 ML VIAL SQ ONE (22:27)
[2023-07-10 22:52] LABS: Glucose,Whole Blood 169 mg/dL (70-110)
[2023-07-10] MEDS: HYDROmorphone 0.5 MG/0.5 ML SYRINGE IVP ONE (22:53)
[2023-07-11] MEDS: HYDROcodone/APAP 7.5-325MG 1 EACH TAB PO PRN (05:26)
[2023-07-11 05:58] LABS: Glucose,Whole Blood 274 mg/dL (70-110)
--- NOTE | 2023-07-11 07:13 | P.OP ---
Date of Procedure: 07/10/23 Preoperative Diagnosis: 1. LEFT HIP INTERTROCHANTERIC FRACTURE, TWO PART 2. S/P FFS 3. COMPLEX MEDICAL PATIENT Postoperative Diagnosis: 1. LEFT HIP INTERTROCHANTERIC FRACTURE, TWO PART 2. S/P FFS 3. COMPLEX MEDICAL PATIENT Procedure(s) Performed: 1. LEFT HIP INTRAMEDULLARY NAIL FIXATION Implants: [employer] NEPHEW INTERTAN 120 DEG, SHORT NAIL 90MM LAG; 85MM COMPRESSION Anesthesia: GETA Surgeon: Mohan Shrestha Engagement Quality Consultant #1: Rebekah Villa (WAS PRESENT AND ASSISTED WITH ALL ASPECTS OF THE CASE FROM POSITION TO CLOUSRE) Estimated Blood Loss (ml): 100 IV fluids (ml): 800 Urine output (ml): 50 Pathology: none sent Condition: stable Disposition: PACU Indications for Procedure: Orthopedic Surgery Risk Review Amena Blank is a 77 yo female presenting for evaluation of sudden onset left hip pain, inability to ambulate after fall from standing at home. It was my pleasure to have seen and examined Amena Blank . In our visit today we have had a chance to go over subjective complaints, physical examination findings and treatments including the natural course history without intervention and various interventional options. Her imaging demonstrates left hip intertrochanteric fracture, two part, non-displaced. On physical exam, Amena Blank demonstrates pain with motion of LLE, which is NV intact at this time. I have explained to the patient that this fracture needs stabilization. Based on the patients imaging, physical exam, and the rapid progression and disabling nature of her symptoms, at this time I recommend surgery in the form or a: Left hip intramedullary nail fixation I discussed the risk and benefits of this procedure at length with [patient]. Questions were invited and answered, and the patient wishes to proceed as outlined below. Currently, I am recommendin. LEFT HIP INTRAMEDULLARY NAIL FIXATION 2. Review of surgical risks and benefits as well as an educational packet on the proposed surgical procedure. Risks: All surgical procedures come with inherent risks, including those related to positioning, anesthesia, intraoperative findings, and postoperative complications. It is important to understand that surgery does not come with any guarantee of a successful outcome as complications and adverse events are always possible. The patient was given a handout discussing the surgical procedure and risks associated with the intervention, both of which were discussed with the patient. These risks include but are not limited to the following: - Experiencing same, different or even worse symptoms compared to before surgery. - Requiring further surgery or other forms of treatment presently or at some time in the future . - On an extreme but fortunately relatively rare basis severe complication such as blindness, stroke, heart attack, temporary and/or permanent nerve injury, paralysis, coma, or may occur, sometimes without known explanation. - Surgical complications may include but are not limited to risk of infection, fluid accumulation in the surgical dissection site, including a seroma or hematoma, that requires additional surgery, wound drainage, bleeding, new numbness or weakness, vision changes/loss, spinal fluid leakage, non-healing and/or infected incision, headaches, difficulty or inability to swallow, hoarseness, hemopneumothorax, pneumothorax, injury to nerves, spinal cord, blood vessels, lymphatics or other vital organs (i.e., bowel injury, injury to the great vessels); heterotopic bone formation; complications related to the hardware such as screws, rods, including misplaced hardware, device failure, hardware fracture/breakage, or hardware loosening; retained surgical instrumentations or devices and the need for further surgery. - Medical risks of the planned surgery include but are not limited to generalized Infections to the whole body or local areas outside of the surgical site (sepsis), heart attack, bleeding, anaphylaxis, meningitis, seizure, epile psy, hearing loss, burn doss, laceration of the head or other areas of the body, bruising, hypersensitivity of the skin, bladder over distension; allergic reaction; shoulder injury related to positioning; fat, blood and air clots to other areas of the body like heart, lungs, brain; failure of internal organs such as lungs, kidneys, liver and excessive bleeding. If blood transfusions are necessary, note that transfusions may cause intolerance reactions such as anaphylaxis or other complex reactions. Despite best efforts, the results of surgery might not heal in terms of bone, soft tissues such as skin, fascia, ligaments, and joints. [facility] has multiple operating rooms with single and overlapping rooms running daily. They currently function under the required guidelines as produced by the [employer] Committee with regards to the overlapping rooms and will continue to comply with changes to this policy as they occur. The requirements include and are complied with as follows: (1) the critical portions of the overlapping rooms will not occur at the same time, (2) the attending physician will be physically present during the critical portions of the procedure and immediately available during the entire case, and (3) a back-up attending is designated should the primary attending not be immediately available. The patient has had a chance to review all the listed information, has been given print outs detailing this information, and has had all his/her questions answered to their satisfaction. It was my pleasure to have seen and examined Amena Blank . In our visit today we have had a chance to go over my understanding of our patient's current condition, the natural course history without intervention and various intervent ional options. Questions were invited and answered, and the patient wishes to proceed as outlined above. I have seen and examined the patient for 25 minutes and we have spent more than 50% of the time in repeat and detailed counseling about the patient's condition, its natural course history with out and as much as can be predicted with surgery and re-review of various surgical treatment options. In conclusion, Amena Blank requested we proceed with the above suggested surgery and are willing to accept risks and limitations of the suggested surgery as nature of the disease process and our best attempts at treatment for the condition. Thank you again for allowing us to be part of your patient's care. Please don't hesitate to contact me if you have any further questions. Signed and authenticated by: Mohan Cummings [facility] [address] [place] [id number] Description of Procedure: LEFT hip short IMN The patient was seen and examined in the preoperative area. All preoperative protocols were followed. Informed consent was obtained, risks and benefits of the procedure were discussed at length. Risks including bleeding infection damage to the surrounding tissue and risk of reoperation were discussed with the patient. Risk of anesthesia up to and including was discussed with the patient. These are outlined in the risk reviewed. They were willing to accept these risks and all of the risks of surgery. The patient was given a weight- based dose of antibiotics in the form of 2 g Ancef. The patient was seen and evaluated by the anesthesia team who deemed them fit for surgery. The site was marked, the patient was willing to proceed with the procedure. The patient was transferred to the operative suite by the Department of anesthesia. They were then drifted off to sleep by the department of anesthesia andGETA anesthesia was used. Once adequate anesthesia had been obtained the patient was carefully transferred to the operative bed. All bony prominences were padded accordingly. SCDs were placed on the nonoperative lower extremities. Arms were well padded. The patient was transferred to the Nita table and her Left leg was placed in a Nita boot and secured to the table. The left leg was placed in a well-leg hurst well padded and secured. The post was placed and she was secured appropriately. arms were placed on arm boards and well-padded Preoperative briefing was done with the operative team and everyone was ready for the procedure to start. Xray used to reduce the fracture with Nita table. The patient's left leg was then prepped and draped in the normal sterile fashion. Timeout was then performed and all parties in agreement with the procedure to be performed. X-ray was then used to gigi 2 cm proximal to the GT. Skin incision made in line with the femur and blunt dissection taken down to the deep facia which was split. Blut dissetion then taken down to the tip of the GT and the sharp awl used. Optimal starting point achieved on AP and Lateral imaging. Awl was then advanced into the proximal femur. Ball tip guidewire was then passed into the femur. It was confirmed on Ap and laterl. Opening reamer then passed followed by 9, 11 and 13 mm reamers. Then the nail was selected and impacted into place over the wire using flouroscopic guidance. Once in position the lateral guide was placed and skin incisoin made in line with the femur over the lateral aspect. Dissection taken down through the tensor facia which was split inline with its fibers. The guide was seated against bone. Pin was placed through guide for the lag screw to be with in 10mm on Ap and lateral of the subchondarl bone. This was then measured. Appropriate sized compression screw then selected and drilled. Then the lag screw drilled. Lag screw placed over the wire followed by the compression screw. About 7 mm of compression was achieved. Good alignment in AP and lateral shown. The nail was then locked proximally. Distal locking screw was then placed through the jig using similar technique. Screw was drilled and measured and placed. AP and lateral confirmed good placement and good fracture reduction as well as stability in ROM. The guid was then removed from the nail. The wound was then copiously irrigated with normal sterile saline final AP and lateral fluoroscopic imaging confirmed good placement of pins as well as reduction of fracture. The deep fascia was then closed with 0 Vicryl superficial closed 2-0 Vicryl and skin closed with skin hafsa the wound edges approximated very well. The wound was then cleaned and dressed with an optifoam dressing. The patient was then transferred back to their hospital bed. There were awakened by department of anesthesia having tolerated the procedure very well with no complications. The patient was then transported to the postoperative care unit in stable condition.
--- NOTE | 2023-07-11 07:45 | XR ---
EXAMINATION TYPE: XR Hip Complete LT, FL guidance operating room DATE OF EXAM: 07/10/2023 COMPARISON: NONE HISTORY: 77 year-old female left hip nailing FINDINGS: Osteopenia. Placement of antegrade intramedullary nail with screw fixation across the patie nt's known nondisplaced intertrochanteric fracture. LT hip nail. 5 images. 50 secs fluoro. DAP=3.[address] Shrestha IMPRESSION: Intraoperative fluoroscopy as above.
[2023-07-11] MEDS: ASPIRIN 325 MG TAB PO SCH (08:25)
[2023-07-11] MEDS: hydrOXYzine pamoate 25 MG CAP PO PRN (10:32)
[2023-07-11 11:07] LABS: Basophils # (A) 0.06 X 10*3/uL (0.00-0.10); Basophils % (A) 0.3 %; Eosinophils # (A) 0.14 X 10*3/uL (0.04-0.35); Eosinophils % (A) 0.7 %; HCT 34.4 % (37.2-46.3); HGB 11.1 g/dL (12.0-15.0); Lymphocytes # (A) 1.75 X 10*3/uL (0.90-5.00); Lymphocytes % (A) 9.3 %; MCH 29.4 pg (27.0-32.0); MCHC 32.3 g/dL (32.0-37.0); MCV 91.2 FL (80.0-97.0); Mean Platelet Volume 11.6 FL (9.5-12.2); Monocytes # (A) 0.82 X 10*3/uL (0.20-1.00); Monocytes % (A) 4.4 %; NRBC Per 100 WBC 0 X 10*3/uL (0.00-0.01); Neutrophils % (A) 84.8 %; Platelet Count 260 X 10*3/uL (140-440); RBC 3.77 X 10*6/uL (4.10-5.20); RDW 13.8 % (11.5-14.5); WBC 18.76 X 10*3/uL (4.50-10.00)
--- NOTE | 2023-07-11 11:15 | P.PN ---
Subjective Progress Note Date: 07/11/23 Principal diagnosis: Left hip pain Patient seen and examined this morning. Patient is resting comfortably in bed. She states she has not been absent procedure. Surgical dressing to the left hip is clean dry and intact, no shadowing noted. Patient does report increased pain of left lower extremity with activity. She currently states her pain is managed on current regimen. Informed patient that she will be working with physical therapy today. Deleon catheter may remain intact until patient is up and about. Continue to encourage patient to utilize incentive spirometer 10 times per hour while awake. Objective - Vital Signs Vital signs: Vital Signs Temp 98.5 F 07/10/23 22:42 Pulse 83 07/11/23 00:45 Resp 17 07/10/23 23:30 BP 120/72 07/11/23 00:45 Pulse Ox 95 07/11/23 00:45 FiO2 Intake & Output 07/10/23 07/11/23 07/11/23 18:59 06:59 18:59 Intake Total 350 Output Total 600 450 Balance -600 -100 Intake: IV 350 Output: Urine 600 350 Uretheral (Deleon) 300 Estimated Blood Loss 100 Other: Voiding Method Indwelling Catheter Toilet # Voids 800 - Exam Inspection: Surgical incisions to the left lower extremity, dressing is clean dry and intact with no shadowing noted. Sensation: Sensation is equal, symmetric, bilaterally intact throughout the upper and lower extremities Palpation: There is tenderness to palpation over the left hip and groin region Range of motion: Patient does have full range of motion bilateral upper and right lower extremities on exam. Limited range of motion to the left lower extremity due to fracture and pain from surgical procedure. Motor: 5/5 in all major motor groups in the bilateral upper and right lower extremities, 4/5 in left lower extremity Special tests: Negative Homans bilaterally. Negative Ney bilaterally. Negative clonus bilaterally. Neurovascular: Radial pulse intact, 2+ bilaterally. Cap refill under 3 seconds in digits upper extremities. - Labs CBC & Chem 7: 07/11/23 06:36 07/09/23 18:57 Labs: Abnormal Lab Results - Last 24 Hours (Table) 07/10/23 07/10/23 07/10/23 Range/Units 11:40 12:18 20:51 POC Glucose (mg/dL) 61 L 159 H 118 H (70-110) mg/dL 07/10/23 07/11/23 Range/Units 22:51 05:54 POC Glucose (mg/dL) 169 H 274 H (70-110) mg/dL Assessment and Plan Assessment: Postop day 1: Left hip IM nail fixation Left hip pain Plan: -Appreciate consultant dietitian and team management. -Activity: Ambulate QID, OOB all meals, up and about, limit lifting bending twisting to less than 5 lbs. Use walker or cane if needed for stability. -Daily PT/OT, increase ambulation strength and balance. -Pain control: Adequate at this time, utilize ice packs to the left hip -Meds: reviewed -GI ppx: senna, Miralax -DC deleon when up and about, bedside commode if needed -DVT PPX: Aspirin -Hygiene: Shower today. Maintain dressing clean and dry. -Encourage IS 10x/hr -Dispo: Clinically pending *I reviewed and discussed this case with my attending Dr. Shrestha, whom has reviewed this chart and films and is in agreement with assessment and plan of care as outlined above. I have personally seen and examined the patient, performed the documentation and the assessment and plan as written. Number of minutes spent on the visit: 20m.
--- NOTE | 2023-07-11 11:37 | P.PN ---
Subjective Progress Note Date: 07/11/23 History of present illness: Patient is a pleasant 77-year-old female with significant past medical history of two-vessel CABG and aortic valve replacement as well as mitral valve repair in May 2018, hypertension, hyperlipidemia, diabetes type 2, and hypothyroidism who presented to the emergency department after a trip and fall. She had previously followed with Dr. Colon however reports that she has not seen a manager transit since right after her surgery 5 years ago. She reports that she tripped and fell on her deck landing on her left side and now she is having difficulty moving her left leg. Denies any dizziness or syncope. Previously to fall she has been feeling well with no chest pain or pressure. Denies any shortness of breath, dizziness, or syncope. Labs reviewed: WBCs 21.8, potassium 4.2, creatinine 0.56. MRI of left hip confirmed a left hip intertrochanteric fracture. She did have echocardiogram done with EF 55-60%, mild to moderate mitral regurgitation, mild to moderate aortic stenosis with mean gradient 23, mild to moderate tricuspid regurgitation, RVSP 35. 07/11/2023 She did undergo left hip intramedullary nail fixation yesterday. She is feeling well postoperatively. Denies any chest pain or pressure. Denies any shortness of breath, dizziness, palpitations, or syncope. PHYSICAL EXAMINATION: This is a 77year-old female in no apparent distress at the time of my examination. HEENT: Head is atraumatic, normocephalic. Pupils are equal, round. Sclerae anicteric. Conjunctivae are clear. Mucous membranes of the mouth are moist. Neck is supple. There is no jugular venous distention. No carotid bruit is heard. CHEST EXAMINATION: Lungs are clear to auscultation. No chest wall tenderness is noted on palpation or with deep breathing. HEART EXAMINATION: Heart regular rate and rhythm. S1, S2 heard. No gallops or rub. 3/6 systolic murmur. ABDOMEN: Soft, nontender. Bowel sounds are heard. EXTREMITIES: 2+ peripheral pulses with no evidence of peripheral edema, + left leg pain, limited range of motion. NEUROLOGIC EXAMINATION: Patient is awake, alert and oriented x3. Hard of hearing. IMPRESSION AND PLAN: CAD status post CABG Status post aortic valve replacement Status post mitral valve repair Hypertension Hyperlipidemia Diabetes type 2 Hypothyroidism Left hip fracture PLAN: She is doing well postoperatively. No further cardiac workup indicated at this time. Discussed the importance of continued cardiac follow-up as an outpatient given her significant history. Cardiology to sign off, please call with any questions or concerns. Follow-up in office 1-2 weeks. I am dictating on behalf of Dr. Alfred Paredes's history/physical and assessment/plan. Objective - Vital Signs Vital signs: Vital Signs Temp 98.7 F 07/11/23 07:25 Pulse 78 07/11/23 11:02 Resp 16 07/11/23 11:02 BP 143/75 07/11/23 07:25 Pulse Ox 95 07/11/23 07:25 FiO2 Intake & Output 07/10/23 07/11/23 07/11/23 18:59 06:59 18:59 Intake Total 350 300 Output Total 600 450 Balance -600 -100 300 Intake: IV 350 Oral 300 Output: Urine 600 350 Uretheral (Mendoza) 300 Estimated Blood Loss 100 Other: Voiding Method Indwelling Catheter Toilet Toilet # Voids 800 - Labs CBC & Chem 7: 07/11/23 06:36 07/09/23 18:57 Labs: Abnormal Lab Results - Last 24 Hours (Table) 07/10/23 07/10/23 07/10/23 Range/Units 11:40 12:18 20:51 WBC (4.50-10.00) X 10*3/uL RBC (4.10-5.20) X 10*6/uL Hgb (12.0-15.0) g/dL Hct (37.2-46.3) % Immature Gran # (0.00-0.04) X 10*3/uL Neutrophils # (1.80-7.70) X 10*3/uL POC Glucose (mg/dL) 61 L 159 H 118 H (70-110) mg/dL Hemoglobin A1c (<=6.0) % 07/10/23 07/11/23 07/11/23 Range/Units 22:51 05:54 06:36 WBC (4.50-10.00) X 10*3/uL RBC (4.10-5.20) X 10*6/uL Hgb (12.0-15.0) g/dL Hct (37.2-46.3) % Immature Gran # (0.00-0.04) X 10*3/uL Neutrophils # (1.80-7.70) X 10*3/uL POC Glucose (mg/dL) 169 H 274 H (70-110) mg/dL Hemoglobin A1c 8.2 H (<=6.0) % 07/11/23 Range/Units 06:36 WBC 18.76 H (4.50-10.00) X 10*3/uL RBC 3.77 L (4.10-5.20) X 10*6/uL Hgb 11.1 L (12.0-15.0) g/dL Hct 34.4 L (37.2-46.3) % Immature Gran # 0.09 H (0.00-0.04) X 10*3/uL Neutrophils # 15.90 H (1.80-7.70) X 10*3/uL POC Glucose (mg/dL) (70-110) mg/dL Hemoglobin A1c (<=6.0) %
[2023-07-11 12:01] LABS: Glucose,Whole Blood 129 mg/dL (70-110)
[2023-07-11 12:36] LABS: INR 1.01 sec (0.93-1.11); Prothrombin Time 10.9 sec (9.9-11.9)
--- NOTE | 2023-07-11 14:35 | P.PN ---
Subjective Progress Note Date: 07/11/23 Patient is a 77-year-old female with a history of coronary artery disease status post two-vessel CABG with aortic valve replacement and mitral valve repair, hypertension, dyslipidemia, insulin-dependent diabetes mellitus type 2, and hypothyroidism who presented to the emergency department after a fall. Patient was ultimately found to have a left femoral intertrochanteric fracture with no displacement with small hematoma. Patient seen and examined at bedside. She does not any chest pain, shortness of breath, nausea, vomiting. Pain is decently controlled. She is asking when she could be discharged and we discussed that she most likely need rehab. Vital signs reviewed General: Nontoxic, no distress, appears at stated age Cardiovascular: S1S2 reg, grade 3 systolic ejection murmur Lungs: Decreased breath sounds bilateral, no rhonchi, no rales, no accessory muscle use Abdominal: Soft, nontender to palpation, no guarding Ext: No gross muscle atrophy, no edema b/l lower extremities, no contractures Neuro: CN II-XI grossly intact, no focal neuro deficits Psych: Alert, oriented, appropriate affect Assessment/Plan: 77-year-old female with left femoral intertrochanteric fracture s/p IM nailing Mechanical fall from standing -Orthopedic surgery note reviewed: Continue to ambulate. PT and OT evaluation. Diabetes mellitus type II - now hyperglycemia and D5 0.45 NS cancelled, encourage oral intake .She had hypoglycemia on 07/09 while NPO awaiting surgery. -Continue with sliding scale insulin - Levemir to 10 units at night -Follow blood sugars -Check A1c 8.2 Coronary artery disease Status post aortic valve replacement mitral valve repair Hypertension Dyslipidemia History of TIA -Patient is only on Zetia and Vasotec at home. -Lisinopril 5 mg daily, - Zetia 10 mg daily -Cardiology note reviewed: Follow-up in office in 2 weeks. Cardiology will sign off. Imaging: None new Data Review: Labs reviewed from today include CBC which is remarkable for white blood cell count 18.76, hemoglobin 11, A1c 8.2 Thank you for allowing us to participate in the care of this pleasant patient. Do not hesitate to contact us with questions. Someone can be reached from the [facility] hospitalist group all hours of the day at [phone] or via perfect serve. This dictation was prepared using [email or web address] voice recognition software. Though every attempt is made to correct errors during dictation some may still exist. Objective - Vital Signs Vital signs: Vital Signs Temp 98.7 F 07/11/23 07:25 Pulse 78 07/11/23 11:02 Resp 16 07/11/23 11:02 BP 143/75 07/11/23 07:25 Pulse Ox 95 07/11/23 07:25 FiO2 Intake & Output 07/10/23 07/11/23 07/11/23 18:59 06:59 18:59 Intake Total 350 550 Output Total 600 450 Balance -600 -100 550 Intake: IV 350 Oral 550 Output: Urine 600 350 Uretheral (Mendoza) 300 Estimated Blood Loss 100 Other: Voiding Method Indwelling Catheter Toilet Toilet # Voids 800 - Labs CBC & Chem 7: 07/11/23 06:36 07/09/23 18:57 Labs: Abnormal Lab Results - Last 24 Hours (Table) 07/10/23 07/10/23 07/11/23 Range/Units 20:51 22:51 05:54 WBC (4.50-10.00) X 10*3/uL RBC (4.10-5.20) X 10*6/uL Hgb (12.0-15.0) g/dL Hct (37.2-46.3) % Immature Gran # (0.00-0.04) X 10*3/uL Neutrophils # (1.80-7.70) X 10*3/uL POC Glucose (mg/dL) 118 H 169 H 274 H (70-110) mg/dL Hemoglobin A1c (<=6.0) % 07/11/23 07/11/23 07/11/23 Range/Units 06:36 06:36 11:58 WBC 18.76 H (4.50-10.00) X 10*3/uL RBC 3.77 L (4.10-5.20) X 10*6/uL Hgb 11.1 L (12.0-15.0) g/dL Hct 34.4 L (37.2-46.3) % Immature Gran # 0.09 H (0.00-0.04) X 10*3/uL Neutrophils # 15.90 H (1.80-7.70) X 10*3/uL POC Glucose (mg/dL) 129 H (70-110) mg/dL Hemoglobin A1c 8.2 H (<=6.0) %
[2023-07-11 17:02] LABS: Glucose,Whole Blood 170 mg/dL (70-110)
[2023-07-11 17:33] LABS: ABG Base Excess 2.3 mmol/L; ABG HCO3 26 mmol/L (21-25); ABG Oxygen Saturation 100.7 % (94-97); ABG PCO2 34 mmHg (35-45); ABG PH 7.49 (7.35-7.45); ABG PO2 354 mmHg (83-108); Allen Test Performed? Yes
--- NOTE | 2023-07-11 18:01 | CT ---
EXAMINATION TYPE: CODE STROKE: CT brain wo contr CT DLP: 1158.2 mGycm, Automated exposure control for dose reduction was used. DATE OF EXAM: 07/11/2023 5:50 PM COMPARISON: None. CLINICAL INDICATION:Female, 77 years old with history of Code stroke, code stroke TECHNIQUE: Brain: Axial CT images of the brain were obtained with coronal and sagittal reformats created and rev iewed. Contrast used: None. Oral contrast used: None. FINDINGS: Brain: Extra-axial spaces: No abnormal extra-axial fluid collections. Ventricular system: Within normal limits Cerebral parenchyma: No acute intraparenchymal hemorrhage or mass effect. The stanton-white junction is well differentiated. Cerebellum: Unremarkable. Mass effect: No evidence of midline shift. Intracranial vasculature: Atherosclerotic calcifications of the intracranial vessels. Soft tissues: Normal. Calvarium/osseous structures: No depressed skull fracture. Paranasal sinuses and mastoid air cells: Mild scattered paranasal sinus disease. Visualized orbits: Orbital contents are intact. IMPRESSION: No acute intracranial process.
--- NOTE | 2023-07-11 18:27 | CT ---
EXAMINATION TYPE: CODE STROKE: CTA head neck CT DLP: 505.3 mGycm, Automated exposure control for dose reduction was used. DATE OF EXAM: 07/11/2023 6:07 PM COMPARISON: Same day CT head.. CLINICAL INDICATION:Female, 77 years old with history of Code stroke; PHH, stroke TECHNIQUE: Axially acquired helical CT angiogram of the head and neck was obtained with contrast. Axi al images are supplemented with 3D reconstructions and MIP images which were post-processed at an in dependent workstation. NASCET criteria used. Contrast used:65 mL of Isovue 370 with IV Contrast, Oral contrast used: None. FINDINGS: CTA HEAD: No evidence of acute intracranial hemorrhage, mass effect, or midline shift. The ventricles, sulci, a nd cisterns are unremarkable. The visualized portions of the internal carotid arteries, middle cerebral arteries, anterior cerebral arteries, and posterior cerebral arteries are patent. Atherosclerotic plaque of the intracranial portions of the internal carotid arteries. The basilar and vertebral arteries are patent. CTA NECK: Right Carotid System: The common carotid and external carotid arteries are patent. There is less greater than 90% stenosis at the carotid bifurcation secondary to calcified/noncalcified plaque. The rest of the internal carot id artery is patent. Left Carotid System: The common carotid artery demonstrates a short segment measuring 21 mm in caudocranial length of high density material that appears behind the dissection flap. series 404 image 335 and sagittal imaging series 403 image 34. The common carotid artery loses 25-50% of the vessel lumen due to the dissection . Dense calcified plaque persistent at the origin of the internal carotid artery blooming artifact limi ts evaluation. The lumen is not definitively visualized. The remainder of the internal carotid artery is patent. There is motion artifact and calcifications at the origins of the vertebral arteries which limits the ir evaluation for stenosis due to blooming artifact in the small caliber. There is a three-vessel aortic arch. The origins of the great vessels are patent. No evidence of hemo dynamically significant stenosis. IMPRESSION: 1. 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 2. Greater than 90% stenosis of the right carotid bifurcation due to calcified and noncalcified plaq ue 3. Dense calcified plaque versus stent graft in the proximal portion of the left internal carotid ar laci limits evaluation. The lumen is poorly visualized. Consider dedicated carotid duplex ultrasound imaging. 4. There is motion and calcifications at the origins of the vertebral arteries which limits their ev aluation for stenosis due to blooming artifact in the small caliber. No evidence of intracranial high-grade stenosis or intracranial aneurysm. Findings communicated to Dr. Maureen Aguilar 07/11/2023 6:[address] Johnathon Ivy.
[2023-07-11] MEDS: HALOPERIDOL LACTATE 5 MG/ML 1 ML VIAL IM STA (18:38)
--- NOTE | 2023-07-11 18:54 | XR ---
EXAMINATION TYPE: XR chest 1V portable DATE OF EXAM: 07/11/2023 6:50 PM CLINICAL INDICATION:Female, 77 years old with history of hypoxia; PHH COMPARISON: Chest radiographs from 07/09/2023. TECHNIQUE: XR chest 1V portable Frontal view of the chest. FINDINGS: Lungs/Pleura: There is no evidence of pleural effusion, focal consolidation, or pneumothorax. Pulmonary vascularity: Pulmonary vascular prominence has worsened from 07/09/2023. Heart/mediastinum: Cardiomediastinal silhouette is enlarged and stable. Atherosclerotic calcificatio ns are seen in the aorta. Two lead cardiac conduction device overlying the left hemithorax with lead tips projecting over the right ventricle and right atrium. Musculoskeletal: No acute osseous pathology. IMPRESSION: Increasing pulmonary vascular prominence compared to prior 07/09/2023. Correlate for volume overload/c ongestive heart failure.
[2023-07-11] MEDS: SODIUM CHLORIDE 0.9% 1,000 ML IV SCH (18:58)
--- NOTE | 2023-07-11 19:02 | P.EN ---
A- team: Indication: Hypoxia Arrived on Scene to find: Patient with eyes open and not responding Patient seen and examined at bedside. She has not following commands or verbally responding. Eyes are awake and she is tracking around the room. Per nursing they had checked her blood sugar and then left for approximately 10 minutes and came back to administer insulin and found her to be lethargic and not following commands. They took vitals and found her O2 sat to be in the 70s and her blood pressure to be 85/57. Immediately placed the patient on a nonreb reather and called and 18. On my arrival she is not following any commands. She is staring into space. When I lift her arms off the bed she immediately drops them back to the bed. I therefore asked to call a code stroke. NIH was performed initial NIH was 26 because patient was not following commands. We did a stat ABG which did not show any significant hypoxia or hypercapnia. Blood glucose was 170. During this time patient was able to tell us her name once but other than that was not able to follow commands. After returning from head CT nursing staff did find CBD Gummies in the patient's purse that was next to her and she initially said did admit to taking these Gummies. She then became increasingly agitated with nursing and was swearing and swinging at them and threatening to kill them. At that point she was moving all 4 extremities independently without difficulty and was able to follow commands. Vital signs reviewed General: nontoxic, no distress, appears at stated age Derm: warm, dry Eyes: EOMI, no lid lag, anicteric sclera, pupils equal round reactive to light ENT: Nose and ears atraumatic, no thrush, no pharyngeal erythema Cardiovascular: S1S2 reg, no murmur, positive posterior tibial pulse bilateral, no edema, capillary refill less than 2 seconds Lungs: clear to auscultation bilateral, no rhonchi, no rales, no wheeze, no accessory muscle use Neuro: Not following commands, PERRL, + down campos heel drift, down campos arm dirt, not following commands, + withdrawal to pain in all 4 extremities Psych: Awake Assessment: Acute encephalopathy, toxic versus metabolic Acute hypoxic respiratory failure, undetermined etiology - Initial NIH 26 - Stat abg with CO2 34 and O2 354 - stat head CT NAP - Stat CTA head and neck:Was notified by Dr. Legacy of concerns for left-sided common carotid artery dissection and significant plaquing. Case was then discussed with Dr. Bryan of neurology who asked me to recontact the stroke team. Case was discussed with Dr. Argueta who felt that the patient had dense calcification of the left common carotid artery without signs of dissection. Will order definite carotid doppler. Consult to neurology and vascular - Patient then following commands, and neurologically intact but agitated and haldol 2 mg IV administered - She continued to be hypoxic requiring NRB. As patient just head contrast for CTA cannot given contrast for CT angio of the chest for possible pulmonary embolism. D-dimer will be elevated from recent surgery and will not be useful. Check CXR and if unrevealing would consider heparin gtt (d/w Dr. Shrestha who is agreeable but would like hemoglobin monitored), check LE venous dopplers. Disposition: 3 s Notified: as above A Total of 55 minutes of critical care time was spent on the complex care of this patient. This dictation was prepared using [email or web address] voice recognition software. Though every attempt is made to correct errors during dictation some may still exist
[2023-07-11 19:19] LABS: Basophils # (A) 0.1 k/uL (0-0.2); Basophils % (A) 0 %; Eosinophils # (A) 0.3 k/uL (0-0.7); Eosinophils % (A) 1 %; HGB 12.1 gm/dL (11.4-16.0); Lymphocytes % (A) 9 %; MCH 29.6 pg (25.0-35.0); MCHC 31.8 g/dL (31.0-37.0); MCV 93.1 fL (80.0-100.0); Mean Platelet Volume 8.9; Monocytes # (A) 0.9 k/uL (0-1.0); Monocytes % (A) 4 %; Neutrophils # (A) 17.9 k/uL (1.3-7.7); Neutrophils % (A) 84 %; Platelet Count 265 k/uL (150-450); RBC 4.08 m/uL (3.80-5.40); RDW 13.4 % (11.5-15.5); WBC 21.3 k/uL (3.8-10.6)
[2023-07-11 19:21] LABS: ALT 22 U/L (4-34); AST 41 U/L (14-36); African American GFR (CKD) >90 (>60 ml/min/1.73 sqM); Albumin 3.5 g/dL (3.5-5.0); Albumin/Globulin Ratio 1.2; Alkaline Phosphatase 75 U/L (38-126); Anion Gap 10 mmol/L; Blood Urea Nitrogen 10 mg/dL (7-17); Carbon Dioxide 19 mmol/L (22-30); Chloride 102 mmol/L (98-107); Glucose 205 mg/dL (74-99); Magnesium 1.6 mg/dL (1.6-2.3); Non-African American GFR(CKD) 88 (>60 ml/min/1.73 sqM); Phosphorus 3.5 mg/dL (2.5-4.5); Potassium 3.9 mmol/L (3.5-5.1); Sodium 131 mmol/L (137-145); Total Bilirubin 1.5 mg/dL (0.2-1.3); Total Protein 6.5 g/dL (6.3-8.2)
--- NOTE | 2023-07-11 20:00 | US ---
EXAMINATION TYPE: US venous doppler duplex LE DATE OF EXAM: 07/11/2023 7:40 PM COMPARISON: NONE CLINICAL INDICATION: Female, 77 years old with history of DVT; Hx stroke. No leg redness or swelling . AMS. SIDE PERFORMED: Bilateral TECHNIQUE: The lower extremity deep venous system is examined utilizing real time linear array sonog devika with graded compression, doppler sonography and color-flow sonography. VESSELS IMAGED: Common Femoral Vein Deep Femoral Vein Greater Saphenous Vein * Femoral Vein Popliteal Vein Small Saphenous Vein * Proximal Calf Veins (* superficial vessels) Right Leg: Negative for DVT Left Leg: Negative for DVT IMPRESSION: Grayscale, color doppler, spectral doppler imaging performed of the deep veins of the lo wer extremities. There is normal flow, compressibility, vascular waveforms.
[2023-07-11 20:43] LABS: Glucose,Whole Blood 215 mg/dL (70-110)
[2023-07-11] MEDS: SENNOSIDES-DOCUSATE SODIUM 1 EACH TAB PO SCH (23:16)
[2023-07-12] MEDS: HALOPERIDOL LACTATE 5 MG/ML 1 ML VIAL IM STA (00:20)
[2023-07-12 02:01] LABS: Glucose,Whole Blood 162 mg/dL (70-110)
[2023-07-12] MEDS: HYDROcodone/APAP 5-325MG 1 EACH TAB PO PRN (04:50)
[2023-07-12 06:09] LABS: Glucose,Whole Blood 175 mg/dL (70-110)
--- NOTE | 2023-07-12 08:35 | US ---
EXAMINATION TYPE: US carotid duplex BILAT DATE OF EXAM: 07/12/2023 COMPARISON: NONE CLINICAL INDICATION: Female, 77 years old with history of stenosis; TECHNIQUE: Carotid duplex ultrasound examination. Indirect Doppler criteria was utilized. FINDINGS: EXAM MEASUREMENTS: RIGHT: Peak Systolic Velocity (PSV) cm/sec ----- Right CCA: 130.1 ----- Right ICA: 185.7 ----- Right ECA: 136.1 ICA/CCA ratio: 1.4 RIGHT: End Diastole cm/sec ----- Right CCA: 14.4 ----- Right ICA: 59.4 ----- Right ECA: 0.0 LEFT: Peak Systolic Velocity (PSV) cm/sec ----- Left CCA: 86.4 ----- Left ICA: 136.7 ----- Left ECA: 379.6 ICA/CCA ratio: 1.6 LEFT: End Diastole cm/sec ----- Left CCA: 16.0 ----- Left ICA: 22.2 ----- Left ECA: 0.0 VERTEBRALS (direction of flow): Right Vertebral: Antegrade Left Vertebral: Antegrade Rhythm: Normal IMPRESSION: Measurements suggest moderate (50-69%) stenosis proximal right ICA and mild to moderate at the proxim al left ICA. Criteria for Assigning % of Stenosis / Diameter reduction (Estimation based on the indirect measurements of the internal carotid artery velocities (ICA PSV). 1. Normal (no stenosis)=ICA PSV < 125 cm/s: ratio < 2.0: ICA EDV<40 cm/s. 2. Less than 50% stenosis=ICA PSV < 125 cm/s: ratio < 2.0: ICA EDV<40 cm/s. 3. 50 to 69% stenosis=ICA PSV of 125 to 230 cm/s: ration 2.0 ? 4.0: ICA EDV 40-100 cm/s. 4. Greater than 70% stenosis to near occlusion= ICA PSV > 230 cm/s: ratio > 4.0: ICA EDV > 100 cm/s. 5. Near occlusion= ICA PSV velocities may be low or undetectable: variable ratio and ICA EDV. 6. Total occlusion=unable to detect flow.
--- NOTE | 2023-07-12 09:42 | P.PN ---
Subjective Progress Note Date: 07/12/23 Principal diagnosis: Left hip pain Attempted to see patient this morning, testing being done in the room. Patient was sitting up in the chair. Patient did have an event last night that is documented by Dr. Churchill. According to nursing staff this morning patient awoke with no knowledge of event last night. Encourage patient to work with physical therapy today. Please reach out with any questions or concerns. Objective - Vital Signs Vital signs: Vital Signs Temp 97.9 F 07/12/23 03:47 Pulse 92 07/12/23 03:47 Resp 18 07/12/23 03:47 BP 162/72 07/12/23 03:47 Pulse Ox 97 07/12/23 03:47 FiO2 Intake & Output 07/11/23 07/12/23 07/12/23 18:59 06:59 18:59 Intake Total 550 Balance 550 Intake: Oral 550 Other: Voiding Method Toilet External Catheter # Voids 2 2 - Exam Inspection: Surgical incisions to the left lower extremity, dressing is clean dry and intact with no shadowing noted. Sensation: Sensation is equal, symmetric, bilaterally intact throughout the upper and lower extremities Palpation: There is tenderness to palpation over the left hip and groin region Range of motion: Patient does have full range of motion bilateral upper and right lower extremities on exam. Limited range of motion to the left lower extremity due to fracture and pain from surgical procedure. Motor: 5/5 in all major motor groups in the bilateral upper and right lower extremities, 4/5 in left lower extremity Special tests: Negative Homans bilaterally. Negative Ney bilaterally. Negative clonus bilaterally. Neurovascular: Radial pulse intact, 2+ bilaterally. Cap refill under 3 seconds in digits upper extremities. - Labs CBC & Chem 7: 07/11/23 18:58 07/11/23 18:58 Labs: Abnormal Lab Results - Last 24 Hours (Table) 07/11/23 07/11/23 07/11/23 Range/Units 06:36 06:36 11:58 WBC 18.76 H (4.50-10.00) X 10*3/uL RBC 3.77 L (4.10-5.20) X 10*6/uL Hgb 11.1 L (12.0-15.0) g/dL Hct 34.4 L (37.2-46.3) % Immature Gran # 0.09 H (0.00-0.04) X 10*3/uL Neutrophils # 15.90 H (1.80-7.70) X 10*3/uL ABG pH (7.35-7.45) ABG pCO2 (35-45) mmHg ABG pO2 (83-108) mmHg ABG HCO3 (21-25) mmol/L ABG O2 Saturation (94-97) % Sodium (137-145) mmol/L Carbon Dioxide (22-30) mmol/L Glucose (74-99) mg/dL POC Glucose (mg/dL) 129 H (70-110) mg/dL Hemoglobin A1c 8.2 H (<=6.0) % Total Bilirubin (0.2-1.3) mg/dL AST (14-36) U/L 07/11/23 07/11/23 07/11/23 Range/Units 17:01 17:30 18:58 WBC 21.3 H (4.50-10.00) X 10*3/uL RBC (4.10-5.20) X 10*6/uL Hgb (12.0-15.0) g/dL Hct (37.2-46.3) % Immature Gran # (0.00-0.04) X 10*3/uL Neutrophils # 17.9 H (1.80-7.70) X 10*3/uL ABG pH 7.49 H (7.35-7.45) ABG pCO2 34 L (35-45) mmHg ABG pO2 354 H (83-108) mmHg ABG HCO3 26 H (21-25) mmol/L ABG O2 Saturation 100.7 H (94-97) % Sodium (137-145) mmol/L Carbon Dioxide (22-30) mmol/L Glucose (74-99) mg/dL POC Glucose (mg/dL) 170 H (70-110) mg/dL Hemoglobin A1c (<=6.0) % Total Bilirubin (0.2-1.3) mg/dL AST (14-36) U/L 07/11/23 07/11/23 07/12/23 Range/Units 18:58 20:30 01:59 WBC (4.50-10.00) X 10*3/uL RBC (4.10-5.20) X 10*6/uL Hgb (12.0-15.0) g/dL Hct (37.2-46.3) % Immature Gran # (0.00-0.04) X 10*3/uL Neutrophils # (1.80-7.70) X 10*3/uL ABG pH (7.35-7.45) ABG pCO2 (35-45) mmHg ABG pO2 (83-108) mmHg ABG HCO3 (21-25) mmol/L ABG O2 Saturation (94-97) % Sodium 131 L (137-145) mmol/L Carbon Dioxide 19 L (22-30) mmol/L Glucose 205 H (74-99) mg/dL POC Glucose (mg/dL) 215 H 162 H (70-110) mg/dL Hemoglobin A1c (<=6.0) % Total Bilirubin 1.5 H (0.2-1.3) mg/dL AST 41 H (14-36) U/L / Range/Units 06:07 WBC (4.50-10.00) X 10*3/uL RBC (4.10-5.20) X 10*6/uL Hgb (12.0-15.0) g/dL Hct (37.2-46.3) % Immature Gran # (0.00-0.04) X 10*3/uL Neutrophils # (1.80-7.70) X 10*3/uL ABG pH (7.35-7.45) ABG pCO2 (35-45) mmHg ABG pO2 (83-108) mmHg ABG HCO3 (21-25) mmol/L ABG O2 Saturation (94-97) % Sodium (137-145) mmol/L Carbon Dioxide (22-30) mmol/L Glucose (74-99) mg/dL POC Glucose (mg/dL) 175 H (70-110) mg/dL Hemoglobin A1c (<=6.0) % Total Bilirubin (0.2-1.3) mg/dL AST (14-36) U/L Assessment and Plan Assessment: Postop day 2: Left hip IM nail fixation Left hip pain Plan: -Appreciate oracle hyperion consultant and team management. -Activity: Ambulate QID, OOB all meals, up and about, limit lifting bending twisting to less than 5 lbs. Use walker or cane if needed for stability. -Daily PT/OT, increase ambulation strength and balance. -Pain control: Adequate at this time, utilize ice packs to the left hip -Meds: reviewed -GI ppx: senna, Miralax -DC deleon when up and about, bedside commode if needed -DVT PPX: Aspirin -Hygiene: Shower today. Maintain dressing clean and dry. -Encourage IS 10x/hr -Dispo: Clinically pending *I reviewed and discussed this case with my attending Dr. Shrestha, whom has reviewed this chart and films and is in agreement with assessment and plan of care as outlined above. I have personally seen and examined the patient, performed the documentation and the assessment and plan as written. Number of minutes spent on the visit: 20m.
[2023-07-12 10:15] LABS: HCT 34.1 % (34.0-46.0); HGB 10.7 gm/dL (11.4-16.0); MCH 29.2 pg (25.0-35.0); MCHC 31.4 g/dL (31.0-37.0); Mean Platelet Volume 9.4; Platelet Count 242 k/uL (150-450); RBC 3.66 m/uL (3.80-5.40); RDW 13.3 % (11.5-15.5); WBC 16.7 k/uL (3.8-10.6)
[2023-07-12 10:26] LABS: Prothrombin Time 10.7 sec (10.0-12.5)
--- NOTE | 2023-07-12 10:44 | P.GSCN ---
History of Present Illness Consult date: 07/12/23 Reason for Consult: Carotid stenosis Requesting physician: Maureen Carpenter History of present illness: Is a 77-year-old female who had presented to the emergency department after sustaining a fall after tripping on her deck. She was having difficulty ambulating after and was found to have a left hip intertrochanteric fracture for which she is status post intra medullae very nail fixation. She has a past medical history including coronary artery disease including aortic stenosis, CABG, aortic valve replacement, insulin-dependent diabetes, hypertension, hyperlipidemia and TIA. Apparently yesterday patient was found unresponsive, hypoxic and called an A-team. During that a team patient again was reported as having her eyes open and tracking the room however was not following any commands and overall not really speaking reported that she had overall weakness in her extremities reported by the attending. The attending requested that they call a code stroke. Patient went down for a CT of the brain with no acute findings. During that time reportedly they had found THC Gummies in patient's belongings. Patient had admitted at that time to taking Gummies as well as had been medicated with opioids and Vistaril. She also underwent a CT angiogram of the head and neck which had reported a short segment of left common carotid dissection, and greater than 90% stenosis right carotid bifurcation. Vascular surgery was consulted for ICA stenosis. Neurology also on consultation, they spoke to the neurointensivist that did not believe that there was any left common carotid artery dissection. Patient also underwent carotid duplex this morning reporting 50 to 69% right ICA stenosis and less than 50% left ICA stenosis. Patient states she does not recall any of the events that occurred yesterday, she does not remember becoming altered. Apparently patient had also become combative and required restraints. She also denies taking her THC Gummies. She denies any focal deficits, no weakness in her upper or lower extremities, no visual changes, states she has tinnitus and some decreased hearing. She states that she tripped on her deck she did not have any weakness in either of her extremities causing her fall. History of TIA she states 30 years ago she is not on any antiplatelet or aspirin therapy at home. She currently denies any shortness of breath, chest pain, nausea, or vomiting. Oxygen saturation 98% and 2 L of nasal cannula. Patient has been afebrile. Review of Systems A 14 point review systems was completed all pertinent positives and negatives as stated in the HPI. Past Medical History Past Medical History: CVA/TIA, Diabetes Mellitus, Hyperlipidemia, Hypertension, Osteoarthritis (OA), Rheumatoid Arthritis (RA), Thyroid Disorder Additional Past Medical History / Comment(s): states TIA over 30yrs ago- no residual effects, "slight"heart murmur, insomnia, "3 hiatal hernias", hx IBS, kidney stone, History of Any Multi-Drug Resistant Organisms: None Reported Past Surgical History: Bowel Resection, Cardiac Valve Replacement, Coronary Bypass/CABG, Heart Catheterization, Hysterectomy, Orthopedic Surgery, Tonsillectomy Additional Past Surgical History / Comment(s): left knee arthroscopy, orif left ankle with plate and screws-hardware later removed, uri cataracts, hemmorhoidectomy, "perforated colon with colonoscopy", thoracentesis; CABG and aortic valve replacement May 2018. Past Anesthesia/Blood Transfusion Reactions: No Reported Reaction Additional Past Anesthesia/Blood Transfusion Reaction / Comm: . Past Psychological History: No Psychological Hx Reported Smoking Status: Former smoker Past Alcohol Use History: None Reported Past Drug Use History: None Reported - Past Family History Mother Family Medical History: No Reported History Medications and Allergies Home Medications Medication Instructions Recorded Confirmed Type Levothyroxine Sodium [Synthroid] 50 mcg PO DAILY 10/19/16 07/09/23 History Enalapril [Vasotec] 5 mg PO DAILY 03/17/19 07/09/23 History Ezetimibe [Zetia] 10 mg PO DAILY 07/09/23 07/09/23 History Insulin Degludec [Tresiba 30 units SQ HS 07/09/23 07/09/23 History Flextouch U-200 Pen] Semaglutide [Rybelsus] 3 mg PO DAILY 07/09/23 07/09/23 History Allergies Allergy/AdvReac Type Severity Reaction Status Date / Time chrome Allergy Allergy Uncoded 07/09/23 20:24 Testing dust Allergy Allergy Uncoded 07/09/23 20:24 Testing Surgical - Exam Vital Signs Pulse Ox 99 07/09/23 17:57 General appearance: The patient is alert, oriented, appears in no acute distress. HET: Head is normocephalic and atraumatic. Pupils are equal and reactive. Neck: Supple. No bruit. Heart: Regular rate, systolic murmur. Lungs: Equal expansion, normal respiratory effort. Abdomen: Soft, nontender, nondistended. Extremities: Normal skin color and turgor. Palpable bilateral radial pulses. Neurological: No focal deficits. Strength and sensation are grossly intact. Results - Labs 07/12/23 08:52 07/11/23 18:58 Abnormal Lab Results - Last 24 Hours (Table) 07/11/23 07/11/23 07/11/23 Range/Units 06:36 06:36 11:58 WBC 18.76 H (4.50-10.00) X 10*3/uL RBC 3.77 L (4.10-5.20) X 10*6/uL Hgb 11.1 L (12.0-15.0) g/dL Hct 34.4 L (37.2-46.3) % Immature Gran # 0.09 H (0.00-0.04) X 10*3/uL Neutrophils # 15.90 H (1.80-7.70) X 10*3/uL ABG pH (7.35-7.45) ABG pCO2 (35-45) mmHg ABG pO2 (83-108) mmHg ABG HCO3 (21-25) mmol/L ABG O2 Saturation (94-97) % Sodium (137-145) mmol/L Carbon Dioxide (22-30) mmol/L Glucose (74-99) mg/dL POC Glucose (mg/dL) 129 H (70-110) mg/dL Hemoglobin A1c 8.2 H (<=6.0) % Total Bilirubin (0.2-1.3) mg/dL AST (14-36) U/L 07/11/23 07/11/23 07/11/23 Range/Units 17:01 17:30 18:58 WBC 21.3 H (4.50-10.00) X 10*3/uL RBC (4.10-5.20) X 10*6/uL Hgb (12.0-15.0) g/dL Hct (37.2-46.3) % Immature Gran # (0.00-0.04) X 10*3/uL Neutrophils # 17.9 H (1.80-7.70) X 10*3/uL ABG pH 7.49 H (7.35-7.45) ABG pCO2 34 L (35-45) mmHg ABG pO2 354 H (83-108) mmHg ABG HCO3 26 H (21-25) mmol/L ABG O2 Saturation 100.7 H (94-97) % Sodium (137-145) mmol/L Carbon Dioxide (22-30) mmol/L Glucose (74-99) mg/dL POC Glucose (mg/dL) 170 H (70-110) mg/dL Hemoglobin A1c (<=6.0) % Total Bilirubin (0.2-1.3) mg/dL AST (14-36) U/L 07/11/23 07/11/23 07/12/23 Range/Units 18:58 20:30 01:59 WBC (4.50-10.00) X 10*3/uL RBC (4.10-5.20) X 10*6/uL Hgb (12.0-15.0) g/dL Hct (37.2-46.3) % Immature Gran # (0.00-0.04) X 10*3/uL Neutrophils # (1.80-7.70) X 10*3/uL ABG pH (7.35-7.45) ABG pCO2 (35-45) mmHg ABG pO2 (83-108) mmHg ABG HCO3 (21-25) mmol/L ABG O2 Saturation (94-97) % Sodium 131 L (137-145) mmol/L Carbon Dioxide 19 L (22-30) mmol/L Glucose 205 H (74-99) mg/dL POC Glucose (mg/dL) 215 H 162 H (70-110) mg/dL Hemoglobin A1c (<=6.0) % Total Bilirubin 1.5 H (0.2-1.3) mg/dL AST 41 H (14-36) U/L 07/12/23 Range/Units 06:07 WBC (4.50-10.00) X 10*3/uL RBC (4.10-5.20) X 10*6/uL Hgb (12.0-15.0) g/dL Hct (37.2-46.3) % Immature Gran # (0.00-0.04) X 10*3/uL Neutrophils # (1.80-7.70) X 10*3/uL ABG pH (7.35-7.45) ABG pCO2 (35-45) mmHg ABG pO2 (83-108) mmHg ABG HCO3 (21-25) mmol/L ABG O2 Saturation (94-97) % Sodium (137-145) mmol/L Carbon Dioxide (22-30) mmol/L Glucose (74-99) mg/dL POC Glucose (mg/dL) 175 H (70-110) mg/dL Hemoglobin A1c (<=6.0) % Total Bilirubin (0.2-1.3) mg/dL AST (14-36) U/L Diabetes panel 07/11/23 07/11/23 Range/Units 06:36 18:58 Sodium 131 L (137-145) mmol/L Potassium 3.9 (3.5-5.1) mmol/L Chloride 102 (98-107) mmol/L Carbon Dioxide 19 L (22-30) mmol/L BUN 10 (7-17) mg/dL Creatinine 0.58 (0.52-1.04) mg/dL Glucose 205 H (74-99) mg/dL Hemoglobin A1c 8.2 H (<=6.0) % Calcium 9.0 (8.4-10.2) mg/dL AST 41 H (14-36) U/L ALT 22 (4-34) U/L Alkaline Phosphatase 75 (38-126) U/L Total Protein 6.5 (6.3-8.2) g/dL Albumin 3.5 (3.5-5.0) g/dL Calcium panel 07/11/23 Range/Units 18:58 Calcium 9.0 (8.4-10.2) mg/dL Phosphorus 3.5 (2.5-4.5) mg/dL Albumin 3.5 (3.5-5.0) g/dL Pituitary panel 07/11/23 Range/Units 18:58 Sodium 131 L (137-145) mmol/L Potassium 3.9 (3.5-5.1) mmol/L Chloride 102 (98-107) mmol/L Carbon Dioxide 19 L (22-30) mmol/L BUN 10 (7-17) mg/dL Creatinine 0.58 (0.52-1.04) mg/dL Glucose 205 H (74-99) mg/dL Calcium 9.0 (8.4-10.2) mg/dL Adrenal panel 07/11/23 Range/Units 18:58 Sodium 131 L (137-145) mmol/L Potassium 3.9 (3.5-5.1) mmol/L Chloride 102 (98-107) mmol/L Carbon Dioxide 19 L (22-30) mmol/L BUN 10 (7-17) mg/dL Creatinine 0.58 (0.52-1.04) mg/dL Glucose 205 H (74-99) mg/dL Calcium 9.0 (8.4-10.2) mg/dL Total Bilirubin 1.5 H (0.2-1.3) mg/dL AST 41 H (14-36) U/L ALT 22 (4-34) U/L Alkaline Phosphatase 75 (38-126) U/L Total Protein 6.5 (6.3-8.2) g/dL Albumin 3.5 (3.5-5.0) g/dL - Imaging Comments: Carotid Doppler: Right ICA PSV 185.7, ICA/CCA ratio 1.4 Left ICA PSV 136.7, ICA/CCA ratio 1.6. Impression states measurements suggest moderate 50 to 69% stenosis proximal right ICA and mild to moderate at the pr oximal left ICA. CT angiogram head and neck Short segment of left common carotid artery dissection, the common carotid artery remains patent with approximately 25 to 50% stenosis. Greater than 90% s tenosis of the right carotid bifurcation due to calcified and noncalcified plaque. Dense calcified plaque versus stent graft in the proximal portion of the left internal carotid artery limits evaluation. The lumen is poorly visualized. Consider dedicated carotid duplex ultrasound imaging. There is motion and calcification at the origins of the vertebral arteries which limits their evaluation for stenosis due to blooming artifacts in the smaller caliber. Brain CT No acute intracranial process Assessment and Plan Assessment: 1. Altered mental status changes 2. Acute hypoxic respiratory failure undetermined etiology 3. Asymptomatic right ICA stenosis 4. Left intertrochanteric fracture status post intramedullary nail fixation 5. Coronary artery disease with aortic stenosis, status post CABG, aortic valve replacement 6. Hypertension 7. Hyperlipidemia 8. Insulin-dependent diabetes mellitus 9. Former nicotine dependence 10. History of TIA Plan: 1. Await recommendations from neurology 2. Atorvastatin 40 mg at bedtime ordered 3. CT angiogram head and neck and carotid duplex reviewed 4. Patient can follow-up with vascular surgery as an outpatient 5. Rest of medical management per primary medical team and orthopedic surgeon Thank you for this consultation, we will continue to follow. The impression and plan of care has been dictated as directed. I performed a history and examination of this patient, discussed the same with the dictator. I agree with the dictator's note ,documented as a scribe. Any additional findings or plans will be noted.
[2023-07-12 11:01] LABS: African American GFR (CKD) >90 (>60 ml/min/1.73 sqM); Anion Gap 6 mmol/L; Blood Urea Nitrogen 11 mg/dL (7-17); Calcium 8.4 mg/dL (8.4-10.2); Carbon Dioxide 22 mmol/L (22-30); Chloride 108 mmol/L (98-107); Glucose 151 mg/dL (74-99); Non-African American GFR(CKD) >90 (>60 ml/min/1.73 sqM); Potassium 3.6 mmol/L (3.5-5.1); Sodium 136 mmol/L (137-145)
[2023-07-12 11:36] LABS: Glucose,Whole Blood 166 mg/dL (70-110)
--- NOTE | 2023-07-12 14:55 | P.PN ---
Subjective Progress Note Date: 07/12/23 Patient is a 77-year-old female with a history of coronary artery disease status post two-vessel CABG with aortic valve replacement and mitral valve repair, hypertension, dyslipidemia, insulin-dependent diabetes mellitus type 2, and hypothyroidism who presented to the emergency department after a fall. Patient was ultimately found to have a left femoral intertrochanteric fracture with no displacement with small hematoma. Underwent surgical repair. On 07/10, patient had an episode of unresponsiveness, hypotensive, hypoxic, was placed on nonrebreather. Blood glucose within normal limits. Stat CT head did not show any acute process, stat CTA head and neck concerning for a left-sided common carotid artery dissection which was later confirmed to be possible calcification, ultrasound carotid did not show any dissection. Neurology was consulted. Lower extremity Dopplers negative for DVT. Patient did have CBD Gummies that she might have admitted to taking as she was given pain meds prior to this episode. Patient seen and examined at bedside. Denies any new complaints. No acute e vents overnight. Vital signs reviewed General: Nontoxic, no distress, appears at stated age Cardiovascular: S1S2 reg, grade 3 systolic ejection murmur Lungs: Clear to auscultation bilaterally, on room air Abdominal: Soft, nontender to palpation, no guarding Ext: No gross muscle atrophy, no edema b/l lower extremities, no contractures Neuro: CN II-XI grossly intact, no focal neuro deficits Psych: Alert, oriented, appropriate affect Assessment/Plan: 77-year-old female with left femoral intertrochanteric fracture s/p IM nailing Mechanical fall from standing Leukocytosis, likely reactive, anticipated outcome of surgery Normocytic anemia, anticipated outcome of surgery -Orthopedic surgery note reviewed: Continue current management Acute metabolic encephalopathy, resolved -Possibly in the setting of taking CBD Gummies along with pain medications -Initial workup concerning for carotid dissection, vascular surgery was consulted. Ultrasound negative for dissection, continue atorvastatin 40, continue aspirin, outpatient follow-up -Pending neurology evaluation Diabetes mellitus type II, A1c 8.2 -Levemir 10 units at night, sliding scale insulin, monitor for hypoglycemia, continue semaglutide 3 mg daily Coronary artery disease Status post aortic valve replacement mitral valve repair Hypertension Dyslipidemia History of TIA -Patient is only on Zetia and Vasotec at home. -Lisinopril 5 mg daily - Zetia 10 mg daily -Cardiology note reviewed: Follow-up in office in 2 weeks. Cardiology will sign off. Imaging: Carotid ultrasound showed moderate 50 to 69% stenosis of proximal right ICA, mild to moderate at the proximal left ICA, lower extremity Dopplers negative for DVT, Data Review: WBC 16.7, hemoglobin 10.7, sodium 136, creatinine 0.48, blood glucose 166 Thank you for allowing us to participate in the care of this pleasant patient. Do not hesitate to contact us with questions. Someone can be reached from the [facility] hospitalist group all hours of the day at [phone] or via perfect serve. Objective - Vital Signs Vital signs: Vital Signs Temp 98.1 F 07/12/23 11:48 Pulse 77 07/12/23 11:48 Resp 20 07/12/23 11:48 BP 128/72 07/12/23 11:48 Pulse Ox 91 L 07/12/23 11:48 FiO2 Intake & Output 07/11/23 07/12/23 07/12/23 18:59 06:59 18:59 Intake Total 550 110 Output Total 450 Balance 550 -340 Intake: Oral 550 110 Output: Urine 450 Other: Voiding Method Toilet External Catheter # Voids 2 2 - Labs CBC & Chem 7: 07/12/23 08:52 07/12/23 08:52 Labs: Abnormal Lab Results - Last 24 Hours (Table) 07/11/23 07/11/23 07/11/23 Range/Units 17:01 17:30 18:58 WBC 21.3 H (3.8-10.6) k/uL RBC (3.80-5.40) m/uL Hgb (11.4-16.0) gm/dL Neutrophils # 17.9 H (1.3-7.7) k/uL ABG pH 7.49 H (7.35-7.45) ABG pCO2 34 L (35-45) mmHg ABG pO2 354 H (83-108) mmHg ABG HCO3 26 H (21-25) mmol/L ABG O2 Saturation 100.7 H (94-97) % Sodium (137-145) mmol/L Chloride (98-107) mmol/L Carbon Dioxide (22-30) mmol/L Creatinine (0.52-1.04) mg/dL Glucose (74-99) mg/dL POC Glucose (mg/dL) 170 H (70-110) mg/dL Total Bilirubin (0.2-1.3) mg/dL AST (14-36) U/L 07/11/23 07/11/23 07/12/23 Range/Units 18:58 20:30 01:59 WBC (3.8-10.6) k/uL RBC (3.80-5.40) m/uL Hgb (11.4-16.0) gm/dL Neutrophils # (1.3-7.7) k/uL ABG pH (7.35-7.45) ABG pCO2 (35-45) mmHg ABG pO2 (83-108) mmHg ABG HCO3 (21-25) mmol/L ABG O2 Saturation (94-97) % Sodium 131 L (137-145) mmol/L Chloride (98-107) mmol/L Carbon Dioxide 19 L (22-30) mmol/L Creatinine (0.52-1.04) mg/dL Glucose 205 H (74-99) mg/dL POC Glucose (mg/dL) 215 H 162 H (70-110) mg/dL Total Bilirubin 1.5 H (0.2-1.3) mg/dL AST 41 H (14-36) U/L 07/12/23 07/12/23 07/12/23 Range/Units 06:07 08:52 08:52 WBC 16.7 H (3.8-10.6) k/uL RBC 3.66 L (3.80-5.40) m/uL Hgb 10.7 L (11.4-16.0) gm/dL Neutrophils # (1.3-7.7) k/uL ABG pH (7.35-7.45) ABG pCO2 (35-45) mmHg ABG pO2 (83-108) mmHg ABG HCO3 (21-25) mmol/L ABG O2 Saturation (94-97) % Sodium 136 L (137-145) mmol/L Chloride 108 H (98-107) mmol/L Carbon Dioxide (22-30) mmol/L Creatinine 0.48 L (0.52-1.04) mg/dL Glucose 151 H (74-99) mg/dL POC Glucose (mg/dL) 175 H (70-110) mg/dL Total Bilirubin (0.2-1.3) mg/dL AST (14-36) U/L 07/12/23 Range/Units 11:34 WBC (3.8-10.6) k/uL RBC (3.80-5.40) m/uL Hgb (11.4-16.0) gm/dL Neutrophils # (1.3-7.7) k/uL ABG pH (7.35-7.45) ABG pCO2 (35-45) mmHg ABG pO2 (83-108) mmHg ABG HCO3 (21-25) mmol/L ABG O2 Saturation (94-97) % Sodium (137-145) mmol/L Chloride (98-107) mmol/L Carbon Dioxide (22-30) mmol/L Creatinine (0.52-1.04) mg/dL Glucose (74-99) mg/dL POC Glucose (mg/dL) 166 H (70-110) mg/dL Total Bilirubin (0.2-1.3) mg/dL AST (14-36) U/L
[2023-07-12 16:24] LABS: Glucose,Whole Blood 153 mg/dL (70-110)
[2023-07-12 19:33] LABS: Glucose,Whole Blood 183 mg/dL (70-110)
[2023-07-12] MEDS: ATORVASTATIN 40 MG TAB PO SCH (20:50)
[2023-07-13 02:11] LABS: Glucose,Whole Blood 107 mg/dL (70-110)
[2023-07-13 06:05] LABS: Glucose,Whole Blood 85 mg/dL (70-110)
--- NOTE | 2023-07-13 07:29 | P.CNNES ---
History of Present Illness Consult date: 07/12/23 Requesting physician: Maureen Churchill Reason for Consult: TIA, carotid stenosis History of Present Illness: Patient is a 77-year-old right-handed female came to the hospital by ambulance on 07/09/2023 after she suffered from a fall and fractured hip. Patient states that she tripped on a piece of carpeting, fell, did not pass out. Patient's girlfriend called the EMS and arrived here at 5:53 PM. As per EMS flowsheet, when they arrived, patient was sitting upright on the chair inside the residence. Patient was alert and oriented x 4 in no obvious distress. Patient mentioned that she fell on her porch earlier at 1 PM landing on her left hip. Patient denied any loss of consciousness and denied hitting her head. Patient not on any blood thinners or aspirin. Patient had a 10/10 pain during movement to her left hip area. EMS noted no deformity bruising or crepitus to the area of complaint. Positive pulse, motor and sensation to affected left lower extremity. Vital signs at the scene was blood pressure 199/101, pulse rate 91 respiration 18 saturation 98%, blood sugar 219. Blood test shows WBC 16.7 hemoglobin 10.7, normal platelets. PT PTT normal. Sodium 136 potassium 3.6, normal renal functions. ABG with pH 7.49, pCO2 34, pO2 354 and saturation 100%. Patient had an event at 6:03 PM yesterday, when pt was not responding to staff after using the restroom. pt was in bed upon writers arrival. Pt was hypoxic in the 70s per RN at bedside, and BP was 86/50,NSR in the monitor. Pt grimacing to painful stimuli. Dr. Churchill at bedside and we called a code stroke, intinal NIH was 26- pt wasnt following commands. ABG was obtained and pt started to perk up at that time and they were able to get pt to state name clearly. After returning from CT head, nursing staff did find CBD Gummies in the patient's purse that was next to her and she initially said and admitted to taking these Gummies. She then became increasingly agitated with nursing and was swearing and swinging at them and threatening to kill them. At that point patient was moving all 4 extremities independently without difficulty and was able to follow commands. Patient was transferred to [address] head performed yesterday revealed no acute intracranial process. I personally reviewed CT head, agree with the findings. 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 Greater than 90% stenosis of the right carotid bifurcation due to calcified and noncalcified plaque. Dense calcified plaque versus stent graft in the proximal portion of the left ICA limits evaluation. The lumen is poorly visualized. Ultrasound recommended. There is motion and calcifications at the origin of the vertebral arteries which limits their evaluation for stenosis due to blooming artifact in this mall caliber. Dr. Churchill discussed case with neurointervention Dr. Argueta, well that patient has dense calcification of the left common carotid artery without signs of dissection. Carotid Doppler was ordered. Vascular surgery was consulted. Chest x-ray revealed increasing pulmonary vascular prominence compared to prior 07/09/2023. Correlate for volume overload/CHF Carotid Doppler revealed measurements suggest moderate 50 to 69% stenosis proximal right ICA and mild to moderate at the proximal left ICA. Patient has history of smoking half pack per day on and off for 20 years. Patient has history of bypass surgery 5 years ago. Denies any alcohol use. Patient does have history of diabetes for 15 years, and hypertension. No history of strokes in the past. Patient is very hard of hearing. Patient does not take any antiplatelet medication at home. Review of Systems Constitutional: Denies chills, Denies fever Eyes: denies blurred vision, denies diplopia, denies pain, denies loss of vision Ears: bilateral: decreased hearing, tinnitus Ears, nose, mouth and throat: Denies headache, Denies sore throat Cardiovascular: Denies chest pain, Denies shortness of breath Respiratory: Denies cough, Denies excessive sputum Gastrointestinal: Denies abdominal pain, Denies diarrhea, Denies nausea, Denies vomiting Integumentary: Denies pruritus, Denies rash Neurological: Reports as per HPI Psychiatric: Denies anxiety, Denies depression Past Medical History Past Medical History: CVA/TIA, Diabetes Mellitus, Hyperlipidemia, Hypertension, Osteoarthritis (OA), Rheumatoid Arthritis (RA), Thyroid Disorder Additional Past Medical History / Comment(s): states TIA over 30yrs ago- no residual effects, "slight"heart murmur, insomnia, "3 hiatal hernias", hx IBS, kidney stone, History of Any Multi-Drug Resistant Organisms: None Reported Past Surgical History: Bowel Resection, Cardiac Valve Replacement, Coronary Bypass/CABG, Heart Catheterization, Hysterectomy, Orthopedic Surgery, Tonsillectomy Additional Past Surgical History / Comment(s): left knee arthroscopy, orif left ankle with plate and screws-hardware later removed, uri cataracts, hemmorhoidectomy, "perforated colon with colonoscopy", thoracentesis; CABG and aortic valve replacement May 2018. Past Anesthesia/Blood Transfusion Reactions: No Reported Reaction Additional Past Anesthesia/Blood Transfusion Reaction / Comment(s): . Past Psychological History: No Psychological Hx Reported Smoking Status: Former smoker Past Alcohol Use History: None Reported Past Drug Use History: None Reported - Past Family History Mother Family Medical History: No Reported History Medications and Allergies Home Medications Medication Instructions Recorded Confirmed Type Levothyroxine Sodium [Synthroid] 50 mcg PO DAILY 10/19/16 07/09/23 History Enalapril [Vasotec] 5 mg PO DAILY 03/17/19 07/09/23 History Ezetimibe [Zetia] 10 mg PO DAILY 07/09/23 07/09/23 History Insulin Degludec [Tresiba 30 units SQ HS 07/09/23 07/09/23 History Flextouch U-200 Pen] Semaglutide [Rybelsus] 3 mg PO DAILY 07/09/23 07/09/23 History Allergies Allergy/AdvReac Type Severity Reaction Status Date / Time chrome Allergy Allergy Uncoded 07/09/23 20:24 Testing dust Allergy Allergy Uncoded 07/09/23 20:24 Testing Physical Examination - Vital Signs Vital Signs: Vital Signs Temp Pulse Resp BP Pulse Ox 07/12/23 16:37 98.6 F 84 20 151/69 94 L 07/12/23 11:48 98.1 F 77 20 128/72 91 L 07/12/23 08:00 98.3 F 79 20 144/74 98 07/12/23 03:47 97.9 F 92 18 162/72 97 07/12/23 00:07 97.8 F 111 H 19 197/75 95 Intake and Output 07/12/23 07/12/23 07/12/23 06:59 14:59 22:59 Intake Total 110 600 Output Total 450 Balance -340 600 Intake: Intake, IV Titration 600 Amount Sodium Chloride 0.9% 1, 600 000 ml @ 75 mls/hr IV . [id number] [facility] Rx#:[id number] Oral 110 Output: Urine 450 Other: Voiding Method External Catheter # Voids 2 Patient is an elderly female, very pleasant, in no acute distress. Patient is alert awake oriented to time place and person. Speech and language functions are normal. Patient can name and repeat very well. No aphasia or dysarthria. Attention, concentration and fund of knowledge is adequate. On cranial nerve examination, pupils are equal, round and reacting to light, visual cortez are full on confrontation, with no neglect on double simultaneous stimulation. Extraocular muscles are intact with no nystagmus. Face is symmetric, tongue protrudes to the midline. Palatal elevation and sensation normal, hearing is severely decreased and shoulder shrug normal, facial sensation normal. On muscle strength testing, there is no pronator drift and the strength is normal in arms and legs distally and proximally, except right hip flexion which is 4 and left hip flexion not checked because of recent surgery. Deep tendon reflexes are symmetric hypoactive and plantars downgoing. Sensory to touch is equal with no neglect on double simultaneous stimulation. Cerebellar function showed no ataxia for [id number] testing. No dysdiadochokinesia. Not able to be checked for [id number] testing. Tone and bulk of muscles normal. Gait deferred.. On general examination, there is no carotid bruit or murmur, S1-S2 audible. Chest is clear on consultation. Abdomen is soft nontender. No organomegaly, bowel sounds present. Peripheral pulses are present. No peripheral edema. Results - Laboratory Findings CBC and BMP: 07/12/23 08:52 07/12/23 08:52 Abnormal Lab Findings: Abnormal Labs 07/09/23 07/09/23 07/09/23 18:57 18:57 21:12 WBC 21.8 H RBC Hgb Hct Immature Gran # Neutrophils # 17.7 H ABG pH ABG pCO2 ABG pO2 ABG HCO3 ABG O2 Saturation Sodium Chloride Carbon Dioxide Creatinine Glucose 121 H POC Glucose (mg/dL) Hemoglobin A1c Total Bilirubin AST Urine Blood Moderate H Ur Leukocyte Esterase Moderate H Urine RBC 11 H Urine WBC 31 H Urine Mucus Rare H 07/10/23 07/10/23 07/10/23 11:40 12:18 20:51 WBC RBC Hgb Hct Immature Gran # Neutrophils # ABG pH ABG pCO2 ABG pO2 ABG HCO3 ABG O2 Saturation Sodium Chloride Carbon Dioxide Creatinine Glucose POC Glucose (mg/dL) 61 L 159 H 118 H Hemoglobin A1c Total Bilirubin AST Urine Blood Ur Leukocyte Esterase Urine RBC Urine WBC Urine Mucus 07/10/23 07/11/23 07/11/23 22:51 05:54 06:36 WBC RBC Hgb Hct Immature Gran # Neutrophils # ABG pH ABG pCO2 ABG pO2 ABG HCO3 ABG O2 Saturation Sodium Chloride Carbon Dioxide Creatinine Glucose POC Glucose (mg/dL) 169 H 274 H Hemoglobin A1c 8.2 H Total Bilirubin AST Urine Blood Ur Leukocyte Esterase Urine RBC Urine WBC Urine Mucus 07/11/23 07/11/23 07/11/23 06:36 11:58 17:01 WBC 18.76 H RBC 3.77 L Hgb 11.1 L Hct 34.4 L Immature Gran # 0.09 H Neutrophils # 15.90 H ABG pH ABG pCO2 ABG pO2 ABG HCO3 ABG O2 Saturation Sodium Chloride Carbon Dioxide Creatinine Glucose POC Glucose (mg/dL) 129 H 170 H Hemoglobin A1c Total Bilirubin AST Urine Blood Ur Leukocyte Esterase Urine RBC Urine WBC Urine Mucus 07/11/23 07/11/23 07/11/23 17:30 18:58 18:58 WBC 21.3 H RBC Hgb Hct Immature Gran # Neutrophils # 17.9 H ABG pH 7.49 H ABG pCO2 34 L ABG pO2 354 H ABG HCO3 26 H ABG O2 Saturation 100.7 H Sodium 131 L Chloride Carbon Dioxide 19 L Creatinine Glucose 205 H POC Glucose (mg/dL) Hemoglobin A1c Total Bilirubin 1.5 H AST 41 H Urine Blood Ur Leukocyte Esterase Urine RBC Urine WBC Urine Mucus 07/11/23 07/12/23 07/12/23 20:30 01:59 06:07 WBC RBC Hgb Hct Immature Gran # Neutrophils # ABG pH ABG pCO2 ABG pO2 ABG HCO3 ABG O2 Saturation Sodium Chloride Carbon Dioxide Creatinine Glucose POC Glucose (mg/dL) 215 H 162 H 175 H Hemoglobin A1c Total Bilirubin AST Urine Blood Ur Leukocyte Esterase Urine RBC Urine WBC Urine Mucus 07/12/23 07/12/23 07/12/23 08:52 08:52 11:34 WBC 16.7 H RBC 3.66 L Hgb 10.7 L Hct Immature Gran # Neutrophils # ABG pH ABG pCO2 ABG pO2 ABG HCO3 ABG O2 Saturation Sodium 136 L Chloride 108 H Carbon Dioxide Creatinine 0.48 L Glucose 151 H POC Glucose (mg/dL) 166 H Hemoglobin A1c Total Bilirubin AST Urine Blood Ur Leukocyte Esterase Urine RBC Urine WBC Urine Mucus 07/12/23 07/12/23 16:23 19:31 WBC RBC Hgb Hct Immature Gran # Neutrophils # ABG pH ABG pCO2 ABG pO2 ABG HCO3 ABG O2 Saturation Sodium Chloride Carbon Dioxide Creatinine Glucose POC Glucose (mg/dL) 153 H 183 H Hemoglobin A1c Total Bilirubin AST Urine Blood Ur Leukocyte Esterase Urine RBC Urine WBC Urine Mucus Assessment and Plan Assessment: * Acute, transient episode of unresponsiveness/encephalopathy with hypotension and hypoxemia, that resolved by the time patient returned back from CT head. Current NIH stroke scale is 0. Event appears more due to hypotension/hyp oxemia, less likely central ischemia. * Left ICA dissection noted on CTA * Diabetes * Hypertension * Tobacco use * Marijuana use * Hard of hearing * Status post fall due to tripping with left hip fracture, status post arthroplasty. Plan: * Patient's neurological symptoms have resolved. Her current NIH stroke scale is 0. * CTA of head and neck revealed short segment of left common carotid artery dissection, the common carotid artery remains patent with proximally 25 to 50% stenosis. Greater than 90% stenosis of the right carotid bifurcation due to calcified and noncalcified plaque. Dense calcified plaque versus stent graft in the proximal portion of the left ICA limits evaluation. The lumen is poorly visualized. Ultrasound recommended. There is motion and calcifications at the origin of the vertebral arteries which limits their evaluation for stenosis due to blooming artifact in this mall caliber * Carotid Doppler revealed measurements suggest moderate (50 to 69%) stenosis proximal right ICA and mild to moderate in the proximal left ICA. Antegrade flow in both vertebral arteries. * Vascular surgery on board. Significant discrepancy between the report of CTA and carotid Doppler. Patient may need a cerebral angiogram. This can be performed as an outpatient, as the stenoses are likely asymptomatic. * Patient was not taking any antiplatelet medication at home. Patient placed on aspirin "325 mg twice daily". From neurology standpoint once a day dose of aspirin is adequate. * Hemoglobin A1c 8.2. Recommend optimize control of diabetes to target A1c <7.0 * Lipid panel. Patient on Lipitor 40 mg daily. * Recommend complete tobacco cessation. * DVT prophylaxis: Will defer to orthopedic surgery/IM. * Neurology will follow. Thank you for the consult.
[2023-07-13] MEDS: EZETIMIBE 10 MG TAB PO SCH (09:56)
[2023-07-13 10:18] VITALS: TEMP 98.3
--- NOTE | 2023-07-13 11:36 | P.PN ---
Subjective Progress Note Date: 07/13/23 Subjective: Seen and examined at bedside. No acute events overnight. Claims that she has pain on her left hip but apart from that denies any other symptoms. Pertinent positives and negatives as discussed above, a complete review of systems was performed and all other systems are negative. Vitals Signs Reviewed. General: Nontoxic, no distress, appears at stated age Cardiovascular: S1S2 reg, grade 3 systolic ejection murmur Lungs: Clear to auscultation bilaterally, on room air Abdominal: Soft, nontender to palpation, no guarding Ext: No gross muscle atrophy, no edema b/l lower extremities, no contractures Neuro: CN II-XI grossly intact, no focal neuro deficits Psych: Alert, oriented, appropriate affect Data Reviewed Today: Pertinent Labs: Blood sugars range between 85-183, BMP and CBC pending, will be reviewed when available Imaging: No new imaging Assessment and Plan: 77-year-old female with left femoral intertrochanteric fracture s/p IM nailing Mechanical fall from standing Leukocytosis, likely reactive, anticipated outcome of surgery Normocytic anemia, anticipated outcome of surgery -Orthopedic surgery note reviewed: Continue current management -DVT prophylaxis with aspirin 325 twice daily -pain control with oral [place] as needed, Flexeril as needed, IV Dilaudid as needed, monitor for sedation -senna 2 nightly for bowel regimen Acute metabolic encephalopathy, resolved -Possibly in the setting of taking CBD Gummies along with pain medications -Initial workup concerning for carotid dissection, vascular surgery was consulted. Ultrasound negative for dissection, continue atorvastatin 40, continue aspirin, outpatient follow-up -Neurology did not recommend any further workup, outpatient follow-up, continue aspirin 325 daily, and continue statin 40 daily Diabetes mellitus type II, A1c 8.2 -Levemir 10 units at night, sliding scale insulin, monitor for hypoglycemia, continue semaglutide 3 mg daily Coronary artery disease Status post aortic valve replacement mitral valve repair Hypertension Dyslipidemia History of TIA -Patient is only on Zetia and Vasotec at home. -Lisinopril 5 mg daily - Zetia 10 mg daily -Cardiology note reviewed: Follow-up in office in 2 weeks. Cardiology will sign off. Imaging: Carotid ultrasound showed moderate 50 to 69% stenosis of proximal right ICA, mild to moderate at the proximal left ICA, lower extremity Dopplers negative for DVT Data Review: Blood sugars range between 85-1 83 Patient is medically optimized for discharge. Thank you for allowing us to participate in the care of this pleasant patient. Do not hesitate to contact us with questions. Someone can be reached from the [facility] hospitalist group all hours of the day at [phone] or via perfect serve. Objective - Vital Signs Vital signs: Vital Signs Temp 98.3 F 07/13/23 09:55 Pulse 69 07/13/23 11:17 Resp 17 07/13/23 11:17 BP 134/64 07/13/23 11:17 Pulse Ox 95 07/13/23 11:17 FiO2 Intake & Output 07/12/23 07/13/23 07/13/23 18:59 06:59 18:59 Intake Total 710 540 510 Output Total 450 Balance 260 540 510 Intake: Intake, IV Titration 600 Amount Sodium Chloride 0.9% 1, 600 000 ml @ 75 mls/hr IV . [id number] [facility] Rx#:[id number] Oral 110 540 510 Output: Urine 450 Other: Voiding Method Bedside Commode Bedside Commode - Labs CBC & Chem 7: 07/12/23 08:52 07/12/23 08:52 Labs: Abnormal Lab Results - Last 24 Hours (Table) 07/12/23 07/12/23 07/12/23 Range/Units 11:34 16:23 19:31 POC Glucose (mg/dL) 166 H 153 H 183 H (70-110) mg/dL
--- NOTE | 2023-07-13 11:44 | P.PN ---
Subjective Progress Note Date: 07/13/23 Principal diagnosis: Carotid stenosis Patient is seen and examined today as a follow-up. She was resting in bed with her eyes closed this morning. She continues to deny any focal deficits. Patient denies any shortness of breath or chest pain. Neurology has seen chasity anna yesterday and agree likely encephalopathy secondary to hypotension and hypoxemia and not a TIA,/CVA. Objective - Vital Signs Vital signs: Vital Signs Temp 98 F 07/13/23 04:00 Pulse 78 07/13/23 04:00 Resp 18 07/13/23 04:00 BP 164/73 07/13/23 04:00 Pulse Ox 92 L 07/13/23 04:00 FiO2 Intake & Output 07/12/23 07/13/23 07/13/23 18:59 06:59 18:59 Intake Total 710 540 30 Output Total 450 Balance 260 540 30 Intake: Intake, IV Titration 600 Amount Sodium Chloride 0.9% 1, 600 000 ml @ 75 mls/hr IV . [id number] [facility] Rx#:[id number] Oral 110 540 30 Output: Urine 450 Other: Voiding Method Bedside Commode - Exam General appearance: The patient is alert, oriented, appears in no acute distress. HET: Head is normocephalic and atraumatic. Pupils are equal and reactive. Neck: Supple. Heart: Regular rate. Systolic murmur. Lungs: Equal expansion, normal respiratory effort. Abdomen: Soft, nontender, nondistended. Extremities: Normal skin color and turgor. Neurological: No focal deficits. Strength and sensation are grossly intact. - Labs CBC & Chem 7: 07/12/23 08:52 07/12/23 08:52 Labs: Abnormal Lab Results - Last 24 Hours (Table) 07/12/23 07/12/23 07/12/23 Range/Units 08:52 08:52 11:34 WBC 16.7 H (3.8-10.6) k/uL RBC 3.66 L (3.80-5.40) m/uL Hgb 10.7 L (11.4-16.0) gm/dL Sodium 136 L (137-145) mmol/L Chloride 108 H (98-107) mmol/L Creatinine 0.48 L (0.52-1.04) mg/dL Glucose 151 H (74-99) mg/dL POC Glucose (mg/dL) 166 H (70-110) mg/dL 07/12/23 07/12/23 Range/Units 16:23 19:31 WBC (3.8-10.6) k/uL RBC (3.80-5.40) m/uL Hgb (11.4-16.0) gm/dL Sodium (137-145) mmol/L Chloride (98-107) mmol/L Creatinine (0.52-1.04) mg/dL Glucose (74-99) mg/dL POC Glucose (mg/dL) 153 H 183 H (70-110) mg/dL Assessment and Plan Assessment: 1. Altered mental status changes 2. Acute hypoxic respiratory failure undetermined etiology 3. Asymptomatic right ICA stenosis 4. Left intertrochanteric fracture status post intramedullary nail fixation 5. Coronary artery disease with aortic stenosis, status post CABG, aortic valve replacement 6. Hypertension 7. Hyperlipidemia 8. Insulin-dependent diabetes mellitus 9. Former nicotine dependence 10. History of TIA Plan: 1. Continue with recommendations from neurology 2. Atorvastatin 40 mg at bedtime ordered 3. CT angiogram head and neck and carotid duplex reviewed 4. Patient can follow-up with vascular surgery as an outpatient, will repeat for carotid duplex and make further recommendations at that time. 5. Rest of medical management per primary medical team and orthopedic surgeon Thank you for this consultation, patient is cleared from vascular surgery for d ischarge. We will sign off at this time. The impression and plan of care has been dictated as directed. Dr. Mendoza I performed a history and examination of this patient, discussed the same with the dictator. I agree with the dictator's note ,documented as a scribe. Any additional findings or plans will be noted.
[2023-07-13 11:48] LABS: Glucose,Whole Blood 111 mg/dL (70-110)
[2023-07-13 12:09] VITALS: BP 134/64; PULSE 69; RESP 17
[2023-07-13 12:24] LABS: Basophils # (A) 0.1 k/uL (0-0.2); Basophils % (A) 1 %; Eosinophils # (A) 0.6 k/uL (0-0.7); Eosinophils % (A) 5 %; HCT 33.4 % (34.0-46.0); HGB 10.5 gm/dL (11.4-16.0); Lymphocytes # (A) 1.7 k/uL (1.0-4.8); Lymphocytes % (A) 12 %; MCH 29.3 pg (25.0-35.0); MCHC 31.3 g/dL (31.0-37.0); MCV 93.6 fL (80.0-100.0); Mean Platelet Volume 10.1; Monocytes # (A) 0.7 k/uL (0-1.0); Monocytes % (A) 5 %; Neutrophils # (A) 10.3 k/uL (1.3-7.7); Neutrophils % (A) 75 %; Platelet Count 245 k/uL (150-450); RBC 3.57 m/uL (3.80-5.40); RDW 13.4 % (11.5-15.5); WBC 13.6 k/uL (3.8-10.6)
[2023-07-13 12:31] LABS: Prothrombin Time 10.6 sec (10.0-12.5)
[2023-07-13 12:34] LABS: African American GFR (CKD) >90 (>60 ml/min/1.73 sqM); Anion Gap 6 mmol/L; Blood Urea Nitrogen 11 mg/dL (7-17); Calcium 8.6 mg/dL (8.4-10.2); Carbon Dioxide 22 mmol/L (22-30); Chloride 108 mmol/L (98-107); Glucose 86 mg/dL (74-99); Non-African American GFR(CKD) >90 (>60 ml/min/1.73 sqM); Potassium 3.8 mmol/L (3.5-5.1); Sodium 136 mmol/L (137-145)
--- NOTE | 2023-07-13 12:39 | P.PN ---
Subjective Progress Note Date: 07/13/23 Principal diagnosis: s/p IM nail left intertrochanteric femur fracture Patient evaluated today at bedside, she is resting and eating lunch in her hospital bed. Patient's pain is currently well-controlled with her medications. She has been ambulating with the assistance of a walker, she has been utilizing the restroom with no difficulties. Neurology and vascular surgery were both signed off and recommending outpatient follow-up. We are awaiting authorization for subacute rehab. Objective - Vital Signs Vital signs: Vital Signs Temp 98.3 F 07/13/23 09:55 Pulse 69 07/13/23 11:17 Resp 17 07/13/23 11:17 BP 134/64 07/13/23 11:17 Pulse Ox 95 07/13/23 11:17 FiO2 Intake & Output 07/12/23 07/13/23 07/13/23 18:59 06:59 18:59 Intake Total 710 540 510 Output Total 450 Balance 260 540 510 Intake: Intake, IV Titration 600 Amount Sodium Chloride 0.9% 1, 600 000 ml @ 75 mls/hr IV . [id number] [facility] Rx#:[id number] Oral 110 540 510 Output: Urine 450 Other: Voiding Method Bedside Commode Bedside Commode - Exam Left lower extremity: Incision is clean, dry, and intact. The foam dressing is in good condition. There is minimal soft tissue swelling and ecchymosis surrounding the medial and lateral aspects of the incision. Calf is soft, no tenderness with palpation. P lantar flexion, dorsiflexion, EHL, FHL are intact. Sensory exam to light touch throughout the extremity is intact, dorsal pedis pulses 2+. - Labs CBC & Chem 7: 07/13/23 10:34 07/13/23 10:34 Labs: Abnormal Lab Results - Last 24 Hours (Table) 07/12/23 07/12/23 07/13/23 Range/Units 16:23 19:31 10:34 WBC 13.6 H (3.8-10.6) k/uL RBC 3.57 L (3.80-5.40) m/uL Hgb 10.5 L (11.4-16.0) gm/dL Hct 33.4 L (34.0-46.0) % Neutrophils # 10.3 H (1.3-7.7) k/uL Sodium (137-145) mmol/L Chloride (98-107) mmol/L Creatinine (0.52-1.04) mg/dL POC Glucose (mg/dL) 153 H 183 H (70-110) mg/dL 07/13/23 07/13/23 Range/Units 10:34 11:46 WBC (3.8-10.6) k/uL RBC (3.80-5.40) m/uL Hgb (11.4-16.0) gm/dL Hct (34.0-46.0) % Neutrophils # (1.3-7.7) k/uL Sodium 136 L (137-145) mmol/L Chloride 108 H (98-107) mmol/L Creatinine 0.41 L (0.52-1.04) mg/dL POC Glucose (mg/dL) 111 H (70-110) mg/dL Assessment and Plan Assessment: Postoperative day #3 status post IM nail left intertrochanteric femur fracture Other medical comorbidities Plan: Pain control, recommend use of current medications DVT prophylaxis, continue aspirin 325 mg twice daily Wound care, okay to utilize foam dressing for the next 3 to 5 days Weight-bear as tolerated with walker Encourage incentive spirometer Other medical specialty recommendations appreciated Discharge planning: Awaiting authorization for subacute rehab
--- NOTE | 2023-07-13 13:19 | P.DS ---
Providers Date of admission: 07/09/23 21:06 Expected date of discharge: 07/13/23 Attending physician: Mohan Shrestha DO Consults: 07/09/23 21:06 Consult Physician Routine Consulting Provider: Bethany Arguelles Consult Reason/Comments: medical management Do you want consulting provider notified?: Already Contacted 07/11/23 18:35 Consult Physician Routine Consulting Provider: Mark Anthony Trinidad Consult Reason/Comments: Left carotid artery stenosis Do you want consulting provider notified?: Yes Consult Physician Routine Consulting Provider: Jamaal Bryan Consult Reason/Comments: TIA, carotid stenosis Do you want consulting provider notified?: Yes Primary care physician: Miguel Elkins Cook Hospital Course: Date of admission: 07/09/2023 Date of discharge: 07/13/2023 Admission diagnosis: Displaced left intertrochanteric femur fracture Discharge diagnosis: Status post IM nail left intertrochanteric femur fracture Attending physician: Dr. Shrestha Surgical procedures: Intramedullary nail left intertrochanteric femur fracture Brief history: Patient is a 77-year-old female who presented to [facility] on 07/09/2023 after falling at home fracturing her left hip. Patient was scheduled for a intramedullary nail for the left intertrochanteric femur fracture for 07/10/2023. Hospital course: Details of patient's surgery can be found in operative report. Patient tolerated the procedure well and was subsequently transported to orthopedic floor. Patient's orthopeidc and medical care was provided daily. Patient had daily laboratory tests performed for evaluation of overall blood counts. Patient had daily physical therapy to include strengthening range of motion as well as education with walker ambulation. Patient was treated with aspirin for their postoperative DVT prophylaxis during their inpatient stay. Patient was followed by both neurology and vascular surgery during her hospital stay. Patient reported satisfactory pain control with oral pain medications by postoperative day 1. Patient showed satisfactory progress with physical therapy. Patient moved steadily through the program and had no difficulty meeting the goals by postoperative day 3. Given patient's otherwise satisfactory course and having met physical therapy goals, plan is to discharge patient to subacute rehab on postoperative day 3. Discharge condition/disposition: Patient will be discharged to subacute rehab in stable condition. Discharge medications: Instructions are given on resumption of patient's normal daily medications per primary care recommendation, in addition patient will be prescribed [place] 5 mg / 325 mg, aspirin 3 and 25 mg, senna S. Discharge instructions: 1. Wound care and infection precautions, keep incision dry and covered while showering, no lotions, creams, moisturizers. No soaking, tubs, pools, hottubs. Do not scrub over the incision. 2. Weight-bear as tolerated with walker / cane until follow-up. 3. Ice and elevate when necessary. Do not exceed 20 minutes per hour with ice pack. 4. Utilize compression sleeve until seen at first follow up appointment. 5. Visiting nursing care. 6. Home physical therapy. 7. Pain meds and anticoagulants per prescription. 8. Pain medication has potential to cause constipation. Increase oral fluid and fiber intake. Contact primary care provider if you have not had a bowel movement within 48 hours after discharge 9. No anti-inflammatory medication until discussed at first post operative visit, this including Motrin, Aleve, Mobic, Diclofenac 10. Follow up in office at 2 weeks postop with Samir Lowe PA-C/Eladio Odom 11. Follow up with your primary care doctor 7-10 days after discharge. 12. Contact [facility] with any questions, . Procedures: Intramedullary nail left intertrochanteric femur fracture Patient Condition at Discharge: Stable Plan - Discharge Summary Discharge Rx Participant: Yes New Discharge Prescriptions: New Atorvastatin [Lipitor] 40 mg PO HS #60 tab Aspirin 325 mg PO BID #60 tab Sennosides/Docusate Sodium [Senna-S 8.6-50 mg Tablet] 2 each PO DAILY PRN #30 tablet PRN Reason: Constipation HYDROcodone/APAP 5-325MG [[place] 5-325] 1 tab PO Q6HR PRN #28 tab PRN Reason: Pain Continue Levothyroxine Sodium [Synthroid] 50 mcg PO DAILY Enalapril [Vasotec] 5 mg PO DAILY Semaglutide [Rybelsus] 3 mg PO DAILY Ezetimibe [Zetia] 10 mg PO DAILY Changed Insulin Degludec [Tresiba Flextouch U-200 Pen] 10 units SQ HS #0 Discharge Medication List Levothyroxine Sodium [Synthroid] 50 mcg PO DAILY 10/19/16 [History] Enalapril [Vasotec] 5 mg PO DAILY 03/17/19 [History] Ezetimibe [Zetia] 10 mg PO DAILY 07/09/23 [History] Semaglutide [Rybelsus] 3 mg PO DAILY 07/09/23 [History] Aspirin 325 mg PO BID #60 tab 07/13/23 [Rx] Atorvastatin [Lipitor] 40 mg PO HS #60 tab 07/13/23 [Rx] HYDROcodone/APAP 5-325MG [[place] 5-325] 1 tab PO Q6HR PRN #28 tab 07/13/23 [Rx] Insulin Degludec [Tresiba Flextouch U-200 Pen] 10 units SQ HS #0 07/13/23 [Rx] Sennosides/Docusate Sodium [Senna-S 8.6-50 mg Tablet] 2 each PO DAILY PRN #30 tablet 07/13/23 [Rx] Follow up Appointment(s)/Referral(s): Kellee Colon MD [STAFF PHYSICIAN] - 2 Weeks Miguel Lopez MD [Primary Care Provider] - 1-2 days Mark Anthony Trinidad DO [STAFF PHYSICIAN] - 1 Week Mohan Shrestha DO [Doctor of Osteopathic Medicine] - 2 Weeks Activity/Diet/Wound Care/Special Instructions: Orthopedic Discharge Instructions: 1. Wound care and infection precautions, keep incision dry and covered while showering, no lotions, creams, moisturizers. No soaking, pools, hot tubs. Do not scrub over incision. 2. Weight-bear as tolerated with walker / cane until follow-up. 3. Ice and elevate when necessary. Do not exceed 20 minutes per hour with ice pack. 4. Utilize compression sleeve until seen at first follow up appointment. 5. Pain meds and anticoagulants per prescription. 6. Pain medication has potential to cause constipation. Increase oral fluid and fiber intake. Contact primary care provider if you have not had a bowel movement within 48 hours after discharge. 7. No anti-inflammatory medication until discussed at first post operative visit, this including Motrin, Aleve, Mobic, Diclofenac. 8. Follow up in office at 2 weeks postop with Samir Lowe PA-C/Eladio Fallon PA-C 9. Follow up with your primary care doctor 7-10 days after discharge. 10. Contact [facility] with any questions, . Discharge Disposition: TRANSFER TO SNF/ECF
[2023-07-13 20:25] LABS: Chol/HDL Ratio 3.81 Ratio; LDL Cholesterol,Calculated 135.1 mg/dL (0.0-131.0); VLDL Calculation 19.78 mg/dL (5.00-40.00)
== END 2023-07-13 16:15 | DRG 480 ==
LOC: EC 17:53 → 4SSUR 21:06 → 3SCARD 07-11 19:45
PROVIDERS: ADMIT Orthopaedic Surgery; ATTEND Orthopaedic Surgery
PROC: 0QS734Z Reposition Left Upper Femur with Internal Fixation Device, Percutaneous Approach (ICD-10-PCS; principal; 2023-07-11)
PROC: 3E0T3BZ Introduction of Anesthetic Agent into Peripheral Nerves and Plexi, Percutaneous Approach (ICD-10-PCS; 2023-07-11)
DX: S72.145A Nondisplaced intertrochanteric fracture of left femur, initial encounter for closed fracture (principal); G92.8 Other toxic encephalopathy; J96.01 Acute respiratory failure with hypoxia; N39.0 Urinary tract infection, site not specified; M19.90 Unspecified osteoarthritis, unspecified site; I65.23 Occlusion and stenosis of bilateral carotid arteries; D64.9 Anemia, unspecified; H91.90 Unspecified hearing loss, unspecified ear; I08.3 Combined rheumatic disorders of mitral, aortic and tricuspid valves; M06.9 Rheumatoid arthritis, unspecified; K58.9 Irritable bowel syndrome, unspecified; E03.9 Hypothyroidism, unspecified; Z79.890 Hormone replacement therapy; E78.5 Hyperlipidemia, unspecified; I10 Essential (primary) hypertension; I27.20 Pulmonary hypertension, unspecified; I08.1 Rheumatic disorders of both mitral and tricuspid valves; W01.0XXA Fall on same level from slipping, tripping and stumbling without subsequent striking against object, initial encounter; Y92.009 Unspecified place in unspecified non-institutional (private) residence as the place of occurrence of the external cause; Z87.442 Personal history of urinary calculi; Z98.42 Cataract extraction status, left eye; Z98.41 Cataract extraction status, right eye; Z79.899 Other long term (current) drug therapy; Z86.73 Personal history of transient ischemic attack (TIA), and cerebral infarction without residual deficits; Z95.1 Presence of aortocoronary bypass graft; Z90.710 Acquired absence of both cervix and uterus; Z95.2 Presence of prosthetic heart valve; Z78.1 Physical restraint status; Z87.19 Personal history of other diseases of the digestive system; Z79.4 Long term (current) use of insulin
CPT/HCPCS: 36415; 36600; 51702; 70450; 70496; 70498; 71045; 72192; 73502; 80048; 80053; 80061; 81001; 82805; 83036; 83735; 84100; 85025; 85027; 85610; 85730; 93005; 93306; 93880; 93970; 96361; 96374; 99285

== ENCOUNTER 2024-03-03 19:10 | Emergency (ER) | payer MEDICARE ==
[2024-03-03 19:19] VITALS: TEMP 98.5
[2024-03-03 19:20] LABS: Glucose,Whole Blood 152 mg/dL (70-110)
[2024-03-03] MEDS: SODIUM CHLORIDE 0.9% 1,000 ML IV STA ×2 (19:56→21:27)
[2024-03-03 19:59] LABS: Basophils % (A) 0 %; Eosinophils % (A) 0 %; HCT 42.3 % (34.0-46.0); HGB 13.9 gm/dL (11.4-16.0); Lymphocytes # (A) 2.3 k/uL (1.0-4.8); Lymphocytes % (A) 14 %; MCH 29.4 pg (25.0-35.0); MCHC 32.9 g/dL (31.0-37.0); MCV 89.5 fL (80.0-100.0); Mean Platelet Volume 8.4; Monocytes # (A) 0.7 k/uL (0-1.0); Monocytes % (A) 4 %; Neutrophils # (A) 13.7 k/uL (1.3-7.7); Neutrophils % (A) 80 %; Platelet Count 338 k/uL (150-450); RBC 4.72 m/uL (3.80-5.40); RDW 13.7 % (11.5-15.5); WBC 17.1 k/uL (3.8-10.6)
[2024-03-03 20:03] LABS: Lactic Acid, Venous 1.3 mmol/L (0.7-2.0)
[2024-03-03 20:06] LABS: ALT 14 U/L (4-34); AST 29 U/L (14-36); Acetaminophen <10.0 ug/mL; African American GFR (CKD) >90 (>60 ml/min/1.73 sqM); Albumin 4.5 g/dL (3.5-5.0); Alcohol <10 mg/dL; Alkaline Phosphatase 76 U/L (38-126); Anion Gap 7 mmol/L; Blood Urea Nitrogen 13 mg/dL (7-17); Calcium 9.8 mg/dL (8.4-10.2); Carbon Dioxide 26 mmol/L (22-30); Chloride 101 mmol/L (98-107); Creatine Kinase 294 U/L (30-135); Glucose 171 mg/dL (74-99); Non-African American GFR(CKD) >90 (>60 ml/min/1.73 sqM); Potassium 4.4 mmol/L (3.5-5.1); Salicylate <1.0 mg/dL; Sodium 134 mmol/L (137-145); Total Protein 7.4 g/dL (6.3-8.2)
[2024-03-03 20:14] LABS: Appearance,Urine Clear (Clear); Bacteria,Urine Rare /hpf; Bilirubin,Urine Negative (Negative); Blood,Urine Negative (Negative); Color,Urine Colorless; Glucose,Urine (UA) Negative (Negative); Ketones,Urine 1+ (Negative); Leukocyte Esterase,Urine Small (Negative); Mucus,Urine Rare /hpf; Nitrite,Urine Negative (Negative); Protein,Urine Negative (Negative); RBC,Urine 17 /hpf (0-5); Specific Gravity,Urine 1.013 (1.001-1.035); Urobilinogen,Urine <2.0 mg/dL (<2.0); WBC,Urine 6 /hpf (0-5)
[2024-03-03 20:20] LABS: INR 0.9 (<1.2); Prothrombin Time 10.4 sec (10.0-12.5)
[2024-03-03 20:21] LABS: Amphetamine Screen,Urine Not Detected (NotDetected); Barbiturate Screen,Urine Not Detected (NotDetected); Benzodiazepines Screen,Urine Not Detected (NotDetected); Cocaine Screen,Urine Not Detected (NotDetected); Methadone Screen, Urine Not Detected (NotDetected); Opiate Screen,Urine Not Detected (NotDetected); Oxycodone Screen, Urine Not Detected (NotDetected); Phencyclidine Screen,Urine Not Detected (NotDetected); Tricyclic Antidepressant,Urine Not Detected (NotDetected); Urn Cannabinoid Scrn Not Detected (NotDetected)
--- NOTE | 2024-03-03 20:26 | CT ---
EXAMINATION TYPE: CODE STROKE: CT brain wo contr DATE OF EXAM: 03/03/2024 HISTORY: Unable to follow commands. Family states pt typically ax0x4. Pt last seen normal at 10:00 on 03/02/[address] DLP: Combined DLP of 1533.7 mGycm. Automated Exposure Control for Dose Reduction was Utilized. TECHNIQUE: CT scan of the head is performed without contrast. COMPARISON: CT brain July 11, 2023. FINDINGS: There is no acute intracranial hemorrhage or midline shift identified. There is new vague low attenuation in the left MCA distribution involving frontal and parietal lobes extending into the anterior superior temporal lobe also involving left head of caudate nucleus and basal ganglia. Hype rdense left MCA is noted. Bilateral aphakia is redemonstrated. Mild to moderate low attenuation of pe riventricular white matter again seen. IMPRESSION: There is large left acute MCA distribution infarct due to significant acute thrombus susp ected occlusion of the middle cerebral artery. No acute intracranial hemorrhage. [facility], , 03/03/2024 8:24 PM
--- NOTE | 2024-03-03 21:05 | CT ---
EXAMINATION TYPE: CT angio head neck DATE OF EXAM: 03/03/2024 COMPARISON: Prior CTA had a neck July 11, 2023 CLINICAL INDICATION: Female, 78 years old with history of Neuro deficit, acute, stroke suspected; [facility] , Unable to follow commands. Family states pt typically ax0x4. Pt last seen normal at 10:00 on 03/02/24 by a friend. TECHNIQUE: CTA scan of the head and neck is performed with IV Contrast, patient injected with 65 ml mL of Isovue 370, axial images are obtained, coronal and sagittal reformatted images are reviewed. 3D reconstructed images are created on an independent workstation and reviewed. CT DLP: Combined DLP of 1533.[address] CTDI: mGy Automated exposure control for dose reduction was used. NASCET criteria was used in interpretation of this exam? FINDINGS: CTA HEAD: Complete occlusion of the distal left internal carotid artery extending into entire left middle cereb ral artery. Filling of the left anterior cerebral artery likely due to patent anterior communicating artery. The basilar and vertebral arteries are patent. CTA NECK: Right Carotid System: The common carotid and external carotid arteries are patent. There is approximate 90% stenosis at the carotid bifurcation secondary to calcified/noncalcified plaque redemonstrated. The rest of the inter nal carotid artery is patent without significant stenosis. Moderate peripheral calcified plaque dista lly redemonstrated. Left Carotid System: The common carotid artery redemonstrates moderate anterior mixed plaque in the distal left common car otid artery without significant stenosis. Finding could be parenchymal dissection. Dense calcified plaque or more likely small focal stent persistent at the origin of the internal brock tid artery blooming artifact limits evaluation. Complete occlusion shortly after stent is noted on cu rrent study. There is a three-vessel aortic arch. The origins of the great vessels are patent. No evidence of hemo dynamically significant stenosis. IMPRESSION: 1. Completely occluded left internal carotid artery shortly after tiny proximal stent extending into left middle cerebral artery. [facility], , 03/03/2024 9:03 PM
--- NOTE | 2024-03-03 21:07 | XR ---
EXAMINATION TYPE: XR chest 1V DATE OF EXAM: 03/03/2024 COMPARISON: Chest x-ray July 11, 2023 CLINICAL INDICATION: Female, 78 years old with history of altered mental status; TECHNIQUE: Single frontal view of the chest is obtained. FINDINGS: Overlying Sternal wires and left atrial appendage clip are redemonstrated. There is no dayan picious new focal air space opacity, pleural effusion, or pneumothorax seen. Mild interstitial promi nence bilaterally is less prominent versus prior. The cardiac silhouette size is stable and within no rmal limits. The osseous structures are intact. IMPRESSION: Perhaps mild bilateral interstitial edema though this is improved from most recent prior . [facility], , 03/03/2024 9:05 PM
--- NOTE | 2024-03-03 21:15 | ED ---
General Adult HPI - General Chief complaint: Altered Mental Status Stated complaint: Stroke Time Seen by Provider: 03/03/24 19:25 Source: patient, EMS, RN notes reviewed, old records reviewed Mode of arrival: EMS - History of Present Illness Initial comments: Patient is an 78-year-old female who presents emergency department as a suspected stroke. Last known well was at 10 AM on March 02, 2024 when she was in contact with a friend on the phone. Apparently that friend checked on the patient sometime this morning or last night and she did seem somewhat off as she is normally ANO x 4 and active but she was laying in bed, tired and they assumed she was feeling ill. They checked on her again this evening and found that she seemed worse at that time and was not really responsive. Was transferred here over concern for a stroke. His significant right sided deficits. Is tolerating oral secretions at this time and following basic commands. GCS of 11 approxim ately. Presents for further evaluation at this time. - Related Data Home Medications Medication Instructions Recorded Confirmed Levothyroxine Sodium [Synthroid] 50 mcg PO DAILY 10/19/16 07/09/23 Enalapril [Vasotec] 5 mg PO DAILY 03/17/19 07/09/23 Ezetimibe [Zetia] 10 mg PO DAILY 07/09/23 07/09/23 Semaglutide [Rybelsus] 3 mg PO DAILY 07/09/23 07/09/23 Previous Rx's Medication Instructions Recorded Aspirin 325 mg PO BID #60 tab 07/13/23 Atorvastatin [Lipitor] 40 mg PO HS #60 tab 07/13/23 HYDROcodone/APAP 5-325MG [[place] 1 tab PO Q6HR PRN #28 tab 07/13/23 5-325] Insulin Degludec [Tresiba 10 units SQ HS #0 07/13/23 Flextouch U-200 Pen] Sennosides/Docusate Sodium 2 each PO DAILY PRN #30 tablet 07/13/23 [Senna-S 8.6-50 mg Tablet] Allergies Allergy/AdvReac Type Severity Reaction Status Date / Time chrome Allergy Allergy Uncoded 07/09/23 20:24 Testing dust Allergy Allergy Uncoded 07/09/23 20:24 Testing Review of Systems ROS Statement: Those systems with pertinent positive or pertinent negative responses have been documented in the HPI. ROS Other: All systems not noted in ROS Statement are negative. Past Medical History Past Medical History: CVA/TIA, Diabetes Mellitus, Hyperlipidemia, Hypertension, Osteoarthritis (OA), Rheumatoid Arthritis (RA), Thyroid Disorder Additional Past Medical History / Comment(s): states TIA over 30yrs ago- no residual effects, "slight"heart murmur, insomnia, "3 hiatal hernias", hx IBS, kidney stone, History of Any Multi-Drug Resistant Organisms: None Reported Past Surgical History: Bowel Resection, Cardiac Valve Replacement, Coronary Bypass/CABG, Heart Catheterization, Hysterectomy, Orthopedic Surgery, [place] ctomy Additional Past Surgical History / Comment(s): left knee arthroscopy, orif left ankle with plate and screws-hardware later removed, uri cataracts, hemmorhoidectomy, "perforated colon with colonoscopy", thoracentesis; CABG and aortic valve replacement May 2018. Past Anesthesia/Blood Transfusion Reactions: No Reported Reaction Additional Past Anesthesia/Blood Transfusion Reaction / Comment(s): . Past Psychological History: No Psychological Hx Reported Smoking Status: Former smoker Past Alcohol Use History: None Reported Past Drug Use History: None Reported - Past Family History Mother Family Medical History: No Reported History General Exam - General Exam Comments Initial Comments: General: Appears in in mild to moderate distress. HEAD: Normal with no signs of head trauma. EYES: PERRLA, EOMI, conjunctiva normal, no discharge.'s are 3 mm and equal bilaterally. ENT: Hearing grossly intact, normal oropharynx. Tolerating oral secretions. RESPIRATORY: Clear breath sounds bilaterally. No wheezes, rales, or rhonchi. C/V: Regular rate and rhythm. S1 and S2 auscultated, no edema, peripheral pulses 2+ and intact throughout ABD: Abd is soft, nontender, nondistended EXT: Normal range of motion, no obvious deformity SKIN: No rashes or lesions observed on exposed skin. NEURO: Alert but not oriented. Patient is mute. GCS is approximately 10-11. Can follow basic commands. Has no movement over the right side of her body. Patient has significant right-sided deficits, is nonverbal, and is ataxic in the right upper and right lower extremities due to the inability to move them. NIH is over 20. Well was 10 AM on March 02, 2024. Course Vital Signs 03/03/24 03/03/24 03/03/24 19:14 20:20 21:15 Temperature 98.5 F Pulse Rate 60 61 64 Respiratory 20 18 18 Rate Blood Pressure 186/67 150/74 219/86 O2 Sat by Pulse 97 100 98 Oximetry Medical Decision Making - Medical Decision Making Was pt. sent in by a medical professional or institution ([facility] Thompson, [facility], urgent care, hospital, or long-term...) When possible be specific @ -No Did you speak to anyone other than the patient for history (EMS, parent, family, police, friend...)? What history was obtained from this source @ -EMS is the primary historian for the patient via nursing staff. Did you review nursing and triage notes (agree or disagree)? Why? @ -I reviewed and agree with nursing and triage notes Were old charts reviewed (outside hosp., previous admission, EMS record, old EKG, old radiological studies, urgent care reports/EKG's, long-term records)? Report findings @ -Old charts reviewed and it does not appear that the patient is on any blood thinners. Differential Diagnosis (chest pain, altered mental status, abdominal pain women, abdominal pain men, vaginal bleeding, weakness, fever, dyspnea, syncope, headache, dizziness, GI bleed, back pain, seizure, CVA, palpatations, mental health, musculoskeletal)? @ -Differential CVA Ischemic stroke, hemorrhagic stroke, brain tumor, atypical migraine, Wernicke's encephalopathy, seizure, multiple sclerosis, meningitis, encephalitis, hypoglycemia, Guillain-Lowery, electrolytes disturbance, myasthenia gravis.... This is not meant to be an all-inclusive list EKG interpreted by me (3pts min.). @ -As above X-rays interpreted by me (1pt min.). @ -Reveals no obvious acute cardiopulmonary process. CT interpreted by me (1pt min.). @ -CT brain reveals a significant large distribution left acute MCA infarct. CT angiogram reveals a large left ICA and left MCA occlusion. U/S interpreted by me (1pt. min.). @ -None done What testing was considered but not performed or refused? (CT, X-rays, U/S, la bs)? Why? @ -None What meds were considered but not given or refused? Why? @ -None Did you discuss the management of the patient with other professionals (professionals i.e. , PA, [employer], lab, RT, psych nurse, social services counselor, intellectual property lawyer, teacher, campus security officer, nurse outreach case manager)? Give summary @ -Discussed with the on-call neurointensivist, Dr. Luque who reviewed the patient's images. He does not recommend tenecteplase which I am in agreement with as last known well was over 24 hours ago. States it appears to be a completed infarct. Recommended transfer to higher level facility, [facility] for ICU admission and further management. Recommended permissive hypertension, aspirin administration. Was smoking cessation discussed for >3mins.? @ -No Was critical care preformed (if so, how long)? @ -Yes, 35 minutes. Were there social determinants of health that impacted care today? How? (Homelessness, low income, unemployed, alcoholism, drug addiction, transportation, low edu. Level, literacy, decrease access to med. care, [facility], rehab)? @ -No Was there de-escalation of care discussed even if they declined (Discuss DNR or withdrawal of care, Hospice)? DNR status @ -No What co-morbidities impacted this encounter? (DM, HTN, Smoking, COPD, CAD, Cancer, CVA, ARF, Chemo, Hep., AIDS, mental health diagnosis, sleep apnea, morbid obesity)? @ -None Was patient admitted / discharged? Hospital course, mention meds given and route, prescriptions, significant lab abnormalities, going to OR and other pertinent info. @ -Patient presents over concern for a significant stroke. Last known well was over 24 hours ago, at 10 AM on 03-02-2024. Patient was found this evening with a GCS of approximately 10-11 as well as significant right sided deficits. Stroke scale for NIH was greater than 20. Vitals are remarkable for mild hypertension. Was not made a stroke activation due to last known well time greater than 24 hours ago however we will obtain stroke workup. Patient has no family. Patient's listed in her chart has a cell phone number that does not appear to be functioning and nursing staff did a brief search and found an obituary for him, with his appearing to be a few years ago. No known contact information for any other friends or family at this time. Laboratory studies are unremarkable other than a mild leukocytosis of 17 which is likely reactive from underlying stroke. Remainder the labs unremarkable. EKG shows no significant signs of acute ischemia. Chest x-ray unremarkable. CT brain and CT angiogram of the head and neck reveals a large left sided MCA and ICA occlusion. Discussed the results with the on-call neurointensivist Dr. Luque. He reviewed the images and states that he believes these are completed infarcts. Does not recommend tenecteplase. Recommends aspirin administration rectally, as well as transferred to [facility] at higher level facility for further care. Recommended permissive hypertension. [facility] was contacted. Accepting physician is Dr. Luque as well as Dr. Gabriel of ER. Patient transferred in serious condition. Patient maintaining airway and tolerating secretions at this time. No change in GCS. We transferred on maintenance fluids following rectal aspirin. Patient was transferred with nicardipine drip however blood pressure is within acceptable limits at this time. Instructions given to EMS to initiate nicardipine if systolics exceeded 220, or diastolics exceed 120. Undiagnosed new problem with uncertain prognosis? @ -No Drug Therapy requiring intensive monitoring for toxicity (Heparin, Nitro, Insulin, Cardizem)? @ -No Were any procedures done? @ -No Diagnosis/symptom? @ -CVA Acute, or Chronic, or Acute on Chronic? @ -Acute Uncomplicated (without systemic symptoms) or Complicated (systemic symptoms)? @ -Complicated Side effects of treatment? @ -No Exacerbation, Progression, or Severe Exacerbation? @ -No Poses a threat to life or bodily function? How? (Chest pain, USA, MS, pneumonia, PE, COPD, DKA, ARF, appy, cholecystitis, CVA, Diverticulitis, Homicidal, Suicidal, threat to staff... and all critical care pts) @ -Yes - Lab Data Result diagrams: 03/03/24 19:40 03/03/24 19:40 Lab Results 03/03/24 03/03/24 03/03/24 Range/Units 19:16 19:40 19:40 WBC 17.1 H (3.8-10.6) k/uL RBC 4.72 (3.80-5.40) m/uL Hgb 13.9 (11.4-16.0) gm/dL Hct 42.3 (34.0-46.0) % MCV 89.5 (80.0-100.0) fL MCH 29.4 (25.0-35.0) pg MCHC 32.9 (31.0-37.0) g/dL RDW 13.7 (11.5-15.5) % Plt Count 338 (150-450) k/uL MPV 8.4 Neutrophils % 80 % Lymphocytes % 14 % Monocytes % 4 % Eosinophils % 0 % Basophils % 0 % Neutrophils # 13.7 H (1.3-7.7) k/uL Lymphocytes # 2.3 (1.0-4.8) k/uL Monocytes # 0.7 (0-1.0) k/uL Eosinophils # 0.0 (0-0.7) k/uL Basophils # 0.0 (0-0.2) k/uL PT 10.4 (10.0-12.5) sec INR 0.9 (<1.2) APTT 23.0 (22.0-30.0) sec Sodium (137-145) mmol/L Potassium (3.5-5.1) mmol/L Chloride (98-107) mmol/L Carbon Dioxide (22-30) mmol/L Anion Gap mmol/L BUN (7-17) mg/dL Creatinine (0.52-1.04) mg/dL Est GFR (CKD-EPI)AfAm (>60 ml/min/1.73 sqM) Est GFR (CKD-EPI)NonAf (>60 ml/min/1.73 sqM) Glucose (74-99) mg/dL POC Glucose (mg/dL) 152 H (70-110) mg/dL POC Glu Hall Worker ID Tejas Carpenter Plasma Lactic Acid Nikhil (0.7-2.0) mmol/L Calcium (8.4-10.2) mg/dL Total Bilirubin (0.2-1.3) mg/dL AST (14-36) U/L ALT (4-34) U/L Alkaline Phosphatase (38-126) U/L Ammonia (<30) umol/L Creatine Kinase (30-135) U/L Troponin I (0.000-0.034) ng/mL Total Protein (6.3-8.2) g/dL Albumin (3.5-5.0) g/dL Urine Color Urine Appearance (Clear) Urine pH (5.0-8.0) Ur Specific [place] (1.001-1.035) Urine Protein (Negative) Urine Glucose (UA) (Negative) Urine Ketones (Negative) Urine Blood (Negative) Urine Nitrite (Negative) Urine Bilirubin (Negative) Urine Urobilinogen (<2.0) mg/dL Ur Leukocyte Esterase (Negative) Urine RBC (0-5) /hpf Urine WBC (0-5) /hpf Urine Bacteria (None) /hpf Urine Mucus (None) /hpf Salicylates mg/dL Urine Opiates Screen (NotDetected) Ur Oxycodone Screen (NotDetected) Urine Methadone Screen (NotDetected) Acetaminophen ug/mL Ur Barbiturates Screen (NotDetected) U Tricyclic Antidepress (NotDetected) Ur Phencyclidine Scrn (NotDetected) Ur Amphetamines Screen (NotDetected) U Methamphetamines Scrn (NotDetected) U Benzodiazepines Scrn (NotDetected) Urine Cocaine Screen (NotDetected) U Marijuana (THC) Screen (NotDetected) Serum Alcohol mg/dL Influenza Type A (PCR) (Not Detectd) Influenza Type B (PCR) (Not Detectd) RSV (PCR) (Not Detectd) SARS-CoV-2 (PCR) (Not Detectd) 03/03/24 03/03/24 03/03/24 Range/Units 19:40 19:40 19:40 WBC (3.8-10.6) k/uL RBC (3.80-5.40) m/uL Hgb (11.4-16.0) gm/dL Hct (34.0-46.0) % MCV (80.0-100.0) fL MCH (25.0-35.0) pg MCHC (31.0-37.0) g/dL RDW (11.5-15.5) % Plt Count (150-450) k/uL MPV Neutrophils % % Lymphocytes % % Monocytes % % Eosinophils % % Basophils % % Neutrophils # (1.3-7.7) k/uL Lymphocytes # (1.0-4.8) k/uL Monocytes # (0-1.0) k/uL Eosinophils # (0-0.7) k/uL Basophils # (0-0.2) k/uL PT (10.0-12.5) sec INR (<1.2) APTT (22.0-30.0) sec Sodium 134 L (137-145) mmol/L Potassium 4.4 (3.5-5.1) mmol/L Chloride 101 (98-107) mmol/L Carbon Dioxide 26 (22-30) mmol/L Anion Gap 7 mmol/L BUN 13 (7-17) mg/dL Creatinine 0.44 L (0.52-1.04) mg/dL Est GFR (CKD-EPI)AfAm >90 (>60 ml/min/1.73 sqM) Est GFR (CKD-EPI)NonAf >90 (>60 ml/min/1.73 sqM) Glucose 171 H (74-99) mg/dL POC Glucose (mg/dL) (70-110) mg/dL POC Glu Hall Worker ID Plasma Lactic Acid Nikhil 1.3 (0.7-2.0) mmol/L Calcium 9.8 (8.4-10.2) mg/dL Total Bilirubin 1.0 (0.2-1.3) mg/dL AST 29 (14-36) U/L ALT 14 (4-34) U/L Alkaline Phosphatase 76 (38-126) U/L Ammonia 9 (<30) umol/L Creatine Kinase 294 H (30-135) U/L Troponin I 0.020 (0.000-0.034) ng/mL Total Protein 7.4 (6.3-8.2) g/dL Albumin 4.5 (3.5-5.0) g/dL Urine Color Urine Appearance (Clear) Urine pH (5.0-8.0) Ur Specific [place] (1.001-1.035) Urine Protein (Negative) Urine Glucose (UA) (Negative) Urine Ketones (Negative) Urine Blood (Negative) Urine Nitrite (Negative) Urine Bilirubin (Negative) Urine Urobilinogen (<2.0) mg/dL Ur Leukocyte Esterase (Negative) Urine RBC (0-5) /hpf Urine WBC (0-5) /hpf Urine Bacteria (None) /hpf Urine Mucus (None) /hpf Salicylates <1.0 mg/dL Urine Opiates Screen (NotDetected) Ur Oxycodone Screen (NotDetected) Urine Methadone Screen (NotDetected) Acetaminophen <10.0 ug/mL Ur Barbiturates Screen (NotDetected) U Tricyclic Antidepress (NotDetected) Ur Phencyclidine Scrn (NotDetected) Ur Amphetamines Screen (NotDetected) U Methamphetamines Scrn (NotDetected) U Benzodiazepines Scrn (NotDetected) Urine Cocaine Screen (NotDetected) U Marijuana (THC) Screen (NotDetected) Serum Alcohol <10 mg/dL Influenza Type A (PCR) (Not Detectd) Influenza Type B (PCR) (Not Detectd) RSV (PCR) (Not Detectd) SARS-CoV-2 (PCR) (Not Detectd) 03/03/24 03/03/24 Range/Units 19:40 19:47 WBC (3.8-10.6) k/uL RBC (3.80-5.40) m/uL Hgb (11.4-16.0) gm/dL Hct (34.0-46.0) % MCV (80.0-100.0) fL MCH (25.0-35.0) pg MCHC (31.0-37.0) g/dL RDW (11.5-15.5) % Plt Count (150-450) k/uL MPV Neutrophils % % Lymphocytes % % Monocytes % % Eosinophils % % Basophils % % Neutrophils # (1.3-7.7) k/uL Lymphocytes # (1.0-4.8) k/uL Monocytes # (0-1.0) k/uL Eosinophils # (0-0.7) k/uL Basophils # (0-0.2) k/uL PT (10.0-12.5) sec INR (<1.2) APTT (22.0-30.0) sec Sodium (137-145) mmol/L Potassium (3.5-5.1) mmol/L Chloride (98-107) mmol/L Carbon Dioxide (22-30) mmol/L Anion Gap mmol/L BUN (7-17) mg/dL Creatinine (0.52-1.04) mg/dL Est GFR (CKD-EPI)AfAm (>60 ml/min/1.73 sqM) Est GFR (CKD-EPI)NonAf (>60 ml/min/1.73 sqM) Glucose (74-99) mg/dL POC Glucose (mg/dL) (70-110) mg/dL POC Glu Hall Worker ID Plasma Lactic Acid Nikhil (0.7-2.0) mmol/L Calcium (8.4-10.2) mg/dL Total Bilirubin (0.2-1.3) mg/dL AST (14-36) U/L ALT (4-34) U/L Alkaline Phosphatase (38-126) U/L Ammonia (<30) umol/L Creatine Kinase (30-135) U/L Troponin I (0.000-0.034) ng/mL Total Protein (6.3-8.2) g/dL Albumin (3.5-5.0) g/dL Urine Color Colorless Urine Appearance Clear (Clear) Urine pH 7.0 (5.0-8.0) Ur Specific [place] 1.013 (1.001-1.035) Urine Protein Negative (Negative) Urine Glucose (UA) Negative (Negative) Urine Ketones 1+ H (Negative) Urine Blood Negative (Negative) Urine Nitrite Negative (Negative) Urine Bilirubin Negative (Negative) Urine Urobilinogen <2.0 (<2.0) mg/dL Ur Leukocyte Esterase Small H (Negative) Urine RBC 17 H (0-5) /hpf Urine WBC 6 H (0-5) /hpf Urine Bacteria Rare H (None) /hpf Urine Mucus Rare H (None) /hpf Salicylates mg/dL Urine Opiates Screen Not Detected (NotDetected) Ur Oxycodone Screen Not Detected (NotDetected) Urine Methadone Screen Not Detected (NotDetected) Acetaminophen ug/mL Ur Barbiturates Screen Not Detected (NotDetected) U Tricyclic Antidepress Not Detected (NotDetected) Ur Phencyclidine Scrn Not Detected (NotDetected) Ur Amphetamines Screen Not Detected (NotDetected) U Methamphetamines Scrn Not Detected (NotDetected) U Benzodiazepines Scrn Not Detected (NotDetected) Urine Cocaine Screen Not Detected (NotDetected) U Marijuana (THC) Screen Not Detected (NotDetected) Serum Alcohol mg/dL Influenza Type A (PCR) Not Detected (Not Detectd) Influenza Type B (PCR) Not Detected (Not Detectd) RSV (PCR) Not Detected (Not Detectd) SARS-CoV-2 (PCR) Not Detected (Not Detectd) - EKG Data -: EKG Interpreted by Me EKG Comments: 12-lead Electrocardiogram Interpretation Note EKG was reviewed and interpreted by myself. 12-lead ECG performed at 1922 is interpreted by me as revealing normal sinus rhythm at a rate of 64 beats per minute. [place] is normal. VA interval is 152 ms, QRS duration is 104 ms, QTc is 474 ms. There were no [address] or T wave abnormalities to suggest myocardial ischemia or injury. R wave progression across the precordium was satisfactory. By my interpretation this EKG is non-diagnostic for acute ischemia. PVCs present. 12-lead Electrocardiogram Interpretation Note EKG was reviewed and interpreted by myself. 12-lead ECG performed at 2042 is interpreted by me as revealing unknown rhythm at a rate of 92 beats per minute. [place] is normal. QRS duration is 102 ms, QTc is 440 ms.. There were no ST or T wave abnormalities to suggest myocardial ischemia or injury. R wave progression across the precordium was satisfactory. By my interpretation this EKG is non- diagnostic for acute ischemia. PVCs present. Critical Care Time Critical Care Time: Yes Total Critical Care Time: 35 Disposition Clinical Impression: CVA (cerebral vascular accident) Disposition: OTHER INSTITUTION NOT DEFINED Condition: Serious Referrals: Miguel Lopez MD [Primary Care Provider] - 1-2 days Time of Disposition: 21:21 - Out of Hospital Transfer - Req. Specs Out of Hospital Transfer - Requested Specifics: Other Emergency Center (T ransferred to [facility] for further care due to need for neurosurg/neuro crit care evaluation. Transfer per Dr. Luque.)
[2024-03-03] MEDS: ASPIRIN 300 MG SUPP RECTAL STA (21:24)
[2024-03-03] MEDS: niCARdipine 20 MG in SODIUM CHLORIDE 0.9% 192 ML IV SCH (21:45)
[2024-03-03 21:48] VITALS: RESP 18
[2024-03-03 21:49] VITALS: BP 219/86; PULSE 64
== END 2024-03-03 21:45 | disposition other institution (70) ==
LOC: EC 19:10
DX: I63.9 Cerebral infarction, unspecified (principal); D72.829 Elevated white blood cell count, unspecified; Z11.52 Encounter for screening for COVID-19; Z91.09 Other allergy status, other than to drugs and biological substances; Z87.891 Personal history of nicotine dependence
CPT/HCPCS: 36415; 93005; 80053; 82140; 82550; 83605; 84484; 85025; 85610; 85730; 81001; 80306; 80143; 87636; 80179; 71045; 70496; 70450; 70498; 99291; 96374; 96361; G0480; Q9967; 80320